=== PATIENT | male | born 1935 | race Caucasian/White ===

== ENCOUNTER → 2016-05-26 | Outpatient (CLI) | payer MEDICARE ==
[~2016-05-26] MED LIST: ADVIN25/60 INH; ALBU18002 INH; ALBU1AER9 INH; AMOX500C3 PO; ASPI-113 PO; CIPR0.3S OTR; LOSA100T65 PO; MULT-506 PO; OMEP40CA41 PO; PRVC/20 PO
[2016-05-26 12:46] LABS: ALT/SGPT 26 U/L (12-78); BLOOD UREA NITROGEN 12 mg/dl (7-18); BUN/CREATININE RATIO 13.8 (10-20); CARBON DIOXIDE 27 mmol/L (21-32); CHLORIDE 108 mmol/L (98-107); CHOLESTEROL 196 mg/dl (0-200); CREATININE 0.84 mg/dl (0.60-1.40); GLUCOSE 87 mg/dl (70-99); POTASSIUM 3.9 mmol/L (3.5-5.1); SODIUM 141 mmol/L (136-145); TRIGLYCERIDES 96 mg/dl (0-150); VERY LOW DENSITY LIPOPROT CALC 19 mg/dl
[2016-05-26 12:57] LABS: ALB/GLOB RATIO 1.2 (0.9-2); ALKALINE PHOSPHATASE 101 U/L (45-117); AST/SGOT 21 U/L (15-37); CHOLESTEROL/HDL RATIO 4.6; HDL CHOLESTEROL 43 mg/dl; LDL CHOLESTEROL CALCULATED 134 mg/dl
--- NOTE | 2016-06-02 11:55 | CODING QUERY MEDICAL NECESSITY ---
CQSUPPORTING DIAGNOSIS NEEDED A supporting diagnosis is required for the test/procedure performed on this patient in order for us to be reimbursed by the patient's insurance. Please provide a supporting diagnosis for the following test/procedure listed below next to the test name along with your signature. *If there is no additional diagnosis for this patient that would support the following test/procedure please document that below next to the test/procedure. Test(s)/Procedure(s) that require a supporting diagnosis: DOS 05/26/16 VITAMIN D TEST Provider Signature: Date: Thank you Nuvia Weiner [facility] Information Management Once completed, please kindly fax back to [phone] For questions please call [phone]
== END | disposition home or self-care (01) ==
LOC: C.LABPVFM 07:33
PROVIDERS: ATTEND Family Medicine
DX: Z13.21 Encounter for screening for nutritional disorder (principal); I25.10 Atherosclerotic heart disease of native coronary artery without angina pectoris; E78.5 Hyperlipidemia, unspecified; I10 Essential (primary) hypertension; I49.9 Cardiac arrhythmia, unspecified

== ENCOUNTER 2016-08-14 07:38 | Emergency (ER) | payer MEDICARE ==
[~2016-08-14] VITALS: Ht 170.2 cm; Wt 86.9 kg
[~2016-08-14 07:38] MED LIST changes: -ALBU18002 INH; -AMOX500C3 PO; -CIPR0.3S OTR; -MULT-506 PO
[2016-08-14 07:47] VITALS: PULSE 66; TEMP 36.6; O2SAT 97; Ht 170.2 cm; Wt 86.9 kg
[2016-08-14] MEDS ORDERED: MULT-506 PO (08:19)
[2016-08-14] MEDS ORDERED: ALBU18002 INH (08:20)
[2016-08-14] MEDS ORDERED: AMOXICILLIN 250 MG CAP PO STA (08:34)
[2016-08-14] MEDS ORDERED: CIPROFLOXACIN HCL 0.3% OP SOLN 2.5 ML BTL OT ONE (08:45)
[2016-08-14] MEDS ORDERED: CIPR0.3S OTR (08:57)
[2016-08-14] MEDS ORDERED: AMOX500C3 PO (08:57)
--- NOTE | 2016-08-14 08:57 | EMERGENCY ROOM VISIT NOTE ---
ED Visit Note First contact with patient: 07:58 CHIEF COMPLAINT: Right ear pain 1 week HISTORY OF PRESENT ILLNESS: Patient is a 80-year-old white male who presents emergency department for evaluation of right ear pain 1 week. He complains of both inner and outer ear pain. He states that it hurts worse with pressure. 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 He has not been ill recently with any cold or upper respiratory symptoms. No sore throat, rhinorrhea, and fever or chills. No drainage or discharge from the ear. He states that the pain in his ear radiates into his jaw. He tried putting peroxide in his ear last night. The pain was worse this morning. He has a sensation that he has "water in his ear." He denies any lightheadedness or dizziness. He is completely edentulous, and denies any dental or mouth pain. REVIEW OF SYSTEMS: Review of systems as per HPI. All other systems reviewed were negative. 10 systems reviewed. PMH: Electronic medical records are reviewed and summarized as above/below. See Problem List. SOCIAL HISTORY: Patient lives at home. Smoker. PHYSICAL EXAM: Vital Signs: Reviewed Nurse's notes. MENTAL STATUS: Alert and cooperative. Nontoxic appearing. HEAD: Atraumatic, without temporal or scalp tenderness. EYES: PERRL, EOMI, no discharge or injection. EARS: Left tympanic membrane intact, not inflamed, have normal contour. External is clear. 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 There is tragal and auricular motion tenderness on the right. The ear is not erythematous or swollen. The ear is no pain or swelling over the mastoid. NOSE: Nares patent, turbinates moist with clear rhinorrhea. MOUTH: Mucous membranes moist, no lesions, tongue and gums appear normal. THROAT: No pharyngeal injection, exudates, or tonsillar hypertrophy. Airway is patent. NECK: Supple, nontender, no lymphadenopathy. HEART: Regular rate and rhythm without murmurs, ectopy, gallops, or rubs. LUNGS: Clear to auscultation and breath sounds equal, no wheezes, rales, or rhonchi. SKIN: Normal. Large lipoma noted in the right occipital area. NEUROLOGICAL: Sensory and motor functions grossly intact. Normal gait. ED course: The patient was seen and assessed as above. His old records are reviewed. He does appear to have evidence for a otitis media, with a chronic perforation, likely causing an otitis externa as well. Ciloxan drops were instilled in the ear canal and he will be placed on amoxicillin. He was encouraged to have close follow-up with his PCP. He may need to be seen by ENT , however this does appear to be a chronic perforation. He does not have any evidence for post-pharyngitis, mastoiditis or a cellulitis. I do not suspect a malignant otitis externa. The patient declined narcotic analgesia. Blood pressure screening: Patient was found to have an elevated blood pressure and was referred to their primary doctor for recheck and further treatment. Medication reconciliation: I attest that I have personally reviewed the patient' s current medication list. 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 (2) COPD (chronic obstructive pulmonary disease) Status: Chronic (3) Epistaxis Status: Resolved (4) Esophageal obstruction due to food impaction Status: Resolved (5) Esophageal Stricture Status: Chronic (6) Hyperlipidemia, Unspecified Status: Chronic (7) Hypertension Nos Status: Chronic Surgical Problems: (1) Percutaneous Translum Coron Angioplasty Status Status: Resolved Current/Historical Medications Scheduled Amoxicillin (Amoxil), 500 MG PO TID Aspirin Enteric Coated (Ecotrin Or Generic), 325 MG PO BID Ciprofloxacin Hcl (Ophth) (Ciloxan Oph), 4 DROP OTR QID Losartan Potassium (Cozaar), 100 MG PO DAILY Multivitamin (Multivitamin), 1 TAB PO DAILY Pravastatin Sod (Pravastatin Sodium), 20 MG PO Q2D Scheduled PRN Albuterol Sulfate (Proair Respiclick), 2 PUFFS INH Q4 PRN for SOB/Wheezing Fluticasone Prop/Salmeterol (Advair Diskus 250/50 60 Dose), 1 PUFF INH Q12 PRN for SOB/Wheezing Allergies Coded Allergies: No Known Allergies (Verified , 08/14/16) Vital Signs Date Time Temp Pulse Resp B/P (MAP) Pulse Ox O2 Delivery O2 Flow Rate FiO2 08/14/16 09:24 178/92 08/14/16 07:47 36.6 66 18 186/90 97 Room Air Medications Administered Medications (Trade) Dose Ordered Sig/Fransisca Route Start Time Stop Time Status Last Admin Dose Admin Amoxicillin (Amoxil Cap) 500 mg NOW STAT PO 08/14/16 08:34 08/14/16 08:36 DC 08/14/16 09:03 500 MG Ciprofloxacin HCl (Ciprofloxacin 0.3% Op Soln) 4 drops Q4H ONCE OT 08/14/16 08:45 08/14/16 08:53 DC 08/14/16 09:03 4 DROPS Departure Information Impression Primary Impression: Right otitis externa Additional Impression: Right otitis media Prescriptions Ciprofloxacin Hcl (Ophth) (CILOXAN OPH) 0.3 % Luly 4 DROP OTR QID, #1 BTL Prov: Stephanie Rose PA 08/14/16 Amoxicillin (AMOXIL) 500 Mg Cap 500 MG PO TID, #30 CAP Prov: Stephanie Rose PA 08/14/16 Referrals Luna You M.D. (PCP) Patient Instructions My [facility] Additional Instructions Amoxicillin 500mg: Take one pill 3 times daily for 10 days for your skin infection. All antibiotics can cause diarrhea. If this occurs and you feel worse or it does not resolve in 1-2 days follow up with your doctor or return to the Emergency Department as this could be signs of serious underlying problems. Any medication can cause an allergic reaction, stop the pills immediately and return to the ER for rash, hives, breathing difficulties, or swelling. Cipro drops : 4 drops in the right ear 4 times daily for 7 days. Ibuprofen(Motrin, Advil) may be used for fever or pain. Use 600mg every six hours as needed. Take with food. Avoid using more than 2400mg in a 24 hour period. Do not use 2400mg per day for more than three consecutive days without physician direction. Prolonged inappropriate use can lead to stomach upset or ulcers. (AND/OR) Acetaminophen(Tylenol) may be used for fever or pain. Use 1000mg every six hours as needed. Avoid using more than 3000mg in a 24 hour period. Continue current medications. Follow-up with your primary care physician this week for recheck. Return to the emergency department for worsening ear pain, fevers, neck pain or stiffness, vomiting, severe headaches, worsening symptoms or as needed. Problem Qualifiers Primary Impression: Right otitis externa Otitis externa type: other infective Chronicity: acute Qualified Codes: H60.391 - Other infective otitis externa, right ear Additional Impression: Right otitis media Otitis media type: suppurative Chronicity: acute Recurrence: not specified as recurrent Spontaneous tympanic membrane rupture: without spontaneous rupture Qualified Codes: H66.001 - Acute suppurative otitis media without spontaneous rupture of ear drum, right ear
[2016-08-14 09:24] VITALS: BP 178/92
--- NOTE | 2016-08-14 15:21 | EMERGENCY ROOM VISIT NOTE ---
ED Visit Note First contact with patient: 07:58 I have personally evaluated this patient examined her and reviewed the pertinent labs and data. I have discussed the case with Bushra Rose, the physician assistant passenger locomotive engineer and agree with the plan. Please refer to the PA note. This patient comes in with left-sided ear pain. On exam his tympanic membranes has purulence behind her with some drainage in the canal as well. The pinna is not swollen but is mildly tender. He has no findings to suggest mastoiditis. He is nontoxic. There is nothing to suggest malignant otitis externa. We will give him oral antibiotics as well as eardrops as it does appear that he has otitis externa as well as media. He should follow-up with his regular doctor and return if symptoms get worse.
== END 2016-08-14 09:25 | disposition home or self-care (01) ==
LOC: C.EDB 07:40
DX: H60.391 Other infective otitis externa, right ear (principal); H66.001 Acute suppurative otitis media without spontaneous rupture of ear drum, right ear; I25.10 Atherosclerotic heart disease of native coronary artery without angina pectoris; J44.9 Chronic obstructive pulmonary disease, unspecified; E78.5 Hyperlipidemia, unspecified; I10 Essential (primary) hypertension; Z79.82 Long term (current) use of aspirin

== ENCOUNTER → 2016-12-04 | Outpatient (CLI) | payer MEDICARE ==
[~2016-12-04] MED LIST changes: +ALBU18002 INH; -ALBU1AER9 INH; +MULT-506 PO; -OMEP40CA41 PO
[2016-12-04 13:44] LABS: ALT/SGPT 19 U/L (12-78); AST/SGOT 11 U/L (15-37); BLOOD UREA NITROGEN 11 mg/dl (7-18); BUN/CREATININE RATIO 12.8 (10-20); CALCIUM 8.6 mg/dl (8.5-10.1); CARBON DIOXIDE 26 mmol/L (21-32); CHLORIDE 107 mmol/L (98-107); CREATININE 0.83 mg/dl (0.60-1.40); GLUCOSE 90 mg/dl (70-99); POTASSIUM 4.1 mmol/L (3.5-5.1); SODIUM 139 mmol/L (136-145)
[2016-12-04 13:47] LABS: ALB/GLOB RATIO 1.1 (0.9-2); ALKALINE PHOSPHATASE 97 U/L (45-117); CHOLESTEROL 171 mg/dl (0-200); CHOLESTEROL/HDL RATIO 4.3; HDL CHOLESTEROL 40 mg/dl; LDL CHOLESTEROL CALCULATED 101 mg/dl; TRIGLYCERIDES 149 mg/dl (0-150); VERY LOW DENSITY LIPOPROT CALC 30 mg/dl
== END | disposition home or self-care (01) ==
LOC: C.LABPVFM 07:33
PROVIDERS: ATTEND Family Medicine
DX: J44.9 Chronic obstructive pulmonary disease, unspecified (principal); I25.10 Atherosclerotic heart disease of native coronary artery without angina pectoris; E78.5 Hyperlipidemia, unspecified; I10 Essential (primary) hypertension

== ENCOUNTER → 2017-06-06 | Outpatient (CLI) | payer MEDICARE ==
[2017-06-06 14:10] LABS: ALBUMIN 3.5 gm/dl (3.4-5.0); ALKALINE PHOSPHATASE 99 U/L (45-117); AST/SGOT 12 U/L (15-37); BLOOD UREA NITROGEN 14 mg/dl (7-18); CALCIUM 8.8 mg/dl (8.5-10.1); CARBON DIOXIDE 27 mmol/L (21-32); CREATININE 0.88 mg/dl (0.60-1.40); GLUCOSE 87 mg/dl (70-99); POTASSIUM 3.8 mmol/L (3.5-5.1); SODIUM 141 mmol/L (136-145)
[2017-06-06 14:14] LABS: ALT/SGPT 21 U/L (12-78); CHOLESTEROL 141 mg/dl (0-200); LDL CHOLESTEROL CALCULATED 84 mg/dl; TOTAL PROTEIN 7.2 gm/dl (6.4-8.2)
== END | disposition home or self-care (01) ==
LOC: C.LABPVFM 07:27
PROVIDERS: ATTEND Family Medicine
DX: J44.9 Chronic obstructive pulmonary disease, unspecified (principal); I25.10 Atherosclerotic heart disease of native coronary artery without angina pectoris; Z95.5 Presence of coronary angioplasty implant and graft; I10 Essential (primary) hypertension; E78.5 Hyperlipidemia, unspecified

== ENCOUNTER 2018-06-21 09:46 | Inpatient (IN) ==
--- NOTE | 2018-06-05 09:37 | PAT Medication Instructions ---
Medication Instructions Date of Service June 05, 2018 Home Medications albuterol sulfate [ProAir HFA] 2 puff INHALATION Q4 PRN fluticasone propion-salmeterol 1 inh INHALATION Q12H PRN amlodipine 10 mg PO QAM aspirin 325 mg PO BID calcium carbonate [Calcium 600] 600 mg PO QAM multivitamin 1 tab PO QAM pravastatin [Pravachol] 20 mg PO QAM ASK your prescriber and surgeon aspirin 325 mg PO BID DO NOT take the morning of surgery calcium carbonate [Calcium 600] 600 mg PO QAM multivitamin 1 tab PO QAM Take morning of surgery With a small sip of water, OTHERWISE NOTHING TO EAT OR DRINK AFTER MIDNIGHT: albuterol sulfate [ProAir HFA] 2 puff INHALATION Q4 PRN (use if needed; please bring with you to hospital day of surgery if possible) fluticasone propion-salmeterol 1 inh INHALATION Q12H PRN (if needed) amlodipine 10 mg PO QAM pravastatin [Pravachol] 20 mg PO QAM Take evening before surgery albuterol sulfate [ProAir HFA] 2 puff INHALATION Q4 PRN (if needed) fluticasone propion-salmeterol 1 inh INHALATION Q12H PRN (if needed) Other Notes If you have any questions please call us at [phone] or [phone] or [phone] or [phone]
--- NOTE | 2018-06-06 09:04 | Anesthesiology Consultation ---
Date of Service June 06, 2018 Assessment & Plan (1) Encounter for pre-operative examination: - Cardio: 06/12/18: "Pending the results of the echo, patient is at an acceptable risk to proceed with surgery without any additional cardiovascular testing or intervention.. Recommend close monitoring and avoidance of hypotension, hypertension, tachycardia, hypoxia, and significant anemia throughout the perioperative period to reduce myocardial oxygen demand and meet myocardial oxyg en delivery." ECHO done 06/18/18; unremarkable findings (see testing section for details). - Per surgeon, okay to continue ASA perioperatively* Chart Review Chart Review: Acceptable Risk for Surgery and Patient seen in Pre Admission Testing Consults Requested none Teaching & Discussion Pre-Anesthesia Teaching/Discussion Notes: Instructed NPO after midnight before surgery,except medications with 15 cc of water. Medication instructions provided according to the PAT guidelines. History Surgery Operation Date: 06/21/18 11:10 Proposed Procedures p Right Robotic Video-Assisted Thoracoscopy with Right Upper Lobe Wedge Resection, Possible Right Lower Lobectomy, with Mediastinal Lymphadenectomy - Zac Chu MD, FACS Height/Weight Height: 5 ft 7 in Weight: 87.8 kg Allergies Allergy/AdvReac Type Severity Reaction Status Date / Time No Known Allergies Allergy Verified 06/21/18 10:09 Medications Home Medications Medication Instructions Recorded Confirmed Last Taken albuterol sulfate [ProAir HFA] 2 puff INHALATION Q4 PRN 12/13/17 06/21/18 Unknown fluticasone propion-salmeterol 1 inh INHALATION Q12H PRN 12/13/17 06/21/18 Unknown [Advair Diskus] amlodipine 10 mg PO QAM 06/03/18 06/21/18 06/20/18 08:00 aspirin 325 mg PO BID 06/03/18 06/21/18 06/20/18 20:00 calcium carbonate [Calcium 600] 600 mg PO QAM 06/03/18 06/21/18 06/20/18 08:00 multivitamin 1 tab PO QAM 06/03/18 06/21/18 06/20/18 08:00 pravastatin [Pravachol] 20 mg PO QAM 06/03/18 06/21/18 06/20/18 08:00 Active Medications Generic Name Dose Route Start Last Admin Trade Name Freq PRN Reason Stop Dose Admin Lactated Ringer's 1,000 mls @ 15 mls/hr 06/21/18 06:00 06/21/18 10:13 Lr IV 06/22/18 05:59 15 mls/hr .Q24H MARC Administration Past Medical History Medical History Cancer LUNG- NO CHEMO OR RADIATION Hx of myocardial infarction = STENT X 1 COPD (chronic obstructive pulmonary disease) STABLE Hyperlipidemia Hypertension Past Family History Family History Mother Family history of diabetes mellitus Other No significant family history Past Surgical History Surgical History History of cardiac cath History of tooth extraction Past Anesthesia History No Hx of Anesthesia Complications ((GA NAIVE)) and No Family Hx of Anesthesia Complications History of PONV No Motion Sickness Screening History of Motion Sickness: No Social History Smoking Status: Current every day smoker tobacco type: cigarettes Smoking cigarettes per day: 1/2 PPD X 50+ YEARS Do You Dip or Chew Tobacco: No Hx Alcohol Use: No Hx Substance Use: No Exercise / Class Metabolic Activity III < 4 Walking/Shop/Light housework Review of Systems Occasional heartburn. Patient denies chest pain, shortness of breath, cough, wheezing, palpitations. Physical Exam Vital Signs Last Vital Signs Temp 37 C 06/21/18 10:11 Pulse 62 06/21/18 10:11 Resp 20 06/21/18 10:11 BP 146/95 H 06/21/18 10:11 Pulse Ox 94 06/21/18 10:11 VITALS BP 139/75 P 56 TEMP 97.7 SP02 95%RA RESP 20 PHYSICAL Full neck and c-spine range of motion. Full TMJ range of motion. TMD 3.5 finger breaths Mallampati Score 3 Dentition: full dentures upper/lower; edentulous Lungs: clear throughout to auscultation Cardiac: regular rate and rhythm, no murmurs noted Spine: normal Carotid arteries: negative bruit Extremities: no edema Testing Electrocardiogram Date: 12/13/17 SB with first degree AVB at 57bpm. NS STA. Echocardiogram Date: 06/18/18 EF 60-65%. No RWMA. Mild cLVH. Mild TR. Grade I DD. Laboratory Results 06/06/18 09:26 06/06/18 09:26 Blood Type B Negative 06/06/18 09:26 Antibody Screen NEGATIVE 06/06/18 09:26
[2018-06-06 10:58] LABS: Basophils # (auto) 0.03 K/uL (0-0.2); Basophils % (auto) 0.3 %; Eosinophils # (auto) 0.16 K/uL (0-0.5); Eosinophils % (auto) 1.8 %; Hematocrit (blood only) 41.5 % (42-52); Hemoglobin 14.2 g/dL (14.0-18.0); Immature Granulocytes # (auto) 0.01 K/uL (0.00-0.02); Immature Granulocytes % (auto) 0.1 %; Lymphocytes # (auto) 2.78 K/uL (1.2-3.4); Lymphocytes % (auto) 31.9 %; Mean Corpuscular Hgb Conc 34.2 g/dL (32-36); Mean Corpuscular Volume 94.3 fL (80-100); Mean Platelet Volume 11.3 fL (7.4-10.4); Monocytes # (auto) 0.57 K/uL (0.11-0.59); Monocytes % (auto) 6.5 %; Neutrophils # (auto) 5.16 K/uL (1.4-6.5); Neutrophils % (auto) 59.4 %; Platelet Count 206 K/uL (130-400); RDW Coefficient of Variation 13.9 % (11.5-14.5); RDW Standard Deviation 48.2 fL (36.4-46.3); White Blood Count 8.71 K/uL (4.8-10.8)
[2018-06-06 11:08] LABS: BUN Creatinine Ratio 17.6 (10-20); Calcium 9.8 mg/dl (8.5-10.1); Creatinine Clr Calc Pharmacy 90.3 ml/min; Est GFR (African American) 103.9; Est GFR (Non-African American) 89.7; Potassium 3.8 mmol/L (3.5-5.1)
[~2018-06-21 09:46] MED LIST changes: -ADVIN25/60 INH; -ALBU18002 INH; -ASPI-113 PO; -LOSA100T65 PO; +LR 15ML/HR IV SCH; -MULT-506 PO; -PRVC/20 PO
[2018-06-21] MEDS ORDERED: ONDANSETRON INJ 2 MG/ML 2 ML VIAL IV PRN ×2 (11:09→16:11)
[2018-06-21] MEDS ORDERED: ePHEDrine sulfate 50 MG/ML AMP IV PRN (11:09)
[2018-06-21] MEDS ORDERED: fentaNYL citrate 100 MCG/2 ML VIAL IV PRN (11:09)
[2018-06-21] MEDS ORDERED: ATROPINE SULFATE 0.1 MG/ML 10ML SYR IV PRN (11:09)
[2018-06-21] MEDS ORDERED: HYDROmorphone INJ 1 MG/ML SYRINGE IV PRN (11:09)
--- NOTE | 2018-06-21 11:09 | History & Physical Bridge Note ---
Date of Service June 21, 2018 History & Physical Bridge Note I have examined the patient, reviewed the History & Physical and in the interval since the performance of the History & Physical I have noted the following changes of clinical significance: no changes noted. Due to unavailability of robot, we will proceed with a thoracoscopic right lower lobe wedge resection and probable lobectomy. Patient and family understand.
[2018-06-21] MEDS ORDERED: BUPIVACAINE LIPOSOME 1.3% 266 MG/20 ML VIAL ONE (11:26)
[2018-06-21] MEDS ORDERED: BUPIVACAINE 0.5 % 5 MG/1 ML MPF 30ML VIAL ONE (11:26)
[2018-06-21] MEDS ORDERED: SODIUM CHLORIDE 0.9% PF 50 ML VIAL ONE (11:26)
[2018-06-21] MEDS ORDERED: ONDANSETRON INJ 2 MG/ML 2 ML VIAL ONE (11:29)
[2018-06-21] MEDS ORDERED: fentaNYL citrate 100 MCG/2 ML VIAL ONE (11:29)
[2018-06-21] MEDS ORDERED: LIDOCAINE HCL 2% 2 ML VIAL/AMP(20MG/ML) INFIL ONE (11:29)
[2018-06-21] MEDS ORDERED: NEOSTIGMINE METHYLSULFATE 5 MG/5 ML SYR ONE (11:29)
[2018-06-21] MEDS ORDERED: DEXAMETHASONE SOD INJ 4 MG/ML VIAL ONE (11:29)
[2018-06-21] MEDS ORDERED: GLYCOPYRROLATE 0.2 MG/ML VIAL ONE ×2 (11:29→15:04)
[2018-06-21] MEDS ORDERED: PROPOFOL IV EMULSION 10 MG/ML 20 ML VIAL IV ONE (11:29)
[2018-06-21] MEDS ORDERED: CEFAZOLIN 250 MG/ML 1 GM VIAL ONE (12:33)
[2018-06-21] MEDS ORDERED: CEFAZOLIN 2000MG 2,000 MG/15 ML SYR IV ONE (12:39)
[2018-06-21] MEDS ORDERED: ROCURONIUM BROMIDE 10 MG/ML 5 ML VIAL ONE ×5 (13:02→13:19)
[2018-06-21] MEDS ORDERED: ePHEDrine sulfate 50 MG/ML SYR ONE (13:02)
[2018-06-21] MEDS ORDERED: METOCLOPRAMIDE HCL INJ 5 MG/ML 2 ML VIAL IV ONE (15:00)
--- NOTE | 2018-06-21 15:07 | XRay Report ---
XR chest 1V portable CLINICAL HISTORY: RLL postoperative COMPARISON STUDY: No previous studies for comparison. FINDINGS: Interval placement of right-sided chest tube. No significant postprocedural pneumothorax. M ild subcutaneous emphysema right hemithorax. Minimal atelectasis left base. IMPRESSION: No significant right hemithoracic postprocedural pneumothorax. Postoperative subcutaneou s emphysema. Minimal atelectasis left base. The above report was generated using voice recognition software. It may contain grammatical, syntax or spelling errors. Electronically signed by: Baldo Wagner M.D. 06/21/2018 3:06 PM
--- NOTE | 2018-06-21 16:01 | Anesthesiology Progress Note ---
Date of Service June 21, 2018 Anesthesia Post Procedure Vital Signs Vital Signs: Temp Pulse Resp BP Pulse Ox 06/21/18 15:55 36.4 C L 65 17 129/73 94 06/21/18 15:45 36.4 C L 63 22 122/67 94 06/21/18 15:35 36.4 C L 64 17 128/72 93 06/21/18 15:25 69 19 132/79 92 06/21/18 15:15 71 15 114/97 94 06/21/18 15:05 49 L 18 126/47 L 98 06/21/18 14:57 36.1 C L 52 L 18 127/60 98 06/21/18 10:11 37 C 62 20 146/95 H 94 Pain Intensity Right Lateral Neck: Pain Intensity: 5 Transfer of Care Handoff Completed per policy Notes Mental Status: alert / awake / arousable Patient Amnestic to Procedure: Yes Nausea / Vomiting: adequately controlled Pain: adequately controlled Airway Patency, RR, SpO2: stable & adequate BP & HR: stable & adequate Hydration State: stable & adequate Anesthetic Complications: no major complications apparent
[2018-06-21] MEDS ORDERED: FLUTICASONE/SALMETEROL 250/50 (ADVAIR) 14 PUFF/1 INHALER INH PRN (16:11)
[2018-06-21] MEDS ORDERED: MoRPHine SULFATE 2 MG/ML CARP IV PRN (16:11)
[2018-06-21] MEDS ORDERED: OXYCODONE HCL IR 5 MG TAB (IMMEDIATE RELEASE) PO PRN (16:11)
[2018-06-21] MEDS ORDERED: METOCLOPRAMIDE HCL INJ 5 MG/ML 2 ML VIAL IV SCH (16:30)
[2018-06-21] MEDS ORDERED: ALBUTEROL HFA 8 GM INHALER INH PRN (16:30)
[2018-06-21] MEDS: D5W AND 1/2NSS 1,000 ML IV SCH (16:34)
[2018-06-21] MEDS: ACETAMINOPHEN 1,000 MG/100 ML VIAL IV SCH (17:27)
[2018-06-21] MEDS: DOCUSATE SODIUM 100 MG CAP PO SCH ×2 (20:58→22:25)
[2018-06-21] MEDS: ASPIRIN 325 MG ECTAB PO SCH (20:58)
[2018-06-21] MEDS: METOCLOPRAMIDE HCL INJ 5 MG/ML 2 ML VIAL IV SCH (22:03)
--- NOTE | 2018-06-21 23:32 | Operative Report ---
DATE OF OPERATION: 06/21/2018 DATE OF PROCEDURE: 06/21/2018 PREOPERATIVE DIAGNOSIS: Hypermetabolic mass, right lower lobe. POSTOPERATIVE DIAGNOSIS: Adenocarcinoma, right lower lobe. PROCEDURE: 1. Right thoracoscopy with wedge resection. 2. Thoracoscopic right lower lobectomy. 3. Thoracoscopic mediastinal lymphadenectomy. SURGEON: Zac Chu MD PORTABLE ROUTER OPERATOR: ROBERT Hu (Mr. Pride was present for the entire case and closed the skin incisions at the conclusion). ANESTHESIA: General anesthesia, endotracheal intubation with a double lumen tube. INDICATION FOR PROCEDURE AND FINDINGS: Mr. Coleman is a very nice 82-year-old male who was found to have a hypermetabolic mass in his right lower lobe which is asymptomatic. He was worked up and the PET scan showed this hypermetabolic activity, but he did not have any evidence of metastatic disease. His lung function was well preserved. I had a long talk with the patient and the family and on 06/21/2018, I brought the patient to the operating room. There were issues with the robot availability, so we switched this to a thoracoscopic lobectomy on the day of the surgery. I explained this very carefully to the patient and his family and we discussed this in the office also. By 06/21/2018, the patient underwent an uncomplicated right thoracoscopy. We made 3 incisions. I was able to palpate this mass, although we could not see it and I wedged it out. Frozen section showed to be an adenocarcinoma. He had uncomplicated right lower lobectomy with mediastinal lymphadenectomy. He tolerated it well and was awakened in the operating room with negligible blood loss and no air leak. We did an Exparel block and he tolerated it quite well. PROCEDURE: The patient was brought to operating room and laid in supine position. General anesthesia induced. Endotracheal intubation was performed with a double lumen tube. This was positioned bronchoscopically. The patient was turned in the left lateral decubitus position. His right chest prepped and draped in usual sterile fashion. Approximately, at the fifth interspace anteriorly, I made an incision approximately 4 cm in length. I then made about a 12 mm incision mid axillary line, another 12 mm incision posterior axillary line, more superior. We had excellent visualization. With the use of the retractors, I was able to pull the upper lobe over and I was able to use a long grasper and could palpate the mass. I pulled this up and I fired an Endo-KATHI stapler under this and used an Endobag to remove it. This was sent for frozen section. While waiting for the frozen section, I took down the inferior pulmonary ligament and biopsied level 9 lymph node. I really did not see a level 8 even though we dissected out the pulmonary vein completely, both anteriorly and posteriorly. I continued up posteriorly and opened the pleura all the way up to the azygos vein. I then dissected out a level 7 lymph node which was actually about 3 separate lymph nodes and removed them. I also removed a level 11 lymph node from at the crotch of the takeoff of the upper lobe and the bronchus intermedius. I also dissected out level 10 node which was rather small and benign appearing. I then retracted the lung posteriorly and anteriorly. I dissected out the rest of the vein. I was easily able to get around the pulmonary vein and an Endo-KATHI stapler was fired across this without difficulty. This was then brought up and then we dissected out the bronchus from below and I then allowed the lung to go back to his regular position and then went into the fissure. We found the continuation of pulmonary artery and the fissure and I divided the superior segmental as well as the pulmonary artery, was divided just below the takeoff of the middle lobe artery. I did do this in 2 separate fires of the Endo-KATHI staplers, there were two branches and and divided early. This freed up things quite nicely and I completed the fissure anteriorly and posteriorly with an Endo-KATHI stapler. An Endo-KATHI stapler and fired across the bronchus just below the takeoff of the middle lobe. The lobe was then delivered off the field and sent for bronchial margin for frozen section which came back negative. Awaiting for this, we then took out the level 2 and level 4 lymph nodes on the right. These were not enlarged. We really had no air leak. We filled the chest with warm saline and inflated the lung. It should be noted that prior to the beginning the surgery, we mixed 266 mg of Exparel and 20 mL of solution with 30 mL of 0.5% bupivacaine and 250 mL of normal saline. This was injected into each of the 3 port sites and also used to perform an intercostal block from the 2nd-11th rib. We placed a chest tube through the inferior most port and directed towards the apex, sutured in place with heavy silk suture. On the other port, 0 Vicryl was used to close the muscle layers and 4-0 Monocryl in running subcuticular fashion to approximate the wound edges. He had really did not have an air leak and had negligible blood loss. This was an adenocarcinoma and the bronchial margins were free of cancer. He tolerated this quite well and was extubated in the room. I attest to the content of the Intraoperative Record and any orders documented therein. Any exceptions are noted below. MTDD
[2018-06-22] MEDS: ACETAMINOPHEN 1,000 MG/100 ML VIAL IV SCH ×4 (00:01→23:43)
[2018-06-22] MEDS: D5W AND 1/2NSS 1,000 ML IV SCH ×3 (02:31→23:41)
[2018-06-22] MEDS: METOCLOPRAMIDE HCL INJ 5 MG/ML 2 ML VIAL IV SCH ×4 (05:11→22:15)
[2018-06-22 06:13] LABS: Hematocrit (blood only) 38.2 % (42-52); Hemoglobin 13.4 g/dL (14.0-18.0); Immature Granulocytes # (auto) 0.05 K/uL (0.00-0.02); Immature Granulocytes % (auto) 0.3 %; Lymphocytes # (auto) 1.93 K/uL (1.2-3.4); Lymphocytes % (auto) 11.9 %; Mean Corpuscular Hgb Conc 35.1 g/dL (32-36); Mean Corpuscular Volume 92.9 fL (80-100); Mean Platelet Volume 10.1 fL (7.4-10.4); Monocytes # (auto) 1.15 K/uL (0.11-0.59); Monocytes % (auto) 7.1 %; Neutrophils # (auto) 13.06 K/uL (1.4-6.5); Neutrophils % (auto) 80.7 %; Platelet Count 194 K/uL (130-400); RDW Coefficient of Variation 13.8 % (11.5-14.5); RDW Standard Deviation 46.9 fL (36.4-46.3); Red Blood Count 4.11 M/uL (4.7-6.1); White Blood Count 16.19 K/uL (4.8-10.8)
[2018-06-22 06:27] LABS: Partial Thromboplastin Time 27.6 Seconds (21.0-31.0); Prothrombin Time 10.6 Seconds (9.0-12.0)
[2018-06-22 06:37] LABS: BUN Creatinine Ratio 13.7 (10-20); Calcium 8.5 mg/dl (8.5-10.1); Creatinine Clr Calc Pharmacy 65.7 ml/min; Est GFR (African American) 89.5; Est GFR (Non-African American) 77.3
--- NOTE | 2018-06-22 07:10 | XRay Report ---
XR chest 1V portable CLINICAL HISTORY: RLL postoperative evaluation COMPARISON STUDY: Lidocaine 2019 FINDINGS: Mild interval pullback of the patient's right chest tube. Lungs remain grossly clear. No evidence pneumothorax. Subcutaneous emphysematous change is perhaps sl ightly increased. IMPRESSION: 1. Slight increase in subcutaneous emphysema. 2. No evidence for pneumothorax. The above report was generated using voice recognition software. It may contain grammatical, syntax or spelling errors. Electronically signed by: Baldo Wagner M.D. 06/22/2018 7:09 AM
[2018-06-22] MEDS: AMLODIPINE BESYLATE 5 MG TAB PO SCH ×2 (08:45→11:11)
[2018-06-22] MEDS: ASPIRIN 325 MG ECTAB PO SCH ×2 (08:45→20:28)
[2018-06-22] MEDS: MULTIVITAMIN TAB PO SCH (08:47)
[2018-06-22] MEDS: CALCIUM 600MG + VIT D 400 IU TAB PO SCH (08:47)
[2018-06-22] MEDS: DOCUSATE SODIUM 100 MG CAP PO SCH ×2 (08:47→20:28)
[2018-06-22] MEDS: PRAVASTATIN SOD 20 MG TAB PO SCH (08:48)
--- NOTE | 2018-06-22 09:06 | Anesthesiology Progress Note ---
Date of Service June 22, 2018 Anesthesia Post Procedure Vital Signs Vital Signs: Temp Pulse Resp BP Pulse Ox Pulse Ox 06/22/18 08:10 36.7 C 63 18 119/64 94 06/22/18 05:50 63 18 94 06/22/18 04:05 36.6 C 66 18 134/66 91 06/22/18 02:05 36.7 C 68 16 113/65 91 06/22/18 00:05 36.7 C 71 16 128/72 90 06/21/18 22:15 36.7 C 72 16 115/64 90 06/21/18 20:40 93 06/21/18 20:18 36.7 C 78 17 123/71 92 06/21/18 19:10 36.4 C L 68 17 123/69 92 06/21/18 18:11 36.5 C 65 17 121/71 90 06/21/18 17:13 36.4 C L 72 17 128/64 90 06/21/18 16:39 35.5 C L 61 18 129/70 90 06/21/18 16:10 36.3 C L 75 16 131/70 93 93 06/21/18 15:55 36.4 C L 65 17 129/73 94 06/21/18 15:45 36.4 C L 63 22 122/67 94 06/21/18 15:35 36.4 C L 64 17 128/72 93 06/21/18 15:25 69 19 132/79 92 06/21/18 15:15 71 15 114/97 94 06/21/18 15:05 49 L 18 126/47 L 98 06/21/18 14:57 36.1 C L 52 L 18 127/60 98 06/21/18 10:11 37 C 62 20 146/95 H 94 Pain Intensity Right Lateral Neck: Pain Intensity: 5 Back: Pain Intensity: 7 Notes Mental Status: alert / awake / arousable and participated in evaluation Patient Amnestic to Procedure: Yes Nausea / Vomiting: adequately controlled Pain: adequately controlled Airway Patency, RR, SpO2: stable & adequate BP & HR: stable & adequate Hydration State: stable & adequate Anesthetic Complications: no major complications apparent and Pt Satisfied with anesthetic care
[2018-06-22] MEDS: ENOXAPARIN INJ 40 MG/0.4 ML SYR SQ SCH (11:31)
--- NOTE | 2018-06-22 14:38 | Progress Note ---
DATE: 06/22/2018 Mr. Coleman was seen today. From a thoracic surgical standpoint after his lobectomy, he looks good. His x-ray shows no pneumothorax or effusion. He does have some subcutaneous emphysema, but he has no air leak. He has drained very little fluid. His saturations are 95% on room air and he sounds good on exam. He has some minor pain, but quite frankly, I think he looks great. His white count this morning is 16,190 which is probably margination from his surgery. His hemoglobin looks fine. His blood sugars have been good. His BUN and creatinine are quite good. I thought his x-ray looked quite good. We have encountered a problem with Mr. Coleman. Mr. Coleman has a history of a food impaction with a Schatzki's ring. He never sought followup for this and actually had problems preoperatively which were essentially not disclosed. He cannot really swallow at all now. We are going to hold him n.p.o., continue IV fluids and have gastroenterology see him. He probably needs to be dilated. I will leave this up to the mail superintendent.
[2018-06-23] MEDS: METOCLOPRAMIDE HCL INJ 5 MG/ML 2 ML VIAL IV SCH ×4 (05:04→22:30)
[2018-06-23] MEDS: DOCUSATE SODIUM 100 MG CAP PO SCH ×2 (07:42→20:59)
[2018-06-23] MEDS: ENOXAPARIN INJ 40 MG/0.4 ML SYR SQ SCH (07:43)
[2018-06-23] MEDS: ACETAMINOPHEN 1,000 MG/100 ML VIAL IV SCH ×3 (07:43→23:38)
[2018-06-23] MEDS: PRAVASTATIN SOD 20 MG TAB PO SCH (07:44)
[2018-06-23] MEDS: AMLODIPINE BESYLATE 5 MG TAB PO SCH (07:44)
[2018-06-23] MEDS: ASPIRIN 325 MG ECTAB PO SCH ×2 (07:45→20:59)
[2018-06-23] MEDS: MULTIVITAMIN TAB PO SCH (07:47)
[2018-06-23] MEDS: CALCIUM 600MG + VIT D 400 IU TAB PO SCH (07:47)
--- NOTE | 2018-06-23 09:16 | Gastrointestinal Consultation ---
Date of Consultation June 23, 2018 Assessment & Plan (1) Dysphagia: 82 yo male with a long history of GERD and dysphagia who is s/p RLL lung resection/lobectomy for adenoCA. Tolerated well but now with complaints of dysphagia with solids. - EGD with dilation tomorrow. - Please make patient NPO after midnight. Present on Admission?: Yes History of Present Illness Reason for Consultation: long standing dysphagia and h/o schatzki ring as well as food impactions Attending Physician: Zac Chu MD, [facility] History of Present Illness Mr. Coleman is an 82 yo male with CAD, COPD, HTN, and a history of tobacco abuse who was found to have a hypermetabolic lung lesion on imaging and ultimately underwent a thoracoscopic RLL lung wedge resection and lobectomy on 06/21. The path is consistent with adenocarcinoma. He is recovering from the surgery but has noted that he has had problems for quite some time with dysphagia, especially with solids. He has had food get stuck at times. He was in the ER with a food bolus in August of 2015 and required an EGD for removal of the bolus. Noted to have esophagitis at that time. Allergies Allergy/AdvReac Type Severity Reaction Status Date / Time No Known Allergies Allergy Verified 06/21/18 10:09 Home Medications Home Medications Medication Instructions Recorded Confirmed Type albuterol sulfate [ProAir HFA] 2 puff INHALATION Q4 PRN 12/13/17 06/21/18 History fluticasone propion-salmeterol 1 inh INHALATION Q12H PRN 12/13/17 06/21/18 History [Advair Diskus] amlodipine 10 mg PO QAM 06/03/18 06/21/18 History aspirin 325 mg PO BID 06/03/18 06/21/18 History calcium carbonate [Calcium 600] 600 mg PO QAM 06/03/18 06/21/18 History multivitamin 1 tab PO QAM 06/03/18 06/21/18 History pravastatin [Pravachol] 20 mg PO QAM 06/03/18 06/21/18 History Patient History Medical History Cancer LUNG- NO CHEMO OR RADIATION Hx of myocardial infarction = STENT X 1 COPD (chronic obstructive pulmonary disease) STABLE Hyperlipidemia Hypertension Surgical History History of cardiac cath 1990'S History of tooth extraction Family History Mother Family history of diabetes mellitus Other No significant family history Social History Preferred Language: Vincentian Communication Ability: Effective Beliefs That Will Affect Care: None Current Living Situation: Spouse Other Information That Helps Us Care for You: No Feels Safe at Home: Yes Safety Concerns: Feels Safe At This Time Smoking Status: Current every day smoker Tobacco Type: cigarettes Cigarettes Per Day: 1/2 PPD X 50+ YEARS Do You Dip or Chew Tobacco: No Hx Alcohol Use: No Hx Substance Use: No Review of Systems Review of Systems: 12 systems reviewed and negative excpet as noted Physical Exam Constitutional: WD/WN, vitals as above Respiratory: normal respiratory effort, lungs clear to auscultation Cardiovascular: RRR, no murmur, no edema Gastrointestinal (Abdomen): normal bowel sounds, soft, nontender, no hepatosplenomegaly Results & Data Vital Signs (Past 12 Hours) Vital Signs Temp Pulse Resp BP Pulse Ox 06/23/18 07:00 36.6 C 75 18 166/83 H 92 06/23/18 05:12 71 92 06/22/18 22:52 36.7 C 71 18 161/78 H 91
--- NOTE | 2018-06-23 10:07 | Progress Note ---
DATE: 06/23/2018 Mr. Coleman is seen today. He looks very good. He has a tiny intermittent air leak. We are going to keep his chest tube in 1 more day. He has drained some serous fluid. His subcutaneous emphysema is decreased clinically. He states he feels much better, is now able to swallow. He has been tolerating clear liquids. I discussed this with Dr. Anderson from gastroenterology. I believe this patient has an esophageal stricture and needs a dilatation. From a thoracic surgery standpoint, I am pleased and we will get his chest tube out and from our standpoint, he could probably be discharged tomorrow. Dr. Anderson states they will proceed with an upper endoscopy in the morning.
[2018-06-23] MEDS: D5W AND 1/2NSS 1,000 ML IV SCH (23:09)
[2018-06-24] MEDS: METOCLOPRAMIDE HCL INJ 5 MG/ML 2 ML VIAL IV SCH ×2 (04:55→11:13)
--- NOTE | 2018-06-24 08:32 | XRay Report ---
XR chest 1V portable CLINICAL HISTORY: chest tube removal postoperative COMPARISON STUDY: 06/22/2017 FINDINGS: Persistent unchanging subcutaneous emphysema throughout the right and to lesser extent left hemithorax and lower cervical regions. Interval removal of the right basilar chest tube. No signific ant pneumothorax. IMPRESSION: 1. No significant pneumothorax post right chest tube removal. 2. Unchanging subcutaneous emphysema The above report was generated using voice recognition software. It may contain grammatical, syntax or spelling errors. Electronically signed by: Baldo Wagner M.D. 06/24/2018 8:30 AM
--- NOTE | 2018-06-24 08:50 | Progress Note ---
DATE: 06/24/2018 Mr. Coleman was seen today. He remains on room air. He is ambulating. A bit irritated being in the hospital and really would like to just go home. I removed his chest tube today. Pulse oximetry is 93% on room air. He has no air leak and drained very little fluid. A chest x-ray is pending after chest tube removal. I discussed this case with Dr. Olivia Anderson yesterday and we are going to proceed with an upper endoscopy with a probable dilatation today. I may discharge him this afternoon when he awakened from anesthesia.
[2018-06-24] MEDS ORDERED: LIDOCAINE HCL 2% 2 ML VIAL/AMP(20MG/ML) INFIL ONE (09:20)
[2018-06-24] MEDS ORDERED: PROPOFOL IV EMULSION 10 MG/ML 20 ML VIAL IV ONE (09:20)
--- NOTE | 2018-06-24 09:21 | Anesthesiology Consultation ---
Date of Service June 24, 2018 The patient had a R VATS on 06/21/18. Assessment & Plan (1) Encounter for pre-operative examination: Chart Review Chart Review: Acceptable Risk for Surgery and Patient NOT seen in Pre Admission Testing Consults Requested none History Surgery Operation Date: 06/21/18 11:10 Proposed Procedures p Right Video-Assisted Thoracoscopy with Right Upper Lobe Wedge Resection, Possible Right Lower Lobectomy, with Mediastinal Lymphadenectomy - Zac Chu MD, FACS Operation Date: 06/24/18 09:45 Proposed Procedures p Esophagogastroduodenoscopy Dr Griffin - Aldo Griffin Height/Weight Height: 5 ft 6 in Weight: 87.589 kg Allergies Allergy/AdvReac Type Severity Reaction Status Date / Time No Known Allergies Allergy Verified 06/21/18 10:09 Medications Home Medications Medication Instructions Recorded Confirmed Last Taken albuterol sulfate [ProAir HFA] 2 puff INHALATION Q4 PRN 12/13/17 06/21/18 Unknown fluticasone propion-salmeterol 1 inh INHALATION Q12H PRN 12/13/17 06/21/18 Unknown [Advair Diskus] amlodipine 10 mg PO QAM 06/03/18 06/21/18 06/20/18 08:00 aspirin 325 mg PO BID 06/03/18 06/21/18 06/20/18 20:00 calcium carbonate [Calcium 600] 600 mg PO QAM 06/03/18 06/21/18 06/20/18 08:00 multivitamin 1 tab PO QAM 06/03/18 06/21/18 06/20/18 08:00 pravastatin [Pravachol] 20 mg PO QAM 06/03/18 06/21/18 06/20/18 08:00 Active Medications Generic Name Dose Route Start Last Admin Trade Name Freq PRN Reason Stop Dose Admin Amlodipine Besylate 10 mg 06/22/18 09:00 06/23/18 07:44 Norvasc PO 07/22/18 08:59 10 mg QAM MARC Administration Aspirin 325 mg 06/21/18 21:00 06/23/18 20:59 Ecotrin PO 07/21/18 20:59 325 mg BID MARC Administration Docusate Sodium 100 mg 06/21/18 21:00 06/23/18 20:59 Colace PO 07/21/18 20:59 100 mg BID MARC Administration Enoxaparin Sodium 40 mg 06/22/18 09:00 06/23/18 07:43 Lovenox SQ 07/22/18 08:59 40 mg QAM MARC Administration Acetaminophen 1,000 mg in 100 mls @ 400 mls/hr 06/21/18 16:30 06/23/18 23:58 Ofirmev IV 07/21/18 16:29 Infused Q8H MARC Infusion Metoclopramide HCl 10 mg 06/21/18 23:00 06/24/18 04:55 Reglan IV 07/21/18 22:59 10 mg Q6H MARC Administration Multivitamins 1 tab 06/22/18 09:00 06/23/18 07:47 Multivitamin Tab PO 07/22/18 08:59 Not Given QAM MARC Multivitamins/Minerals 1 tab 06/22/18 09:00 06/23/18 07:47 Caltrate Plus PO 07/22/18 08:59 Not Given QAM MARC Ondansetron HCl 4 mg 06/21/18 16:11 06/21/18 18:07 Zofran IV 07/21/18 16:10 4 mg Q4H PRN Administration Nausea And Vomiting Pravastatin Sodium 20 mg 06/22/18 09:00 06/23/18 07:44 Pravachol PO 07/22/18 08:59 20 mg QAM MARC Administration NPO Date Last Intake of Fluids: 06/23/18 Time Last Intake of Fluids: 23:00 Date Last Intake of Solids: 06/23/18 Time Last Intake of Solids: 23:00 Past Medical History Medical History Cancer LUNG- NO CHEMO OR RADIATION Hx of myocardial infarction = STENT X 1 COPD (chronic obstructive pulmonary disease) STABLE Hyperlipidemia Hypertension Past Family History Family History Mother Family history of diabetes mellitus Other No significant family history Past Surgical History Surgical History History of cardiac cath History of tooth extraction Social History Smoking Status: Current every day smoker tobacco type: cigarettes Smoking cigarettes per day: 1/2 PPD X 50+ YEARS Do You Dip or Chew Tobacco: No Hx Alcohol Use: No Hx Substance Use: No Physical Exam Vital Signs Last Vital Signs Temp 36.6 C 06/24/18 09:15 Pulse 71 06/24/18 09:15 Resp 18 06/24/18 09:15 BP 159/86 H 06/24/18 09:15 Pulse Ox 92 06/24/18 09:15 Testing Electrocardiogram Date: 12/13/17 SB with first degree AVB at 57bpm. NS STA. Echocardiogram Date: 06/18/18 EF 60-65%. No RWMA. Mild cLVH. Mild TR. Grade I DD. Laboratory Results 06/22/18 06:03 06/22/18 06:03 Blood Type B Negative 06/21/18 10:33 Antibody Screen NEGATIVE 06/21/18 10:33 PT 10.6 Seconds (9.0-12.0) 06/22/18 06:03 INR 1.0 (0.9-1.1) 06/22/18 06:03 APTT 27.6 Seconds (21.0-31.0) 06/22/18 06:03
--- NOTE | 2018-06-24 09:33 | Gastroenterology Progress Note ---
Date of Service June 24, 2018 Assessment & Plan (1) Dysphagia: 82 yo male with a long history of GERD and dysphagia who is s/p RLL lung resection/lobectomy for adenoCA. Tolerated well but now with complaints of dysphagia with solids. - EGD today with further recommendations to follow. Subjective Patient feels well, without complaints, has chronic complaints of dysphagia only one swallows large substances of food. No new issues of dysphasia. Recovering well from his recent surgery on the . Physical Exam Physical Exam: Alert and oriented x3 Heart's regular Lungs clear Normal active soft nontender No edema Results & Data Vital Signs (Past 12 Hours) Vital Signs Temp Pulse Pulse Resp BP Pulse Ox 06/24/18 09:15 36.6 C 71 18 159/86 H 92 06/24/18 07:42 36.1 C L 69 17 122/58 L 91 06/23/18 22:16 36.7 C 68 16 152/79 H 91
[2018-06-24] MEDS ORDERED: PANTOprazole 40 MG TAB PO SCH (10:00)
--- NOTE | 2018-06-24 10:00 | GI REPORT ---
Patient Name: Manuel Coleman Procedure Date: 06/24/2018 9:43 AM Date of : 1935 Admit Type: Inpatient Age: 82 Gender: Male Attending MD: Aldo Griffin MD Procedure: Upper GI endoscopy Providers: Aldo Griffin MD Referring MD: Zac Chu Md Indications: Esophageal dysphagia Medicines: Monitored Anesthesia Care Complications: No immediate complications. Estimated blood loss: None. Estimated Blood Loss: Estimated blood loss: none. Procedure: Pre-Anesthesia Assessment: - Pre-Anesthesia Assessment: - Prior to the procedure, a History and Physical was performed, and patient medications, allergies and sensitivities were reviewed. The patient's tolerance of previous anesthesia was reviewed. Please see [facility] for complete details. - The risks and benefits of the procedure and the sedation options and risks were discussed with the patient. All questions were answered and informed consent was obtained. - Patient identification and proposed procedure were verified prior to the procedure by the physician and the nurse. The procedure was verified in the pre-procedure area in the procedure room. After obtaining informed consent, the endoscope was passed carefully and meticuously under direct vision and only advanced when the lumen was clearly identified, C02 insuflation was utilized throughout the entirity of the procedure. Throughout the procedure, the patient's blood pressure, pulse, and oxygen saturations were monitored continuously. After obtaining informed consent, the endoscope was passed under direct vision. Throughout the procedure, the patient's blood pressure, pulse, and oxygen saturations were monitored continuously. The scope was introduced through the mouth, and advanced to the second part of duodenum. The upper GI endoscopy was accomplished without difficulty. The patient tolerated the procedure well. Findings: A large hiatal hernia was present. LA Grade D (one or more mucosal breaks involving at least 75% of esophageal circumference) esophagitis with no bleeding was found. A moderate Schatzki ring was found at the gastroesophageal junction. Biopsies were taken with a cold forceps for histology, To fracture the ring given the degree of inflammation prohibiting safe dilation. Mild inflammation was found in the gastric antrum. The examined duodenum was normal other than duodenal diverticulum. Impression: - Large hiatal hernia. - LA Grade D reflux esophagitis. - Moderate Schatzki ring. Biopsied. - Gastritis. - Duodenal diverticulum. Recommendation: - Return patient to [facility] for ongoing care. - Use Prilosec (omeprazole) 40 mg PO BID for 2 months. - Repeat upper endoscopy in 4-6 wks for retreatment. - Soft diet indefinitely. Aldo Griffin MD 06/24/2018 10:00:13 AM This report has been signed electronically. Note Initiated On: 06/24/2018 9:43 AM Number of Addenda: 0 I attest to the content of the Intraoperative Record and orders documented therein, exceptions below {[id number]}
--- NOTE | 2018-06-24 10:00 | Anesthesiology Progress Note ---
Date of Service June 24, 2018 Anesthesia Post Procedure Vital Signs Vital Signs: Temp Pulse Pulse Pulse Resp BP BP 06/24/18 09:15 36.6 C 71 18 159/86 H 06/24/18 07:42 36.1 C L 69 17 122/58 L 06/23/18 22:16 36.7 C 68 16 152/79 H 06/23/18 20:05 36.8 C 80 16 153/87 H 06/23/18 15:11 36.6 C 82 18 162/84 H Pulse Ox 06/24/18 09:15 92 06/24/18 07:42 91 06/23/18 22:16 91 06/23/18 20:05 93 06/23/18 15:11 93 Pain Intensity Right Lateral Neck: Pain Intensity: 3 Back: Pain Intensity: 3 Transfer of Care Handoff Completed per policy Notes Mental Status: alert / awake / arousable Patient Amnestic to Procedure: Yes Nausea / Vomiting: adequately controlled Pain: adequately controlled Airway Patency, RR, SpO2: stable & adequate BP & HR: stable & adequate Hydration State: stable & adequate Anesthetic Complications: no major complications apparent and Pt Satisfied with anesthetic care
[2018-06-24] MEDS: ACETAMINOPHEN 1,000 MG/100 ML VIAL IV SCH (10:20)
[2018-06-24] MEDS: ENOXAPARIN INJ 40 MG/0.4 ML SYR SQ SCH (11:12)
[2018-06-24] MEDS: AMLODIPINE BESYLATE 5 MG TAB PO SCH (11:14)
[2018-06-24] MEDS: ASPIRIN 325 MG ECTAB PO SCH (11:14)
[2018-06-24] MEDS: PRAVASTATIN SOD 20 MG TAB PO SCH (11:15)
[2018-06-24] MEDS: MULTIVITAMIN TAB PO SCH (11:15)
[2018-06-24] MEDS: CALCIUM 600MG + VIT D 400 IU TAB PO SCH (11:17)
[2018-06-24] MEDS: DOCUSATE SODIUM 100 MG CAP PO SCH (11:17)
--- NOTE | 2018-06-24 15:36 | Discharge Summary ---
DISCHARGE DIAGNOSES: 1. Adenocarcinoma, right lower lobe. 2. Esophageal stricture. 3. Chronic obstructive pulmonary disease. 4. History of cigarette smoking. 5. Hypertension. 6. Hyperlipidemia. HOSPITAL COURSE: This is a very nice 82-year-old male who was found to have an asymptomatic mass in his right lower lobe. We worked him up and felt he would be a candidate for surgery, and on 06/21/2018, I took the patient to the operating room and did a right video-assisted thoracoscopy with a right lower lobe wedge resection, right lower lobectomy with mediastinal lymphadenectomy. Margins were negative. Frozen section showed this to be a probable adenocarcinoma. I was quite pleased with him. He did very well with this and we extubated him in the room. We really did not have much of an air leak. We lost very little blood. I was called on the night of surgery and stated the patient felt like "food had gotten stuck again" in his esophagus. For this reason, we held him n.p.o. until the following morning and put him back on clear liquids. The patient and his state that it has happened to him many times before. He has a history of an esophageal stricture distally from reflux. The Schatzki ring has been dilated in the past, although according to our records not for the last [address] Aldo Griffin to look at him and he brought him down to the endoscopy suite and did an upper endoscopy. He is noted to have some evidence of esophagitis and did have a stricture; however, it appeared to be fairly acutely inflamed. For this reason, he felt that a few week course of medical management and then rescoping with probable dilatation then would be appropriate. I pulled the patient's chest tube out on postop day #3. His incisions were clean. His chest x-ray looked good except he did have a bit of subcutaneous emphysema. He was on room air. He was ambulating in the hallway. He tolerated a soft diet quite nicely. He was discharged home on postop day #3. I will see him back in the office next week to go over his final path report. He has been instructed to call me should any problems arise. Wound care instructions were given and we did keep him on his Protonix.
--- NOTE | 2018-06-28 06:43 | Coding Query ---
CODING QUERY To promote full compliance with coding requirements relating to patient care, provider participation is requested in all cases of remote inpatient coder uncertainty. Please assist us with the question(s) below: Coding Question(s): 06/23/18 progress notes state "he has a tiny intermittent air leak. We are going to keep his chest tube in 1 more day." Please describe below the nature of this air leak. Thank you. Physician's Response(s): ( ) Spontaneous air leak ( x ) Postprocedural air leak ( ) Other, please specify ( ) Clinically insignificant diagnosis Thank you Merari Mojica Principal Diagnosis: "that condition established after study, to be chiefly responsible for occasioning the admission of the patient to the hospital for care." Co-Existing Principal Diagnosis: "when two or more diagnoses equally meet the criteria for principal diagnosis as determined by the circumstances of admission, diagnostic work up, and/or therapy provided, and the Alphabetic Index, Tabular List, or another coding guideline does not provide sequencing direction, any one of the diagnoses may be sequenced first." "When the physician has documented what appears to be a current diagnosis in the body of the record, but has not included the diagnosis in the final diagnostic statement, the physician should be asked whether the diagnosis should be added." ([facility] 2 QTR90. p3-4) TIGRE
== END 2018-06-24 14:11 | disposition home or self-care (01) | DRG 164 ==
LOC: ASU 09:46 → 3N 14:45

== ENCOUNTER 2018-06-25 05:13 | Inpatient (IN) ==
--- NOTE | 2018-06-25 06:26 | Emergency Department Note ---
Entered by Jose Luis Alvarado acting as a scribe for ED Provider Note Name: Manuel Coleman Age: 82 Arrives Via: Triage Informant: Self CC: Facial Swelling HPI: 82 y/o male arrives for evaluation of worsening facial swelling beginning 13.5 hours ago. The patient states he was discharged from the hospital yesterday and started Pantoprazole. He reports he had a partial lobectomy while in the hospital. The patient notes he is not short of breath, and he has not had trouble swallowing other than issues he was seen by GI yesterday for. Nothing makes swelling better nor worse. No rashes, itches, abdominal pain, nausea, vomiting, nor other symptoms. Of note he had sedation for EGD done yesterday morning. ROS: See above HPI for pertinent positives & negatives. A total of 10 systems reviewed and were otherwise negative. Past Medical History: Dysphagia, HTN, HLD, COPD, Cancer, RI Past Surgical History: Partial lobectomy Family History: DM Social History: Lives with significant other Home Medications: Allergies NKDA Physical: Vitals: BP 134/71, Pulse 79, Resp 20, Temp 98.2 F, O2 Sat 93 Exam: GENERAL: Patient is well appearing and in no acute distress. FACE: Edema bilaterally to the right face - worse to the right periorbital with no erythema. There is significant crepitus over both sides of the face. Crepitus extends from the face down the neck onto the bilateral arms, anterior chest, and posterior chest. EYES: No scleral icterus, unremarkable pupils. ENT: Mucous membranes moist, no nasal congestion. NECK: No masses appreciated, no meningismus, trachea is midline. RESPIRATORY: No dyspnea. Clear to auscultation and equal bilaterally. No wheeze, no rhonchi. CARDIOVASCULAR: Regular rate and rhythm. No murmurs, rubs, gallops appreciated. GASTROINTESTINAL: Abdomen soft, non-tender, no peritonitis. Bowel sounds positive. No masses appreciated. BACK: No midline tenderness, no CVA tenderness EXTREMITIES: Normal motion all extremities, no cyanosis, no edema. NEUROLOGIC: Alert and oriented, no acute motor or sensory deficits, no focal weakness, cranial nerves grossly intact. SKIN: No rash, no jaundice, no diaphoresis. ED Course: Prior Medical Record, Triage/Nursing Notes, Medications, Allergies reviewed by Me Vital Signs: reviewed and remarkable for Mild HTN Interventions: Oxy Face Mask Imaging: X ray results are stated below per my interpretation: Chest: 1 view: Diffuse severe subq and mediastinal emphysema without evidence pneumothorax Consults: Dr Chu will come evaluate the patient further. Reassessments/Times: 0522: The patient was evaluated in room A12B. A complete history and physical exam was performed. 0556: I discussed the patient's case with Dr. Chu, Thoracic Surgery. He recommends the patient be placed on oxygen and he will evaluate the patient later today. 0559: I updated the patient of my consult and of the treatment plan. The patient is stable. He was put on an oxygen mask and is agreeable to wait for Dr. Cleopatra cheung. Blood pressure: Normal. No Referral necessary Disposition: Signed out to Dr Puckett pending Thoracic Surg eval. Differentials: Emphysema, Allergic reaction, angioedema, infection amongst other pathologies. Medical Decision Makin yr old male recently with right lobectomy and then EGD yesterday arrives for facial swelling. On exam this is consistent with subq emphysema that is tracking around much of chest, upper arms and on to neck/face, thus causing the right periorbital swelling he and are concerned about. Not causing respiratory issues. He can not see out of left eye due to swelling. Reviewed with Dr Chu who will come evaluate further. Impression: Subcutaneous Emphysema Ananth Rodriguez MD The scribe's documentation has been prepared under my direction and personally reviewed by me in its entirety. I confirm that the note above accurately reflects all work, treatment, procedures, and medical decision making performed by me. Impression & Plan Emphysema (subcutaneous) resulting from a procedure, initial encounter Past Med/Surg History Medical History COPD (chronic obstructive pulmonary disease) STABLE Cancer LUNG- NO CHEMO OR RADIATION Hx of myocardial infarction = STENT X 1 Hyperlipidemia Hypertension Surgical History S/P partial lobectomy of lung History of cardiac cath History of tooth extraction Family History Mother Family history of diabetes mellitus Social History (Reviewed 06/25/18 @ 05:29 by Jose Luis Nunez Preferred Language: Azeri Communication Ability: Effective Restaurant Line Server Required: No Beliefs That Will Affect Care: None marital status: Current Living Situation: Spouse Other Information That Helps Us Care for You: No Feels Safe at Home: Yes Safety Concerns: Feels Safe At This Time Smoking Status: Current every day smoker Tobacco Type: cigarettes Cigarettes Per Day: 1/2 pack Do You Dip or Chew Tobacco: No Hx Alcohol Use: No Hx Substance Use: No Results & Data Vital Signs Vital Signs - 24 hr 06/25/18 06:34 06/25/18 07:43 Pulse Rate [Bilateral Apical] 68 73 Respiratory Rate 20 20 Respiratory Effort / Characteristics Non-Labored Respiratory Depth Normal Blood Pressure [Left Arm] 149/85 H 129/66 Blood Pressure Mean [Left Arm] 106 87 Pulse Oximetry 97 92 Oxygen Delivery Method Oxymask Oxymask Oxygen Flow Rate 8 8 Administered Medications Acetaminophen (Tylenol) 650 mg PO Q6H [facility] Stop: 07/25/18 10:01 Last Admin: 06/26/18 05:02 Dose: 650 mg Documented by: [id number] Admin: 06/25/18 20:35 Dose: 650 mg Documented by: [id number] Admin: 06/25/18 17:20 Dose: Not Given Documented by: [id number] Admin: 06/25/18 11:03 Dose: 650 mg Documented by: [id number] Amlodipine Besylate (Norvasc) 10 mg PO QAM [facility] Stop: 07/25/18 10:01 Last Admin: 06/25/18 11:03 Dose: 10 mg Documented by: [id number] Dextrose/Sodium Chloride (D5w And 1/2nss) 1,000 mls @ 75 mls/hr IV .[id number] [facility] Stop: 07/25/18 15:14 Last Infusion: 06/26/18 05:22 Dose: 75 mls/hr Documented by: [id number] Admin: 06/26/18 05:00 Dose: 75 mls/hr Documented by: [id number] Infusion: 06/26/18 05:00 Dose: 75 mls/hr Documented by: [id number] Admin: 06/25/18 15:44 Dose: 75 mls/hr Documented by: [id number] Ketorolac Tromethamine (Toradol) 15 mg IV Q8H [facility] Stop: 06/27/18 08:01 Last Admin: 06/26/18 00:16 Dose: 15 mg Documented by: [id number] Admin: 06/25/18 15:46 Dose: 15 mg Documented by: [id number] Lidocaine (Lidoderm 5%) 1 patch TD DAILY@0900 [facility] Stop: 07/25/18 15:59 Last Admin: 06/25/18 16:54 Dose: 1 patch Documented by: [id number] Miscellaneous (Remove Lidoderm Patch) 1 ea N/A DAILY@2100 [facility] Stop: 07/25/18 20:59 Last Admin: 06/25/18 21:24 Dose: 1 ea Documented by: [id number] Pantoprazole Sodium (Protonix) 40 mg PO BID [facility] Stop: 07/25/18 08:59 Last Admin: 06/25/18 20:35 Dose: 40 mg Documented by: [id number] Admin: 06/25/18 12:11 Dose: 40 mg Documented by: [id number] Pravastatin Sodium (Pravachol) 20 mg PO QAM [facility] Stop: 07/25/18 10:01 Last Admin: 06/25/18 11:03 Dose: 20 mg Documented by: [id number] Ranitidine HCl (Zantac) 150 mg PO BID [facility] Stop: 07/25/18 20:59 Last Admin: 06/25/18 21:24 Dose: 150 mg Documented by: [id number] Discontinued Medications Fentanyl Citrate (Fentanyl Citrate) Confirm Administered Dose 100 mcg .ROUTE .STK-MED ONE Stop: 06/25/18 08:08 Last Increment: 06/25/18 08:33 Dose: 37.5 mcg Documented by: [id number] Lidocaine HCl (Buffered Lidocaine 1%) Confirm Administered Dose 20 ml .ROUTE .STK-MED ONE Stop: 06/25/18 08:02 Last Admin: 06/25/18 08:33 Dose: 20 ml Documented by: [id number] Lidocaine HCl (Xylocaine 1% (Local)) Confirm Administered Dose 20 ml .ROUTE .STK-MED ONE Stop: 06/25/18 14:42 Last Admin: 06/25/18 16:06 Dose: Not Given Documented by: [id number] Lidocaine HCl (Xylocaine 1% (Local)) 20 ml INJ NOW ONE Stop: 06/25/18 14:43 Last Admin: 06/25/18 16:06 Dose: Not Given Documented by: [id number] Midazolam HCl (Versed) Confirm Administered Dose 2 mg .ROUTE .STK-MED ONE Stop: 06/25/18 08:09 Last Increment: 06/25/18 08:34 Dose: 1 mg Documented by: [id number] Ranitidine HCl (Zantac) 150 mg PO BID [facility] Stop: 07/25/18 08:59 Last Admin: 06/25/18 12:11 Dose: 150 mg Documented by: [id number] Discharge Plan Visit Data *Final* Discharge Date/Time: 06/25/18 09:18 Chief Complaint: Facial Injury/Pain Stated Complaint: FACE SWOLLEN ED Provider: Ananth Rodriguez Discharge Problem: Emphysema (subcutaneous) resulting from a procedure, initial encounter Patient Disposition: Admitted As Inpatient Discharge Instructions Interventions: ED Discharge Assessment Last Done: 06/25/18 09:18 The scribe's documentation has been prepared under my direction and personally reviewed by me in its entirety. I confirm that the note above accurately ref lects all work, treatment, procedures, and medical decision making performed by me.
--- NOTE | 2018-06-25 07:08 | XRay Report ---
XR chest 1V portable HISTORY: Post right lobectomy COMPARISON: Chest 06/24/2018. FINDINGS: Extensive subcutaneous emphysema is again noted. The heart remains mildly enlarged. Suspect a small amount of pneumomediastinum, unchanged. No definite pneumothorax. No pleural effusions. Biba silar linear densities favor subsegmental atelectasis. IMPRESSION: No significant change in the subcutaneous emphysema and a small amount of pneumomediastinum. Electronically signed by: Tristin Dietrich M.D. 06/25/2018 7:06 AM
[2018-06-25] MEDS ORDERED: XYLOCAINE 1%/SOD BICARB 20 ML VIAL ONE (08:01)
[2018-06-25] MEDS ORDERED: fentaNYL citrate 100 MCG/2 ML VIAL ONE (08:07)
[2018-06-25] MEDS ORDERED: MIDAZOLAM HCL 1 MG/ML 2ML VIAL ONE (08:08)
--- NOTE | 2018-06-25 08:40 | XRay Report ---
XR chest 1V portable HISTORY: chest tube insertion COMPARISON: Chest 06/25/2018. FINDINGS: Interval placement of a right basilar pleural catheter. This terminates in the right medial lung base. A moderate right pneumothorax is again noted. This demonstrate a maximal pleural gap of 4 cm. This remains unchanged. Focal right basilar density is new from the prior study. Extensive subcu taneous emphysema and a small amount of pneumomediastinum persists. IMPRESSION: 1. No change in the moderate right pneumothorax. A right-sided chest tube has been placed in the inte rval. 2. Right basilar airspace opacities have progressed. 3. Subcutaneous emphysema and a small amount of pneumomediastinum remain unchanged. Electronically signed by: Tristin Dietrich M.D. 06/25/2018 8:38 AM
[2018-06-25] MEDS ORDERED: FLUTICASONE/SALMETEROL 250/50 (ADVAIR) 14 PUFF/1 INHALER INH PRN (10:02)
[2018-06-25] MEDS ORDERED: ONDANSETRON INJ 2 MG/ML 2 ML VIAL IV PRN (10:02)
[2018-06-25] MEDS ORDERED: ALBUTEROL HFA 8 GM INHALER INH PRN (10:02)
--- NOTE | 2018-06-25 10:03 | History and Physical Report ---
DATE OF ADMISSION: 06/25/2018 REASON FOR ADMISSION: Increasing subcutaneous emphysema, status post thoracoscopic lobectomy. HISTORY OF PRESENT ILLNESS: Mr. Coleman is an 82-year-old male who was found to have hypermetabolic mass in his right lower lobe, on 06/21/2018, I performed a thoracoscopic right lower lobectomy with mediastinal lymphadenectomy. The patient did well with this and with negligible blood loss. He did not really have much of an air leak, although he had this on the 1st postop day. On the second postop day, he had a small one and I kept him in the hospital mostly because he had an esophageal stricture and a difficulty swallowing. This had happened to him before he has had a Schatzki's ring. We kept him in the hospital, removed his chest tube yesterday, he underwent an upper endoscopy and showed he did indeed have a Schatzki's ring; however, was inflamed and we elected to proceed with medical management for the next few weeks and then rescoped him. Dr. Aldo Griffin's help was greatly appreciated in this case. The patient had some mild subcutaneous emphysema and I thought clinically it had improved yesterday. He was discharged home only to come back this morning to the Emergency Room with marked increasing subcutaneous emphysema, even though we did not see much of an air leak. For this reason, I admitted him as it was increasing and especially his facial swelling. He really was not hypoxic. I put a 28-Romanian chest tube in the ER and then admitted him to the hospital. He had a ojeda of air, but really not much of an air leak now. We will see how he looks over the next few days.
--- NOTE | 2018-06-25 10:54 | Operative Report ---
DATE OF OPERATION: 06/25/2018 PROCEDURE: Insertion of a 28-Lao right thoracostomy tube. SURGEON: Zac Chu MD ANESTHESIA: Local. SPECIFICS OF PROCEDURE: The patient in a reclining position at about 30 degrees. His right chest was evaluated. Just below his thoracoscopic incision, I palpated rib and selected. This is the place to go for his chest tube. He was prepped and draped in usual sterile fashion. 1% Xylocaine without epinephrine was used to excise skin and subcutaneous tissues. Approximately 1.5 cm incision was made. Deeper tissues were anesthetized with a long needle. I then used a Yolie to gently create an insertion site and then put my finger in, I can feel we were in the pleural space and there was some air which was expelled. A 28-Lao chest tube was then directed in gently. It was sutured in place with heavy silk suture. We put antimicrobial dressings around. He had a small air leak initially but stopped fairly quickly. It was attached to suction. Chest x-ray showed this chest tube is going down across the top of the diaphragm. He tolerated it well. We did also sedate him with some Versed and gave him some fentanyl for pain. I attest to the content of the Intraoperative Record and any orders documented therein. Any exception s are noted below.
[2018-06-25] MEDS: AMLODIPINE BESYLATE 5 MG TAB PO SCH (11:03)
[2018-06-25] MEDS: PRAVASTATIN SOD 20 MG TAB PO SCH (11:03)
[2018-06-25] MEDS: ACETAMINOPHEN 325 MG TAB PO SCH ×3 (11:03→20:35)
--- NOTE | 2018-06-25 12:06 | Emergency Department Note ---
ED Visit Note The patient was seen in the ED and admitted by the Thoracic service. .
[2018-06-25] MEDS: RANITIDINE HCL SYRUP 150 MG/10 ML UDC PO SCH ×2 (12:11→20:35)
[2018-06-25] MEDS: PANTOprazole 40 MG TAB PO SCH ×2 (12:11→20:35)
[2018-06-25] MEDS ORDERED: LIDOCAINE HCL 1% 20 ML VIAL ONE (14:41)
[2018-06-25] MEDS ORDERED: LIDOCAINE HCL 1% 20 ML VIAL INJ ONE (14:42)
[2018-06-25] MEDS: D5W AND 1/2NSS 1,000 ML IV SCH (15:44)
[2018-06-25] MEDS: KETOROLAC TROMETHAMINE 15 MG/ML VIAL IV SCH (15:46)
--- NOTE | 2018-06-25 15:58 | XRay Report ---
XR chest 1V portable CLINICAL HISTORY: PNEUMOTHORAX CHEST TUBE PLACEMENT tube position Findings: Right-sided chest tube has been repositioned. No significant postprocedural pneumothorax. S ubcutaneous emphysema persists. . IMPRESSION: No significant pneumothorax. Unchanging subcutaneous emphysema. The above report was generated using voice recognition software. It may contain grammatical, syntax or spelling errors. Electronically signed by: Baldo Wagner M.D. 06/25/2018 3:57 PM
[2018-06-25] MEDS: LIDOCAINE 5% 1 PATCH TD SCH (16:54)
[2018-06-25] MEDS ORDERED: Nursing to Pharmacy Communication ONE (20:44)
--- NOTE | 2018-06-25 21:55 | Operative Report ---
DATE OF OPERATION: 06/25/2018 PREOPERATIVE DIAGNOSIS: Right pneumothorax. POSTOPERATIVE DIAGNOSIS: Right pneumothorax. PROCEDURE: Insertion of a right anterior 24-Faroese chest tube. SURGEON: Zac Chu MD CUSTOMER SUPPORT ADVISOR: ROBERT Hu ANESTHESIA: Local. SPECIFICS OF PROCEDURE: Mr. Coleman is an 82-year-old male who underwent a thoracoscopic right lower lobectomy for what turned out to be a stage I nonsmall cell lung carcinoma on 06/21/2018. He was discharged on 06/24/2018 and I was quite pleased with him. He came back in with increasing subcutaneous emphysema and a right pneumothorax. I placed a basilar chest tube. However, this drained very little in the way of air after he had initial ojeda of air and his subcutaneous emphysema worsen. For this reason, after reviewing the x-ray, I decided to insert a right anterior chest tube. The patient at bedside after appropriate timeout had been called and consent obtained, prepped and draped in usual sterile fashion. Approximately at the fourth interspace anteriorly, I anesthetized the skin and subcutaneous tissues with 23 gauge needle and then made a better 1.5 cm incision. I then took this incision down to the chest wall and anesthetized and using a large needle, I went above the rib and got air back. I then inserted a guidewire and removed the needle. A dilator was slid over this and removed and the chest tube with an obturator was slid out the guidewire and removed the inner cannula guidewire and there was an initial air leak. I sutured this in with heavy silk suture and placed antimicrobial dressings around it. I then removed the basilar chest tubes. It was not draining and is causing some discomfort. An antimicrobial was placed over this. He did have a small air leak and a chest x-ray showed resolution of the pneumothorax. I attest to the content of the Intraoperative Record and any orders documented therein. Any exception s are noted below.
[2018-06-26] MEDS: KETOROLAC TROMETHAMINE 15 MG/ML VIAL IV SCH ×4 (00:16→23:57)
[2018-06-26] MEDS: D5W AND 1/2NSS 1,000 ML IV SCH (05:00)
[2018-06-26] MEDS: ACETAMINOPHEN 325 MG TAB PO SCH ×4 (05:02→21:26)
--- NOTE | 2018-06-26 07:38 | XRay Report ---
XR chest 1V portable HISTORY: Follow-up pneumothorax COMPARISON: Chest 06/25/2018. FINDINGS: Subcutaneous emphysema and a small amount of pneumomediastinum persist. Right chest tube is unchanged in position. The left lung remains clear. Suggestion of a small right apical pneumothorax. This demonstrates a maximum pleural gap of 1.5 cm. Right basilar densities persist. IMPRESSION: Right-sided chest tube is unchanged in position. Suggestion of a small right pneumothorax. Electronically signed by: Tristin Dietrich M.D. 06/26/2018 7:37 AM
[2018-06-26] MEDS: LIDOCAINE 5% 1 PATCH TD SCH (07:49)
[2018-06-26] MEDS: AMLODIPINE BESYLATE 5 MG TAB PO SCH (07:52)
[2018-06-26] MEDS: PANTOprazole 40 MG TAB PO SCH ×2 (07:52→20:31)
[2018-06-26] MEDS: PRAVASTATIN SOD 20 MG TAB PO SCH (07:52)
--- NOTE | 2018-06-26 10:48 | Progress Note ---
DATE: 06/26/2018 SUBJECTIVE: The patient was seen today. I am quite pleased with him. His subcutaneous emphysema is noticeably less. His x-ray looks good. He has drained very little from his chest tube fluid-coreas. He is able to swallow liquids but has some difficulty as would be expected from his esophageal stenosis. On 3 liters, his oxygen saturation is 96%. I really do not see an air leak on his chest tube; however, I am concerned as he really did not have an air leak when we pulled it out before. I think we should keep this in another 24-48 hours before removing it. ASSESSMENT AND PLAN: 1. Delayed pneumothorax following chest tube removal after thoracoscopic right lower lobectomy. 2. Adenocarcinoma, right lower lobe (stage I). The patient is improving. I think we should give him another 24-48 hours before removing this chest tube and then we will remove it and allow him to be discharged. I would like to get him up walking. I would like to get him off the oxygen before we discharge him.
[2018-06-26] MEDS: HEPARIN SOD 5,000 UNIT/0.5 ML VIAL SQ SCH ×2 (12:14→23:57)
[2018-06-27] MEDS: ACETAMINOPHEN 325 MG TAB PO SCH ×4 (03:37→21:37)
--- NOTE | 2018-06-27 07:15 | XRay Report ---
XR chest 1V portable CLINICAL HISTORY: pneumothorax COMPARISON STUDY: Chest radiograph June 26, 2018. FINDINGS: Extensive subcutaneous emphysema is again noted. Pneumomediastinum is also noted. A right c hest tube is in place. A small right apical pneumothorax has slightly decreased in size since exam of June 26, 2018. There is mild right basilar opacity. Postoperative findings within the right noted. Ca rdiomediastinal silhouette is stable. There is no evidence for pulmonary edema. IMPRESSION: Right chest tube in place. Slight decrease in a small right apical pneumothorax. Electronically signed by: Rizwan Vaughan M.D. 06/27/2018 7:13 AM
[2018-06-27] MEDS: AMLODIPINE BESYLATE 5 MG TAB PO SCH (07:46)
[2018-06-27] MEDS: PRAVASTATIN SOD 20 MG TAB PO SCH (07:46)
[2018-06-27] MEDS: PANTOprazole 40 MG TAB PO SCH ×2 (07:46→20:24)
[2018-06-27] MEDS: KETOROLAC TROMETHAMINE 15 MG/ML VIAL IV SCH (07:46)
[2018-06-27] MEDS: LIDOCAINE 5% 1 PATCH TD SCH (07:46)
--- NOTE | 2018-06-27 10:43 | Surgery Progress Note ---
Date of Service June 27, 2018 Assessment & Plan (1) Emphysema (subcutaneous) resulting from a procedure, initial encounter: -pt. required chest tube reinsertion -clinical improvement has been noted -small pneumothorax with subcutaneous emphysema noted on CXR today -chest tube has no air leak -will keep chest tube in place and reassess tomorrow Subjective Pt. denies SOB. No CP. He is ambulating in hallway. He is tolerating diet and voiding with out difficulty. Physical Exam Physical Exam: Crepitus noted is soft tissue of neck/back/chest wall. Swelling of eye lids that was noted before chest tube placement has markedly decreased. Respiratory: + labored breathing; no respiratory distress BS are decreased at bases Results & Data Vital Signs (Past 12 Hours) Vital Signs Temp Pulse Resp BP Pulse Ox 06/27/18 07:40 37.0 C 61 18 160/74 H 92 06/26/18 23:06 36.6 C 74 18 142/81 H 92
[2018-06-27] MEDS: HEPARIN SOD 5,000 UNIT/0.5 ML VIAL SQ SCH ×2 (12:55→23:39)
--- NOTE | 2018-06-27 22:17 | XRay Report ---
XR chest 1V portable HISTORY: chest tube check COMPARISON: Chest 06/27/2018 FINDINGS: Right chest tube remains unchanged in position. Small right apical pneumothorax is unchange d in size with a maximal pleural gap of 11 mm. Pneumomediastinum and subcutaneous emphysema persists. The heart remains mildly enlarged. Right basilar densities are nonspecific and may represent atelect asis or pneumonia. This has slightly improved. IMPRESSION: 1. No change in the right-sided chest tube and small right pneumothorax. 2. Slight improved aeration within the right lung base. Electronically signed by: Tristin Dietrich M.D. 06/27/2018 10:16 PM
[2018-06-27] MEDS: OXYCODONE HCL IR 5 MG TAB (IMMEDIATE RELEASE) PO PRN (22:39)
[2018-06-28] MEDS: ACETAMINOPHEN 325 MG TAB PO SCH ×4 (04:47→21:31)
--- NOTE | 2018-06-28 07:17 | XRay Report ---
XR chest 1V portable CLINICAL HISTORY: pneumothorax COMPARISON STUDY: 06/27/2018 FINDINGS: The cardiac and mediastinal contours remain stable. There is no change the position of the right-sided chest tube. There is a trace residual right apical pneumothorax. There is extensive bilat eral subcutaneous emphysema. There are persistent right basilar airspace opacities likely atelectatic . IMPRESSION: 1. Trace residual right apical pneumothorax 2. Extensive subcutaneous emphysema 3. No change the position right-sided chest tube 4. Persistent right basilar airspace opacities, likely atelectatic Electronically signed by: Paul So M.D. 06/28/2018 7:16 AM
[2018-06-28] MEDS: LIDOCAINE 5% 1 PATCH TD SCH (08:42)
[2018-06-28] MEDS: AMLODIPINE BESYLATE 5 MG TAB PO SCH (08:43)
[2018-06-28] MEDS: PRAVASTATIN SOD 20 MG TAB PO SCH (08:44)
[2018-06-28] MEDS: PANTOprazole 40 MG TAB PO SCH ×2 (08:44→20:38)
[2018-06-28] MEDS: OXYCODONE HCL IR 5 MG TAB (IMMEDIATE RELEASE) PO PRN (10:10)
--- NOTE | 2018-06-28 11:02 | XRay Report ---
XR chest 1V portable CLINICAL HISTORY: pneumothorax pneumothorax COMPARISON STUDY: 06/28/2018. FINDINGS: interval development of a right apical pneumothorax with a maximum pleural separation of 2. 5 cm. Lateral extension as well as extension to the right base is present. Right-sided chest tube is noted. Subcutaneous emphysematous change is stable. IMPRESSION:: 1. Interval development of a 25% right-sided pneumothorax with a maximum pleural separation of 2.5 cm . 2. Unchanging subcutaneous emphysema. The above report was generated using voice recognition software. It may contain grammatical, syntax or spelling errors. Electronically signed by: Baldo Wagner M.D. 06/28/2018 11:00 AM
[2018-06-28] MEDS: HEPARIN SOD 5,000 UNIT/0.5 ML VIAL SQ SCH ×2 (12:36→23:35)
--- NOTE | 2018-06-28 18:10 | Surgery Progress Note ---
Date of Service June 28, 2018 Assessment & Plan (1) Emphysema (subcutaneous) resulting from a procedure, initial encounter: -pt. required chest tube reinsertion -clinical improvement has been noted -minimal pneumothorax on CXR this am -chest tube has no air leak -chest tube clamped this am about 8:00 -repeat CXR approx 3 hours later showed worsening pneumothorax -due to repeat CXR findings, CT unclamped and placed back to suction (air leak initially noted which resolved about 5-10 seconds after suction applied) -will continue CT to suction today -may consider trial of water seal tomorrow +/- consideration of Heimlih valve Subjective Pt. denies SOB. No CP. He Continues to ambulate in hallway. He is tolerating diet and voiding with out difficulty. He does nte some minor discomfort from chest tube. Physical Exam Physical Exam: creipitus noted in soft tissue of anterior chest wall/neck/back Respiratory: no respiratory distress, no labored breathing and does not use accessory muscles Results & Data Vital Signs (Past 12 Hours) Vital Signs Temp Pulse Pulse Resp BP Pulse Ox 06/28/18 15:53 37.3 C 63 17 140/68 94 06/28/18 07:39 36.7 C 60 18 122/60 93
[2018-06-29] MEDS: OXYCODONE HCL IR 5 MG TAB (IMMEDIATE RELEASE) PO PRN ×2 (02:29→20:53)
[2018-06-29] MEDS: ACETAMINOPHEN 325 MG TAB PO SCH ×4 (05:31→22:27)
[2018-06-29 05:48] LABS: Hematocrit (blood only) 37.2 % (42-52); Hemoglobin 12.6 g/dL (14.0-18.0); Mean Corpuscular Hgb Conc 33.9 g/dL (32-36); Mean Corpuscular Volume 94.9 fL (80-100); Platelet Count 226 K/uL (130-400); RDW Coefficient of Variation 13.9 % (11.5-14.5); Red Blood Count 3.92 M/uL (4.7-6.1); White Blood Count 12.11 K/uL (4.8-10.8)
--- NOTE | 2018-06-29 07:31 | XRay Report ---
XR chest 1V portable HISTORY: pneumothorax COMPARISON: Chest 06/28/2018. FINDINGS: The right-sided chest tube remains unchanged in position. Interval decrease in size in the small right pneumothorax which now demonstrates a pleural gap of 7 mm. Subcutaneous emphysema is pneu momediastinum is again noted. The heart remains mildly enlarged. Right basilar densities persist. IMPRESSION: Decrease in size in the small right apical pneumothorax. Electronically signed by: Tristin Dietrich M.D. 06/29/2018 7:30 AM
[2018-06-29] MEDS: PANTOprazole 40 MG TAB PO SCH ×2 (08:00→20:54)
[2018-06-29] MEDS: LIDOCAINE 5% 1 PATCH TD SCH ×2 (08:00→08:03)
[2018-06-29] MEDS: AMLODIPINE BESYLATE 5 MG TAB PO SCH (08:00)
[2018-06-29] MEDS: PRAVASTATIN SOD 20 MG TAB PO SCH (08:00)
[2018-06-29] MEDS ORDERED: POLYETHYLENE (MIRALAX) 17 GM PACK PO PRN (08:13)
[2018-06-29] MEDS ORDERED: SOD PHOSPHATE/SOD BIPHOSPHATE ENEMA 132 ML BTL PR PRN (08:13)
[2018-06-29] MEDS ORDERED: BISACODYL 10 MG SUPP PR PRN (08:13)
[2018-06-29] MEDS: DOCUSATE SODIUM 100 MG CAP PO SCH ×2 (09:38→20:56)
[2018-06-29] MEDS: HEPARIN SOD 5,000 UNIT/0.5 ML VIAL SQ SCH (12:51)
--- NOTE | 2018-06-29 14:04 | Surgery Progress Note ---
Date of Service June 29, 2018 Assessment & Plan (1) Emphysema (subcutaneous) resulting from a procedure, initial encounter: -pt. required chest tube reinsertion -clinical improvement has been noted with chest tube to suction -minimal pneumothorax again noted on CXR this am -chest tube has no air leak -yesterday chest tube clamped for approximately 3 ours and repeat CXR showed worsening pneumothorax -due to repeat CXR findings, CT unclamped and placed back to suction -after discussion with attending, will alternate suction with water seal every 4 hours -may consider trial of water seal tomorrow +/- consideration of Heimlich valve Subjective Pt. denies SOB or CP. He has been ambulating in hallway. He is tolerating diet and voiding with out difficulty. He does note some minor discomfort from chest tube. He is passing flatus but no BM since admission. No N/V or abdominal pain noted. Physical Exam Respiratory: no respiratory distress, no labored breathing and does not use accessory muscles Results & Data Vital Signs (Past 12 Hours) Vital Signs Temp Pulse Resp BP Pulse Ox 06/29/18 11:50 37.0 C 76 17 150/72 H 93 06/29/18 07:30 37.5 C 74 20 146/78 H 91
[2018-06-30] MEDS: HEPARIN SOD 5,000 UNIT/0.5 ML VIAL SQ SCH ×3 (00:05→23:24)
[2018-06-30] MEDS: ACETAMINOPHEN 325 MG TAB PO SCH ×4 (04:21→21:11)
--- NOTE | 2018-06-30 06:52 | XRay Report ---
XR chest 1V portable CLINICAL HISTORY: pneumothorax COMPARISON STUDY: Chest radiograph June 29, 2018. FINDINGS: Right chest tube remains in place. Extensive subcutaneous emphysema within the neck and [place] st wall is again noted. Pneumomediastinum is again noted. Postoperative findings within the right cameron g are noted with volume loss. There is a small right pleural effusion. No right pneumothorax is ident ified. There is no left pneumothorax. IMPRESSION: 1. Right chest tube in place. No pneumothorax identified. 2. Persistent extensive subcutaneous emphysema. Persistent pneumomediastinum. 2. Small right pleural effusion. Electronically signed by: Rizwan Vaughan M.D. 06/30/2018 6:51 AM
[2018-06-30] MEDS: LIDOCAINE 5% 1 PATCH TD SCH (08:22)
[2018-06-30] MEDS: AMLODIPINE BESYLATE 5 MG TAB PO SCH (08:22)
[2018-06-30] MEDS: PRAVASTATIN SOD 20 MG TAB PO SCH (08:22)
[2018-06-30] MEDS: PANTOprazole 40 MG TAB PO SCH ×2 (08:22→21:11)
[2018-06-30] MEDS: DOCUSATE SODIUM 100 MG CAP PO SCH ×2 (08:24→21:11)
--- NOTE | 2018-06-30 10:17 | Surgery Progress Note ---
Date of Service June 30, 2018 Assessment & Plan (1) Emphysema (subcutaneous) resulting from a procedure, initial encounter: -pt. required chest tube reinsertion at time of admission -clinical improvement of subcutaneous emphysema noted with chest tube to suction -CXR this am does not show pneumothorax -chest tube has no air leak -CXR showed worsening pneumothorax with chest tube clamped on 06/28/18 -will continue alternating suction with water seal every 4 hours -discussed with attending: -chest tube to remain in place today Subjective No SOB or CP reported. He continues to ambulate in hallway. He is tolerating diet and voiding with out difficulty. He is passing flatus but no BM since admission. No N/V or abdominal pain noted. No voiding difficulties. Physical Exam 2 Respiratory: BS with slight decrease at bases; subcutaneous emphysema noted at time of admission has improved. Results & Data Vital Signs (Past 12 Hours) Vital Signs Temp Pulse Pulse Resp BP Pulse Ox 06/30/18 07:34 37.1 C 65 16 122/75 91 06/30/18 03:47 37.2 C 64 17 143/74 H 90 06/29/18 23:21 37.3 C 64 17 124/65 90
[2018-07-01] MEDS: ACETAMINOPHEN 325 MG TAB PO SCH ×3 (03:52→17:05)
--- NOTE | 2018-07-01 07:18 | XRay Report ---
XR chest 1V portable CLINICAL HISTORY: 82 years-old Male presenting with pneumothorax. TECHNIQUE: Portable upright AP view of the chest was obtained. COMPARISON: 06/30/2018. FINDINGS: Extensive soft tissue emphysema throughout the chest wall and neck as on prior exam. Right large bore pleural drain remains positioned at the right upper lung. Atherosclerosis of the aortic arch. Cardia c silhouette normal in size. Elevation of the right hemidiaphragm with small right pleural effusion. A small right apical pneumothorax it is evident though subcutaneous emphysema affords poor delineatio n. Degenerative changes of the thoracic spine. Upper abdomen normal. IMPRESSION: 1. Right pneumothorax suspected though there is poor visualization due to the extensive subcutaneous emphysema. 2. Right pleural drain remains in place. 3. Persistent right pleural effusion. Electronically signed by: Collin Byrnes M.D. 07/01/2018 7:16 AM
[2018-07-01] MEDS: PRAVASTATIN SOD 20 MG TAB PO SCH (08:23)
[2018-07-01] MEDS: PANTOprazole 40 MG TAB PO SCH (08:23)
[2018-07-01] MEDS: AMLODIPINE BESYLATE 5 MG TAB PO SCH (08:23)
[2018-07-01] MEDS: LIDOCAINE 5% 1 PATCH TD SCH (08:24)
[2018-07-01] MEDS: DOCUSATE SODIUM 100 MG CAP PO SCH (08:25)
[2018-07-01] MEDS: HEPARIN SOD 5,000 UNIT/0.5 ML VIAL SQ SCH (11:45)
[2018-07-01] MEDS: OXYCODONE HCL IR 5 MG TAB (IMMEDIATE RELEASE) PO PRN (13:14)
--- NOTE | 2018-07-01 14:15 | XRay Report ---
XR chest 2V routine CLINICAL HISTORY: pneumothorax pneumothorax COMPARISON STUDY: 07/01/2018 7:09 AM FINDINGS: Right apical pneumothorax now contains a small amount of fluid. It has a maximum pleural se paration of 3.5 cm and is considered consistent with a hydropneumothorax. Right-sided drain is unchanged in position. Subcutaneous emphysematous change is stable. IMPRESSION: 1. Unchanged right apical pneumothorax now demonstrating a small amount of fluid consistent with hydr opneumothorax. 2. Study is otherwise unchanged. The above report was generated using voice recognition software. It may contain grammatical, syntax or spelling errors. Electronically signed by: Baldo Wagner M.D. 07/01/2018 2:14 PM
[2018-07-01 16:20] VITALS: PULSE 61; TEMP 99.1; O2SAT 94
[2018-07-01 19:08] VITALS: BP 169/72
--- NOTE | 2018-07-06 00:18 | Discharge Summary ---
DISCHARGE DIAGNOSES: Pneumothorax with subcutaneous emphysema, status post a thoracoscopic right lower lobectomy for lung cancer. HOSPITAL COURSE: This is an 82-year-old male who underwent thoracoscopic right lower lobectomy for [id number] lung carcinoma on 06/21/2018 and was discharged on postoperative day #3. He came back 1 day later with increasing subcutaneous emphysema and seen to have a right pneumothorax, which was treated and addressed with a chest tube. His subcutaneous emphysema got better. He really did not have much of an air leak, but as he improved, we kept him in the hospital for about 6 days and sent him home with a Heimlich valve. He was much improved at the conclusion of his hospital stay. He is ambulating in the hallway. He is tolerating a diet. We hooked him up to a Heimlich valve and even though he really did not have much of an air leak, I was hesitant to send him home by just pulling his chest tube which is what we did the first admission. At any rate, he did well, was discharged home. I will see him back in the office in a week with a chest x-ray. It should be noted this patient had a stage I adenocarcinoma of the lung and will require no further chemotherapy or radiation.
== END 2018-07-01 19:40 | disposition home or self-care (01) | DRG 920 ==
LOC: ED 05:13 → 3N 08:37

== ENCOUNTER 2021-11-01 09:58 | Inpatient (IN) ==
[2021-11-01] MEDS: SODIUM CHLORIDE 0.9% 1000ML 1,000 ML IV SCH ×2 (12:14→19:05)
[2021-11-01 12:24] LABS: Hematocrit (blood only) 32.9 % (40.1-51.0); Hemoglobin 11.2 g/dl (14.0-18.0); Mean Corpuscular Hemoglobin 31.4 pg (25.0-34.0); Mean Corpuscular Volume 92.2 fL (80.0-100.0); Platelet Count 267 K/uL (130-400); RDW Coefficient of Variation 14.1 % (11.5-14.5); RDW Standard Deviation 47.1 fL (36.4-46.3); Red Blood Count 3.57 M/uL (4.63-6.08); White Blood Count 18.96 K/ul (4.8-10.8)
[2021-11-01 12:37] LABS: Prothrombin Time 11.1 Seconds (9.0-12.0)
[2021-11-01 12:38] LABS: Appearance Urine Turbid (Clear); Bacteria Urine Automated 1+ (Negative); Bilirubin Urine Negative (Negative); Blood Urine 2+ (Negative); Color Urine Dark Yellow; Glucose Urine UA Negative (Negative); Ketones Urine Negative (Negative); Leukocyte Esterase Urine 3+ (Negative); Nitrite Urine Positive (Negative); Specific Gravity Urine 1.019 (1.000-1.030); Urobilinogen Urine Negative (Negative); WBC Urine Automated >30 /hpf (0-5); pH Urine >= 9.0 (4.5-7.5)
--- NOTE | 2021-11-01 12:38 | XRay Report ---
XR chest 1V portable HISTORY: 86 years-old Male Sepis acute sepsis COMPARISON: Chest radiograph 6 09/16/2021 TECHNIQUE: Portable AP view of the chest FINDINGS: Cardiac silhouette is enlarged. Volume loss of the right lung redemonstrated in this patient with his tory of prior right lower lobectomy. There is no pneumothorax, pleural effusion, airspace consolidati on or overt pulmonary edema. Degenerative changes of the shoulders and spine. IMPRESSION: Cardiomegaly without acute process. ACT 112: Negative or not required by law. The above report was generated using voice recognition software. It may contain grammatical, syntax o r spelling errors. Electronically signed by: Lino Servin M.D. 11/01/2021 12:36 PM
[2021-11-01 12:41] LABS: Protein Urine 2+ (Negative)
[2021-11-01] MEDS ORDERED: MoRPHine SULFATE 2 MG/ML CARP IV STA (12:41)
[2021-11-01] MEDS ORDERED: ACETAMINOPHEN 1,000 MG/100 ML VIAL IV STA (12:41)
[2021-11-01 12:42] LABS: Troponin I High Sensitivity 14.6 pg/ml (0-20)
[2021-11-01] MEDS ORDERED: CEFEPIME 2,000 MG/20 ML VIAL IV STA (12:51)
[2021-11-01 13:09] LABS: Alanine Aminotransferase 10 U/L (7-52); Albumin Level 3.7 gm/dl (3.4-5.0); Alkaline Phosphatase 98 U/L (34-104); Anion Gap 9 (3-11); Aspartate Aminotransferase 12 U/L (13-39); BUN Creatinine Ratio 21.2 (10-20); Bilirubin Direct 0.2 mg/dl (0-0.2); Bilirubin,Total 0.7 mg/dl (0.2-1.0); Blood Urea Nitrogen 21 mg/dl (6-23); Calcium 9.3 mg/dl (8.5-10.1); Carbon Dioxide 22 mmol/L (21-32); Chloride 106 mmol/L (98-107); Est GFR (African American) 80.7 ml/min; Est GFR (Non-African American) 69.6 ml/min; Glucose 93 mg/dl (70-99(Fasting)); Magnesium 1.8 mg/dl (1.7-2.4); Potassium 3.8 mmol/L (3.5-5.1); Sodium 137 mmol/L (136-145); Total Protein 6.5 gm/dl (6.0-8.3)
[2021-11-01 13:25] LABS: Basophils # (auto) 0.05 K/uL (0-0.2); Basophils % (auto) 0.3 %; Eosinophils # (auto) 0.01 K/uL (0-0.50); Eosinophils % (auto) 0.1 %; Immature Granulocytes # (auto) 0.09 K/uL (0.00-0.02); Immature Granulocytes % (auto) 0.5 %; Lymphocytes # (auto) 0.52 K/uL (1.2-3.4); Lymphocytes % (auto) 2.7 %; Monocytes # (auto) 0.52 K/uL (0.24-0.82); Monocytes % (auto) 2.7 %; Neutrophils # (auto) 17.77 K/uL (1.4-6.5); Neutrophils % (auto) 93.7 %
--- NOTE | 2021-11-01 13:27 | Emergency Department Note ---
History of Present Illness General Chief complaint: Fever Stated complaint: FEVER Time Seen by Provider: 11/01/21 11:32 Source: patient and family Mode of arrival: ambulatory Limitations: no limitations History of Present Illness Provider complaint: Fever, chills, dysuria, recent knee surgery Onset (ago): day(s) 1 Maximum Pain Intensity: 4 This is an 86-year-old male presents emergency department with at bedside due to concern for fevers and chills this morning. Patient states he began feeling a little more fatigued yesterday, however was still eating and drinking. His activity has been limited as he had a knee replacement 3 [address] [place] [place] [facility] He states he did notice some difficulty urinating but states that is an ongoing problem in him and he has previously seen urology. He states this morning he felt hot and then began to have chills so bad that he felt like he was shaking uncontrollably. He states he has still been taking his normal medications. He states his urine did look dark and had a stronger odor today. No change in stools. He states he feels the pain and swelling at the left knee surgical site has continued to slowly improve. He has not noticed any drainage or bleeding from the incision. He was scheduled to have follow-up in the office this week. He denies cough, URI symptoms, chest pain, abdominal pain, nausea or vomiting. He states he was COVID-negative prior to surgery 3 weeks ago. states he complained of burning with urination 4 days ago. Home Medications Medication Instructions Recorded Confirmed Type aspirin 325 mg tablet 325 mg PO BID 06/03/18 11/01/21 History calcium carbonate 600 mg-vitamin 1 cap PO QAM 11/25/18 11/01/21 History D3 5 mcg (200 unit) capsule (Calcium 600 + D(3)) amlodipine 5 mg tablet 5 mg PO QAM #90 tabs 10/05/21 11/01/21 Rx celecoxib 200 mg capsule 200 mg PO BID 11/01/21 11/01/21 History tramadol 50 mg tablet 50 mg PO UD PRN Pain 11/01/21 11/01/21 History Allergies Allergy/AdvReac Type Severity Reaction Status Date / Time No Known Allergies Allergy Verified 09/30/21 11:43 Past Med/Surg History Medical History Emphysema (subcutaneous) resulting from a procedure, initial encounter GERD (gastroesophageal reflux disease) occasional H/O acute myocardial infarction (1997) H/O cardiac arrest (1997) History of dysphagia June 2018 Osteoarthritis bilateral knees Positive colorectal cancer screening using Cologuard test Pulmonary nodule Surgical History History of cardiac cath 1993 History of esophageal dilatation June 2018 History of heart artery stent 1993 x1 stent at [facility] History of tooth extraction 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) with 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 Family History Mother Family history of diabetes mellitus Sister Breast cancer Ovarian cancer Brother Cancer colon,prostate,brain Sister Lung cancer Other Myocardial infarction Denies family history of Prostate cancer Colorectal cancer Social History Smoking Status: Current every day smoker Tobacco Type: Cigarettes Age Started Using Tobacco: 18; packs per day: 0.5; Cigarettes Per Day: 1/2 pack per day; Second Hand Exposure: Yes (as a child also); Do You Dip or Chew Tobacco: No; Tobacco Cessation Education Requested by Patient: No Hx Alcohol Use: No Hx Substance Use: No Preferred Language: Singaporean Communication Ability: Effective Visual Impairment: No Limitations Hearing Ability: Hard of Hearing Pulmonary Nurse Practitioner Required: No Beliefs That Will Affect Care: None marital status: Current Living Situation: Spouse current occupational status: retired How many Children do You have: 7 Other Information That Helps Us Care for You: No Feels Safe at Home: Yes Safety Concerns: Feels Safe At This Time Childhood Exposure to Second-Hand Smoke: Yes caffeine: Yes Dental Care, Regularly: No Physical Activity Frequency: Daily Seatbelt Use: sometimes Sunscreen Use: No Assistive Devices: Walker Assistive Devices Comment: one assist with a walker, pt just had right knee operated on oct 18 Review of Systems A total of 10 systems reviewed and were otherwise negative All systems reviewed & are unremarkable except as noted in HPI & below Physical Exam Vital Signs Vital Signs - 24 hr 11/01/21 10:09 11/01/21 12:18 11/01/21 12:18 Temperature 37.1 C Temperature Source Temporal Artery Scan Pulse Rate 106 H 78 Pulse Rate [Radial] 75 Pulse Rhythm Regular Pulse Rhythm [Radial] Regular Pulse Strength [Radial] Normal Respiratory Rate 20 18 Respiratory Effort / Characteristics Non-Labored Spontaneous Non-Labored Spontaneous Respiratory Depth Normal Normal Respiratory Pattern Regular Blood Pressure 102/63 Blood Pressure [Right Arm] 135/91 Blood Pressure Mean 76 Blood Pressure Mean [Right Arm] 105 Blood Pressure Position Sitting Blood Pressure Position [Right Arm] Lying Pulse Oximetry 95 98 98 Oxygen Delivery Method Room Air Room Air Room Air Sepsis Recent Fever Within 48 Hours Yes Sepsis New/Unexplained Change in Mental Status No Sepsis Action Taken by Nursing No Action Required GENERAL: alert, well appearing, well nourished, no distress, non-toxic EYE EXAM: normal conjunctiva, PERRL and EOM's grossly intact OROPHARYNX: no exudate, no erythema, lips, buccal mucosa, and tongue normal and mucous membranes are dry NECK: supple, no nuchal rigidity, no adenopathy, non-tender LUNGS: Clear to auscultation. Normal chest wall mechanics, no w/r/r HEART: no murmurs, S1 normal and S2 normal ABDOMEN: abdomen soft, non-tender, normo-active bowel sounds, no masses, no rebound or guarding. BACK: Back is symmetrical on inspection and there is no deformity, no midline tenderness, no CVA tenderness. SKIN: no rashes and no bruising UPPER EXTREMITIES: upper extremities are grossly normal. FROM, nml pulses b/l. LOWER EXTREMITIES: No pitting edema. FROM RLE, nml pulses b/l. Left knee with dressing, this was removed and did reveal an intact vertical midline incision with sutures and overlying Steri-Strips. No significant effusion, no surrounding erythema, no drainage or discharge from the incision NEURO EXAM: Normal sensorium, cranial nerves II-XII grossly intact, normal speech, no gross weakness of arms, no gross weakness of legs. Gross sensation intact. Course Administered Medications Acetaminophen (Acetaminophen 325 Mg Tab) 650 mg PO Q4H PRN PRN Reason: pain/fever Stop: 12/01/21 17:06 Last Admin: 11/02/21 15:56 Dose: 650 mg Documented By: MILDRED Amlodipine Besylate (Amlodipine Besylate 5 Mg Tab) 5 mg PO QAM [facility] Stop: 12/02/21 08:59 Last Admin: 11/02/21 09:44 Dose: Not Given Documented By: MILDRED Aspirin (Aspirin 81 Mg Ectab) 81 mg PO BID MARC Stop: 12/01/21 20:59 Last Admin: 11/02/21 08:21 Dose: 81 mg Documented By: Admin: 11/01/21 21:00 Dose: 81 mg Documented By: AM Sodium Chloride (Nss 1000ml) 1,000 mls @ 125 mls/hr IV .Q8H MARC Stop: 12/01/21 11:44 Last Admin: 11/02/21 11:20 Dose: 125 mls/hr Documented By: Infusion: 11/02/21 10:59 Dose: 125 mls/hr Documented By: Admin: 11/02/21 02:59 Dose: 125 mls/hr Documented By: Infusion: 11/02/21 02:59 Dose: 0 mls/hr Documented By: Admin: 11/01/21 19:05 Dose: 125 mls/hr Documented By: Infusion: 11/01/21 19:05 Dose: 125 mls/hr Documented By: Admin: 11/01/21 12:14 Dose: 125 mls/hr Documented By: BREANNE Cefepime HCl 2,000 mg/ Syringe 20 mls @ 5 mls/min IV Q12H MARC; Protocol Stop: 11/12/21 00:00 Last Admin: 11/02/21 14:40 Dose: 5 mls/min Documented By: Admin: 11/01/21 23:58 Dose: 5 mls/min Documented By: BRYANT Daptomycin 400 mg/ Syringe 8 mls @ 4 mls/min IV Q24H MARC; Protocol Stop: 11/11/21 17:59 Last Admin: 11/02/21 17:41 Dose: 4 mls/min Documented By: Admin: 11/01/21 18:30 Dose: 4 mls/min Documented By: AM Pantoprazole Sodium (Pantoprazole 40 Mg Tab) 40 mg PO BID MARC Stop: 12/01/21 20:59 Last Admin: 11/02/21 08:57 Dose: 40 mg Documented By: Admin: 11/01/21 21:00 Dose: 40 mg Documented By: AM Pravastatin Sodium (Pravastatin Sod 20 Mg Tab) 20 mg PO Q2D@0900 MARC Stop: 12/01/21 17:59 Last Admin: 11/01/21 19:05 Dose: 20 mg Documented By: YE Discontinued Medications Acetaminophen (Ofirmev) 1,000 mg in 100 mls @ 400 mls/hr IV NOW STA Stop: 11/01/21 12:55 Last Infusion: 11/01/21 13:27 Dose: 0 mls/hr Documented By: Admin: 11/01/21 13:10 Dose: 400 mls/hr Documented By: BREANNE Cefepime HCl (Maxipime) 2,000 mg in 20 mls @ 5 mls/min IV NOW STA; Protocol Stop: 11/01/21 12:54 Last Admin: 11/01/21 13:04 Dose: 5 mls/min Documented By: BREANNE Ioversol (Optiray 300 100ml) 94 ml IV ONCE ONE Stop: 11/01/21 13:57 Last Admin: 11/01/21 13:56 Dose: 94 ml Documented By: DAVIDA Morphine Sulfate (Morphine Sulfate 2 Mg/Ml Carp) 2 mg IV NOW STA Stop: 11/01/21 12:42 Last Admin: 11/01/21 13:04 Dose: 2 mg Documented By: BREANNE Medical Decision Making Differential Diagnosis Differential diagnosis: Etiologies such as viral syndrome, otitis, pharyngitis, pneumonia, influenza, meningitis, urinary tract infection, sepsis, bacteremia, as well as others were entertained. Medical Records Attestation: I reviewed the patient's medical records. Home Medications Current Medication List: was personally reviewed by me Laboratory Data Attestation: I reviewed the patient's lab results. Result diagrams: 11/02/21 06:59 11/02/21 06:59 Lab Results 11/01/21 11/01/21 11/01/21 Range/Units 11:55 12:02 12:02 WBC 18.96 H (4.8-10.8) K/ul RBC 3.57 L (4.63-6.08) M/uL Hgb 11.2 L (14.0-18.0) g/dl Hct 32.9 L (40.1-51.0) % MCV 92.2 (80.0-100.0) fL MCH 31.4 (25.0-34.0) pg MCHC 34.0 (32.0-36.0) g/dL RDW Std Deviation 47.1 H (36.4-46.3) fL RDW Coeff of Marisel 14.1 (11.5-14.5) % Plt Count 267 (130-400) K/uL MPV 10.0 (9.4-12.4) fL Immature Gran % (Auto) 0.5 % Neut % (Auto) 93.7 % Lymph % (Auto) 2.7 % [place] % (Auto) 2.7 % Eos % (Auto) 0.1 % Baso % (Auto) 0.3 % Neut # (Auto) 17.77 H (1.4-6.5) K/uL Lymph # (Auto) 0.52 L (1.2-3.4) K/uL [place] # (Auto) 0.52 (0.24-0.82) K/uL Eos # (Auto) 0.01 (0-0.50) K/uL Baso # (Auto) 0.05 (0-0.2) K/uL Immature Gran # (Auto) 0.09 H (0.00-0.02) K/uL PT 11.1 (9.0-12.0) Seconds INR 1.0 (0.9-1.1) Sodium (136-145) mmol/L Potassium (3.5-5.1) mmol/L Chloride (98-107) mmol/L Carbon Dioxide (21-32) mmol/L Anion Gap (3-11) BUN (6-23) mg/dl Creatinine (0.6-1.4) mg/dl Est Cr Clr Drug Dosing Est GFR ( Amer) ml/min Est GFR (Non-Af Amer) ml/min BUN/Creatinine Ratio (10-20) Glucose (70-99(Fasting)) mg/dl Lactate (0.4-2.0) mmol/L Calcium (8.5-10.1) mg/dl Magnesium (1.7-2.4) mg/dl Total Bilirubin (0.2-1.0) mg/dl Direct Bilirubin (0-0.2) mg/dl AST (13-39) U/L ALT (7-52) U/L Alkaline Phosphatase (34-104) U/L Troponin I High Sens (0-20) pg/ml Total Protein (6.0-8.3) gm/dl Albumin (3.4-5.0) gm/dl Procalcitonin (0-0.5) ng/ml Urine Color Urine Appearance (Clear) Urine pH (4.5-7.5) Ur Specific [place] (1.000-1.030) Urine Protein (Negative) Urine Glucose (UA) (Negative) Urine Ketones (Negative) Urine Blood (Negative) Urine Nitrite (Negative) Urine Bilirubin (Negative) Urine Urobilinogen (Negative) Ur Leukocyte Esterase (Negative) Urine WBC (Auto) (0-5) /hpf Urine RBC (Auto) (0-4) /hpf U Hyaline Cast (Auto) (0-5) /lpf U Epithel Cells (Auto) (0-5) /lpf Urine Bacteria (Auto) (Negative) Adenovirus (PCR) Not Detected (NotDetected) B. pertussis DNA (PCR) Not Detected (NotDetected) B.parapertussis DNA PCR Not Detected (NotDetected) C. pneumoniae DNA (PCR) Not Detected (NotDetected) Coronavirus OC43 (PCR) Not Detected (NotDetected) Coronavirus HKU1 (PCR) Not Detected (NotDetected) Coronavirus 229E (PCR) Not Detected (NotDetected) SARS-CoV-2 (PCR) Not Detected (NotDetected) Coronavirus NL63 (PCR) Not Detected (NotDetected) Human Metapneumovir PCR Not Detected (NotDetected) Influenza Type A (PCR) Not Detected (NotDetected) Influenza Type B (PCR) Not Detected (NotDetected) M. pneumoniae (PCR) Not Detected (NotDetected) Parainfluenza 1 (PCR) Not Detected (NotDetected) Parainfluenza 2 (PCR) Not Detected (NotDetected) Parainfluenza 3 (PCR) Not Detected (NotDetected) Parainfluenza 4 (PCR) Not Detected (NotDetected) RSV (PCR) Not Detected (NotDetected) Entero/Rhino (PCR) Not Detected (NotDetected) 11/01/21 11/01/21 11/01/21 Range/Units 12:02 12:02 12:02 WBC (4.8-10.8) K/ul RBC (4.63-6.08) M/uL Hgb (14.0-18.0) g/dl Hct (40.1-51.0) % MCV (80.0-100.0) fL MCH (25.0-34.0) pg MCHC (32.0-36.0) g/dL RDW Std Deviation (36.4-46.3) fL RDW Coeff of Marisel (11.5-14.5) % Plt Count (130-400) K/uL MPV (9.4-12.4) fL Immature Gran % (Auto) % Neut % (Auto) % Lymph % (Auto) % [place] % (Auto) % Eos % (Auto) % Baso % (Auto) % Neut # (Auto) (1.4-6.5) K/uL Lymph # (Auto) (1.2-3.4) K/uL [place] # (Auto) (0.24-0.82) K/uL Eos # (Auto) (0-0.50) K/uL Baso # (Auto) (0-0.2) K/uL Immature Gran # (Auto) (0.00-0.02) K/uL PT (9.0-12.0) Seconds INR (0.9-1.1) Sodium 137 (136-145) mmol/L Potassium 3.8 (3.5-5.1) mmol/L Chloride 106 (98-107) mmol/L Carbon Dioxide 22 (21-32) mmol/L Anion Gap 9 (3-11) BUN 21 (6-23) mg/dl Creatinine 0.99 (0.6-1.4) mg/dl Est Cr Clr Drug Dosing Not Reportable Est GFR ( Amer) 80.7 ml/min Est GFR (Non-Af Amer) 69.6 ml/min BUN/Creatinine Ratio 21.2 H (10-20) Glucose 93 (70-99(Fasting)) mg/dl Lactate 1.2 (0.4-2.0) mmol/L Calcium 9.3 (8.5-10.1) mg/dl Magnesium 1.8 (1.7-2.4) mg/dl Total Bilirubin 0.7 (0.2-1.0) mg/dl Direct Bilirubin 0.2 (0-0.2) mg/dl AST 12 L (13-39) U/L ALT 10 (7-52) U/L Alkaline Phosphatase 98 (34-104) U/L Troponin I High Sens 14.6 (0-20) pg/ml Total Protein 6.5 (6.0-8.3) gm/dl Albumin 3.7 (3.4-5.0) gm/dl Procalcitonin 7.80 H (0-0.5) ng/ml Urine Color Urine Appearance (Clear) Urine pH (4.5-7.5) Ur Specific [place] (1.000-1.030) Urine Protein (Negative) Urine Glucose (UA) (Negative) Urine Ketones (Negative) Urine Blood (Negative) Urine Nitrite (Negative) Urine Bilirubin (Negative) Urine Urobilinogen (Negative) Ur Leukocyte Esterase (Negative) Urine WBC (Auto) (0-5) /hpf Urine RBC (Auto) (0-4) /hpf U Hyaline Cast (Auto) (0-5) /lpf U Epithel Cells (Auto) (0-5) /lpf Urine Bacteria (Auto) (Negative) Adenovirus (PCR) (NotDetected) B. pertussis DNA (PCR) (NotDetected) B.parapertussis DNA PCR (NotDetected) C. pneumoniae DNA (PCR) (NotDetected) Coronavirus OC43 (PCR) (NotDetected) Coronavirus HKU1 (PCR) (NotDetected) Coronavirus 229E (PCR) (NotDetected) SARS-CoV-2 (PCR) (NotDetected) Coronavirus NL63 (PCR) (NotDetected) Human Metapneumovir PCR (NotDetected) Influenza Type A (PCR) (NotDetected) Influenza Type B (PCR) (NotDetected) M. pneumoniae (PCR) (NotDetected) Parainfluenza 1 (PCR) (NotDetected) Parainfluenza 2 (PCR) (NotDetected) Parainfluenza 3 (PCR) (NotDetected) Parainfluenza 4 (PCR) (NotDetected) RSV (PCR) (NotDetected) Entero/Rhino (PCR) (NotDetected) 09/20/22 Range/Units 12:02 WBC (4.8-10.8) K/ul RBC (4.63-6.08) M/uL Hgb (14.0-18.0) g/dl Hct (40.1-51.0) % MCV (80.0-100.0) fL MCH (25.0-34.0) pg MCHC (32.0-36.0) g/dL RDW Std Deviation (36.4-46.3) fL RDW Coeff of Marisel (11.5-14.5) % Plt Count (130-400) K/uL MPV (9.4-12.4) fL Immature Gran % (Auto) % Neut % (Auto) % Lymph % (Auto) % [place] % (Auto) % Eos % (Auto) % Baso % (Auto) % Neut # (Auto) (1.4-6.5) K/uL Lymph # (Auto) (1.2-3.4) K/uL [place] # (Auto) (0.24-0.82) K/uL Eos # (Auto) (0-0.50) K/uL Baso # (Auto) (0-0.2) K/uL Immature Gran # (Auto) (0.00-0.02) K/uL PT (9.0-12.0) Seconds INR (0.9-1.1) Sodium (136-145) mmol/L Potassium (3.5-5.1) mmol/L Chloride (98-107) mmol/L Carbon Dioxide (21-32) mmol/L Anion Gap (3-11) BUN (6-23) mg/dl Creatinine (0.6-1.4) mg/dl Est Cr Clr Drug Dosing Est GFR ( Amer) ml/min Est GFR (Non-Af Amer) ml/min BUN/Creatinine Ratio (10-20) Glucose (70-99(Fasting)) mg/dl Lactate (0.4-2.0) mmol/L Calcium (8.5-10.1) mg/dl Magnesium (1.7-2.4) mg/dl Total Bilirubin (0.2-1.0) mg/dl Direct Bilirubin (0-0.2) mg/dl AST (13-39) U/L ALT (7-52) U/L Alkaline Phosphatase (34-104) U/L Troponin I High Sens (0-20) pg/ml Total Protein (6.0-8.3) gm/dl Albumin (3.4-5.0) gm/dl Procalcitonin (0-0.5) ng/ml Urine Color Dark Yellow Urine Appearance Turbid A (Clear) Urine pH >= 9.0 H (4.5-7.5) Ur Specific [place] 1.019 (1.000-1.030) Urine Protein 2+ H (Negative) Urine Glucose (UA) Negative (Negative) Urine Ketones Negative (Negative) Urine Blood 2+ H (Negative) Urine Nitrite Positive A (Negative) Urine Bilirubin Negative (Negative) Urine Urobilinogen Negative (Negative) Ur Leukocyte Esterase 3+ H (Negative) Urine WBC (Auto) >30 H (0-5) /hpf Urine RBC (Auto) 10-30 H (0-4) /hpf U Hyaline Cast (Auto) 10-30 H (0-5) /lpf U Epithel Cells (Auto) 10-20 H (0-5) /lpf Urine Bacteria (Auto) 1+ H (Negative) Adenovirus (PCR) (NotDetected) B. pertussis DNA (PCR) (NotDetected) B.parapertussis DNA PCR (NotDetected) C. pneumoniae DNA (PCR) (NotDetected) Coronavirus OC43 (PCR) (NotDetected) Coronavirus HKU1 (PCR) (NotDetected) Coronavirus 229E (PCR) (NotDetected) SARS-CoV-2 (PCR) (NotDetected) Coronavirus NL63 (PCR) (NotDetected) Human Metapneumovir PCR (NotDetected) Influenza Type A (PCR) (NotDetected) Influenza Type B (PCR) (NotDetected) M. pneumoniae (PCR) (NotDetected) Parainfluenza 1 (PCR) (NotDetected) Parainfluenza 2 (PCR) (NotDetected) Parainfluenza 3 (PCR) (NotDetected) Parainfluenza 4 (PCR) (NotDetected) RSV (PCR) (NotDetected) Entero/Rhino (PCR) (NotDetected) Imaging Data Radiologist's Impression: Chest X-Ray 11/01/21 11:45 XR chest 1V portable HISTORY: 86 years-old Male Sep[place] acute sepsis COMPARISON: Chest radiograph 6 09/16/2021 TECHNIQUE: Portable AP view of the chest FINDINGS: Cardiac silhouette is enlarged. Volume loss of the right lung redemonstrated in this patient with history of prior right lower lobectomy. There is no pneumothorax, pleural effusion, airspace consolidation or overt pulmonary edema. Degenerative changes of the shoulders and spine. IMPRESSION: Cardiomegaly without acute process. ACT 112: Negative or not required by law. The above report was generated using voice recognition software. It may contain grammatical, syntax or spelling errors. Electronically signed by: Lino Servin M.D. 11/01/2021 12:36 PM ABDOMEN AND PELVIS CT WITH IV CONTRAST CT DOSE: 721.39 mGycm HISTORY: , With a urinary tract infection. Nausea. Chills. TECHNIQUE: Multiaxial CT images of the abdomen and pelvis were performed following the use of intravenous contrast. A dose lowering technique was utilized adhering to the principles of ALARA. COMPARISON STUDY: Abdomen and pelvis CT 12/13/2017. FINDINGS: Mild dependent changes are noted within the lung bases. No pneumoperitoneum. No pneumatosis. Patchy area of sclerosis within the left iliac bone on image 347 remains stable. Therefore, this is likely benign. There is a small to moderate hiatus hernia. There is a 3 cm diverticulum at the second portion of the duodenum. There is a small gallstone present. No gallbladder wall thickening. The liver, pancreas, spleen, and adrenal glands are unremarkable. Mild bilateral cortical renal scarring. There are few subcentimeter hypodense lesions within the left kidney which are totally too small to characterize but favor cysts. The main portal vein is patent. Normal caliber abdominal aorta. No retroperitoneal lymphadenopathy. Calcified plaque identified within the aorta and iliac arteries. No pelvic lymphadenopathy. There is moderate bladder wall thickening with adjacent fat stranding. This is consistent with a cystitis. Colonic diverticulosis. No evidence for acute diverticulitis. No bowel wall thickening or obstruction. Normal appendix. IMPRESSION: 1. Moderate bladder wall thickening consistent with a cystitis. Recommend correlation with urinalysis. 2. No hydronephrosis. 3. Cholelithiasis. 4. No bowel wall thickening or obstruction. 5. Normal appendix. 6. Colonic diverticulosis. No evidence for acute diverticulitis. ACT 112: Negative or not required by law. Electronically signed by: Tristin Dietrich M.D. 11/01/2021 2:09 PM ECG Data Attestation: I personally reviewed and interpreted this ECG as follows: Indication: + other Rate (beats per minute): 75 Rhythm: + normal sinus ECG Intervals/blocks: + Normal QRS and + Normal QT ECG [place]: + Normal ECG ST segments: + Normal ST segments MDM Narrative An order was placed for continuous cardiac monitoring. The monitor shows a rate of _70_ with _normal sinus__ rhythm. This is an 86-year-old male who presents emergency department due to concern for fevers and chills. concerned for possible complication of his recent knee replacement 3 weeks ago versus evolving urinary tract infection as he has had those previously. Patient did admit to dysuria upon further questioning. Patient did appear clinically dehydrated. Patient's evaluation done here did reveal urinary tract infection. I did review prior cultures prior to ordering antibiotics. Patient's left knee is well-appearing and he reports has been improving in terms of pain and swelling. I do not suspect occult septic arthritis or hardware infection in light of recent surgery. Given infection, leukocytosis, elevated procalcitonin, I did discuss with him additional evaluation and treatment, he verbalized understanding was in agreement with the plan. CT of the abdomen pelvis was added and was reassuring also. No evidence of pyelonephritis or ureterolithiasis. Case discussed with hospitalist. Impression & Plan Fever and chills, Acute UTI (urinary tract infection), S/P knee replacement Discharge Plan Visit Data Chief Complaint: Fever Stated Complaint: FEVER ED Provider: Brittany Rodriguez Discharge Problem: Fever and chills, Acute UTI (urinary tract infection), S/P knee replacement Patient Disposition: Admitted As Inpatient Discharge Instructions Interventions: ED Discharge Assessment Last Done: 11/01/21 16:35
--- NOTE | 2021-11-01 13:36 | History & Physical Report ---
Date of Service November 01, 2021 Assessment & Plan (1) Complicated UTI (urinary tract infection): Plan: Rigors 2/2 complicated UTI Leukocytosis to 18.96 Hemoglobin 11.2 from baseline of around 14, normocytic Elevated and LR Sodium normal, potassium normal Creatinine normal at baseline, admitting creatinine 0.99 with BUN/creatinine ratio 21.2 No transaminitis High-sensitivity troponin 14.6 Procalcitonin 7.8 on admission UA infected appearing, UC pending [facility] respiratory panel: Negative CXR: Cardiomegaly without acute findings, right lung volume loss consistent with lobectomy Blood culture pending Urine culture: Past UC positive for coag negative staph, corynebacterium, Enterobacter with resistance to ceftriaxone/sensitive to cefepime, alpha strep. 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 Hernandes Well healing postsurgical incision, good range of motion. No signs of overt infection Patient was scheduled for follow-up on with Dr. Hernandes Continue aspirin 81 mg twice daily DVT PPx DVT prophylaxis: On aspirin 81 mg twice daily, SCDs CODE STATUS: Full code Disposition: Medical/surgical Diet: Heart healthy (2) CAD S/P percutaneous coronary angioplasty: (3) Benign hypertension: (4) COPD (chronic obstructive pulmonary disease): (5) H/O acute myocardial infarction: (6) Hyperlipidemia: (7) Tobacco abuse: (8) Vitamin D deficiency: History of Present Illness Primary Care Provider: Morales Concepcion DO Manuel Coleman is an 86-year-old male with a past medical history of VT/cardiac arrest 1997, CAD s/p PCI, COPD, hyperlipidemia who presents with rigors and with a overtly infected UA and was had 3 to 4 days of dysuria and urinary frequency with right flank pain Knee replacement w Dr. Hernandes in [place] on Oct. improving, doing well, no pain. Hx of recurrent UTIs Hx of urethral strictures Does no tfollow with uro as an outpatient dysuria 4 days ago Today developed fevers with rigors 'shaking like a leaf and teeth chattering' Patient reports that for the last several days he has had increasing burning and urinary frequency has right back pain of about the same time. Decreased appetite, has been drinking liquids. Denies abdominal pain. Denies leg swelling. Has felt feverish, and has had shaking chills starting today. Endorses night sweats. Denies chest pain, chest pressure, shortness of breath, difficulty breathing, lightheadedness, dizziness. Denies hematuria, bloody bowel movements, black bowel movements. Left knee is healing well following kne e replacement with Dr. Hernandes. Reports no pain in the knee and has good range of motion. Denies leg swelling, is taking a baby aspirin twice daily for DVT prophylaxis. Medical History: Reviewed Medications: Reviewed Surgical History: Reviewed Allergies: Reviewed Social History: Regular tobacco use, no recreational drug use Code Status: Full code, discussed with patient Allergies Allergy/AdvReac Type Severity Reaction Status Date / Time No Known Allergies Allergy Verified 09/30/21 11:43 Home Medications Medication Instructions Recorded Confirmed Type aspirin 325 mg tablet 325 mg PO BID 06/03/18 09/30/21 History calcium carbonate 200 mg calcium 200 mg PO BID PRN Heartburn 11/25/18 09/30/21 History (500 mg) chewable tablet (Tums) calcium carbonate 600 mg-vitamin 1 cap PO QAM 11/25/18 09/30/21 History D3 5 mcg (200 unit) capsule (Calcium 600 + D(3)) pravastatin 20 mg tablet 20 mg PO Q OTHER DAY #45 tabs 04/30/20 09/30/21 Rx esomeprazole magnesium 40 mg 40 mg PO BID #60 caps 04/04/21 09/30/21 Rx capsule,delayed release amlodipine 5 mg tablet 5 mg PO QAM #90 tabs 10/05/21 Rx Past Med/Surg History Medical History Emphysema (subcutaneous) resulting from a procedure, initial encounter GERD (gastroesophageal reflux disease) occasional H/O acute myocardial infarction (1997) H/O cardiac arrest (1997) History of dysphagia June 2018 Osteoarthritis bilateral knees Positive colorectal cancer screening using Cologuard test Pulmonary nodule Surgical History History of cardiac cath 1993 History of esophageal dilatation June 2018 History of heart artery stent 1993 x1 stent at [facility] History of tooth extraction 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) with Dr Chu Family History Mother Family history of diabetes mellitus Sister Breast cancer Ovarian cancer Brother Cancer colon,prostate,brain Sister Lung cancer Other Myocardial infarction Denies family history of Prostate cancer Colorectal cancer Social History Smoking Status: Current every day smoker Tobacco Type: Cigarettes Age Started Using Tobacco: 18; packs per day: 0.5; Cigarettes Per Day: 10; Second Hand Exposure: Yes (as a child also); Hx Alcohol Use: No Hx Substance Use: No Preferred Language: Kiswahili Communication Ability: Effective Visual Impairment: No Limitations Hearing Ability: Hard of Hearing Asset Manager Required: No Beliefs That Will Affect Care: None marital status: Current Living Situation: Spouse current occupational status: retired How many Children do You have: 7 Feels Safe at Home: Yes Childhood Exposure to Second-Hand Smoke: Yes caffeine: Yes Dental Care, Regularly: No Physical Activity Frequency: Daily Seatbelt Use: sometimes Sunscreen Use: No Assistive Devices: Cane, Denture - Upper and Denture - Lower Review of Systems Review of Systems: All systems reviewed & are unremarkable except as noted in Subjective Physical Exam Physical Exam: General: A&Ox3. NAD. Cooperative. Skin is warm and dry. HEENT: Atraumatic, normocephalic. Vision/hearing grossly intact Pulm: CTAB A&P. -wheezes, -rales, -rhonchi. Symmetrical chest rise. No increase in work of breathing. No respiratory distress. Cardiac: RRR, -mrg. Radial pulses intact and symmetrical. Abdominal: Nontender, nondistended, soft. BS present. Mild right CVA tenderness present on percussion. Extremities: Left knee with anterior postoperative incision, well-healing without dehiscence/erythema/discharge/tenderness. Knee range of motion intact without pain, ankle dorsiflexion/plantarflexion 5/5 bilaterally, PT pulse intact and symmetrical bilaterally. Furnace Unloader strength, elbow flexion 5/5 bilaterally. Sensation of soft touch intact in hands and feet bilaterally without asymmetry. Results & Data Results & Data ([facility]) Vital Signs (Past 12 Hours) Vital Signs Temp Pulse Pulse Resp BP BP Pulse Ox 11/01/21 12:18 78 98 11/01/21 12:18 75 18 135/91 98 11/01/21 10:09 37.1 C 106 H 20 102/63 95 O2 Del Method 11/01/21 12:18 Room Air 11/01/21 12:18 Room Air 11/01/21 10:09 Room Air PG Care Time/CCT Total # of Minutes Spent Total Time Spent with Patient: Total time spent is greater than 50% in coordination of care (as documented) at patient's floor/unit and/or counseling patient: Coding Level of Care Code 32674 Initial Inpt Care Lvl 2 Diagnoses Complicated UTI (urinary tract infection) N39.0 CAD S/P percutaneous coronary angioplasty I25.10; Z98.61 Benign hypertension I10 COPD (chronic obstructive pulmonary disease) J44.9 H/O acute myocardial infarction I25.2 Hyperlipidemia E78.5 Tobacco abuse Z72.0 Vitamin D deficiency E55.9
[2021-11-01 13:37] LABS: Adenovirus PCR Not Detected (NotDetected); Bordetella parapertussis PCR Not Detected (NotDetected); Bordetella pertussis PCR Not Detected (NotDetected); Chlamydia pneumoniae PCR Not Detected (NotDetected); Coronavirus 229E PCR Not Detected (NotDetected); Coronavirus CoV-2 (COVID19)PCR Not Detected (NotDetected); Coronavirus HKU1 PCR Not Detected (NotDetected); Coronavirus NL63 PCR Not Detected (NotDetected); Coronavirus OC43PCR Not Detected (NotDetected); Human Metapneumovirus PCR Not Detected (NotDetected); Influenza A PCR Not Detected (NotDetected); Influenza B PCR Not Detected (NotDetected); Mycoplasma pneumoniae PCR Not Detected (NotDetected); Parainfluenza Virus 1 PCR Not Detected (NotDetected); Parainfluenza Virus 2 PCR Not Detected (NotDetected); Parainfluenza Virus 3 PCR Not Detected (NotDetected); Parainfluenza Virus 4 PCR Not Detected (NotDetected); Respiratory Syncytial VirusPCR Not Detected (NotDetected); Rhinovirus/Enterovirus PCR Not Detected (NotDetected)
[2021-11-01] MEDS ORDERED: OPTIRAY 300 100mL IV ONE (13:56)
--- NOTE | 2021-11-01 14:11 | CT Scan Report ---
ABDOMEN AND PELVIS CT WITH IV CONTRAST CT DOSE: 721.39 mGycm HISTORY: , With a urinary tract infection. Nausea. Chills. TECHNIQUE: Multiaxial CT images of the abdomen and pelvis were performed following the use of intrave nous contrast. A dose lowering technique was utilized adhering to the principles of ALARA. COMPARISON STUDY: Abdomen and pelvis CT 12/13/2017. FINDINGS: Mild dependent changes are noted within the lung bases. No pneumoperitoneum. No pneumatosis . Patchy area of sclerosis within the left iliac bone on image 347 remains stable. Therefore, this is likely benign. There is a small to moderate hiatus hernia. There is a 3 cm diverticulum at the secon d portion of the duodenum. There is a small gallstone present. No gallbladder wall thickening. The li rainer, pancreas, spleen, and adrenal glands are unremarkable. Mild bilateral cortical renal scarring. T here are few subcentimeter hypodense lesions within the left kidney which are totally too small to ch aracterize but favor cysts. The main portal vein is patent. Normal caliber abdominal aorta. No retrop eritoneal lymphadenopathy. Calcified plaque identified within the aorta and iliac arteries. No pelvic lymphadenopathy. There is moderate bladder wall thickening with adjacent fat stranding. This is cons istent with a cystitis. Colonic diverticulosis. No evidence for acute diverticulitis. No bowel wall t hickening or obstruction. Normal appendix. IMPRESSION: 1. Moderate bladder wall thickening consistent with a cystitis. Recommend correlation with urinalysis . 2. No hydronephrosis. 3. Cholelithiasis. 4. No bowel wall thickening or obstruction. 5. Normal appendix. 6. Colonic diverticulosis. No evidence for acute diverticulitis. ACT 112: Negative or not required by law. Electronically signed by: Tristin Dietrich M.D. 11/01/2021 2:09 PM
--- NOTE | 2021-11-01 16:42 | Electrocardiogram Report ---
Test Reason : Blood Pressure : / mmHG Vent. Rate : 075 BPM Atrial Rate : 075 BPM P-R Int : 190 ms QRS Dur : 096 ms QT Int : 370 ms P-R-T Axes : 046 017 076 degrees QTc Int : 413 ms Poor data quality, interpretation may be adversely affected Sinus rhythm with Premature atrial complexes Nonspecific T wave abnormality Abnormal ECG When compared with ECG of 16-SEP-2021 09:07, Premature ventricular complexes are no longer Present Premature atrial complexes are now Present CO interval has decreased T wave inversion now evident in Lateral leads Confirmed by Milton Cheng ([id number]) on 11/01/2021 4:42:09 PM Referred By: REFERRED SELF Confirmed By:Milton Cheng
[2021-11-01] MEDS ORDERED: POLYETHYLENE (MIRALAX) 17 GM PACK PO PRN (17:07)
[2021-11-01] MEDS ORDERED: ONDANSETRON INJ 2 MG/ML 2 ML VIAL IV PRN (17:07)
[2021-11-01] MEDS: DAPTOmycin 400 MG in SYRINGE 0 ML IV SCH (18:30)
[2021-11-01] MEDS: PRAVASTATIN SOD 20 MG TAB PO SCH (19:05)
[2021-11-01] MEDS: ASPIRIN 81 MG ECTAB PO SCH (21:00)
[2021-11-01] MEDS: PANTOprazole 40 MG TAB PO SCH (21:00)
[2021-11-01] MEDS: CEFEPIME 2,000 MG in SYRINGE 0 ML IV SCH (23:58)
[2021-11-02] MEDS: SODIUM CHLORIDE 0.9% 1000ML 1,000 ML IV SCH ×2 (02:59→11:20)
[2021-11-02 07:27] LABS: Hematocrit (blood only) 28.4 % (40.1-51.0); Hemoglobin 9.7 g/dl (14.0-18.0); Mean Corpuscular Hemoglobin 31.3 pg (25.0-34.0); Mean Corpuscular Hgb Conc 34.2 g/dL (32.0-36.0); Mean Corpuscular Volume 91.6 fL (80.0-100.0); Mean Platelet Volume 10.3 fL (9.4-12.4); Platelet Count 209 K/uL (130-400); RDW Coefficient of Variation 14.6 % (11.5-14.5); RDW Standard Deviation 48.8 fL (36.4-46.3)
[2021-11-02 07:47] LABS: Calcium 8.6 mg/dl (8.5-10.1); Creatinine Clr Calc Pharmacy 55.9 ml/min; Est GFR (African American) 79.7 ml/min; Est GFR (Non-African American) 68.8 ml/min; Potassium 3.7 mmol/L (3.5-5.1)
[2021-11-02 07:58] LABS: Basophils # (auto) 0.05 K/uL (0-0.2); Basophils % (auto) 0.3 %; Eosinophils # (auto) 0.01 K/uL (0-0.50); Eosinophils % (auto) 0.1 %; Immature Granulocytes # (auto) 0.09 K/uL (0.00-0.02); Immature Granulocytes % (auto) 0.5 %; Lymphocytes # (auto) 1.54 K/uL (1.2-3.4); Lymphocytes % (auto) 8.1 %; Monocytes # (auto) 0.82 K/uL (0.24-0.82); Monocytes % (auto) 4.3 %; Neutrophils # (auto) 16.49 K/uL (1.4-6.5); Neutrophils % (auto) 86.7 %
[2021-11-02] MEDS: ASPIRIN 81 MG ECTAB PO SCH ×2 (08:21→21:00)
[2021-11-02] MEDS: PANTOprazole 40 MG TAB PO SCH ×2 (08:57→21:00)
[2021-11-02] MEDS: amLODIPine BESYLATE 5 MG TAB PO SCH (09:44)
--- NOTE | 2021-11-02 14:27 | Orthopedic Consultation ---
Date of Consultation November 02, 2021 Assessment & Plan (1) Status post total left knee replacement: Patient is approximately 2 weeks out from left total knee arthroplasty by Dr. Roberto Hernandes. Mild erythema of the proximal portion of the incision however the knee does not appear infected at this time. Continue PT/OT protocols. Weightbearing as tolerated. TKA protocols. Currently on daptomycin and cefepime. Is my assumption the patient would likely be going home on antibiotics. Can discuss with hospitalist service. Patient has a follow-up appointment on Sunday of this week at 9:20 AM. If patient is not discharged in time, he can follow-up in 4 weeks for his 6-week appointment. I have discussed this with his . History of Present Illness Reason for Consultation: This post left total knee arthroplasty approximately 2 weeks ago Attending Physician: Sandra Rowley MD History of Present Illness Patient is an 86-year-old male who was admitted for complicated UTI yesterday. Patient discussed with the admitting physician that he had had recent left total knee arthroplasty done by Dr. Roberto Hernandes just shy of 2 weeks ago. We have been consulted to see the patient for his left knee. He is due for a recent follow- up appointment with Dr. Hernandes. Currently the patient is lying in bed awake and alert. He has no overt complaints other than having leg cramps off and on in the left lower extremity. States that the knee feels well and he has been ambulating on the left lower extremity without difficulty. No new complaints at this time. Allergies Allergy/AdvReac Type Severity Reaction Status Date / Time No Known Allergies Allergy Verified 09/30/21 11:43 Home Medications Medication Instructions Recorded Confirmed Type aspirin 325 mg tablet 325 mg PO BID 06/03/18 11/01/21 History calcium carbonate 600 mg-vitamin 1 cap PO QAM 11/25/18 11/01/21 History D3 5 mcg (200 unit) capsule (Calcium 600 + D(3)) amlodipine 5 mg tablet 5 mg PO QAM #90 tabs 10/05/21 11/01/21 Rx celecoxib 200 mg capsule 200 mg PO BID 11/01/21 11/01/21 History tramadol 50 mg tablet 50 mg PO UD PRN Pain 11/01/21 11/01/21 History Patient History Medical History Emphysema (subcutaneous) resulting from a procedure, initial encounter GERD (gastroesophageal reflux disease) occasional H/O acute myocardial infarction (1997) H/O cardiac arrest (1997) History of dysphagia June 2018 Osteoarthritis bilateral knees Positive colorectal cancer screening using Cologuard test Pulmonary nodule Surgical History History of cardiac cath 1993 History of esophageal dilatation June 2018 History of heart artery stent 1993 x1 stent at [facility] History of tooth extraction 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) with Dr Chu Family History Mother Family history of diabetes mellitus Sister Breast cancer Ovarian cancer Brother Cancer colon,prostate,brain Sister Lung cancer Other Myocardial infarction Denies family history of Prostate cancer Colorectal cancer Social History Smoking Status: Current every day smoker Tobacco Type: Cigarettes Age Started Using Tobacco: 18; packs per day: 0.5; Cigarettes Per Day: 1/2 pack per day; Second Hand Exposure: Yes (as a child also); Do You Dip or Chew Tobacco: No; Tobacco Cessation Education Requested by Patient: No Hx Alcohol Use: No Hx Substance Use: No Preferred Language: Kinyarwanda Communication Ability: Effective Visual Impairment: No Limitations Hearing Ability: Hard of Hearing Saturator Required: No Beliefs That Will Affect Care: None marital status: Current Living Situation: Spouse current occupational status: retired How many Children do You have: 7 Other Information That Helps Us Care for You: No Feels Safe at Home: Yes Safety Concerns: Feels Safe At This Time Childhood Exposure to Second-Hand Smoke: Yes caffeine: Yes Dental Care, Regularly: No Physical Activity Frequency: Daily Seatbelt Use: sometimes Sunscreen Use: No Assistive Devices: Walker Assistive Devices Comment: one assist with a walker, pt just had right knee operated on oct 18 Physical Exam Physical Exam: Patient is an 86-year-old white male who is alert and oriented x3. No acute distress. Pleasant and cooperative. Examination of his left lower extremity, he has a healing incision over the left knee. He continues to have Steri-Strips over a good portion of the incision itself. He has no open wounds at this time there is no drainage. He has some mild darkened erythema at the proximal portion of his incision. Swelling of the left knee compared to the right which appears normal for recent surgery. Calves are soft nontender. Negative Homans exam. Neurovascular is intact. He has good dorsiflexion and plantarflexion of his left foot. Results & Data ([facility]) Vital Signs (Past 12 Hours) Vital Signs Temp Pulse Resp BP Pulse Ox O2 Del Method 11/02/21 07:28 36.6 C 66 16 104/60 94 Room Air
[2021-11-02] MEDS: CEFEPIME 2,000 MG in SYRINGE 0 ML IV SCH (14:40)
[2021-11-02] MEDS: ACETAMINOPHEN 325 MG TAB PO PRN (15:56)
[2021-11-02] MEDS: DAPTOmycin 400 MG in SYRINGE 0 ML IV SCH (17:41)
--- NOTE | 2021-11-02 19:02 | Hospitalist Progress Note ---
Date of Service November 02, 2021 Assessment & Plan (1) Complicated UTI (urinary tract infection): Plan: Sepsis, POA, with complicated UTI Leukocytosis to 18.96, with tachycardia, tachypnea, chills at home but no fevers documented here. With right flank pain , abnormal UA Ur cx with GNR, BCs-NGTD Procalcitonin 7.8 on admission [facility] respiratory panel: Negative CXR: Cardiomegaly without acute findings, right lung volume loss consistent with lobectomy Past UrCx positive for coag negative staph, corynebacterium, Enterobacter with resistance to ceftriaxone/sensitive to cefepime, alpha strep. -WBC count still high but tachycardia improved, BPs improved, no further fevers -continue cefepime/Dapto for complicated UTI and narrow based on culture -dc IVFs -follow CBC, CMP, Procal in AM Hypertension On amlodipine nightly, continue to hold for hypotension Hyperlipidemia Continue pravastatin CAD w/ hx angioplasty History of [place] greater than 20 years ago, stable since EKG: No territorial ST segment changes, sinus, SD 190, QTc 413 Troponin normal, high-sensitivity No cardiac symptoms on admission, no arrhythmia appreciated -continue ASA 81 mg bid (also for TKA), statin GERD Continue PPI twice daily History of lung cancer s/p right lower lobectomy 09/2021: No acute findings No metastatic disease following resection COPD Asymptomatic at baseline Not on inhalers at 06/2021 Precontemplative regarding tobacco cessation Following yearly for CT scans No wheezing on admission, follow clinically Tobacco abuse Cessation counseling provided S/p left knee replacement with Dr. Hernandes Well healing postsurgical incision, good range of motion. No signs of overt infection Patient was scheduled for follow-up on with Dr. Hernandes-seen by Ortho today who said can keep Sunday appt with Dr. Hernandes if discharged but otherwise can f/u for a 6 week f/u appt Continue aspirin 81 mg twice daily DVT PPx DVT prophylaxis: On aspirin 81 mg twice daily, SCDs CODE STATUS: Full code Disposition: Medical/surgical, continued stay (2) Sepsis: (3) CAD S/P percutaneous coronary angioplasty: (4) Benign hypertension: (5) COPD (chronic obstructive pulmonary disease): (6) H/O acute myocardial infarction: (7) Hyperlipidemia: (8) Tobacco abuse: (9) Vitamin D deficiency: Admission and Anticipated Discharge Date Admission Date: November 01, 2021 Subjective Pt feeling better. No further shaking chills, no further right flank pain. Not having issues getting his urine out and PVR bladder scan in the 120mL range. No abd pain, no nausea, no CP or OSB. Is having some cramps in his left calf since his left knee TKA but is improving with an ice pack. Is anxious for discharge. Review of Systems Review of Systems: All systems reviewed & are unremarkable except as noted in HPI & below Physical Exam Constitutional: WD/WN, vitals as above Eyes: + anicteric sclerae Neck: trachea midline, no thyromegaly Respiratory: normal respiratory effort, lungs clear to auscultation Cardiovascular: RRR, no murmur, no edema Extremities: no calf tenderness and no edema Chest (Breasts): Chest: normal inspection of chest Gastrointestinal (Abdomen): normal bowel sounds, soft, nontender, no hepatosplenomegaly Musculoskeletal: Extremities: + extremities abnormal to inspection (left knee incision intact,mild erythema proximally,no drainge,mild edema), no cyanosis and no clubbing Skin: no rashes, warm and dry Neurologic: moves all extremities and awake; no focal motor deficits Psychiatric: A+Ox3, euthymic affect Lymphatic: no lymphedema Results & Data Results & Data ([facility]) Vital Signs (Past 12 Hours) Vital Signs Temp Pulse Resp BP Pulse Ox O2 Del Method 11/02/21 14:49 37.0 C 67 16 100/59 L 95 Room Air 11/02/21 07:28 36.6 C 66 16 104/60 94 Room Air Laboratory Results 11/02/21 11/02/21 Range/Units 06:59 06:59 WBC 19.00 H (4.8-10.8) K/ul RBC 3.10 L (4.63-6.08) M/uL Hgb 9.7 L (14.0-18.0) g/dl Hct 28.4 L (40.1-51.0) % MCV 91.6 (80.0-100.0) fL MCH 31.3 (25.0-34.0) pg MCHC 34.2 (32.0-36.0) g/dL RDW Std Deviation 48.8 H (36.4-46.3) fL RDW Coeff of Marisel 14.6 H (11.5-14.5) % Plt Count 209 (130-400) K/uL MPV 10.3 (9.4-12.4) fL Immature Gran % (Auto) 0.5 % Neut % (Auto) 86.7 % Lymph % (Auto) 8.1 % [place] % (Auto) 4.3 % Eos % (Auto) 0.1 % Baso % (Auto) 0.3 % Neut # (Auto) 16.49 H (1.4-6.5) K/uL Lymph # (Auto) 1.54 (1.2-3.4) K/uL [place] # (Auto) 0.82 (0.24-0.82) K/uL Eos # (Auto) 0.01 (0-0.50) K/uL Baso # (Auto) 0.05 (0-0.2) K/uL Immature Gran # (Auto) 0.09 H (0.00-0.02) K/uL Sodium 136 (136-145) mmol/L Potassium 3.7 (3.5-5.1) mmol/L Chloride 109 H (98-107) mmol/L Carbon Dioxide 19 L (21-32) mmol/L Anion Gap 8 (3-11) BUN 25 H (6-23) mg/dl Creatinine 1.00 (0.6-1.4) mg/dl Est Cr Clr Drug Dosing 55.9 ml/min Est GFR ( Amer) 79.7 ml/min Est GFR (Non-Af Amer) 68.8 ml/min BUN/Creatinine Ratio 25.0 H (10-20) Glucose 86 (70-99(Fasting)) mg/dl Calcium 8.6 (8.5-10.1) mg/dl PG Care Time/CCT Total # of Minutes Spent Total Time Spent with Patient: Total time spent is greater than 50% in coordination of care (as documented) at patient's floor/unit and/or counseling patient: Coding Level of Care Code 36960 Subseq Hosp Care Lvl 2 Diagnoses Complicated UTI (urinary tract infection) N39.0 Sepsis A41.9 CAD S/P percutaneous coronary angioplasty I25.10; Z98.61 Benign hypertension I10 COPD (chronic obstructive pulmonary disease) J44.9 H/O acute myocardial infarction I25.2 Hyperlipidemia E78.5 Tobacco abuse Z72.0 Vitamin D deficiency E55.9
[2021-11-03] MEDS: ACETAMINOPHEN 325 MG TAB PO PRN ×2 (01:03→19:35)
[2021-11-03] MEDS: CEFEPIME 2,000 MG in SYRINGE 0 ML IV SCH ×2 (01:21→13:35)
[2021-11-03 06:41] LABS: Basophils # (auto) 0.04 K/uL (0-0.2); Basophils % (auto) 0.3 %; Eosinophils # (auto) 0.18 K/uL (0-0.50); Eosinophils % (auto) 1.6 %; Hematocrit (blood only) 30.1 % (40.1-51.0); Immature Granulocytes # (auto) 0.04 K/uL (0.00-0.02); Immature Granulocytes % (auto) 0.3 %; Lymphocytes # (auto) 1.46 K/uL (1.2-3.4); Lymphocytes % (auto) 12.6 %; Mean Corpuscular Hemoglobin 30.9 pg (25.0-34.0); Mean Corpuscular Hgb Conc 33.2 g/dL (32.0-36.0); Mean Corpuscular Volume 92.9 fL (80.0-100.0); Mean Platelet Volume 10.6 fL (9.4-12.4); Monocytes # (auto) 0.68 K/uL (0.24-0.82); Monocytes % (auto) 5.9 %; Neutrophils # (auto) 9.21 K/uL (1.4-6.5); Neutrophils % (auto) 79.3 %; Platelet Count 191 K/uL (130-400); RDW Coefficient of Variation 14.4 % (11.5-14.5); RDW Standard Deviation 49.1 fL (36.4-46.3); Red Blood Count 3.24 M/uL (4.63-6.08); White Blood Count 11.61 K/ul (4.8-10.8)
[2021-11-03 07:11] LABS: Albumin Globulin Ratio 1.2 (0.9-2); Albumin Level 3.4 gm/dl (3.4-5.0); BUN Creatinine Ratio 29.3 (10-20); Bilirubin,Total 0.5 mg/dl (0.2-1.0); Calcium 9.1 mg/dl (8.5-10.1); Creatinine Clr Calc Pharmacy 60.8 ml/min; Est GFR (African American) 88.2 ml/min; Est GFR (Non-African American) 76.1 ml/min; Globulin 2.8 gm/dl (2.5-4.0); Potassium 3.6 mmol/L (3.5-5.1); Total Protein 6.2 gm/dl (6.0-8.3)
[2021-11-03] MEDS: ASPIRIN 81 MG ECTAB PO SCH ×2 (08:33→20:39)
[2021-11-03] MEDS: amLODIPine BESYLATE 5 MG TAB PO SCH (08:34)
[2021-11-03] MEDS: PRAVASTATIN SOD 20 MG TAB PO SCH (08:34)
[2021-11-03] MEDS: PANTOprazole 40 MG TAB PO SCH ×2 (08:34→20:39)
--- NOTE | 2021-11-03 16:45 | Hospitalist Progress Note ---
Date of Service November 03, 2021 Assessment & Plan (1) Complicated UTI (urinary tract infection): Plan: Sepsis, POA, with complicated UTI Has a history of urethral stricture he reports with multiple revisions of circumcision. He does not follow routinely with urology anymore Leukocytosis to 18.96, with tachycardia, tachypnea, chills at home but no fevers documented here. With right flank pain , abnormal UA Bio fire respiratory panel: Negative CXR: Cardiomegaly without acute findings, right lung volume loss consistent with lobectomy -Ur cx with GNR, BCs-remain NGTD Procalcitonin 7.8 on admission and somehow increased significantly to 81 this morning despite clinically improving WBC count now down to 11 Remains afebrile No further flank pain Past UrCx positive for coag negative staph, corynebacterium, Enterobacter with resistance to ceftriaxone/sensitive to cefepime, alpha strep. -continue cefepime/Dapto for complicated UTI and narrow based on culture -Have since discontinued IV fluids -follow CBC, CMP, Procal again in the AM -Consider follow-up with urology as an outpatient (2) Sepsis: Plan: As above (3) CAD S/P percutaneous coronary angioplasty: Plan: CAD w/ hx angioplasty History of [place] greater than 20 years ago, stable since EKG: No territorial ST segment changes, sinus, [place] 190, QTc 413 Troponin normal, high-sensitivity No cardiac symptoms on admission, no arrhythmia appreciated -continue ASA 81 mg bid (also for TKA), statin (4) Benign hypertension: Plan: Continue amlodipine Blood pressures are stable (5) COPD (chronic obstructive pulmonary disease): Plan: COPD Asymptomatic at baseline Not on inhalers at 06/2021 Precontemplative regarding tobacco cessation Following yearly for CT scans No wheezing on admission, follow clinically (6) Hyperlipidemia: Plan: Continue pravastatin (7) Tobacco abuse: Plan: Cessation counseling provided (8) Vitamin D deficiency: Plan: Holding home calcium and vitamin D (9) GERD (gastroesophageal reflux disease): Plan: Continue PPI twice daily-he takes Nexium at home but it is not on his home med rec care (10) Lung cancer: Plan: History of lung cancer s/p right lower lobectomy 09/2021: No acute findings No metastatic disease following resection (11) History of total knee arthroplasty: Plan: S/p left knee replacement with Dr. Hernandes Well healing postsurgical incision, good range of motion. No signs of overt infection Patient was scheduled for follow-up later this week with Dr. Hernandes-seen by Ortho here who said patient doing well and can keep his f/u for a 6 week f/u appt Continue aspirin 81 mg twice daily DVT PPx x4 weeks postoperatively Plan DVT prophylaxis: On aspirin 81 mg twice daily, SCDs CODE STATUS: Full code Disposition: Medical/surgical, continued stay, awaiting final results of culture data to tailor antibiotic therapy for discharge Admission and Anticipated Discharge Date Admission Date: November 01, 2021 Anticipated date of discharge: 11/04/21 Subjective Patient has no complaints. He is eating and drinking, did not move his bowels today but had loose stool yesterday. Denies abdominal pains. No fevers or chills, no flank pain or back pain. No chest pains or shortness of breath. He is very anxious to get home. Has a little bit of stiffness in the left leg but otherwise feels fine. Review of Systems Review of Systems: All systems reviewed & are unremarkable except as noted in HPI & below Physical Exam Constitutional: WD/WN, vitals as above Eyes: + anicteric sclerae Neck: trachea midline, no thyromegaly Respiratory: normal respiratory effort, lungs clear to auscultation Cardiovascular: RRR, no murmur, no edema Extremities: no calf tenderness and no edema Chest (Breasts): Chest: normal inspection of chest Gastrointestinal (Abdomen): normal bowel sounds, soft, nontender, no hepatosplenomegaly Musculoskeletal: Extremities: + extremities abnormal to inspection (left knee incision intact,mild erythema proximally,no drainge,mild edema), no cyanosis and no clubbing Skin: no rashes, warm and dry Neurologic: moves all extremities and awake; no focal motor deficits Psychiatric: A+Ox3, euthymic affect Lymphatic: no lymphedema Results & Data Results & Data ([facility]) Vital Signs (Past 12 Hours) Vital Signs Temp Pulse Resp BP Pulse Ox O2 Del Method 11/03/21 15:44 36.9 C 67 16 151/78 H 96 Room Air 11/03/21 08:16 36.6 C 62 16 146/73 H 96 Room Air Laboratory Results 09/22/22 09/22/22 09/22/22 Range/Units 06:12 06:12 06:12 WBC 11.61 H (4.8-10.8) K/ul RBC 3.24 L (4.63-6.08) M/uL Hgb 10.0 L (14.0-18.0) g/dl Hct 30.1 L (40.1-51.0) % MCV 92.9 (80.0-100.0) fL MCH 30.9 (25.0-34.0) pg MCHC 33.2 (32.0-36.0) g/dL RDW Std Deviation 49.1 H (36.4-46.3) fL RDW Coeff of Marisel 14.4 (11.5-14.5) % Plt Count 191 (130-400) K/uL MPV 10.6 (9.4-12.4) fL Immature Gran % (Auto) 0.3 % Neut % (Auto) 79.3 % Lymph % (Auto) 12.6 % [place] % (Auto) 5.9 % Eos % (Auto) 1.6 % Baso % (Auto) 0.3 % Neut # (Auto) 9.21 H (1.4-6.5) K/uL Lymph # (Auto) 1.46 (1.2-3.4) K/uL [place] # (Auto) 0.68 (0.24-0.82) K/uL Eos # (Auto) 0.18 (0-0.50) K/uL Baso # (Auto) 0.04 (0-0.2) K/uL Immature Gran # (Auto) 0.04 H (0.00-0.02) K/uL Sodium 137 (136-145) mmol/L Potassium 3.6 (3.5-5.1) mmol/L Chloride 110 H (98-107) mmol/L Carbon Dioxide 21 (21-32) mmol/L Anion Gap 6 (3-11) BUN 27 H (6-23) mg/dl Creatinine 0.92 (0.6-1.4) mg/dl Est Cr Clr Drug Dosing 60.8 ml/min Est GFR ( Amer) 88.2 ml/min Est GFR (Non-Af Amer) 76.1 ml/min BUN/Creatinine Ratio 29.3 H (10-20) Glucose 93 (70-99(Fasting)) mg/dl Calcium 9.1 (8.5-10.1) mg/dl Total Bilirubin 0.5 (0.2-1.0) mg/dl AST 48 H (13-39) U/L ALT 20 (7-52) U/L Alkaline Phosphatase 87 (34-104) U/L Total Protein 6.2 (6.0-8.3) gm/dl Albumin 3.4 (3.4-5.0) gm/dl Globulin 2.8 (2.5-4.0) gm/dl Albumin/Globulin Ratio 1.2 (0.9-2) Procalcitonin 81.62 H (0-0.5) ng/ml PG Care Time/CCT Total # of Minutes Spent Total Time Spent with Patient: Total time spent is greater than 50% in coordination of care (as documented) at patient's floor/unit and/or counseling patient: Coding Level of Care Code 28428 Subseq Hosp Care Lvl 2 Diagnoses Complicated UTI (urinary tract infection) N39.0 Sepsis A41.9 CAD S/P percutaneous coronary angioplasty I25.10; Z98.61 Benign hypertension I10 COPD (chronic obstructive pulmonary disease) J44.9 Hyperlipidemia E78.5 Tobacco abuse Z72.0 Vitamin D deficiency E55.9 GERD (gastroesophageal reflux disease) K21.9 Lung cancer C34.90 History of total knee arthroplasty Z96.659
[2021-11-03] MEDS: DAPTOmycin 400 MG in SYRINGE 0 ML IV SCH (19:26)
[2021-11-04] MEDS: CEFEPIME 2,000 MG in SYRINGE 0 ML IV SCH (01:42)
[2021-11-04 07:08] LABS: Basophils # (auto) 0.04 K/uL (0-0.2); Basophils % (auto) 0.5 %; Eosinophils # (auto) 0.12 K/uL (0-0.50); Eosinophils % (auto) 1.5 %; Hematocrit (blood only) 31.2 % (40.1-51.0); Hemoglobin 10.4 g/dl (14.0-18.0); Immature Granulocytes # (auto) 0.03 K/uL (0.00-0.02); Immature Granulocytes % (auto) 0.4 %; Lymphocytes # (auto) 1.87 K/uL (1.2-3.4); Lymphocytes % (auto) 23.2 %; Mean Corpuscular Hgb Conc 33.3 g/dL (32.0-36.0); Mean Corpuscular Volume 93.1 fL (80.0-100.0); Mean Platelet Volume 10.5 fL (9.4-12.4); Monocytes # (auto) 0.55 K/uL (0.24-0.82); Monocytes % (auto) 6.8 %; Neutrophils # (auto) 5.46 K/uL (1.4-6.5); Neutrophils % (auto) 67.6 %; Platelet Count 212 K/uL (130-400); RDW Coefficient of Variation 14.3 % (11.5-14.5); RDW Standard Deviation 48.7 fL (36.4-46.3); Red Blood Count 3.35 M/uL (4.63-6.08); White Blood Count 8.07 K/ul (4.8-10.8)
[2021-11-04 07:35] LABS: Albumin Globulin Ratio 1.2 (0.9-2); Albumin Level 3.7 gm/dl (3.4-5.0); Bilirubin,Total 0.5 mg/dl (0.2-1.0); Calcium 9.4 mg/dl (8.5-10.1); Creatinine Clr Calc Pharmacy 66.5 ml/min; Est GFR (African American) 93.2 ml/min; Est GFR (Non-African American) 80.4 ml/min; Globulin 3.1 gm/dl (2.5-4.0); Potassium 3.7 mmol/L (3.5-5.1); Total Protein 6.8 gm/dl (6.0-8.3)
[2021-11-04] MEDS: ACETAMINOPHEN 325 MG TAB PO PRN (08:36)
[2021-11-04] MEDS: PANTOprazole 40 MG TAB PO SCH (08:37)
[2021-11-04] MEDS: amLODIPine BESYLATE 5 MG TAB PO SCH (08:38)
[2021-11-04] MEDS: ASPIRIN 81 MG ECTAB PO SCH (08:38)
[2021-11-04] MEDS ORDERED: CEFDINIR 300 MG CAP PO SCH (10:30)
--- NOTE | 2021-11-04 12:44 | Discharge Summary ---
Date of Service November 04, 2021 Admission HPI Per Admitting Provider Manuel Coleman is an 86-year-old male with a past medical history of HI/cardiac arrest 1997, CAD s/p PCI, COPD, hyperlipidemia who presents with rigors and with a overtly infected UA and was had 3 to 4 days of dysuria and urinary frequency with right flank pain Knee replacement w Dr. Hernandes in [place] on Oct. improving, doing well, no pain. Hx of recurrent UTIs Hx of urethral strictures Does no tfollow with uro as an outpatient dysuria 4 days ago Today developed fevers with rigors 'shaking like a leaf and teeth chattering' Patient reports that for the last several days he has had increasing burning and urinary frequency has right back pain of about the same time. Decreased appetite, has been drinking liquids. Denies abdominal pain. Denies leg swelling. Has felt feverish, and has had shaking chills starting today. Endorses night sweats. Denies chest pain, chest pressure, shortness of breath, difficulty breathing, lightheadedness, dizziness. Denies hematuria, bloody bowel movements, black bowel movements. Left knee is healing well following knee replacement with Dr. Hernandes. Reports no pain in the knee and has good range of motion. Denies leg swelling, is taking a baby aspirin twice daily for DVT prophylaxis. Medical History: Reviewed Medications: Reviewed Surgical History: Reviewed Allergies: Reviewed Social History: Regular tobacco use, no recreational drug use Code Status: Full code, discussed with patient Principal Diagnosis Sepsis, POA, complicated UTI Discharge Exam Constitutional WD/WN, vitals as above Eyes + anicteric sclerae Neck trachea midline, no thyromegaly Respiratory normal respiratory effort, lungs clear to auscultation Cardiovascular RRR, no murmur, no edema Extremities: no calf tenderness and no edema Chest (Breasts) Chest: normal inspection of chest Gastrointestinal (Abdomen) normal bowel sounds, soft, nontender, no hepatosplenomegaly Musculoskeletal Extremities: + extremities abnormal to inspection (left knee incision intact,mild erythema proximally,no drainge,mild edema), no cyanosis and no clubbing Skin no rashes, warm and dry Neurologic moves all extremities and awake; no focal motor deficits Psychiatric A+Ox3, euthymic affect Lymphatic no lymphedema Discharge Data Allergies Allergy/AdvReac Type Severity Reaction Status Date / Time No Known Allergies Allergy Verified 09/30/21 11:43 Consultations 11/01/21 13:34 ED Decision to Admit Stat 11/02/21 13:19 Consult Orthopedic Surgery Routine Ordered Studies 11/01/21 13:34 CT abd pelvis IV con only Stat Hospital Course (1) Complicated UTI (urinary tract infection): Sepsis, POA, with complicated UTI Has a history of urethral stricture he reports with multiple revisions of circumcision. He does not follow routinely with urology anymore Leukocytosis to 18.96, with tachycardia, tachypnea, chills at home but no fevers documented here. With right flank pain , abnormal UA Bio fire respiratory panel: Negative CXR: Cardiomegaly without acute findings, right lung volume loss consistent with lobectomy -Ur cx with Providencia rettgeri pansensitive except intermediate resistance to Unasyn -BCxs-remain NGTD at the time of discharge Procalcitonin 7.8 on admission and then increased significantly to 81 despite clinically improving-fortunately, procalcitonin decreased appropriately by 50% to 43 on the day of discharge He is doing very well, has no symptoms, no fevers, leukocytosis now completely resolved. No further flank pain. No urinary symptoms and is emptying his bladder completely. -Initially received broad-spectrum antibiotics with cefepime/Dapto for complicated UTI-we will narrow down to cefdinir 300 Mg p.o. twice daily x7 more days on discharge for total of 10 days -Consider follow-up with urology as an outpatient Stable for discharge (2) Sepsis: As above (3) CAD S/P percutaneous coronary angioplasty: CAD w/ hx angioplasty History of HI greater than 20 years ago, stable since EKG: No territorial ST segment changes, sinus, [place] 190, QTc 413 Troponin normal, high-sensitivity No cardiac symptoms on admission, no arrhythmia appreciated -continue ASA 81 mg bid (also for TKA), statin (4) Benign hypertension: Continue amlodipine Blood pressures are stable (5) COPD (chronic obstructive pulmonary disease): COPD Asymptomatic at baseline Not on inhalers at 06/2021 Precontemplative regarding tobacco cessation Following yearly for CT scans No wheezing on admission, follow clinically (6) Hyperlipidemia: Continue pravastatin (7) Tobacco abuse: Cessation counseling provided (8) Vitamin D deficiency: Holding home calcium and vitamin D (9) GERD (gastroesophageal reflux disease): Continue PPI twice daily-he takes Nexium at home but it is not on his home med rec care (10) Lung cancer: History of lung cancer s/p right lower lobectomy 09/2021: No acute findings No metastatic disease following resection (11) History of total knee arthroplasty: S/p left knee replacement with Dr. Hernandes Well healing postsurgical incision, good range of motion. No signs of overt infection Patient was scheduled for follow-up later this week with Dr. Hernandes-seen by Ortho here who said patient doing well and can keep his f/u for a 6 week f/u ap pt Continue aspirin 81 mg twice daily DVT PPx x4 weeks postoperatively Plan DVT prophylaxis: On aspirin 81 mg twice daily, SCDs CODE STATUS: Full code Disposition: Stable for discharge home Total Time Total Time Spent Total Time Spent (In Minutes): 35 minutes Discharge Plan Discharge Items Patient Disposition: Home - Self-Care Reason For Visit: COMPLICATED UTI, R FLANK PAIN Discharge Diagnosis: Complicated UTI, Sepsis Condition on Discharge: Good Activity: Resume your previous activity Non-emergency contact: Primary Care Provider Call non-emergency contact if: you have any medication questions, your symptoms worsen, you have a fever, your temperature is above 101, your wound has increased redness, your wound has increased drainage and your wound pain has increased Follow-up/Referrals: Morales Concepcion, [Primary Care Provider] - (Follow-up within 1 to 2 weeks.) Diet: Heart Healthy Addtl Attending Provider Instructions: Please finish out the course of antibiotics with cefdinir 300 Mg by mouth twice a day for 6 and half more days for your urine infection. It is recommended that you follow-up with a urologist as an outpatient. Please keep your 6-week postoperative follow-up appointment with Dr. Hernandes as scheduled. Pending Studies at Discharge: Yes Studies:: Final blood culture results-no growth to date Stand-Alone Forms: [employer], Smoking Cessation Medications and DC Order Prescriptions: New pravastatin 20 mg Tablet 20 mg PO Q2D@0900 Qty: 15 0RF cefdinir 300 mg Capsule 300 mg PO BID Qty: 13 0RF Continued amlodipine 5 mg tablet 5 mg PO QAM Qty: 90 3RF aspirin 325 mg Tablet 325 mg PO BID Calcium 600 + D(3) 600 mg calcium- 200 unit Capsule 1 cap PO QAM celecoxib 200 mg capsule 200 mg PO BID tramadol 50 mg tablet 50 mg PO UD PRN (Reason: Pain) Discharge Orders: Discharge Order (Routine); Ordered 11/04/21 Ordered By: Sandra Rowley Admission Data Admit Date/Time: 11/01/21 13:58 Attending Provider: Sandra Rowley Admit Provider: Collin Ward Primary Care Provider: Morales Concepcion Other Providers: Collin Ward ; Aldo Thomas Coding Level of Care Code D/C DAY MANAGEMENT >30 MINS Diagnoses Complicated UTI (urinary tract infection) N39.0 Sepsis A41.9 CAD S/P percutaneous coronary angioplasty I25.10; Z98.61 Benign hypertension I10 COPD (chronic obstructive pulmonary disease) J44.9 Hyperlipidemia E78.5 Tobacco abuse Z72.0 Vitamin D deficiency E55.9 GERD (gastroesophageal reflux disease) K21.9 Lung cancer C34.90 History of total knee arthroplasty Z96.659
== END 2021-11-04 14:31 | disposition home or self-care (01) | DRG 872 ==
LOC: ED 09:58 → SUATTDRO 13:58 → EDINP 13:58 → 3E 16:35

== ENCOUNTER 2022-05-17 11:59 | Inpatient (IN) ==
[2022-05-17] MEDS ORDERED: ONDANSETRON INJ 2 MG/ML 2 ML VIAL IV STA (12:23)
[2022-05-17] MEDS ORDERED: ACETAMINOPHEN 1,000 MG/100 ML VIAL IV STA (12:23)
--- NOTE | 2022-05-17 12:27 | Emergency Department Note ---
Impression & Plan Diarrhea, Weakness, Diverticulitis, Pneumonia, Tobacco abuse ED Provider Note ED Provider Note NAME: MAGNOLIA WILSON AGE:86 SEX: Male : 1935 ARRIVES VIA: Private vehicle INFORMANT: Patient ED PROVIDER(s): Brittany Rodriguez DO CHIEF COMPLAINT: Diarrhea, weakness HPI: This is an 86-year-old male presents emergency department due to abrupt onset of diarrhea followed by weakness, nausea, and chills this morning. He states symptoms began at 7 AM. He states he had several episodes and felt slightly improved so we did try to go to work. He states while at work he began having recurrent symptoms and had to leave and come home. He states he did not notice any blood in the diarrhea. He states he had some mild intermittent sharp abdominal pains, denies bloating or distention. Patient states he did have some nausea and dry heaving, no overt vomiting. He states he did develop fevers and then shaking chills followed by generalized weakness. No recent change in diet. at bedside states they ate the same thing last night and she has not been ill. He denies any other known sick contacts at work. He denies any prior abdominal surgeries. He denies any history of IBS or IBD. PAST MEDICAL HISTORY:See Below PAST SURGICAL HISTORY:See Below FAMILY HISTORY:See Below SOCIAL HISTORY:See Below HOME MEDICATIONS:See Below ALLERGIES:See Below VITALS:See Below PHYSICAL EXAMINATION: GENERAL: alert, well appearing, well nourished, no distress, non-toxic EYE EXAM: normal conjunctiva, PERRL and EOM's grossly intact OROPHARYNX: no exudate, no erythema, lips, buccal mucosa, and tongue normal and mucous membranes are moist NECK: supple, no nuchal rigidity, no adenopathy, non-tender LUNGS: Clear to auscultation. Normal chest wall mechanics, no w/r/r HEART: no murmurs, S1 normal and S2 normal ABDOMEN: abdomen soft, non-tender, normo-active bowel sounds, no masses, no rebound or guarding. BACK: Back is symmetrical on inspection and there is no deformity, no midline tenderness, no CVA tenderness. SKIN: no rashes, petechiae, orbruising UPPER EXTREMITIES: upper extremities are grossly normal. FROM, nml pulses b/l. LOWER EXTREMITIES: No pitting edema. FROM, nml pulses b/l. NEURO EXAM: Normal sensorium, cranial nerves II-XII grossly intact, normal speech, no facial droop,nogross weakness of arms, no gross weakness of legs. Gross sensation intact. No ataxia. Vital Signs: reviewed and remarkable Differential Diagnosis: Differential: Viral, Bacterial, Parasitic, Iatrogenic, C-Diff, Malabsorbtion, Ischemic Bowel, AAA, diverticulitis amongst other pathologies entertained. MEDICAL DECISION MAKING: This is an 86-year-old male presents emerged from due to concern for abdominal pain, diarrhea, and weakness. Labs drawn and sent, IV established, EKG and chest x-ray performed and interpreted by me at bedside and patient placed on telemetry. Patient started on IV fluids and given medication for pain and nausea, he was then sent for CT imaging. Patient noted to have pneumonia on chest x-ray however also noted to have diverticulitis on CT imaging. Patient was noted to be hypoxic to 89% while awake on room air and was placed on oxygen via nasal cannula. I suspect given 50 years of tobacco abuse this may not be uncommon for the patient. Patient started on IV antibiotics additionally. Patient noted to have elevated procalcitonin despite no significant leukocytosis. He was given gentle IV fluid rehydration due to significant cardiac history. He did not receive 30 mL/KG for this reason. I do not suspect overt sepsis at this time. I discussed all results with patient at bedside and the need for additional inpatient evaluation and treatment given multiple infections across several organ systems, he verbalized understanding and was in agreement with the plan. Patient remained hemodynamically stable while in the emergency room. Consultation(s): 1530: [facility] Treatment Provided: See below Diagnostics Interpreted By Me: -ECG: Normal sinus at 77, first-degree AV block, normal axis, normal QRS and QTc, T wave inverted in V3 through V6, flattened inferiorly and laterally -Cardiac Monitoring: An order was placed for continuous cardiac monitoring. The monitor shows a rate of 88 with normal sinus rhythm. -Laboratory studies: As stated above and show below. -Imaging studies: X-ray Chest: A single view study of the chest was reviewed and was negative for effusion, pulmonary edema, or wide mediastinum. Mild cardiomegaly and left lower lobe infiltrate noted. Triage Nursing Note Reviewed Prior/Outside Records Reviewed -prior discharge summary reviewed Procedures: [] Critical Care: [] Past Med/Surg History Medical History Emphysema (subcutaneous) resulting from a procedure, initial encounter GERD (gastroesophageal reflux disease) occasional H/O acute myocardial infarction (1997) H/O cardiac arrest (1997) History of dysphagia June 2018 Hypokalemia Osteoarthritis bilateral knees Positive colorectal cancer screening using Cologuard test Pulmonary nodule Surgical History History of cardiac cath 1993 History of esophageal dilatation June 2018 History of heart artery stent 1993 x[facility] stent [facility] History of tooth extraction History of total knee arthroplasty Oct 2021: S/P left knee replacement with Dr. 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) with Dr Chu Family History Mother Family history of diabetes mellitus Sister Breast cancer Ovarian cancer Brother Cancer colon,prostate,brain Sister Lung cancer Other Myocardial infarction Denies family history of Prostate cancer Colorectal cancer Social History Smoking Status: Current every day smoker Tobacco Type: Cigarettes Age Started Using Tobacco: 18; packs per day: 0.5; Cigarettes Per Day: 1/2 pack per day; Second Hand Exposure: Yes (as a child also); Hx Alcohol Use: No Hx Substance Use: No Preferred Language: Arabic Communication Ability: Effective Visual Impairment: No Limitations Hearing Ability: Hard of Hearing Primary Operator Required: No Beliefs That Will Affect Care: None marital status: Current Living Situation: Spouse current occupational status: retired How many Children do You have: 7 Feels Safe at Home: Yes Childhood Exposure to Second-Hand Smoke: Yes caffeine: Yes Dental Care, Regularly: No Physical Activity Frequency: Daily Seatbelt Use: sometimes Sunscreen Use: No Assistive Devices: Walker Allergies Allergies Allergy/AdvReac Type Severity Reaction Status Date / Time No Known Allergies Allergy Verified 05/17/22 15:12 Home Meds Home Medications Medication Instructions Recorded Confirmed aspirin 325 mg tablet 325 mg PO BID 06/03/18 05/17/22 calcium carbonate 600 mg-vitamin 1 cap PO QAM 11/25/18 05/17/22 D3 5 mcg (200 unit) capsule (Calcium 600 + D(3)) bismuth subsalicylate 262 mg/15 mL 524 mg PO DIRECTED PRN Gi Upset 05/17/22 05/17/22 oral suspension (Pepto-Bismol) Previous Rx's Medication Instructions Recorded amlodipine 5 mg tablet 5 mg PO QAM #90 tabs 10/05/21 pravastatin 20 mg tablet 20 mg PO Q2D@0900 #15 tabs 11/04/21 Results & Data (ED) Vital Signs Vital Signs - 24 hr 05/17/22 12:03 05/17/22 12:22 05/17/22 12:22 Temperature 37.2 C Temperature Source Temporal Artery Scan Pulse Rate 90 79 Pulse Rate [Apical] 77 Pulse Rate from SpO2 Sensor Respiratory Rate 18 18 18 Respiratory Effort / Characteristics Non-Labored Spontaneous Non-Labored Spontaneous Respiratory Depth Normal Normal Respiratory Pattern Regular Blood Pressure 111/73 Blood Pressure [Right Arm] 117/61 Blood Pressure Mean 85 Blood Pressure Mean [Right Arm] 79 Blood Pressure Position Sitting Blood Pressure Position [Right Arm] Sitting Pulse Oximetry 94 90 90 Oxygen Delivery Method Room Air Room Air Room Air Oxygen Flow Rate Sepsis Recent Fever Within 48 Hours No Sepsis New/Unexplained Change in Mental Status N/A Sepsis Action Taken by Nursing No Action Required Oxygen Flow Rate - Titration Pulse Oximetry Post Tiitration 05/17/22 12:58 05/17/22 13:19 05/17/22 12:53 Temperature Temperature Source Pulse Rate 81 Pulse Rate [Apical] Pulse Rate from SpO2 Sensor Respiratory Rate Respiratory Effort / Characteristics Respiratory Depth Respiratory Pattern Blood Pressure 117/61 Blood Pressure [Right Arm] Blood Pressure Mean 79 Blood Pressure Mean [Right Arm] Blood Pressure Position Blood Pressure Position [Right Arm] Pulse Oximetry 89 L Oxygen Delivery Method Room Air Oxygen Flow Rate Sepsis Recent Fever Within 48 Hours Sepsis New/Unexplained Change in Mental Status Sepsis Action Taken by Nursing Oxygen Flow Rate - Titration 2 Pulse Oximetry Post Tiitration 94 05/17/22 12:54 05/17/22 13:00 05/17/22 13:00 Temperature Temperature Source Pulse Rate 78 80 Pulse Rate [Apical] Pulse Rate from SpO2 Sensor 77 76 Respiratory Rate 23 22 Respiratory Effort / Characteristics Respiratory Depth Respiratory Pattern Blood Pressure 117/61 Blood Pressure [Right Arm] Blood Pressure Mean 79 Blood Pressure Mean [Right Arm] Blood Pressure Position Blood Pressure Position [Right Arm] Pulse Oximetry 90 89 L Oxygen Delivery Method Room Air Room Air Oxygen Flow Rate Sepsis Recent Fever Within 48 Hours Sepsis New/Unexplained Change in Mental Status Sepsis Action Taken by Nursing Oxygen Flow Rate - Titration Pulse Oximetry Post Tiitration 05/17/22 13:30 05/17/22 13:30 05/17/22 14:09 Temperature Temperature Source Pulse Rate 78 75 Pulse Rate [Apical] Pulse Rate from SpO2 Sensor 78 Respiratory Rate 25 H 20 Respiratory Effort / Characteristics Respiratory Depth Respiratory Pattern Blood Pressure 115/56 L 126/65 Blood Pressure [Right Arm] Blood Pressure Mean 75 85 Blood Pressure Mean [Right Arm] Blood Pressure Position Blood Pressure Position [Right Arm] Pulse Oximetry 97 96 Oxygen Delivery Method Nasal Cannula Nasal Cannula Oxygen Flow Rate 2 2 Sepsis Recent Fever Within 48 Hours Sepsis New/Unexplained Change in Mental Status Sepsis Action Taken by Nursing Oxygen Flow Rate - Titration Pulse Oximetry Post Tiitration 05/17/22 14:30 05/17/22 14:30 05/17/22 15:00 Temperature Temperature Source Pulse Rate 73 Pulse Rate [Apical] Pulse Rate from SpO2 Sensor 65 Respiratory Rate 20 Respiratory Effort / Characteristics Respiratory Depth Respiratory Pattern Blood Pressure 115/59 L 115/57 L Blood Pressure [Right Arm] Blood Pressure Mean 77 76 Blood Pressure Mean [Right Arm] Blood Pressure Position Blood Pressure Position [Right Arm] Pulse Oximetry 98 Oxygen Delivery Method Nasal Cannula Oxygen Flow Rate 2 Sepsis Recent Fever Within 48 Hours Sepsis New/Unexplained Change in Mental Status Sepsis Action Taken by Nursing Oxygen Flow Rate - Titration Pulse Oximetry Post Tiitration 05/17/22 15:00 05/17/22 15:30 05/17/22 15:30 Temperature Temperature Source Pulse Rate 77 73 Pulse Rate [Apical] Pulse Rate from SpO2 Sensor Respiratory Rate 24 16 Respiratory Effort / Characteristics Respiratory Depth Respiratory Pattern Blood Pressure 113/47 L Blood Pressure [Right Arm] Blood Pressure Mean 69 Blood Pressure Mean [Right Arm] Blood Pressure Position Blood Pressure Position [Right Arm] Pulse Oximetry Oxygen Delivery Method Oxygen Flow Rate Sepsis Recent Fever Within 48 Hours Sepsis New/Unexplained Change in Mental Status Sepsis Action Taken by Nursing Oxygen Flow Rate - Titration Pulse Oximetry Post Tiitration 05/17/22 16:28 05/17/22 16:00 05/17/22 16:30 Temperature Temperature Source Pulse Rate 77 77 Pulse Rate [Apical] Pulse Rate from SpO2 Sensor 71 Respiratory Rate 21 23 Respiratory Effort / Characteristics Respiratory Depth Respiratory Pattern Blood Pressure Blood Pressure [Right Arm] Blood Pressure Mean Blood Pressure Mean [Right Arm] Blood Pressure Position Blood Pressure Position [Right Arm] Pulse Oximetry Oxygen Delivery Method Nasal Cannula Oxygen Flow Rate 2 Sepsis Recent Fever Within 48 Hours Sepsis New/Unexplained Change in Mental Status Sepsis Action Taken by Nursing Oxygen Flow Rate - Titration Pulse Oximetry Post Tiitration 05/17/22 16:31 05/17/22 16:31 05/17/22 17:11 Temperature Temperature Source Pulse Rate 74 68 Pulse Rate [Apical] Pulse Rate from SpO2 Sensor 72 Respiratory Rate 25 H Respiratory Effort / Characteristics Respiratory Depth Respiratory Pattern Blood Pressure 115/58 L Blood Pressure [Right Arm] Blood Pressure Mean 77 Blood Pressure Mean [Right Arm] Blood Pressure Position Blood Pressure Position [Right Arm] Pulse Oximetry 98 Oxygen Delivery Method Nasal Cannula Oxygen Flow Rate 2 Sepsis Recent Fever Within 48 Hours Sepsis New/Unexplained Change in Mental Status Sepsis Action Taken by Nursing Oxygen Flow Rate - Titration Pulse Oximetry Post Tiitration Laboratory Data 05/17/22 12:46 05/17/22 12:46 Lab Results 05/17/22 05/17/22 05/17/22 Range/Units 12:46 12:46 12:46 WBC 12.47 H (4.8-10.8) K/ul RBC 4.52 L (4.70-6.10) M/uL Hgb 14.0 (14.0-18.0) g/dl Hct 40.7 L (42.0-52.0) % MCV 90.0 (80.0-100.0) fL MCH 31.0 (25.0-34.0) pg MCHC 34.4 (32.0-36.0) g/dL RDW Std Deviation 48.6 H (36.4-46.3) fL RDW Coeff of Marisel 14.6 H (11.5-14.5) % Plt Count 167 (130-400) K/uL MPV 11.0 (9.4-12.4) fL Immature Gran % (Auto) 0.2 % Neut % (Auto) 91.5 % Lymph % (Auto) 4.1 % Edgar % (Auto) 3.8 % Eos % (Auto) 0.1 % Baso % (Auto) 0.3 % Neut # (Auto) 11.41 H (1.40-6.50) K/uL Lymph # (Auto) 0.51 L (1.2-3.4) K/uL Edgar # (Auto) 0.47 (0.11-0.59) K/uL Eos # (Auto) 0.01 (0-0.50) K/uL Baso # (Auto) 0.04 (0-0.2) K/uL Immature Gran # (Auto) 0.03 (0.01-0.20) K/uL Sodium 139 (136-145) mmol/L Potassium 3.4 L (3.5-5.1) mmol/L Chloride 109 H (98-107) mmol/L Carbon Dioxide 23 (21-32) mmol/L Anion Gap 7 (3-11) BUN 21 (6-23) mg/dl Creatinine 0.97 (0.6-1.4) mg/dl Est Cr Clr Drug Dosing 53.0 ml/min Est GFR ( Amer) 82.7 ml/min Est GFR (Non-Af Amer) 71.4 ml/min BUN/Creatinine Ratio 21.6 H (10-20) Glucose 104 H (70-99(Fasting)) mg/dl Lactate 1.8 (0.4-2.0) mmol/L Calcium 9.6 (8.6-10.3) mg/dl Magnesium 1.7 (1.7-2.4) mg/dl Total Bilirubin 0.8 (0.2-1.0) mg/dl Direct Bilirubin 0.2 (0-0.2) mg/dl AST 17 (13-39) U/L ALT 12 (7-52) U/L Alkaline Phosphatase 85 (34-104) U/L Troponin I High Sens 17.7 (0-20) pg/ml Total Protein 6.8 (6.0-8.3) gm/dl Albumin 4.0 (3.4-5.0) gm/dl Procalcitonin (0-0.5) ng/ml Urine Color Urine Appearance (Clear) Urine pH (4.5-7.5) Ur Specific Quinton (1.000-1.030) Urine Protein (Negative) Urine Glucose (UA) (Negative) Urine Ketones (Negative) Urine Blood (Negative) Urine Nitrite (Negative) Urine Bilirubin (Negative) Urine Urobilinogen (Negative) Ur Leukocyte Esterase (Negative) SARS-CoV-2 (PCR) (Negative) Influenza Type A (PCR) (Neg) Influenza Type B (PCR) (Neg) RSV (RT-PCR) (Neg) 05/17/22 05/17/22 05/17/22 Range/Units 12:46 15:21 16:14 WBC (4.8-10.8) K/ul RBC (4.70-6.10) M/uL Hgb (14.0-18.0) g/dl Hct (42.0-52.0) % MCV (80.0-100.0) fL MCH (25.0-34.0) pg MCHC (32.0-36.0) g/dL RDW Std Deviation (36.4-46.3) fL RDW Coeff of Marisel (11.5-14.5) % Plt Count (130-400) K/uL MPV (9.4-12.4) fL Immature Gran % (Auto) % Neut % (Auto) % Lymph % (Auto) % Edgar % (Auto) % Eos % (Auto) % Baso % (Auto) % Neut # (Auto) (1.40-6.50) K/uL Lymph # (Auto) (1.2-3.4) K/uL Edgar # (Auto) (0.11-0.59) K/uL Eos # (Auto) (0-0.50) K/uL Baso # (Auto) (0-0.2) K/uL Immature Gran # (Auto) (0.01-0.20) K/uL Sodium (136-145) mmol/L Potassium (3.5-5.1) mmol/L Chloride (98-107) mmol/L Carbon Dioxide (21-32) mmol/L Anion Gap (3-11) BUN (6-23) mg/dl Creatinine (0.6-1.4) mg/dl Est Cr Clr Drug Dosing ml/min Est GFR ( Amer) ml/min Est GFR (Non-Af Amer) ml/min BUN/Creatinine Ratio (10-20) Glucose (70-99(Fasting)) mg/dl Lactate (0.4-2.0) mmol/L Calcium (8.6-10.3) mg/dl Magnesium (1.7-2.4) mg/dl Total Bilirubin (0.2-1.0) mg/dl Direct Bilirubin (0-0.2) mg/dl AST (13-39) U/L ALT (7-52) U/L Alkaline Phosphatase (34-104) U/L Troponin I High Sens (0-20) pg/ml Total Protein (6.0-8.3) gm/dl Albumin (3.4-5.0) gm/dl Procalcitonin 7.07 H (0-0.5) ng/ml Urine Color Yellow Urine Appearance Clear (Clear) Urine pH 5.0 (4.5-7.5) Ur Specific Quinton > 1.045 H (1.000-1.030) Urine Protein Negative (Negative) Urine Glucose (UA) Negative (Negative) Urine Ketones Negative (Negative) Urine Blood Negative (Negative) Urine Nitrite Negative (Negative) Urine Bilirubin Negative (Negative) Urine Urobilinogen Negative (Negative) Ur Leukocyte Esterase Negative (Negative) SARS-CoV-2 (PCR) NEGATIVE (Negative) Influenza Type A (PCR) Negative (Neg) Influenza Type B (PCR) Negative (Neg) RSV (RT-PCR) Negative (Neg) Administered Medications Magnesium Sulfate/Dextrose (Magnesium Sulfate / D5w) 1 gm in 100 mls @ 50 mls/hr IV Q2H MARC Stop: 05/17/22 19:29 Last Admin: 05/17/22 16:25 Dose: 50 mls/hr Documented By: VIVEK Lactated Ringer's (Lr) 1,000 mls @ 80 mls/hr IV .[id number] MARC Stop: 05/18/22 16:59 Last Admin: 05/17/22 16:43 Dose: 80 mls/hr Documented By: VIVEK Nicotine (Nicotine 14 Mg/24 Hr Patch) 14 mg TD QAM MARC Stop: 06/16/22 15:59 Last Admin: 05/17/22 16:22 Dose: 14 mg Documented By: VIVEK Discontinued Medications Albuterol (Albut/Ipratrop 3mg/0.5mg Neb 3 Ml Vial) 3 ml NEB NOW STA; Protocol Stop: 05/17/22 15:09 Last Admin: 05/17/22 15:19 Dose: 3 ml Documented By: VIVEK Famotidine (Famotidine 20mg/5ml Iv Push) 20 mg IV NOW STA Stop: 05/17/22 15:50 Last Admin: 05/17/22 16:19 Dose: 20 mg Documented By: VIVEK Sodium Chloride (Nss 1000ml) 1,000 mls @ 250 mls/hr IV .Q4H MARC Stop: 06/16/22 12:29 Last Infusion: 05/17/22 15:06 Dose: 0 mls/hr Documented By: Admin: 05/17/22 12:45 Dose: 250 mls/hr Documented By: GABO Acetaminophen (Ofirmev) 1,000 mg in 100 mls @ 400 mls/hr IV NOW STA Stop: 05/17/22 12:37 Last Infusion: 05/17/22 13:00 Dose: 0 mls/hr Documented By: Admin: 05/17/22 12:45 Dose: 400 mls/hr Documented By: GABO Cefepime HCl (Maxipime) 2,000 mg in 20 mls @ 5 mls/min IV NOW STA; Protocol Stop: 05/17/22 13:53 Last Admin: 05/17/22 14:09 Dose: 5 mls/min Documented By: VIVEK Piperacillin Sod/Tazobactam Sod (Zosyn) 4.5 gm in 120 mls @ 240 mls/hr IV NOW ONE Stop: 05/17/22 14:54 Last Infusion: 05/17/22 15:36 Dose: 0 mls/hr Documented By: Admin: 05/17/22 15:06 Dose: 240 mls/hr Documented By: VIVEK Ioversol (Optiray 350 100ml) 87 ml IV ONCE ONE Stop: 05/17/22 13:44 Last Admin: 05/17/22 13:44 Dose: 87 ml Documented By: GARY Ondansetron HCl (Ondansetron Inj 2 Mg/Ml 2 Ml Vial) 4 mg IV NOW STA Stop: 05/17/22 12:24 Last Admin: 05/17/22 12:46 Dose: 4 mg Documented By: GABO Potassium Chloride (Potassium Chloride Crtab 20 Meq Tabcr) 40 meq PO NOW STA Stop: 05/17/22 15:32 Last Admin: 05/17/22 16:18 Dose: 40 meq Documented By: VIVEK Imaging Data Radiologist's Impression: Chest X-Ray 05/17/22 12:22 XR chest 1V portable CLINICAL HISTORY: Sepsis. COMPARISON STUDY: Chest CT June 30, 2021. Chest radiograph 11/01/2021. FINDINGS: There are stable postoperative findings within the right hemithorax. No pneumothorax or pleural effusion is present. Cardiomegaly is unchanged. There is no evidence for pulmonary edema. Interval development of opacity along the left heart border is noted. IMPRESSION: 1. Interval development of left mid and lower lung airspace opacity which favors pneumonia. Posttreatment radiographs to ensure resolution are recommended. 2. Stable cardiomegaly. No evidence for pulmonary edema. ACT 112: Negative or not required by law. Electronically signed by: Rizwan Vaughan M.D. 05/17/2022 12:53 PM Abdomen/Pelvis CT 05/17/22 13:13 CT OF THE ABDOMEN AND PELVIS WITH CONTRAST CLINICAL HISTORY: Lower abdominal pain. Diarrhea. COMPARISON STUDY: CT of the abdomen and pelvis November 01, 2021. TECHNIQUE: Following IV administration of 87 mL of Optiray, axial images of the abdomen and pelvis were obtained from the lung bases to the proximal femurs. Images were reviewed in the axial, sagittal, and coronal planes. IV contrast was administered without complication. Automated exposure control was utilized for the study. A dose lowering technique was utilized adhering to the principles of ALARA. CT DOSE: 493.29 mGy.cm FINDINGS: A small hiatal hernia is present. No pneumatosis, free air or portal venous gas is present. Liver, spleen, adrenal glands, kidneys and pancreas are unremarkable. There is no biliary or pancreatic ductal dilatation. A diverticulum of the second portion of the duodenum is present. Gallstone within the gallbladder is present. There is no evidence for acute cholecystitis. There is no evidence for a bowel obstruction. The appendix is normal. Colonic diverticulosis is present. There is no evidence for colonic diverticulitis. There is an inflamed diverticulum of the terminal ileum with mild adjacent stranding. No free air is present. There is no abscess. Bladder wall thickening is unchanged. Prominent bilateral external iliac chain lymph nodes remain unchanged from earlier exam. No acute fractures are present. There are no suspicious osseous lesions. IMPRESSION: 1. Acute diverticulitis of the terminal ileum. Mild inflammation. No free air. No abscess. 2. Colonic diverticulosis. No evidence for colonic diverticulitis. 3. No bowel obstruction. Normal appendix. 4. Cholelithiasis. No evidence for acute cholecystitis. 5. Small hiatal hernia. ACT 112: Negative or not required by law. Electronically signed by: Rizwan Vaughan M.D. 05/17/2022 2:15 PM Discharge Plan Visit Data Chief Complaint: Fever Stated Complaint: FEVER, DIZZY ED Provider: Brittany Rodriguez Discharge Problem: Diarrhea, Weakness, Diverticulitis, Pneumonia, Tobacco abuse Forms Stand Alone Forms: [facility] [place] Prescriptions Prescriptions: No Action amlodipine 5 mg tablet 5 mg PO QAM Qty: 90 3RF aspirin 325 mg Tablet 325 mg PO BID Calcium 600 + D(3) 600 mg calcium- 200 unit Capsule 1 cap PO QAM bismuth subsalicylate [Pepto-Bismol] 262 mg/15 mL Suspension 524 mg PO DIRECTED PRN (Reason: Gi Upset) pravastatin 20 mg Tablet 20 mg PO Q2D@0900 Qty: 15 0RF Rx Instructions: PER EXT MED HX--NO RECORD OF THIS MEDICATION, UNABLE TO VERIFY. Referrals Referrals: Morales Concepcion DO [Primary Care Provider] -
[2022-05-17] MEDS ORDERED: SODIUM CHLORIDE 0.9% 1000ML 1,000 ML IV SCH (12:30)
--- NOTE | 2022-05-17 12:54 | XRay Report ---
XR chest 1V portable CLINICAL HISTORY: Sepsis. COMPARISON STUDY: Chest CT June 30, 2021. Chest radiograph 11/01/2021. FINDINGS: There are stable postoperative findings within the right hemithorax. No pneumothorax or ple ural effusion is present. Cardiomegaly is unchanged. There is no evidence for pulmonary edema. Interv al development of opacity along the left heart border is noted. IMPRESSION: 1. Interval development of left mid and lower lung airspace opacity which favors pneumonia. Posttreat ment radiographs to ensure resolution are recommended. 2. Stable cardiomegaly. No evidence for pulmonary edema. ACT 112: Negative or not required by law. Electronically signed by: Rizwan Vaughan M.D. 05/17/2022 12:53 PM
[2022-05-17 13:03] LABS: Hematocrit (blood only) 40.7 % (42.0-52.0); Mean Corpuscular Hgb Conc 34.4 g/dL (32.0-36.0); Platelet Count 167 K/uL (130-400); RDW Coefficient of Variation 14.6 % (11.5-14.5); RDW Standard Deviation 48.6 fL (36.4-46.3); Red Blood Count 4.52 M/uL (4.70-6.10); White Blood Count 12.47 K/ul (4.8-10.8)
[2022-05-17 13:21] LABS: BUN Creatinine Ratio 21.6 (10-20); Bilirubin Direct 0.2 mg/dl (0-0.2); Bilirubin,Total 0.8 mg/dl (0.2-1.0); Calcium 9.6 mg/dl (8.6-10.3); Est GFR (African American) 82.7 ml/min; Est GFR (Non-African American) 71.4 ml/min; Magnesium 1.7 mg/dl (1.7-2.4); Potassium 3.4 mmol/L (3.5-5.1); Total Protein 6.8 gm/dl (6.0-8.3)
[2022-05-17 13:26] LABS: Troponin I High Sensitivity 17.7 pg/ml (0-20)
[2022-05-17 13:28] LABS: Basophils # (auto) 0.04 K/uL (0-0.2); Basophils % (auto) 0.3 %; Eosinophils # (auto) 0.01 K/uL (0-0.50); Eosinophils % (auto) 0.1 %; Immature Granulocytes # (auto) 0.03 K/uL (0.01-0.20); Immature Granulocytes % (auto) 0.2 %; Lymphocytes # (auto) 0.51 K/uL (1.2-3.4); Lymphocytes % (auto) 4.1 %; Monocytes # (auto) 0.47 K/uL (0.11-0.59); Monocytes % (auto) 3.8 %; Neutrophils # (auto) 11.41 K/uL (1.40-6.50); Neutrophils % (auto) 91.5 %
[2022-05-17] MEDS ORDERED: OPTIRAY 350 100ml IV ONE (13:43)
[2022-05-17] MEDS ORDERED: CEFEPIME 2,000 MG/20 ML VIAL IV STA (13:50)
--- NOTE | 2022-05-17 14:17 | CT Scan Report ---
CT OF THE ABDOMEN AND PELVIS WITH CONTRAST CLINICAL HISTORY: Lower abdominal pain. Diarrhea. COMPARISON STUDY: CT of the abdomen and pelvis November 01, 2021. TECHNIQUE: Following IV administration of 87 mL of Optiray, axial images of the abdomen and pelvis we re obtained from the lung bases to the proximal femurs. Images were reviewed in the axial, sagittal, and coronal planes. IV contrast was administered without complication. Automated exposure control wa s utilized for the study. A dose lowering technique was utilized adhering to the principles of ALARA . CT DOSE: 493.29 mGy.cm FINDINGS: A small hiatal hernia is present. No pneumatosis, free air or portal venous gas is present. Liver, spleen, adrenal glands, kidneys and pancreas are unremarkable. There is no biliary or pancrea tic ductal dilatation. A diverticulum of the second portion of the duodenum is present. Gallstone wit hin the gallbladder is present. There is no evidence for acute cholecystitis. There is no evidence fo r a bowel obstruction. The appendix is normal. Colonic diverticulosis is present. There is no evidenc e for colonic diverticulitis. There is an inflamed diverticulum of the terminal ileum with mild adjac ent stranding. No free air is present. There is no abscess. Bladder wall thickening is unchanged. Pro minent bilateral external iliac chain lymph nodes remain unchanged from earlier exam. No acute fractu res are present. There are no suspicious osseous lesions. IMPRESSION: 1. Acute diverticulitis of the terminal ileum. Mild inflammation. No free air. No abscess. 2. Colonic diverticulosis. No evidence for colonic diverticulitis. 3. No bowel obstruction. Normal appendix. 4. Cholelithiasis. No evidence for acute cholecystitis. 5. Small hiatal hernia. ACT 112: Negative or not required by law. Electronically signed by: Rizwan Vaughan M.D. 05/17/2022 2:15 PM
[2022-05-17] MEDS ORDERED: PIPERACILLIN/TAZOBACTAM 4.5 GM/120 ML BAG IV ONE (14:25)
[2022-05-17] MEDS ORDERED: ALBUT/IPRATROP 3MG/0.5MG NEB 3 ML VIAL NEB STA (15:08)
--- NOTE | 2022-05-17 15:15 | Electrocardiogram Report ---
Test Reason : Blood Pressure : / mmHG Vent. Rate : 077 BPM Atrial Rate : 077 BPM P-R Int : 212 ms QRS Dur : 094 ms QT Int : 414 ms P-R-T Axes : 019 010 141 degrees QTc Int : 468 ms Poor data quality, interpretation may be adversely affected Sinus rhythm with 1st degree A-V block Old Septal infarct T wave abnormality, consider anterolateral ischemia Abnormal ECG When compared with ECG of 01-NOV-2021 11:56, Premature atrial complexes are no longer Present Inverted T waves have replaced nonspecific T wave abnormality in Anterior leads Confirmed by David Gentile ([id number]) on 05/17/2022 3:14:45 PM Referred By: Confirmed By:David Gentile
[2022-05-17] MEDS ORDERED: POTASSIUM CHLORIDE CRTAB 20 MEQ TABCR PO STA (15:31)
[2022-05-17] MEDS ORDERED: FAMOTIDINE 20 MG in SYRINGE 3 ML IV STA (15:47)
[2022-05-17] MEDS ORDERED: FAMOTIDINE 20MG/5ML IV PUSH IV STA (15:49)
--- NOTE | 2022-05-17 16:07 | History & Physical Report ---
Date of Service May 17, 2022 Assessment & Plan (1) Diverticulitis: Plan: -Admit to med/tele -The patient is currently afebrile, hemodynamically stable, and stable on RA -Started developing low abd pain and multiple episodes of non-bloody diarrhea this am -CT of the abd/pelvis W/IV Con shows acute, uncomplicated diverticulitis -Lactate WNL, procal noted to be 7 -S/P one dose of cefepime and Zosyn in the ED, will continue with Zosyn for now -Follow stool studies and blood cultures -NPO except meds for now -LR at 80 mL/hr x 2 bags while NPO as he appears dehydrated on exam -BL SCD's and Sub-Q lovenox for DVT PPX -AM CBC, CMP, Mag (2) Pneumonia: Plan: -Noted to have opacities in left mid and lower lung pacheco -Currently stable on RA -Will continue Zosyn to cover pneumonia and diverticulitis -Incentive spirometry, flutter therapy, scheduled DuoNebs, prn robitussin -Continue pulse oximetry -Prn O2 to keep SpO2 between 88-92% -Follow sputum culture and gram stain (3) Hypokalemia: Plan: -Noted to be 3.4 today, mag at 1.7 -Likely due to his diarrhea -Will give 40 meq PO KCL now and 2 bags of 1gm Mag/Sulfate -Monitor on tele and follow am CMP and mag (4) GERD (gastroesophageal reflux disease): Plan: -Will started 20 mg IV famotidine BID as he is currently experiencing refulx (5) COPD (chronic obstructive pulmonary disease): Plan: -See penumonia (6) Benign hypertension: Plan: -Stable -Continue amlodipine (7) Hyperlipidemia: Plan: -Continue statin (8) CAD S/P percutaneous coronary angioplasty: Plan: -Continue aspirin and statin Plan The patient was discussed with Dr. Lombardi at the time of the admission History of Present Illness Chief Complaint: Diarrhea, fevers, SOB Primary Care Provider: Morales Concepcion DO Manuel is an 86-year-old male with a past medical history of ID/cardiac arrest 1997, CAD s/p PCI, tobacco abuse, COPD, hyperlipidemia, GERD, and HTN who presented to the [facility] ED on 05/17/22 with complaints of abd pain, diarrhea, and fever. In the ED the patient was found to be afebrile, hemodynamically stable, and saturating ay 89% on RA. Labs were significant for a leukocytosis of 12.47 with left shift of 11, stable renal function, potassium of 3.4, mag of 1.7, lactate of 1.8, procal of 7, Chest xray was read as 1. Interval development of left mid and lower lung airspace opacity which favors pneumonia. Post-treatment radiographs to ensure resolution are recommended. 2. Stable cardiomegaly. No evidence for pulmonary edema.. CT of the abd/pelvis with IV con was read as 1. Acute div erticulitis of the terminal ileum. Mild inflammation. No free air. No abscess. 2. Colonic diverticulosis. No evidence for colonic diverticulitis. 3. No bowel obstruction. Normal appendix. 4. Cholelithiasis. No evidence for acute cholecystitis. 5. Small hiatal hernia.. Prior to admission the patient was given a dose of Cefepime, zosyn, Zofran, a DuoNeb Tx, and 1gm IV Tylenol. At the time of the exam the patient was resting in bed in no acute distress, currently saturating at 97% after completing a DuoNeb treatment. He states that he started to develop lower abd pain and non-bloody diarrhea this am around 0700. Since then he has had approximately 6 episodes of diarrhea. The abd pain does not radiate anywhere else and he denies nausea and vomiting. He denies recent antibiotic use as well. 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 He states that he felt a little more SOB earlier but this has resolved after a DuoNeb treatment. He does not use oxygen at home and denies a previous hx of AZALIA. He denies a increase in his chronic cough and denies increased sputum production or color changes. He is still smoking approximately 1/2 PPD and is not currently interested in quitting. He denies recent chest pain, dysuria, hematuria, melena, LE swelling and recent trauma. I had a long discussion regarding code status with he and his . He elected to be a DNR/DNI after our discussion and his was in agreement. Please refer to Dr. Lombardi's attestation for any changes to the treatment plan Allergies Allergy/AdvReac Type Severity Reaction Status Date / Time No Known Allergies Allergy Verified 05/17/22 15:12 Home Medications Medication Instructions Recorded Confirmed Type aspirin 325 mg tablet 325 mg PO BID 06/03/18 05/17/22 History calcium carbonate 600 mg-vitamin 1 cap PO QAM 11/25/18 05/17/22 History D3 5 mcg (200 unit) capsule (Calcium 600 + D(3)) amlodipine 5 mg tablet 5 mg PO QAM #90 tabs 10/05/21 05/17/22 Rx pravastatin 20 mg tablet 20 mg PO Q2D@0900 #15 tabs 11/04/21 05/17/22 Rx bismuth subsalicylate 262 mg/15 mL 524 mg PO DIRECTED PRN Gi Upset 05/17/22 05/17/22 History oral suspension (Pepto-Bismol) Past Med/Surg History Medical History Emphysema (subcutaneous) resulting from a procedure, initial encounter GERD (gastroesophageal reflux disease) occasional H/O acute myocardial infarction (1997) H/O cardiac arrest (1997) History of dysphagia June 2018 Hypokalemia Osteoarthritis bilateral knees Positive colorectal cancer screening using Cologuard test Pulmonary nodule Surgical History History of cardiac cath 1993 History of esophageal dilatation June 2018 History of heart artery stent 1994 x1 stent at [facility] History of tooth extraction History of total knee arthroplasty Oct 2021: S/P left knee replacement with Dr. 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) with Dr Chu Family History Mother Family history of diabetes mellitus Sister Breast cancer Ovarian cancer Brother Cancer colon,prostate,brain Sister Lung cancer Other Myocardial infarction Denies family history of Prostate cancer Colorectal cancer Social History Smoking Status: Current every day smoker Tobacco Type: Cigarettes Age Started Using Tobacco: 18; packs per day: 0.5; Cigarettes Per Day: 15; Second Hand Exposure: No; Do You Dip or Chew Tobacco: No; Tobacco Cessation Education Requested by Patient: Yes Hx Alcohol Use: No Hx Substance Use: No Preferred Language: Kosovan Communication Ability: Effective Visual Impairment: No Limitations Hearing Ability: Hard of Hearing Operations Intern Required: No Beliefs That Will Affect Care: None marital status: Current Living Situation: Spouse current occupational status: retired How many Children do You have: 7 Other Information That Helps Us Care for You: Yes Feels Safe at Home: Yes Safety Concerns: Feels Safe At This Time Childhood Exposure to Second-Hand Smoke: Yes caffeine: Yes Dental Care, Regularly: No Physical Activity Frequency: Daily Seatbelt Use: sometimes Sunscreen Use: No Assistive Devices: Cane Assistive Devices Comment: denyures with Pt Physical Exam Physical Exam: Physical Exam: General: In no acute distress, stated age, chronically ill-appearing but non- toxic appearing HEENT: Normocephalic, atraumatic, no scleral icterus, pupils around round, symmetrical, and reactive to light, moist mucus membranes, trachea midline, no thyromegaly Chest/Pulm: No respiratory distress, symmetrical chest expansion, scattered rhonchi and wheezing throughout Cardiac: RRR, no murmurs noted Abdomen: Negative for ascites and bruising, normoactive bowel sounds, soft, mildly tender in the lower abdominal pacheco, no rebound tenderness Musculoskeletal: Symmetrical and without signs of acute trauma, upper and lower extremities with full ROM, no atrophy, spasticity, or flaccidity Extremities: Radial, dorsalis pedis, and posterior tibial pulses are intact and symmetrical, no edema noted in the BL LE's Skin: Warm, dry, no rashes , lesions, or scars noted Neuro: Alert and oriented to person, place, month, year, and president, no focal defects, no tremors noted Psych: No acute distress, calm and cooperative during the exam Results & Data Results & Data Vital Signs (Past 12 Hours) Vital Signs Temp Pulse Pulse Resp BP BP Pulse Ox 05/17/22 15:30 73 16 05/17/22 15:30 113/47 L 05/17/22 15:00 77 24 05/17/22 15:00 115/57 L 05/17/22 14:30 73 20 98 05/17/22 14:30 115/59 L 05/17/22 14:09 75 20 126/65 96 05/17/22 13:30 78 25 H 97 05/17/22 13:30 115/56 L 05/17/22 13:00 80 22 89 L 05/17/22 13:00 117/61 05/17/22 12:54 78 23 90 05/17/22 12:53 117/61 05/17/22 13:19 89 L 05/17/22 12:58 81 05/17/22 12:22 79 18 90 05/17/22 12:22 77 18 117/61 90 05/17/22 12:03 37.2 C 90 18 111/73 94 O2 Del Method O2 Flow Rate 05/17/22 15:30 05/17/22 15:30 05/17/22 15:00 05/17/22 15:00 05/17/22 14:30 Nasal Cannula 2 05/17/22 14:30 05/17/22 14:09 Nasal Cannula 2 05/17/22 13:30 Nasal Cannula 2 05/17/22 13:30 05/17/22 13:00 Room Air 05/17/22 13:00 05/17/22 12:54 Room Air 05/17/22 12:53 05/17/22 13:19 Room Air 05/17/22 12:58 05/17/22 12:22 Room Air 05/17/22 12:22 Room Air 05/17/22 12:03 Room Air Laboratory Results Abnormal lab results 05/17/22 05/17/22 05/17/22 Range/Units 12:46 12:46 12:46 WBC 12.47 H (4.8-10.8) K/ul RBC 4.52 L (4.70-6.10) M/uL Hct 40.7 L (42.0-52.0) % RDW Std Deviation 48.6 H (36.4-46.3) fL RDW Coeff of Marisel 14.6 H (11.5-14.5) % Neut # (Auto) 11.41 H (1.40-6.50) K/uL Lymph # (Auto) 0.51 L (1.2-3.4) K/uL Potassium 3.4 L (3.5-5.1) mmol/L Chloride 109 H (98-107) mmol/L BUN/Creatinine Ratio 21.6 H (10-20) Glucose 104 H (70-99(Fasting)) mg/dl Procalcitonin 7.07 H (0-0.5) ng/ml Diagnostic Findings Chest X-Ray 05/17/22 12:22 XR chest 1V portable CLINICAL HISTORY: Sepsis. COMPARISON STUDY: Chest CT June 30, 2021. Chest radiograph 11/01/2021. FINDINGS: There are stable postoperative findings within the right hemithorax. No pneumothorax or pleural effusion is present. Cardiomegaly is unchanged. There is no evidence for pulmonary edema. Interval development of opacity along the left heart border is noted. IMPRESSION: 1. Interval development of left mid and lower lung airspace opacity which favors pneumonia. Posttreatment radiographs to ensure resolution are recommended. 2. Stable cardiomegaly. No evidence for pulmonary edema. ACT 112: Negative or not required by law. Electronically signed by: Rizwan Vaughan M.D. 05/17/2022 12:53 PM Abdomen/Pelvis CT 05/17/22 13:13 CT OF THE ABDOMEN AND PELVIS WITH CONTRAST CLINICAL HISTORY: Lower abdominal pain. Diarrhea. COMPARISON STUDY: CT of the abdomen and pelvis November 01, 2021. TECHNIQUE: Following IV administration of 87 mL of Optiray, axial images of the abdomen and pelvis were obtained from the lung bases to the proximal femurs. Images were reviewed in the axial, sagittal, and coronal planes. IV contrast was administered without complication. Automated exposure control was utilized for the study. A dose lowering technique was utilized adhering to the principles of ALARA. CT DOSE: 493.29 mGy.cm FINDINGS: A small hiatal hernia is present. No pneumatosis, free air or portal venous gas is present. Liver, spleen, adrenal glands, kidneys and pancreas are unremarkable. There is no biliary or pancreatic ductal dilatation. A diverticulum of the second portion of the duodenum is present. Gallstone within the gallbladder is present. There is no evidence for acute cholecystitis. There is no evidence for a bowel obstruction. The appendix is normal. Colonic diverticulosis is present. There is no evidence for colonic diverticulitis. There is an inflamed diverticulum of the terminal ileum with mild adjacent stranding. No free air is present. There is no abscess. Bladder wall thickening is unchanged. Prominent bilateral external iliac chain lymph nodes remain unchanged from earlier exam. No acute fractures are present. There are no barrios spicious osseous lesions. IMPRESSION: 1. Acute diverticulitis of the terminal ileum. Mild inflammation. No free air. No abscess. 2. Colonic diverticulosis. No evidence for colonic diverticulitis. 3. No bowel obstruction. Normal appendix. 4. Cholelithiasis. No evidence for acute cholecystitis. 5. Small hiatal hernia. ACT 112: Negative or not required by law. Electronically signed by: Rizwan Vaughan M.D. 05/17/2022 2:15 PM ECG Additional Comments: Poor data quality, interpretation may be adversely affected Sinus rhythm with 1st degree A-V block Old Septal infarct T wave abnormality, consider anterolateral ischemia Abnormal ECG When compared with ECG of 01-NOV-2021 11:56, Premature atrial complexes are no longer Present Inverted T waves have replaced nonspecific T wave abnormality in Anterior leads Confirmed by David Gentile ([id number]) on 05/17/2022 3:14:45 PM Code Status & VTE Plan Code Status DNR/DNI VTE Prophylaxis Plan VTE Prophylaxis will be ordered: Yes Supervising Physician Co-Signing Physician Notes I personally saw and examined the patient. I verified all marshall points and agree with Lj Wills PA-C with the following exceptions and/or additions: 86 year old male presents to the ER with abdominal pain, nausea, weakness and chills starting this morning. O/E HS RRR, no murmurs, Chest CTAB, Abdo RLQ tenderness without guarding or rebound tenderness A/P Acute diverticulitis - suspect this is the main cause of his symptoms. NPO (reinforced this as despite being told not to eat a burger in the ER by the PA he still has coca-cola around his bedside). IV fluids. IV Zosyn. Follow up blood cultures. Stool PCR and c. diff testing. Pneumonia - CXR changes consistent with this but less likely driving his illness given symptoms consistent with above. PG Care Time/CCT Total # of Minutes Spent Total Time Spent with Patient: Total time spent is greater than 50% in coordination of care (as documented) at patient's floor/unit and/or counseling patient: C[place] [address] INT INP/OBS CARE 3/75MIN Patient Type Established Medical Decision Making High Complexity Diagnoses Diverticulitis K57.92 Pneumonia J18.9 Hypokalemia E87.6 GERD (gastroesophageal reflux disease) K21.9 COPD (chronic obstructive pulmonary disease) J44.9 Benign hypertension I10 Hyperlipidemia E78.5 CAD S/P percutaneous coronary angioplasty I25.10; Z98.61
[2022-05-17 16:22] LABS: Influenza A virus by PCR Negative (Neg); Influenza B virus by PCR Negative (Neg); RSV by PCR Negative (Neg); SARS CoV2 RNA(COVID-19) Ceph NEGATIVE (Negative)
[2022-05-17] MEDS: NICOTINE 14 MG/24 HR PATCH TD SCH (16:22)
[2022-05-17] MEDS: MAGNESIUM SULFATE / D5W 1 GM/100 ML BAG IV SCH ×2 (16:25→18:25)
[2022-05-17 16:28] LABS: Appearance Urine Clear (Clear); Bilirubin Urine Negative (Negative); Blood Urine Negative (Negative); Color Urine Yellow; Glucose Urine UA Negative (Negative); Ketones Urine Negative (Negative); Leukocyte Esterase Urine Negative (Negative); Nitrite Urine Negative (Negative); Protein Urine Negative (Negative); Specific Gravity Urine > 1.045 (1.000-1.030); Urobilinogen Urine Negative (Negative)
[2022-05-17] MEDS: LACTATED RINGER'S 1,000 ML IV SCH (16:43)
[2022-05-17] MEDS: ENOXAPARIN INJ 40 MG/0.4 ML SYR SQ SCH (21:00)
[2022-05-17] MEDS: ASPIRIN 325 MG ECTAB PO SCH (22:21)
[2022-05-17] MEDS: FAMOTIDINE 20 MG in SYRINGE 3 ML IV SCH (22:22)
[2022-05-17] MEDS: PIPERACILLIN/TAZOBACTAM 3.375 GM in DEXTROSE 5% 100 ML IV SCH (22:24)
[2022-05-18 05:28] LABS: A calco-baum cmplx NotReported Not Detected (NotDetected); Bact fragilis Not Reported Not Detected (NotDetected); C auris Not Reported Not Detected (NotDetected); CTX-M Resistant Gene Not Detected (NotDetected); Calbicans Not Reported Not Detected (NotDetected); Candida glabrata Not Reported Not Detected (NotDetected); Candida krusei Not Reported Not Detected (NotDetected); Cneoformans/gatti Not Reported Not Detected (NotDetected); Cparapsilosis Not Reported Not Detected (NotDetected); Ctropicalis Not Reported Not Detected (NotDetected); E cloacae compx Not Reported Not Detected (NotDetected); Efaecalis Not Reported Not Detected (NotDetected); Efaecium Not Reported Not Detected (NotDetected); Enterobacterales Not Reported DETECTED (NotDetected); Escherichia coli Not Reported Not Detected (NotDetected); H influenzae Not Reported Not Detected (NotDetected); IMP Resistant Gene Not Detected (NotDetected); K aerogenes Not Reported Not Detected (NotDetected); KPC Resistant Gene Not Detected (NotDetected); Koxytoca Not Reported Not Detected (NotDetected); Kpneumoniae grp Not Reported Not Detected (NotDetected); Lmonocyt Not Reported Not Detected (NotDetected); N meningitidis Not Reported Not Detected (NotDetected); NDM Resistant Gene Not Detected (NotDetected); OXA 48 Like Resistant Gene Not Detected (NotDetected); P aeruginosa Not Reported Not Detected (NotDetected); Proteus spp Not Reported Not Detected (NotDetected); Salmonella spp Not Reported Not Detected (NotDetected); Smarcescens Not Reported Not Detected (NotDetected); Staph lugdunensis Not Reported Not Detected (NotDetected); Staph spp. Not Reported Not Detected (NotDetected); Staphaureus Not Reported Not Detected (NotDetected); Staphepi Not Reported Not Detected (NotDetected); Stenmaltophilia Not Reported Not Detected (NotDetected); Strep agal(GrpB) Not Reported Not Detected (NotDetected); Strep pneum Not Reported Not Detected (NotDetected); Strep pyog (GrpA) Not Reported Not Detected (NotDetected); Strep spp Not Reported Not Detected (NotDetected); VIM Resistant Gene Not Detected (NotDetected)
[2022-05-18 05:44] LABS: Enterobacterales DETECTED (NotDetected)
[2022-05-18] MEDS: LACTATED RINGER'S 1,000 ML IV SCH (06:04)
[2022-05-18] MEDS: PIPERACILLIN/TAZOBACTAM 3.375 GM in DEXTROSE 5% 100 ML IV SCH ×3 (06:10→20:55)
[2022-05-18 07:45] LABS: Adenovirus F 40/41 PCR Not Detected (NotDetected); Astrovirus PCR Not Detected (NotDetected); Campylobacter PCR Not Detected (NotDetected); Cryptosporidium PCR Not Detected (NotDetected); Cyclospora cayetanensis PCR Not Detected (NotDetected); Entamoeba histolytica PCR Not Detected (NotDetected); Enteroaggregative E.coli(EAEC) Not Detected (NotDetected); Enteropathogenic E.coli (EPEC) Not Detected (NotDetected); Enterotoxigenic E.coli (ETEC) Not Detected (NotDetected); Giardia lamblia PCR Not Detected (NotDetected); Norovirus GI/GII PCR Not Detected (NotDetected); Plesiomonas shigelloides PCR Not Detected (NotDetected); Rotavirus A PCR Not Detected (NotDetected); Salmonella PCR Not Detected (NotDetected); Sapovirus PCR Not Detected (NotDetected); Shiga-like Toxin E.coli (STEC) Not Detected (NotDetected); Shigella/Enteroinvasive E.coli Not Detected (NotDetected); Vibrio cholerae PCR Not Detected (NotDetected); Vibrio species PCR Not Detected (NotDetected); Yersinia enterocolitica PCR Not Detected (NotDetected)
[2022-05-18 08:53] LABS: Albumin Globulin Ratio 1.4 (0.9-2); Albumin Level 3.5 gm/dl (3.4-5.0); BUN Creatinine Ratio 18.8 (10-20); Bilirubin,Total 0.7 mg/dl (0.2-1.0); Calcium 8.6 mg/dl (8.6-10.3); Creatinine Clr Calc Pharmacy 62.9 ml/min; Est GFR (African American) 83.8 ml/min; Est GFR (Non-African American) 72.3 ml/min; Globulin 2.5 gm/dl (2.5-4.0); Magnesium 2.2 mg/dl (1.7-2.4); Potassium 4.2 mmol/L (3.5-5.1)
[2022-05-18 08:55] LABS: Basophils # (auto) 0.03 K/uL (0-0.2); Basophils % (auto) 0.3 %; Eosinophils # (auto) 0.06 K/uL (0-0.50); Eosinophils % (auto) 0.7 %; Hematocrit (blood only) 37.5 % (42.0-52.0); Hemoglobin 12.3 g/dl (14.0-18.0); Immature Granulocytes # (auto) 0.04 K/uL (0.01-0.20); Immature Granulocytes % (auto) 0.4 %; Lymphocytes % (auto) 10.8 %; Mean Corpuscular Hemoglobin 31.2 pg (25.0-34.0); Mean Corpuscular Hgb Conc 32.8 g/dL (32.0-36.0); Mean Corpuscular Volume 95.2 fL (80.0-100.0); Mean Platelet Volume 11.2 fL (9.4-12.4); Monocytes # (auto) 0.52 K/uL (0.11-0.59); Monocytes % (auto) 5.6 %; Neutrophils # (auto) 7.57 K/uL (1.40-6.50); Neutrophils % (auto) 82.2 %; Platelet Count 136 K/uL (130-400); RDW Standard Deviation 52.9 fL (36.4-46.3); Red Blood Count 3.94 M/uL (4.70-6.10); White Blood Count 9.22 K/ul (4.8-10.8)
[2022-05-18] MEDS ORDERED: PNEUMOCOCCAL Polysaccharide Vaccine 25mcg/0.5mL vial/Syr IM ONE (09:00)
[2022-05-18] MEDS: ACETAMINOPHEN 325 MG TAB PO PRN ×2 (09:41→18:23)
[2022-05-18] MEDS: amLODIPine BESYLATE 5 MG TAB PO SCH (09:42)
[2022-05-18] MEDS: ASPIRIN 325 MG ECTAB PO SCH ×2 (09:44→20:58)
[2022-05-18] MEDS: FAMOTIDINE 20 MG in SYRINGE 3 ML IV SCH (09:48)
[2022-05-18] MEDS: NICOTINE 14 MG/24 HR PATCH TD SCH (10:13)
--- NOTE | 2022-05-18 14:24 | Hospitalist Progress Note ---
Date of Service May 18, 2022 Assessment & Plan (1) Diverticulitis: Plan: Feeling better with intravenous Zosyn, day 2. Diet advanced to full liquids. He understands he needs to stay for IV antibiotic therapy because he has a positive blood culture. No perforation on CT scan. (2) Pneumonia: Plan: Lung sounds are chronically abnormal due to heroic smoking history. No doubt he has an element of COPD and chronic bronchitis. No overt pneumonia seen on chest x-ray. (3) Hypokalemia: Plan: Continue supplementation. Serial labs (4) GERD (gastroesophageal reflux disease): Plan: Continue Pepcid therapy (5) COPD (chronic obstructive pulmonary disease): Plan: Stable. We will treat with nebulizers if necessary. I suspect he has an element of chronic bronchitis due to heroic smoking history (6) Benign hypertension: Plan: -Controlled with amlodipine (7) Hyperlipidemia: Plan: Stable. Continue statin (8) CAD S/P percutaneous coronary angioplasty: Plan: Stable. Continue aspirin and statin (9) Gram-negative bacteremia: Plan: Final identification and sensitivities pending. Continue intravenous Zosyn for now. Home on oral antibiotic to complete 14-day course. Plan Eventual discharge to home on oral antibiotic. Hopefully this weekend. Admission and Anticipated Discharge Date Admission Date: May 17, 2022 Subjective Alert and oriented. is at the bedside. He states he is feeling better. Blood culture however is growing gram-negative bacillus. He remains on intravenous Zosyn. He agrees to stay until at least Sunday. We will repeat blood cultures again tomorrow, May 19. Diet advanced to full liquids. Review of Systems Review of Systems: Constitutional-no fever or chills ENT-no blurred vision, no double vision, no epistaxis, no sore throat Respiratory-no cough, no wheezing, no shortness of breath Cardiac-no palpitations, no chest pain, no syncope GI-no nausea, vomiting, diarrhea, melena, hematochezia -no urinary retention, no urinary incontinence, no dysuria, no hematuria Musculoskeletal-no joint pain, no muscle tenderness Skin-no bruising, no rashes, no pruritus Neuro-no isolated weakness, no paresthesia, no weakness Psych-no depression, no anxiety Physical Exam Physical Exam: General-alert and oriented x3, no fevers, no chills HEENT-head atraumatic and normocephalic, pupils equal and reactive to light, ex traocular muscles intact Neck-no lymphadenopathy or thyromegaly, trachea midline Chest-clear to auscultation percussion. No rales wheezing or rhonchi Cardiac-regular rate and rhythm, normal S1 and S2 Abdomen-normal bowel sounds, nontender, no hepatosplenomegaly Extremities-no cyanosis, clubbing, or edema Neuro-cranial nerves II through XII intact, motor and sensory function within normal limits, strength symmetrical , no focal deficits Psych-normal affect, normal mood Results & Data Results & Data Vital Signs (Past 12 Hours) Vital Signs Temp Pulse Pulse Resp BP Pulse Ox O2 Del Method 05/18/22 12:24 36.6 C 55 L 18 131/72 95 Room Air 05/18/22 08:05 37.1 C 57 L 18 135/66 93 Room Air 05/18/22 07:50 Room Air 05/18/22 06:00 63 05/18/22 03:04 37.3 C 60 18 126/68 94 Room Air PG Care Time/CCT Total # of Minutes Spent Total Time Spent with Patient: Total time spent is greater than 50% in coordination of care (as documented) at patient's floor/unit and/or counseling patient: Coding Level of Care Code 59945 SUB INP/OBS CARE 3/50MIN Diagnoses Diverticulitis K57.92 Pneumonia J18.9 Hypokalemia E87.6 GERD (gastroesophageal reflux disease) K21.9 COPD (chronic obstructive pulmonary disease) J44.9 Benign hypertension I10 Hyperlipidemia E78.5 CAD S/P percutaneous coronary angioplasty I25.10; Z98.61 Gram-negative bacteremia R78.81
[2022-05-18] MEDS: ENOXAPARIN INJ 40 MG/0.4 ML SYR SQ SCH (20:57)
[2022-05-19] MEDS ORDERED: LOPERAMIDE HCL 2 MG CAP PO STA ×2 (02:19→13:22)
[2022-05-19] MEDS ORDERED: LOPERAMIDE HCL 2 MG CAP PO ONE (02:33)
[2022-05-19] MEDS: PIPERACILLIN/TAZOBACTAM 3.375 GM in DEXTROSE 5% 100 ML IV SCH ×3 (05:01→20:28)
[2022-05-19 06:03] LABS: Basophils # (auto) 0.02 K/uL (0-0.2); Basophils % (auto) 0.3 %; Eosinophils # (auto) 0.08 K/uL (0-0.50); Eosinophils % (auto) 1.1 %; Hematocrit (blood only) 38.2 % (42.0-52.0); Hemoglobin 12.7 g/dl (14.0-18.0); Immature Granulocytes # (auto) 0.02 K/uL (0.01-0.20); Immature Granulocytes % (auto) 0.3 %; Lymphocytes # (auto) 1.16 K/uL (1.2-3.4); Lymphocytes % (auto) 16.6 %; Mean Corpuscular Hemoglobin 30.8 pg (25.0-34.0); Mean Corpuscular Hgb Conc 33.2 g/dL (32.0-36.0); Mean Corpuscular Volume 92.7 fL (80.0-100.0); Mean Platelet Volume 11.3 fL (9.4-12.4); Monocytes # (auto) 0.57 K/uL (0.11-0.59); Monocytes % (auto) 8.2 %; Neutrophils # (auto) 5.14 K/uL (1.40-6.50); Neutrophils % (auto) 73.5 %; Platelet Count 142 K/uL (130-400); RDW Coefficient of Variation 14.5 % (11.5-14.5); RDW Standard Deviation 49.5 fL (36.4-46.3); Red Blood Count 4.12 M/uL (4.70-6.10); White Blood Count 6.99 K/ul (4.8-10.8)
[2022-05-19 06:19] LABS: BUN Creatinine Ratio 14.6 (10-20); Calcium 8.9 mg/dl (8.6-10.3); Creatinine Clr Calc Pharmacy 73.6 ml/min; Est GFR (African American) 94.1 ml/min; Est GFR (Non-African American) 81.2 ml/min; Potassium 3.6 mmol/L (3.5-5.1)
[2022-05-19] MEDS: NICOTINE 14 MG/24 HR PATCH TD SCH (07:59)
[2022-05-19] MEDS: PANTOprazole 40 MG TAB PO SCH (08:01)
[2022-05-19] MEDS: ASPIRIN 325 MG ECTAB PO SCH ×2 (08:01→20:24)
[2022-05-19] MEDS: amLODIPine BESYLATE 5 MG TAB PO SCH (08:01)
[2022-05-19] MEDS ORDERED: PRAVASTATIN SOD 20 MG TAB PO SCH (09:00)
[2022-05-19] MEDS ORDERED: LOPERAMIDE HCL 2 MG CAP PO PRN (13:22)
--- NOTE | 2022-05-19 13:56 | Hospitalist Progress Note ---
Date of Service May 19, 2022 Assessment & Plan (1) Diverticulitis: Plan: Feeling better with intravenous Zosyn, day 3. Diet advanced to regular. He understands he needs to stay for IV antibiotic therapy because he has a positive blood culture. No perforation on CT scan. (2) Pneumonia: Plan: Lung sounds are chronically abnormal due to heroic smoking history. No doubt he has an element of COPD and chronic bronchitis. No overt pneumonia seen on chest x-ray. (3) Hypokalemia: Plan: Corrected. Serial labs (4) GERD (gastroesophageal reflux disease): Plan: Continue Pepcid therapy (5) COPD (chronic obstructive pulmonary disease): Plan: Stable. We will treat with nebulizers if necessary. I suspect he has an element of chronic bronchitis due to heroic smoking history (6) Benign hypertension: Plan: Stable. Controlled with amlodipine (7) Hyperlipidemia: Plan: Stable. Continue statin (8) CAD S/P percutaneous coronary angioplasty: Plan: Stable. Continue aspirin and statin (9) Gram-negative bacteremia: Plan: Final identification and sensitivities pending. Continue intravenous Zosyn for now. Home on oral antibiotic to complete 14-day course. Plan Eventual discharge to home on oral antibiotic. Hopefully tomorrow, May 20 Admission and Anticipated Discharge Date Admission Date: May 17, 2022 Subjective Alert and oriented. He is anxious to go home. He agrees to stay until tomorrow. Diet advanced again to regular. Continue Zosyn, day 3. He is having loose stools and Imodium has been ordered. There is no underlying obstruction. Repeat blood cultures ordered again today, May 20. Review of Systems Review of Systems: Constitutional-no fever or chills ENT-no blurred vision, no double vision, no epistaxis, no sore throat Respiratory-no cough, no wheezing, no shortness of breath Cardiac-no palpitations, no chest pain, no syncope GI-no nausea, vomiting, diarrhea, melena, hematochezia -no urinary retention, no urinary incontinence, no dysuria, no hematuria Musculoskeletal-no joint pain, no muscle tenderness Skin-no bruising, no rashes, no pruritus Neuro-no isolated weakness, no paresthesia, no weakness Psych-no depression, no anxiety Physical Exam Physical Exam: General-alert and oriented x3, no fevers, no chills HEENT-head atraumatic and normocephalic, pupils equal and reactive to light, extraocular muscles intact Neck-no lymphadenopathy or thyromegaly, trachea midline Chest-clear to auscultation percussion. No rales wheezing or rhonchi Cardiac-regular rate and rhythm, normal S1 and S2 Abdomen-normal bowel sounds, nontender, no hepatosplenomegaly Extremities-no cyanosis, clubbing, or edema Neuro-cranial nerves II through XII intact, motor and sensory function within normal limits, strength symmetrical , no focal deficits Psych-normal affect, normal mood Results & Data Results & Data Vital Signs (Past 12 Hours) Vital Signs Temp Pulse Pulse Resp BP Pulse Ox O2 Del Method 05/19/22 12:20 37.2 C 61 18 154/78 H 94 Room Air 05/19/22 08:15 36.7 C 64 18 173/76 H 94 Room Air 05/19/22 07:16 78 05/19/22 03:00 36.9 C 59 L 18 158/83 H 93 Room Air Laboratory Results 05/19/22 05:38 05/19/22 05:38 PG Care Time/CCT Total # of Minutes Spent Total Time Spent with Patient: Total time spent is greater than 50% in coordination of care (as documented) at patient's floor/unit and/or counseling patient: Coding Level of Care Code 23800 SUB INP/OBS CARE 235MIN Diagnoses Diverticulitis K57.92 Pneumonia J18.9 Hypokalemia E87.6 GERD (gastroesophageal reflux disease) K21.9 COPD (chronic obstructive pulmonary disease) J44.9 Benign hypertension I10 Hyperlipidemia E78.5 CAD S/P percutaneous coronary angioplasty I25.10; Z98.61 Gram-negative bacteremia R78.81
[2022-05-19] MEDS: ENOXAPARIN INJ 40 MG/0.4 ML SYR SQ SCH (20:24)
[2022-05-20] MEDS: PIPERACILLIN/TAZOBACTAM 3.375 GM in DEXTROSE 5% 100 ML IV SCH (05:03)
[2022-05-20 06:06] LABS: Basophils # (auto) 0.03 K/uL (0-0.2); Basophils % (auto) 0.5 %; Eosinophils # (auto) 0.12 K/uL (0-0.50); Hematocrit (blood only) 37.6 % (42.0-52.0); Hemoglobin 12.8 g/dl (14.0-18.0); Immature Granulocytes # (auto) 0.01 K/uL (0.01-0.20); Immature Granulocytes % (auto) 0.2 %; Lymphocytes # (auto) 1.69 K/uL (1.2-3.4); Lymphocytes % (auto) 28.8 %; Mean Corpuscular Hemoglobin 31.3 pg (25.0-34.0); Mean Corpuscular Volume 91.9 fL (80.0-100.0); Mean Platelet Volume 11.4 fL (9.4-12.4); Monocytes # (auto) 0.57 K/uL (0.11-0.59); Monocytes % (auto) 9.7 %; Neutrophils # (auto) 3.45 K/uL (1.40-6.50); Neutrophils % (auto) 58.8 %; Platelet Count 133 K/uL (130-400); RDW Coefficient of Variation 14.4 % (11.5-14.5); RDW Standard Deviation 48.8 fL (36.4-46.3); Red Blood Count 4.09 M/uL (4.70-6.10); White Blood Count 5.87 K/ul (4.8-10.8)
[2022-05-20 06:20] LABS: BUN Creatinine Ratio 12.9 (10-20); Calcium 8.7 mg/dl (8.6-10.3); Creatinine Clr Calc Pharmacy 64.9 ml/min; Est GFR (African American) 87.1 ml/min; Est GFR (Non-African American) 75.1 ml/min; Potassium 3.6 mmol/L (3.5-5.1)
[2022-05-20] MEDS: NICOTINE 14 MG/24 HR PATCH TD SCH (07:56)
[2022-05-20] MEDS: ASPIRIN 325 MG ECTAB PO SCH (07:57)
[2022-05-20] MEDS: PANTOprazole 40 MG TAB PO SCH (07:57)
[2022-05-20] MEDS: amLODIPine BESYLATE 5 MG TAB PO SCH (07:57)
--- NOTE | 2022-05-20 10:17 | Discharge Summary ---
Date of Service May 20, 2022 Admission HPI Per Admitting Provider Manuel is an 86-year-old male with a past medical history of NC/cardiac arrest 1997, CAD s/p PCI, tobacco abuse, COPD, hyperlipidemia, GERD, and HTN who presented to the [facility] ED on 05/17/22 with complaints of abd pain, diarrhea, and fever. In the ED the patient was found to be afebrile, hemodynamically stable, and saturating ay 89% on RA. Labs were significant for a leukocytosis of 12.47 with left shift of 11, stable renal function, potassium of 3.4, mag of 1.7, lactate of 1.8, procal of 7, Chest xray was read as 1. Interval development of left mid and lower lung airspace opacity which favors pneumonia. Post-treatment radiographs to ensure resolution are recommended. 2. Stable cardiomegaly. No evidence for pulmonary edema.. CT of the abd/pelvis with IV con was read as 1. Acute diverticulitis of the terminal ileum. Mild inflammation. No free air. No abscess. 2. Colonic diverticulosis. No evidence for colonic diverticulitis. 3. No bowel obstruction. Normal appendix. 4. Cholelithiasis. No evidence for acute cholecystitis. 5. Small hiatal hernia.. Prior to admission the patient was given a dose of Cefepime, zosyn, Zofran, a DuoNeb Tx, and 1gm IV Tylenol. At the time of the exam the patient was resting in bed in no acute distress, currently saturating at 97% after completing a DuoNeb treatment. He states that he started to develop lower abd pain and non-bloody diarrhea this am around 0700. Since then he has had approximately 6 episodes of diarrhea. The abd pain does not radiate anywhere else and he denies nausea and vomiting. He denies recent antibiotic use as well. 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 He states that he felt a little more SOB earlier but this has resolved after a DuoNeb treatment. He does not use oxygen at home and denies a previous hx of AZALIA. He denies a increase in his chronic cough and denies increased sputum production or color changes. He is still smoking approximately 1/2 PPD and is not currently interested in quitting. He denies recent chest pain, dysuria, hematuria, melena, LE swelling and recent trauma. I had a long discussion regarding code status with he and his . He elected to be a DNR/DNI after our discussion and his was in agreement. Please refer to Dr. Lombardi's attestation for any changes to the treatment plan Principal Diagnosis Klebsiella bacteremia, sepsis, sigmoid diverticulitis Discharge Exam General-alert and oriented x3, no fevers, no chills HEENT-head atraumatic and normocephalic, pupils equal and reactive to light, extraocular muscles intact Neck-no lymphadenopathy or thyromegaly, trachea midline Chest-clear to auscultation percussion. No rales wheezing or rhonchi Cardiac-regular rate and rhythm, normal S1 and S2 Abdomen-normal bowel sounds, nontender, no hepatosplenomegaly Extremities-no cyanosis, clubbing, or edema Neuro-cranial nerves II through XII intact, motor and sensory function within normal limits, strength symmetrical , no focal deficits Psych-normal affect, normal mood Discharge Data Allergies Allergy/AdvReac Type Severity Reaction Status Date / Time No Known Allergies Allergy Verified 05/17/22 15:12 Consultations 05/17/22 15:30 ED Decision to Admit Stat Ordered Studies 05/17/22 13:13 CT abd pelvis IV con only Stat Hospital Course (1) Diverticulitis: Feeling better with intravenous Zosyn, day 4. Diet advanced to regular. IV antibiotic will be switched to oral Keflex for 10 more days at discharge. Klebsiella isolated in the blood. No perforation on CT scan. (2) Pneumonia: Lung sounds are chronically abnormal due to heroic smoking history. No doubt he has an element of COPD and chronic bronchitis. No overt pneumonia seen on chest x-ray. (3) Hypokalemia: Corrected. Serial labs (4) GERD (gastroesophageal reflux disease): Continue Pepcid therapy (5) COPD (chronic obstructive pulmonary disease): Stable. We will treat with nebulizers if necessary. I suspect he has an element of chronic bronchitis due to heroic smoking history (6) Benign hypertension: Stable. Controlled with amlodipine (7) Hyperlipidemia: Stable. Continue statin (8) CAD S/P percutaneous coronary angioplasty: Stable. Continue aspirin and statin (9) Gram-negative bacteremia: Klebsiella isolated. Pansensitive. We will continue oral antibiotics at discharge. Treated with intravenous Zosyn while hospitalized Plan Discharge to home today, May 20. Continue Keflex for 10 more days Total Time Total Time Spent Total Time Spent (In Minutes): 35 minutes Discharge Plan Discharge Items Patient Disposition: Home - Self-Care Reason For Visit: DIARRHEA, FEVERS, SOB Discharge Diagnosis: Sigmoid diverticulitis, sepsis, Klebsiella bacteremia Activity: Resume your previous activity Non-emergency contact: Primary Care Provider Call non-emergency contact if: you have any medication questions and your symptoms worsen Follow-up/Referrals: Morales Concepcion, [Primary Care Provider] - Diet: Regular and Heart Healthy Addtl Attending Provider Instructions: Take Keflex antibiotic (cephalexin) for 10 more days Pending Studies at Discharge: No Stand-Alone Forms: My [employer], Smoking Cessation Medications and DC Order Prescriptions: New cephalexin 500 mg capsule 500 mg PO QID Qty: 40 0RF Continued amlodipine 5 mg tablet 5 mg PO QAM Qty: 90 3RF aspirin 325 mg Tablet 325 mg PO BID Calcium 600 + D(3) 600 mg calcium- 200 unit Capsule 1 cap PO QAM bismuth subsalicylate [Pepto-Bismol] 262 mg/15 mL Suspension 524 mg PO DIRECTED PRN (Reason: Gi Upset) pravastatin 20 mg Tablet 20 mg PO Q2D@0900 Qty: 15 0RF Rx Instructions: PER EXT MED HX--NO RECORD OF THIS MEDICATION, UNABLE TO VERIFY. Discharge Orders: Discharge Order (Routine); Ordered 05/20/22 Ordered By: Jeevan Gaffney Admission Data Admit Date/Time: 05/17/22 15:30 Attending Provider: Jeevan Gaffney Admit Provider: Javier Lombardi Primary Care Provider: Morales Concepcion Other Providers: Javier Lombardi Coding Level of Care Code 81668 INP/OBS DISCH >30 MIN Diagnoses Diverticulitis K57.92 Pneumonia J18.9 Hypokalemia E87.6 GERD (gastroesophageal reflux disease) K21.9 COPD (chronic obstructive pulmonary disease) J44.9 Benign hypertension I10 Hyperlipidemia E78.5 CAD S/P percutaneous coronary angioplasty I25.10; Z98.61 Gram-negative bacteremia R78.81
--- NOTE | 2022-05-30 09:23 | Coding Query ---
PRESENT ON ADMISSION QUERY To promote full compliance with coding requirements relating to pateint care, physician participation is requested in all cases of poultry farm supervisor uncertainty. Please assist us with the question(s) below: Please place an X within the parenthesis (x). The following diagnosis listed in this patient's medical record require physician assistance to determine if they were present on admission (POA) or not. Please advise for each diagnosis whether it was present on admission, not present on admission, or if it was clinically undetermined. 1. SEPSIS - documented on the Discharge Summary. ( x ) Present On Admission. Please specify further, in your clinical opinion, the most likely cause of the Sepsis: ( ) Most likely from Diverticulitis ( ) Most likely from Pneumonia ( x) Most likely from Other: Please Specify__klebsiella bacteremia ( ) Unknown source ( ) Not Present On Admission. Please specify further, in your clinical opinion, the most likely cause of the Sepsis: ( ) Most likely from Diverticulitis ( ) Most likely from Pneumonia ( ) Most likely from Other: Please Specify ( ) Unknown source ( ) Clinically Undetermined. Please specify further, in your clinical opinion, the most likely cause of the Sepsis: ( ) Most likely from Diverticulitis ( ) Most likely from Pneumonia ( ) Most likely from Other: Please Specify ( ) Unknown source Thank you Michelle Ellis *Definition of the present on admission (POA)-Present on admission is defined as present at the time the order for inpatient admission occurs. Conditions that develop during an outpatient encounter prior to a written order for inpatient admission (including emergency department, observation, or outpatient surgery) are considered present on admission. MTDD
--- NOTE | 2022-05-30 09:27 | Coding Query ---
CODING QUERY To promote full compliance with coding requirements relating to patient care, provider participation is requested in all cases of apron worker uncertainty. Please assist us with the question(s) below: Coding Question(s): Pneumonia is documented in the record and as of the Discharge Summary, there is documentation of, "Pneumonia: Lung sounds are chronically abnormal due to heroic smoking history. No doubt he has an element of COPD and chronic bronchitis. No overt pneumonia seen on chest x-ray". It is not clear if Pneumonia was possible and treated or if it was Ruled-Out. Please specify below, in your clinical opinion: ( ) Pneumonia was treated during this admission ( x ) Pneumonia was Ruled-Out ( ) Other: Please Specify Physician's Response(s): Thank you Michelle Ellis Principal Diagnosis: "that condition established after study, to be chiefly responsible for occasioning the admission of the patient to the hospital for care." Co-Existing Principal Diagnosis: "when two or more diagnoses equally meet the criteria for principal diagnosis as determined by the circumstances of admission, diagnostic work up, and/or therapy provided, and the Alphabetic Index, Tabular List, or another coding guideline does not provide sequencing direction, any one of the diagnoses may be sequenced first." "When the physician has documented what appears to be a current diagnosis in the body of the record, but has not included the diagnosis in the final diagnostic statement, the physician should be asked whether the diagnosis should be added." (Source Coding Clinic 2 QTR90. p3-4) TIGRE
== END 2022-05-20 12:00 | disposition home or self-care (01) | DRG 391 ==
LOC: ED 11:59 → SUATTDRO 15:30 → EDINP 15:30 → 2W 20:25

== ENCOUNTER 2022-05-25 09:57 | Observation (INO) ==
[2022-05-25] MEDS ORDERED: SODIUM CHLORIDE 0.9% 1000ML 500 ML IV SCH (11:00)
--- NOTE | 2022-05-25 11:21 | XRay Report ---
SINGLE VIEW CHEST CLINICAL HISTORY: Sepsis. FINDINGS: An AP, portable, upright chest radiograph is compared to study dated 05/17/2022 and correlate d with chest CT dated 06/30/2021. The heart is enlarged noting atherosclerotic calcification of the th oracic aorta. The pulmonary vasculature is noncongested. Emphysema and chronic interstitial thickenin g is similar to previous. Scarring/atelectasis is noted at the lung bases. No airspace consolidation or large pleural effusion is identified. No pneumothorax is seen. The skeletal structures are osteope sam. The bony thorax is grossly intact. IMPRESSION: Cardiomegaly and emphysema with no acute cardiopulmonary abnormality identified. ACT 112: Negative or not required by law. Electronically signed by: Ramiro Matta M.D. 05/25/2022 11:18 AM
[2022-05-25 11:53] LABS: Basophils # (auto) 0.05 K/uL (0-0.2); Basophils % (auto) 0.3 %; Eosinophils # (auto) 0.03 K/uL (0-0.50); Eosinophils % (auto) 0.2 %; Hematocrit (blood only) 40.9 % (42.0-52.0); Hemoglobin 13.9 g/dl (14.0-18.0); Immature Granulocytes # (auto) 0.08 K/uL (0.01-0.20); Immature Granulocytes % (auto) 0.5 %; Lymphocytes # (auto) 1.36 K/uL (1.2-3.4); Lymphocytes % (auto) 8.2 %; Mean Corpuscular Hemoglobin 31.4 pg (25.0-34.0); Mean Corpuscular Volume 92.5 fL (80.0-100.0); Monocytes # (auto) 1.42 K/uL (0.11-0.59); Monocytes % (auto) 8.6 %; Neutrophils # (auto) 13.61 K/uL (1.40-6.50); Neutrophils % (auto) 82.2 %; Platelet Count 199 K/uL (130-400); RDW Coefficient of Variation 14.7 % (11.5-14.5); RDW Standard Deviation 50.1 fL (36.4-46.3); Red Blood Count 4.42 M/uL (4.70-6.10); White Blood Count 16.55 K/ul (4.8-10.8)
[2022-05-25 12:10] LABS: Bilirubin Direct 0.2 mg/dl (0-0.2); Bilirubin,Total 0.7 mg/dl (0.2-1.0); Calcium 9.4 mg/dl (8.6-10.3); Creatinine Clr Calc Pharmacy 55.3 ml/min; Est GFR (African American) 87.1 ml/min; Est GFR (Non-African American) 75.1 ml/min; Potassium 3.7 mmol/L (3.5-5.1); Total Protein 7.1 gm/dl (6.0-8.3)
[2022-05-25 12:15] LABS: Troponin I High Sensitivity 11.7 pg/ml (0-20)
--- NOTE | 2022-05-25 13:09 | Emergency Department Note ---
Impression & Plan Diarrhea, Fever, Proctocolitis ED Provider Note INFORMANT: Patient ED PROVIDER(S): Lj Puckett DO CHIEF COMPLAINT: Diarrhea PLAN: Disposition: Admission Outpatient prescription management: [none] Discussion with: I spoke with the hospitalist, who will see the patient for admission/observation and further evaluation and consultation. MEDICAL DECISION MAKING: This is a 86-year-old male who presents to the ED with a chief complaint of diarrhea. The patient was recently placed on antibiotics for diverticulitis. The patient had a blood culture showing Klebsiella oxytoca. He was initially treated with Zosyn IV and then switched to Keflex for 10 additional days after discharge. He was also found to have pneumonia. The patient has had 5 days of antibiotics since discharge. The patient reports some abdominal cramps in addition to the diarrhea. No other specific complaints. Exam reveals no focal abdominal tenderness. The white blood cell count is elevated 16.5. Chemistry panel showed no electrolyte abnormality. Procalcitonin is negative. Troponin was negative for myocardial infarction. Lactic acid is negative. Chest x-ray did not show pneumonia. COVID test was negative. CT scan of the abdomen pelvis shows interval development of a rectosigmoid wall thickening with moderate associated inflammatory process compared to May 17. Favors nonspecific proctocolitis likely infectious. Patient was given IV Zosyn here. He was also treated with IV fluids. 500 cc normal saline bolus was administered. The patient's blood pressure was normal and he is not tachycardic. Stool studies are pending. The patient will be seen by the hospitalist for further evaluation and care. Triage Nursing notes reviewed. Vital Signs: reviewed Prior /Outside records reviewed: Transitional care visit from 05/22/2022, 2 days ago shows recent admission for sigmoid diverticulitis, sepsis and Klebsiella bacteremia Differential diagnosis: C. difficile colitis, viral illness, dehydration, electrolyte abnormality, generalized weakness Diagnostics, as interpreted by me: 12 lead ECG: Sinus rhythm at a rate of 70. No ST elevation. No PVCs. Normal QTc. Cardiac Monitoring ordered: Sinus rhythm 70s. Medical decision rules: [none] Imaging studies: Chest x-ray: No acute disease. No pneumonia or pneumothorax. CT scan of the abdomen and pelvis shows proctocolitis Procedures: none. Critical care: none. HPI: See MDM above. PAST MEDICAL HISTORY: See Below PAST SURGICAL HISTORY: See Below SOCIAL HISTORY: See Below HOME MEDICATIONS: See Below ALLERGIES: See Below VITALS: See Below PHYSICAL EXAMINATION: See MDM for positive findings otherwise unremarkable. CONSTITUTIONAL/VITAL SIGNS: Reviewed GENERAL:done as appropriate INTEGUMENTARY: done as appropriate HEAD: done as appropriate EYES: done as appropriate RESPIRATORY: done as appropriate CARDIOVASCULAR:done as appropriate GI/ABDOMEN:done as appropriate EXTREMITIES: done as appropriate NEUROLOGICAL: done as appropriate PSYCHIATRIC:done as appropriate MUSCULOSKELETAL:done as appropriate TRIAGE NURSING DOCUMENTATION REVIEWED. Past Med/Surg History Medical History Emphysema (subcutaneous) resulting from a procedure, initial encounter GERD (gastroesophageal reflux disease) occasional H/O acute myocardial infarction (1997) H/O cardiac arrest (1997) History of dysphagia June 2018 Hypokalemia Osteoarthritis bilateral knees Positive colorectal cancer screening using Cologuard test Pulmonary nodule Surgical History History of cardiac cath 1993 History of esophageal dilatation June 2018 History of heart artery stent 1993 x1 stent at [facility] History of tooth extraction History of total knee arthroplasty Oct 2021: S/P left knee replacement with Dr. 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) with Dr Chu Family History Mother Family history of diabetes mellitus Sister Breast cancer Ovarian cancer Brother Cancer colon,prostate,brain Sister Lung cancer Other Myocardial infarction Denies family history of Prostate cancer Colorectal cancer Social History Smoking Status: Current every day smoker Tobacco Type: Cigarettes Age Started Using Tobacco: 18; packs per day: 0.5; Cigarettes Per Day: 15; Second Hand Exposure: No; Hx Alcohol Use: No Hx Substance Use: No Preferred Language: Swedish Communication Ability: Effective Visual Impairment: No Limitations Hearing Ability: Hard of Hearing Crew Chief Required: No Beliefs That Will Affect Care: None marital status: Current Living Situation: Spouse current occupational status: retired How many Children do You have: 7 Feels Safe at Home: Yes Childhood Exposure to Second-Hand Smoke: Yes caffeine: Yes Dental Care, Regularly: No Physical Activity Frequency: Daily Seatbelt Use: sometimes Sunscreen Use: No Assistive Devices: Walker Allergies Allergies Allergy/AdvReac Type Severity Reaction Status Date / Time No Known Allergies Allergy Verified 05/22/22 10:26 Home Meds Home Medications Medication Instructions Recorded Confirmed aspirin 325 mg tablet 325 mg PO BID 06/03/18 05/22/22 calcium carbonate 600 mg-vitamin 1 cap PO QAM 11/25/18 05/22/22 D3 5 mcg (200 unit) capsule (Calcium 600 + D(3)) bismuth subsalicylate 262 mg/15 mL 524 mg PO DIRECTED PRN Gi Upset 05/17/22 05/22/22 oral suspension (Pepto-Bismol) Previous Rx's Medication Instructions Recorded amlodipine 5 mg tablet 5 mg PO QAM #90 tabs 10/05/21 pravastatin 20 mg tablet 20 mg PO Q2D@0900 #15 tabs 11/04/21 cephalexin 500 mg capsule 500 mg PO QID #40 caps 05/20/22 Results & Data (ED) Vital Signs Vital Signs - 24 hr 05/25/22 10:10 05/25/22 11:27 05/25/22 11:27 Temperature 38.0 C H Temperature Source Oral Pulse Rate 78 Pulse Rate [Apical] 87 Pulse Rhythm [Apical] Pulse Strength [Apical] Respiratory Rate 20 18 Respiratory Effort / Characteristics Non-Labored Non-Labored Respiratory Depth Normal Normal Respiratory Pattern Regular Blood Pressure 130/75 Blood Pressure [Left Arm] 155/74 H Blood Pressure Mean 93 Blood Pressure Mean [Left Arm] 101 Pulse Oximetry 94 94 94 Oxygen Delivery Method Room Air Room Air Room Air Sepsis Recent Fever Within 48 Hours No Sepsis New/Unexplained Change in Mental Status N/A Sepsis Action Taken by Nursing No Action Required 05/25/22 11:30 05/25/22 12:52 05/25/22 14:09 Temperature Temperature Source Pulse Rate 71 Pulse Rate [Apical] 74 72 Pulse Rhythm [Apical] Regular Pulse Strength [Apical] Normal Respiratory Rate 18 18 Respiratory Effort / Characteristics Non-Labored Spontaneous Non-Labored Respiratory Depth Normal Normal Respiratory Pattern Regular Blood Pressure Blood Pressure [Left Arm] 147/76 H 132/68 Blood Pressure Mean Blood Pressure Mean [Left Arm] 99 89 Pulse Oximetry 94 92 Oxygen Delivery Method Room Air Room Air Sepsis Recent Fever Within 48 Hours Sepsis New/Unexplained Change in Mental Status Sepsis Action Taken by Nursing Laboratory Data 05/25/22 10:53 05/25/22 10:53 Lab Results 05/25/22 05/25/22 05/25/22 Range/Units 10:53 10:53 10:53 WBC 16.55 H (4.8-10.8) K/ul RBC 4.42 L (4.70-6.10) M/uL Hgb 13.9 L (14.0-18.0) g/dl Hct 40.9 L (42.0-52.0) % MCV 92.5 (80.0-100.0) fL MCH 31.4 (25.0-34.0) pg MCHC 34.0 (32.0-36.0) g/dL RDW Std Deviation 50.1 H (36.4-46.3) fL RDW Coeff of Marisel 14.7 H (11.5-14.5) % Plt Count 199 (130-400) K/uL MPV 11.0 (9.4-12.4) fL Immature Gran % (Auto) 0.5 % Neut % (Auto) 82.2 % Lymph % (Auto) 8.2 % [place] % (Auto) 8.6 % Eos % (Auto) 0.2 % Baso % (Auto) 0.3 % Neut # (Auto) 13.61 H (1.40-6.50) K/uL Lymph # (Auto) 1.36 (1.2-3.4) K/uL [place] # (Auto) 1.42 H (0.11-0.59) K/uL Eos # (Auto) 0.03 (0-0.50) K/uL Baso # (Auto) 0.05 (0-0.2) K/uL Immature Gran # (Auto) 0.08 (0.01-0.20) K/uL Sodium 139 (136-145) mmol/L Potassium 3.7 (3.5-5.1) mmol/L Chloride 106 (98-107) mmol/L Carbon Dioxide 26 (21-32) mmol/L Anion Gap 7 (3-11) BUN 13 (6-23) mg/dl Creatinine 0.93 (0.6-1.4) mg/dl Est Cr Clr Drug Dosing 55.3 ml/min Est GFR ( Amer) 87.1 ml/min Est GFR (Non-Af Amer) 75.1 ml/min BUN/Creatinine Ratio 14.0 (10-20) Glucose 102 H (70-99(Fasting)) mg/dl Lactate 0.8 (0.4-2.0) mmol/L Calcium 9.4 (8.6-10.3) mg/dl Magnesium 2.0 (1.7-2.4) mg/dl Total Bilirubin 0.7 (0.2-1.0) mg/dl Direct Bilirubin 0.2 (0-0.2) mg/dl AST 12 L (13-39) U/L ALT 14 (7-52) U/L Alkaline Phosphatase 86 (34-104) U/L Troponin I High Sens 11.7 (0-20) pg/ml Total Protein 7.1 (6.0-8.3) gm/dl Albumin 4.0 (3.4-5.0) gm/dl Procalcitonin (0-0.5) ng/ml SARS-CoV-2, RNA, NAAT (NEGATIVE) 05/25/22 05/25/22 Range/Units 10:53 11:38 WBC (4.8-10.8) K/ul RBC (4.70-6.10) M/uL Hgb (14.0-18.0) g/dl Hct (42.0-52.0) % MCV (80.0-100.0) fL MCH (25.0-34.0) pg MCHC (32.0-36.0) g/dL RDW Std Deviation (36.4-46.3) fL RDW Coeff of Marisel (11.5-14.5) % Plt Count (130-400) K/uL MPV (9.4-12.4) fL Immature Gran % (Auto) % Neut % (Auto) % Lymph % (Auto) % [place] % (Auto) % Eos % (Auto) % Baso % (Auto) % Neut # (Auto) (1.40-6.50) K/uL Lymph # (Auto) (1.2-3.4) K/uL [place] # (Auto) (0.11-0.59) K/uL Eos # (Auto) (0-0.50) K/uL Baso # (Auto) (0-0.2) K/uL Immature Gran # (Auto) (0.01-0.20) K/uL Sodium (136-145) mmol/L Potassium (3.5-5.1) mmol/L Chloride (98-107) mmol/L Carbon Dioxide (21-32) mmol/L Anion Gap (3-11) BUN (6-23) mg/dl Creatinine (0.6-1.4) mg/dl Est Cr Clr Drug Dosing ml/min Est GFR ( Amer) ml/min Est GFR (Non-Af Amer) ml/min BUN/Creatinine Ratio (10-20) Glucose (70-99(Fasting)) mg/dl Lactate (0.4-2.0) mmol/L Calcium (8.6-10.3) mg/dl Magnesium (1.7-2.4) mg/dl Total Bilirubin (0.2-1.0) mg/dl Direct Bilirubin (0-0.2) mg/dl AST (13-39) U/L ALT (7-52) U/L Alkaline Phosphatase (34-104) U/L Troponin I High Sens (0-20) pg/ml Total Protein (6.0-8.3) gm/dl Albumin (3.4-5.0) gm/dl Procalcitonin 0.45 (0-0.5) ng/ml SARS-CoV-2, RNA, NAAT NEGATIVE (NEGATIVE) Administered Medications Discontinued Medications Sodium Chloride (Nss 1000ml) 500 mls @ 999 mls/hr IV .Q31M MARC Stop: 05/25/22 11:30 Last Infusion: 05/25/22 13:03 Dose: 0 mls/hr Documented By: Admin: 05/25/22 11:36 Dose: 999 mls/hr Documented By: FLORIAN Piperacillin Sod/Tazobactam Sod (Zosyn) 4.5 gm in 120 mls @ 240 mls/hr IV NOW ONE Stop: 05/25/22 14:01 Last Admin: 05/25/22 14:19 Dose: 240 mls/hr Documented By: FLORIAN Imaging Data Radiologist's Impression: Chest X-Ray 05/25/22 10:53 SINGLE VIEW CHEST CLINICAL HISTORY: Sepsis. FINDINGS: An AP, portable, upright chest radiograph is compared to study dated 05/17/2022 and correlated with chest CT dated 06/30/2021. The heart is enlarged noting atherosclerotic calcification of the thoracic aorta. The pulmonary vasculature is noncongested. Emphysema and chronic interstitial thickening is similar to previous. Scarring/atelectasis is noted at the lung bases. No airspace consolidation or large pleural effusion is identified. No pneumothorax is seen. The skeletal structures are osteopenic. The bony thorax is grossly intact. IMPRESSION: Cardiomegaly and emphysema with no acute cardiopulmonary abnormality identified. ACT 112: Negative or not required by law. Electronically signed by: Ramiro Matta M.D. 05/25/2022 11:18 AM Abdomen/Pelvis CT 05/25/22 11:04 CT OF THE ABDOMEN AND PELVIS WITHOUT CONTRAST CLINICAL HISTORY: fever, diarrhea, recent abx for diverticulitis COMPARISON STUDY: CT of the abdomen and pelvis May 17, 2022. TECHNIQUE: Axial images of the abdomen and pelvis were obtained without IV contrast. Images were reviewed in the axial, sagittal, and coronal planes. Automated exposure control was utilized for the study. A dose lowering technique was utilized adhering to the principles of ALARA. FINDINGS: Lung bases are unremarkable. No pneumatosis, free air or portal venous gas is present. Evaluation of the abdomen and pelvis is suboptimal on this unenhanced exam. There is a hiatal hernia. Gallstones within the gallbladder are present. There is no evidence for acute cholecystitis. Spleen, adrenal glands, kidneys and pancreas are normal. There is no evidence for a bowel obstruction. Diverticulitis of the terminal ileum shown on CT of May 17, 2022 has resolved. Sigmoid diverticulosis is noted. Sigmoid colon wall thickening with moderate inflammation has developed since prior exam. Rectal wall thickening has also developed since that examination. There is no fluid collection. There is no free air. Moderate aortoiliac atherosclerotic plaque is present. IMPRESSION: 1. Extensive sigmoid diverticulosis. Interval development of rectosigmoid wall thickening with moderate associated inflammation since CT of May 17, 2022. This favors a nonspecific proctocolitis, likely infectious. Diverticulitis could appear similar but is considered less likely. 2. Resolution of diverticulitis of the terminal ileum. 3. No free air. No abscess. 4. Cholelithiasis. ACT 112: Negative or not required by law. Electronically signed by: Rizwan Vaughan M.D. 05/25/2022 2:07 PM Discharge Plan Visit Data Chief Complaint: Diarrhea Stated Complaint: DIARRHEA AND FEVER ED Provider: Lj Puckett Discharge Problem: Diarrhea, Fever, Proctocolitis Patient Disposition: Being Evaluated by Hospitalist Forms Stand Alone Forms: My [facility] Prescriptions Prescriptions: No Action amlodipine 5 mg tablet 5 mg PO QAM Qty: 90 3RF aspirin 325 mg Tablet 325 mg PO BID Calcium 600 + D(3) 600 mg calcium- 200 unit Capsule 1 cap PO QAM bismuth subsalicylate [Pepto-Bismol] 262 mg/15 mL Suspension 524 mg PO DIRECTED PRN (Reason: Gi Upset) cephalexin 500 mg capsule 500 mg PO QID Qty: 40 0RF pravastatin 20 mg Tablet 20 mg PO Q2D@0900 Qty: 15 0RF Rx Instructions: PER EXT MED HX--NO RECORD OF THIS MEDICATION, UNABLE TO VERIFY. Referrals Referrals: Morales Concepcion DO [Primary Care Provider] -
[2022-05-25] MEDS ORDERED: PIPERACILLIN/TAZOBACTAM 4.5 GM/120 ML BAG IV ONE (13:32)
--- NOTE | 2022-05-25 14:08 | CT Scan Report ---
CT OF THE ABDOMEN AND PELVIS WITHOUT CONTRAST CLINICAL HISTORY: fever, diarrhea, recent abx for diverticulitis COMPARISON STUDY: CT of the abdomen and pelvis May 17, 2022. TECHNIQUE: Axial images of the abdomen and pelvis were obtained without IV contrast. Images were revi ewed in the axial, sagittal, and coronal planes. Automated exposure control was utilized for the nacho dy. A dose lowering technique was utilized adhering to the principles of ALARA. FINDINGS: Lung bases are unremarkable. No pneumatosis, free air or portal venous gas is present. Eval uation of the abdomen and pelvis is suboptimal on this unenhanced exam. There is a hiatal hernia. Gal lstones within the gallbladder are present. There is no evidence for acute cholecystitis. Spleen, adr enal glands, kidneys and pancreas are normal. There is no evidence for a bowel obstruction. Diverticu litis of the terminal ileum shown on CT of May 17, 2022 has resolved. Sigmoid diverticulosis is note d. Sigmoid colon wall thickening with moderate inflammation has developed since prior exam. Rectal wa ll thickening has also developed since that examination. There is no fluid collection. There is no fr ee air. Moderate aortoiliac atherosclerotic plaque is present. IMPRESSION: 1. Extensive sigmoid diverticulosis. Interval development of rectosigmoid wall thickening with modera te associated inflammation since CT of May 17, 2022. This favors a nonspecific proctocolitis, likely infectious. Diverticulitis could appear similar but is considered less likely. 2. Resolution of diverticulitis of the terminal ileum. 3. No free air. No abscess. 4. Cholelithiasis. ACT 112: Negative or not required by law. Electronically signed by: Rizwan Vaughan M.D. 05/25/2022 2:07 PM
[2022-05-25 14:58] LABS: Adenovirus F 40/41 PCR Not Detected (NotDetected); Astrovirus PCR Not Detected (NotDetected); Campylobacter PCR Not Detected (NotDetected); Cryptosporidium PCR Not Detected (NotDetected); Cyclospora cayetanensis PCR Not Detected (NotDetected); Entamoeba histolytica PCR Not Detected (NotDetected); Enteroaggregative E.coli(EAEC) Not Detected (NotDetected); Enteropathogenic E.coli (EPEC) Not Detected (NotDetected); Enterotoxigenic E.coli (ETEC) Not Detected (NotDetected); Giardia lamblia PCR Not Detected (NotDetected); Norovirus GI/GII PCR Not Detected (NotDetected); Plesiomonas shigelloides PCR Not Detected (NotDetected); Rotavirus A PCR Not Detected (NotDetected); Salmonella PCR Not Detected (NotDetected); Sapovirus PCR Not Detected (NotDetected); Shiga-like Toxin E.coli (STEC) Not Detected (NotDetected); Shigella/Enteroinvasive E.coli Not Detected (NotDetected); Vibrio cholerae PCR Not Detected (NotDetected); Vibrio species PCR Not Detected (NotDetected); Yersinia enterocolitica PCR Not Detected (NotDetected)
--- NOTE | 2022-05-25 15:01 | History & Physical Report ---
Date of Service May 25, 2022 Assessment & Plan (1) Proctocolitis: Plan: Acute/unstable - Admit to med/surg unit - Clear liquid diet for now, advance to low fiber diet as tolerated - IVF with NSS @ 80 ml/hr x 1 L - Reviewed CBC, leukocytosis noted, will trend in AM - Empiric antibiotics, change to Cipro 400mg IV q12 and Flagyl 500mg IV q8 - This will provide appropriate coverage for klebsiella bacteremia + proctocolitis and make for an easier transition to ORAL - Stool BioFire obtained/pending - Antiemetics ordered (2) Gram-negative bacteremia: Plan: Acute/unstable - Patient with pansensitive klebsiella bacteremia from last admission, reviewed prior admit notes/micro - Treat with Cipro as above, recommend 7-10 day course - Repeat blood cultures ordered 05/25/pending (3) COPD (chronic obstructive pulmonary disease): Plan: Chronic/stable - Continues to endorse tobacco use, 1/2 ppd - Smoking cessation provided, encouraged cessation - Will provide nicotine patch to patient per his request - Currently with a pulse ox of 91% on room air, does not wear home O2 - Does not appear to be on any inhalers per med list (4) Benign hypertension: Plan: H/o HTN, HLD, and CAD with h/o IN and stenting Chronic/stable - Continue ASA (reduced to 325mg daily but could be reduced actually down to 81mg daily) - Continue Amlodipine and Pravastatin Plan Lovenox will be utilized for DVT ppx. Repeat labs ordered for tomorrow morning. Above plan of care has been d/w Dr. Ward. Further orders will be implemented as warranted. History of Present Illness Chief Complaint: diarrhea Primary Care Provider: Morales Concepcion DO Manuel Coleman is an 86 yo M with a pmhx of CAD, IN, GERD, HTN, and COPD who was just discharged from [facility] on 05/20 after being hospitalized for acute diverticulitis and klebsiella bacteremia. Patient reports that he was discharged home on a course of Keflex. Patient has been taking his medication as directed and was feeling fairly well since discharge. Was able to work on Sunday, Sunday, and Sunday but late yesterday evening had rather sudden onset of abdominal cramping and diarrhea. Denies fever, chills. Work up in the ER today reveals a wbc count of 16.55 with left shift and CT evidence of rectosigmoid wall thickening with moderate associated inflammation favoring nonspecific but likely infectious proctocolitis. Currently he is comfortable, no complaints. Denies n/v. Tolerating oral intake. No BRBPR or melena. He was hydrated with IVF and given a dose of IV Zosyn and has been referred to the hospitalists for admission for further treatment. Allergies Allergy/AdvReac Type Severity Reaction Status Date / Time No Known Allergies Allergy Verified 05/22/22 10:26 Home Medications Medication Instructions Recorded Confirmed Type aspirin 325 mg tablet 325 mg PO BID 06/03/18 05/25/22 History calcium carbonate 600 mg-vitamin 1 cap PO QAM 11/25/18 05/25/22 History D3 5 mcg (200 unit) capsule (Calcium 600 + D(3)) amlodipine 5 mg tablet 5 mg PO QAM #90 tabs 10/05/21 05/25/22 Rx bismuth subsalicylate 262 mg/15 mL 524 mg PO DIRECTED PRN Gi Upset 05/17/22 05/25/22 History oral suspension (Pepto-Bismol) cephalexin 500 mg capsule 500 mg PO QID #40 caps 05/20/22 05/25/22 Rx pravastatin 20 mg tablet 20 mg PO DAILY 05/25/22 05/25/22 History Past Med/Surg History Medical History Emphysema (subcutaneous) resulting from a procedure, initial encounter GERD (gastroesophageal reflux disease) occasional H/O acute myocardial infarction (1997) H/O cardiac arrest (1997) History of dysphagia June 2018 Hypokalemia Osteoarthritis bilateral knees Positive colorectal cancer screening using Cologuard test Pulmonary nodule Surgical History History of cardiac cath 1993 History of esophageal dilatation June 2018 History of heart artery stent 1993 x1 stent at [facility] History of tooth extraction History of total knee arthroplasty Oct 2021: S/P left knee replacement with Dr. 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) with Dr Chu Family History Mother Family history of diabetes mellitus Sister Breast cancer Ovarian cancer Brother Cancer colon,prostate,brain Sister Lung cancer Other Myocardial infarction Denies family history of Prostate cancer Colorectal cancer Social History Smoking Status: Current every day smoker Tobacco Type: Cigarettes Age Started Using Tobacco: 18; packs per day: 0.5; Cigarettes Per Day: 15; Second Hand Exposure: No; Hx Alcohol Use: No Hx Substance Use: No Preferred Language: Kittitian Communication Ability: Effective Visual Impairment: No Limitations Hearing Ability: Hard of Hearing 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 NAD. LUNGS: Clear to auscultation bilaterally. No W/R/R. CARDIOVASCULAR: Regular rate and rhythm. ABDOMEN: Soft, non-distended, tender to palpation in LLQ. No palpable masses. BS normoactive x 4 quad. Results & Data Results & Data Vital Signs (Past 12 Hours) Vital Signs Temp Pulse Pulse Resp BP BP Pulse Ox 05/25/22 14:09 72 18 132/68 92 05/25/22 12:52 74 18 147/76 H 94 05/25/22 11:30 71 05/25/22 11:27 94 05/25/22 11:27 87 18 155/74 H 94 05/25/22 10:10 38.0 C H 78 20 130/75 94 O2 Del Method 05/25/22 14:09 Room Air 05/25/22 12:52 Room Air 05/25/22 11:30 05/25/22 11:27 Room Air 05/25/22 11:27 Room Air 05/25/22 10:10 Room Air Laboratory Results 05/25/22 10:53 05/25/22 10:53 Diagnostic Findings Chest X-Ray 05/25/22 10:53 SINGLE VIEW CHEST CLINICAL HISTORY: Sepsis. FINDINGS: An AP, portable, upright chest radiograph is compared to study dated 05/17/2022 and correlated with chest CT dated 06/30/2021. The heart is enlarged noting atherosclerotic calcification of the thoracic aorta. The pulmonary vasculature is noncongested. Emphysema and chronic interstitial thickening is similar to previous. Scarring/atelectasis is noted at the lung bases. No airspace consolidation or large pleural effusion is identified. No pneumothorax is seen. The skeletal structures are osteopenic. The bony thorax is grossly intact. IMPRESSION: Cardiomegaly and emphysema with no acute cardiopulmonary abnormality identified. ACT 112: Negative or not required by law. Electronically signed by: Ramiro Matta M.D. 05/25/2022 11:18 AM Abdomen/Pelvis CT 05/25/22 11:04 CT OF THE ABDOMEN AND PELVIS WITHOUT CONTRAST CLINICAL HISTORY: fever, diarrhea, recent abx for diverticulitis COMPARISON STUDY: CT of the abdomen and pelvis May 17, 2022. TECHNIQUE: Axial images of the abdomen and pelvis were obtained without IV contrast. Images were reviewed in the axial, sagittal, and coronal planes. Automated exposure control was utilized for the study. A dose lowering technique was utilized adhering to the principles of ALARA. FINDINGS: Lung bases are unremarkable. No pneumatosis, free air or portal venous gas is present. Evaluation of the abdomen and pelvis is suboptimal on this unenhanced exam. There is a hiatal hernia. Gallstones within the gallbladder are present. There is no evidence for acute cholecystitis. Spleen, adrenal glands, kidneys and pancreas are normal. There is no evidence for a bowel obstruction. Diverticulitis of the terminal ileum shown on CT of May 17, 2022 has resolved. Sigmoid diverticulosis is noted. Sigmoid colon wall thickening with moderate inflammation has developed since prior exam. Rectal wall thickening has also developed since that examination. There is no fluid collection. There is no free air. Moderate aortoiliac atherosclerotic plaque is present. IMPRESSION: 1. Extensive sigmoid diverticulosis. Interval development of rectosigmoid wall thickening with moderate associated inflammation since CT of May 17, 2022. This favors a nonspecific proctocolitis, likely infectious. Diverticulitis could appear similar but is considered less likely. 2. Resolution of diverticulitis of the terminal ileum. 3. No free air. No abscess. 4. Cholelithiasis. ACT 112: Negative or not required by law. Electronically signed by: Rizwan Vaughan M.D. 05/25/2022 2:07 PM Supervising Physician Co-Signing Physician Notes Patient seen and examined, chart reviewed, case discussed with Lauryn Amos PA-C and I agree with the assessment and plan as above except as otherwise noted Labs and images reviewed Manuel is seen at the bedside. Reports he feels a little better, has not had any further diarrhea since arrival to the floor. Does continue to have some abdominal pain. Tender to abdominal palpation, lungs are grossly clear and is not wheezing at time of bedside assessment. Agree with Cipro/Flagyl. Agree with management above PG Care Time/CCT Total # of Minutes Spent Total Time Spent with Patient: Total time spent is greater than 50% in coordination of care (as documented) at patient's floor/unit and/or counseling patient: Coding Level of Care Code 47698 INT INP/OBS CARE 3/75MIN Diagnoses Proctocolitis K52.9 Gram-negative bacteremia R78.81 COPD (chronic obstructive pulmonary disease) J44.9 Benign hypertension I10
[2022-05-25 15:28] LABS: Cdiff Antigen Positive; Cdiff Toxin B Gene (2yr or >) Positive Cdiff Gene (Neg)
[2022-05-25 15:38] LABS: Cdiff Toxin A+B Positive Cdiff Toxin (Negative)
[2022-05-25 16:57] LABS: Appearance Urine Clear (Clear); Bilirubin Urine Negative (Negative); Blood Urine Negative (Negative); Color Urine Yellow; Glucose Urine UA Negative (Negative); Ketones Urine Negative (Negative); Leukocyte Esterase Urine Negative (Negative); Nitrite Urine Negative (Negative); Protein Urine Negative (Negative); Specific Gravity Urine 1.021 (1.000-1.030); Urobilinogen Urine Negative (Negative)
[2022-05-25] MEDS ORDERED: ALUMINUM/MAGNESIUM SUSP 30 ML UDC PO PRN (18:38)
[2022-05-25] MEDS ORDERED: NICOTINE 14 MG/24 HR PATCH TD SCH (18:38)
[2022-05-25] MEDS ORDERED: MAGNESIUM HYDROXIDE SUSP 30 ML UDC PO PRN (18:38)
[2022-05-25] MEDS ORDERED: SODIUM CHLORIDE 0.9% 1000ML 1,000 ML IV SCH (18:38)
[2022-05-25] MEDS ORDERED: ONDANSETRON INJ 2 MG/ML 2 ML VIAL IV PRN (18:38)
[2022-05-25] MEDS: ACETAMINOPHEN 325 MG TAB PO PRN (18:52)
[2022-05-25] MEDS: metroNIDAZOLE 500 MG/100 ML BAG IV SCH (19:59)
[2022-05-25] MEDS: CIPROFLOXACIN / D5W 400 MG/200 ML BAG IV SCH (22:10)
[2022-05-26] MEDS: metroNIDAZOLE 500 MG/100 ML BAG IV SCH (04:38)
[2022-05-26] MEDS ORDERED: LOPERAMIDE HCL 2 MG CAP PO STA (05:11)
[2022-05-26 06:39] LABS: Basophils # (auto) 0.04 K/uL (0-0.2); Basophils % (auto) 0.3 %; Hematocrit (blood only) 39.8 % (42.0-52.0); Hemoglobin 13.4 g/dl (14.0-18.0); Immature Granulocytes # (auto) 0.07 K/uL (0.01-0.20); Immature Granulocytes % (auto) 0.5 %; Lymphocytes # (auto) 0.85 K/uL (1.2-3.4); Lymphocytes % (auto) 5.7 %; Mean Corpuscular Hemoglobin 30.9 pg (25.0-34.0); Mean Corpuscular Hgb Conc 33.7 g/dL (32.0-36.0); Mean Corpuscular Volume 91.7 fL (80.0-100.0); Mean Platelet Volume 11.5 fL (9.4-12.4); Monocytes % (auto) 5.4 %; Neutrophils # (auto) 13.06 K/uL (1.40-6.50); Neutrophils % (auto) 88.1 %; Platelet Count 174 K/uL (130-400); RDW Coefficient of Variation 14.8 % (11.5-14.5); RDW Standard Deviation 49.7 fL (36.4-46.3); Red Blood Count 4.34 M/uL (4.70-6.10); White Blood Count 14.82 K/ul (4.8-10.8)
[2022-05-26 07:10] LABS: BUN Creatinine Ratio 14.6 (10-20); Calcium 8.6 mg/dl (8.6-10.3); Creatinine Clr Calc Pharmacy 69.1 ml/min; Est GFR (African American) 94.1 ml/min; Est GFR (Non-African American) 81.2 ml/min; Magnesium 1.9 mg/dl (1.7-2.4); Potassium 3.1 mmol/L (3.5-5.1)
[2022-05-26] MEDS ORDERED: Nursing to Pharmacy Communication SCH (07:30)
[2022-05-26] MEDS: amLODIPine BESYLATE 5 MG TAB PO SCH (08:24)
[2022-05-26] MEDS: ASPIRIN 325 MG ECTAB PO SCH (08:24)
[2022-05-26] MEDS: PRAVASTATIN SOD 20 MG TAB PO SCH (08:24)
[2022-05-26] MEDS: CIPROFLOXACIN / D5W 400 MG/200 ML BAG IV SCH ×2 (09:12→20:56)
[2022-05-26] MEDS: ENOXAPARIN INJ 40 MG/0.4 ML SYR SQ SCH (09:12)
--- NOTE | 2022-05-26 09:30 | Hospitalist Progress Note ---
Date of Service May 26, 2022 Assessment & Plan (1) C. difficile colitis: Plan: day #2 vanco QID plan 10 days add colestipol 1gm daily clear liquids cont IV fluids add lactinex contact precautions (2) Gram-negative bacteremia: Plan: pansensitive klebsiella bacteremia from last admission 05/25/22 blood cx's remain negative cont IV cipro will need to calculate how many more days he needs source of previous bacteremia ? diverticulitis ?? (3) COPD (chronic obstructive pulmonary disease): Plan: Chronic/stable Not on inhalers at baseline?? (4) Benign hypertension: Plan: cont Amlodipine labile - may need adjustment while here (5) Dehydration: Plan: cont IV fluids increase rate to 100cc/hr (6) Hypokalemia: Plan: add KCL to fluids and give KCL 20meq TID (7) GERD (gastroesophageal reflux disease): Plan: add IV pepcid 20mg BID (8) CAD S/P percutaneous coronary angioplasty: Plan: noted cont asa cont statin (9) H/O acute myocardial infarction: Plan: noted (10) H/O cardiac arrest: Plan: noted (11) Candidiasis of mouth and esophagus: Plan: start nystatin chris 5cc qid Plan Lovenox - DVT proph will need PT/OT Admission and Anticipated Discharge Date Admission Date: May 25, 2022 Subjective patient still with diarrhea nearly every hour on the hour he is fatigued has little to no appetite only drinking sips of coke some abd cramps but no pain no vomiting denies dyspnea mouth is sore a bit having a lot of burps & GERD symptoms Review of Systems Review of Systems: gen - fever last pm; no chills cv - no orthopnea, no chest pain pulm - no dyspnea at rest GI - no vomiting Physical Exam Physical Exam: gen - frail, weak appearing, looks dehydrated - but no distress mouth - MM dry; thrush plaques on tongue/buccal mucosa neck - no JVD heart - irregular (extra beats); RRR, s1 s2 lungs - CTA b/l; no rales abd - soft NT ND BS+ ext - no edema, feet are cool psych - a/o x 3 skin - turgor is poor Results & Data Results & Data Vital Signs (Past 12 Hours) Vital Signs Temp Pulse Pulse Resp BP Pulse Ox O2 Del Method 05/26/22 07:49 37.6 C H 73 14 149/72 H 93 Room Air 05/25/22 22:24 37.1 C 73 18 124/70 93 Room Air Laboratory Results Laboratory Results - last 24 hr 05/25/22 05/25/22 05/25/22 10:53 10:53 10:53 WBC 16.55 H RBC 4.42 L Hgb 13.9 L Hct 40.9 L MCV 92.5 MCH 31.4 MCHC 34.0 RDW Std Deviation 50.1 H RDW Coeff of Marisel 14.7 H Plt Count 199 MPV 11.0 Immature Gran % (Auto) 0.5 Neut % (Auto) 82.2 Lymph % (Auto) 8.2 [place] % (Auto) 8.6 Eos % (Auto) 0.2 Baso % (Auto) 0.3 Neut # (Auto) 13.61 H Lymph # (Auto) 1.36 [place] # (Auto) 1.42 H Eos # (Auto) 0.03 Baso # (Auto) 0.05 Immature Gran # (Auto) 0.08 Sodium 139 Potassium 3.7 Chloride 106 Carbon Dioxide 26 Anion Gap 7 BUN 13 Creatinine 0.93 Est Cr Clr Drug Dosing 55.3 Est GFR ( Amer) 87.1 Est GFR (Non-Af Amer) 75.1 BUN/Creatinine Ratio 14.0 Glucose 102 H Lactate 0.8 Calcium 9.4 Magnesium 2.0 Total Bilirubin 0.7 Direct Bilirubin 0.2 AST 12 L ALT 14 Alkaline Phosphatase 86 Troponin I High Sens 11.7 Total Protein 7.1 Albumin 4.0 Procalcitonin Urine Color Urine Appearance Urine pH Ur Specific Lyons Urine Protein Urine Glucose (UA) Urine Ketones Urine Blood Urine Nitrite Urine Bilirubin Urine Urobilinogen Ur Leukocyte Esterase Stl C. cayetanensis PCR Stool Rotavirus A PCR Stl Adenov F 40/41 PCR Stool Astrovirus (PCR) Stool Campylobacter PCR Stl C. diff Tox B Gene Stl C.difficile Tox A&B Stool Cryptosporidium PCR Stl E.coli Shiga Tox PCR Stl Enterotoxigenic E PCR Stool EPEC (PCR) Stool EAEC (PCR) Stl E. histolytica PCR Stool Giardia Lamblia PCR Stool Salmonella PCR Stool Sapovirus (PCR) Stl P. shigelloides PCR Stl Shigella/EIEC PCR St Y.enterocolitica PCR Stool Vibrio (PCR) Stl Vibrio cholerae PCR Stl Norovirus GI/GII PCR SARS-CoV-2, RNA, NAAT 05/25/22 05/25/22 05/25/22 10:53 11:38 13:06 WBC RBC Hgb Hct MCV MCH MCHC RDW Std Deviation RDW Coeff of Marisel Plt Count MPV Immature Gran % (Auto) Neut % (Auto) Lymph % (Auto) [place] % (Auto) Eos % (Auto) Baso % (Auto) Neut # (Auto) Lymph # (Auto) [place] # (Auto) Eos # (Auto) Baso # (Auto) Immature Gran # (Auto) Sodium Potassium Chloride Carbon Dioxide Anion Gap BUN Creatinine Est Cr Clr Drug Dosing Est GFR ( Amer) Est GFR (Non-Af Amer) BUN/Creatinine Ratio Glucose Lactate Calcium Magnesium Total Bilirubin Direct Bilirubin AST ALT Alkaline Phosphatase Troponin I High Sens Total Protein Albumin Procalcitonin 0.45 Urine Color Urine Appearance Urine pH Ur Specific Lyons Urine Protein Urine Glucose (UA) Urine Ketones Urine Blood Urine Nitrite Urine Bilirubin Urine Urobilinogen Ur Leukocyte Esterase Stl C. cayetanensis PCR Stool Rotavirus A PCR Stl Adenov F 40/41 PCR Stool Astrovirus (PCR) Stool Campylobacter PCR Stl C. diff Tox B Gene Positive Cdiff Gene H Stl C.difficile Tox A&B Positive Cdiff Toxin A* Stool Cryptosporidium PCR Stl E.coli Shiga Tox PCR Stl Enterotoxigenic E PCR Stool EPEC (PCR) Stool EAEC (PCR) Stl E. histolytica PCR Stool Giardia Lamblia PCR Stool Salmonella PCR Stool Sapovirus (PCR) Stl P. shigelloides PCR Stl Shigella/EIEC PCR St Y.enterocolitica PCR Stool Vibrio (PCR) Stl Vibrio cholerae PCR Stl Norovirus GI/GII PCR SARS-CoV-2, RNA, NAAT NEGATIVE 05/25/22 05/25/22 05/26/22 13:06 16:23 05:37 WBC 14.82 H RBC 4.34 L Hgb 13.4 L Hct 39.8 L MCV 91.7 MCH 30.9 MCHC 33.7 RDW Std Deviation 49.7 H RDW Coeff of Marisel 14.8 H Plt Count 174 MPV 11.5 Immature Gran % (Auto) 0.5 Neut % (Auto) 88.1 Lymph % (Auto) 5.7 [place] % (Auto) 5.4 Eos % (Auto) 0.0 Baso % (Auto) 0.3 Neut # (Auto) 13.06 H Lymph # (Auto) 0.85 L [place] # (Auto) 0.80 H Eos # (Auto) 0.00 Baso # (Auto) 0.04 Immature Gran # (Auto) 0.07 Sodium Potassium Chloride Carbon Dioxide Anion Gap BUN Creatinine Est Cr Clr Drug Dosing Est GFR ( Amer) Est GFR (Non-Af Amer) BUN/Creatinine Ratio Glucose Lactate Calcium Magnesium Total Bilirubin Direct Bilirubin AST ALT Alkaline Phosphatase Troponin I High Sens Total Protein Albumin Procalcitonin Urine Color Yellow Urine Appearance Clear Urine pH 5.0 Ur Specific Lyons 1.021 Urine Protein Negative Urine Glucose (UA) Negative Urine Ketones Negative Urine Blood Negative Urine Nitrite Negative Urine Bilirubin Negative Urine Urobilinogen Negative Ur Leukocyte Esterase Negative Stl C. cayetanensis PCR Not Detected Stool Rotavirus A PCR Not Detected Stl Adenov F 40/41 PCR Not Detected Stool Astrovirus (PCR) Not Detected Stool Campylobacter PCR Not Detected Stl C. diff Tox B Gene Stl C.difficile Tox A&B Stool Cryptosporidium PCR Not Detected Stl E.coli Shiga Tox PCR Not Detected Stl Enterotoxigenic E PCR Not Detected Stool EPEC (PCR) Not Detected Stool EAEC (PCR) Not Detected Stl E. histolytica PCR Not Detected Stool Giardia Lamblia PCR Not Detected Stool Salmonella PCR Not Detected Stool Sapovirus (PCR) Not Detected Stl P. shigelloides PCR Not Detected Stl Shigella/EIEC PCR Not Detected St Y.enterocolitica PCR Not Detected Stool Vibrio (PCR) Not Detected Stl Vibrio cholerae PCR Not Detected Stl Norovirus GI/GII PCR Not Detected SARS-CoV-2, RNA, NAAT 05/26/22 05:37 WBC RBC Hgb Hct MCV MCH MCHC RDW Std Deviation RDW Coeff of Marisel Plt Count MPV Immature Gran % (Auto) Neut % (Auto) Lymph % (Auto) [place] % (Auto) Eos % (Auto) Baso % (Auto) Neut # (Auto) Lymph # (Auto) [place] # (Auto) Eos # (Auto) Baso # (Auto) Immature Gran # (Auto) Sodium 138 Potassium 3.1 L Chloride 107 Carbon Dioxide 21 Anion Gap 10 BUN 12 Creatinine 0.82 Est Cr Clr Drug Dosing 69.1 Est GFR ( Amer) 94.1 Est GFR (Non-Af Amer) 81.2 BUN/Creatinine Ratio 14.6 Glucose 126 H Lactate Calcium 8.6 Magnesium 1.9 Total Bilirubin Direct Bilirubin AST ALT Alkaline Phosphatase Troponin I High Sens Total Protein Albumin Procalcitonin Urine Color Urine Appearance Urine pH Ur Specific [place] Urine Protein Urine Glucose (UA) Urine Ketones Urine Blood Urine Nitrite Urine Bilirubin Urine Urobilinogen Ur Leukocyte Esterase Stl C. cayetanensis PCR Stool Rotavirus A PCR Stl Adenov F 40/41 PCR Stool Astrovirus (PCR) Stool Campylobacter PCR Stl C. diff Tox B Gene Stl C.difficile Tox A&B Stool Cryptosporidium PCR Stl E.coli Shiga Tox PCR Stl Enterotoxigenic E PCR Stool EPEC (PCR) Stool EAEC (PCR) Stl E. histolytica PCR Stool Giardia Lamblia PCR Stool Salmonella PCR Stool Sapovirus (PCR) Stl P. shigelloides PCR Stl Shigella/EIEC PCR St Y.enterocolitica PCR Stool Vibrio (PCR) Stl Vibrio cholerae PCR Stl Norovirus GI/GII PCR SARS-CoV-2, RNA, NAAT PG Care Time/CCT Total # of Minutes Spent Total Time Spent with Patient: Total time spent is greater than 50% in coordination of care (as documented) at patient's floor/unit and/or counseling patient: Coding Level of Care Code 88553 SUB INP/OBS CARE 3/50MIN Diagnoses C. difficile colitis A04.72 Gram-negative bacteremia R78.81 COPD (chronic obstructive pulmonary disease) J44.9 Benign hypertension I10 Dehydration E86.0 Hypokalemia E87.6 GERD (gastroesophageal reflux disease) K21.9 CAD S/P percutaneous coronary angioplasty I25.10; Z98.61 H/O acute myocardial infarction I25.2 H/O cardiac arrest Z86.74 Candidiasis of mouth and esophagus B37.81; B37.0
[2022-05-26] MEDS: RASPBERRY SYRUP 5 ML UDP PO SCH ×4 (10:36→23:08)
[2022-05-26] MEDS: NSS + 20MEQ KCL 20 MEQ/1,000 ML BAG IV SCH ×2 (10:36→23:08)
[2022-05-26] MEDS: POTASSIUM CHLORIDE CRTAB 20 MEQ TABCR PO SCH ×3 (10:37→20:57)
[2022-05-26] MEDS: VANCOMYCIN HCL 125 MG/2.5ML SOLN PO SCH ×4 (10:37→23:08)
[2022-05-26] MEDS: ADVANCED PROBIOTIC 1250 MG CAPSULE PO SCH (10:37)
[2022-05-26] MEDS ORDERED: SODIUM CHLORIDE 0.9% 250 ML IV ONE (18:03)
[2022-05-26] MEDS: FAMOTIDINE 20 MG in SYRINGE 3 ML IV SCH (19:07)
[2022-05-26] MEDS: COLESTIPOL HCL 1 GM TAB PO SCH (19:07)
[2022-05-26] MEDS: NYSTATIN SUSP 500,000 U/5 ML UDC PO SCH (20:56)
[2022-05-26] MEDS: NICOTINE 14 MG/24 HR PATCH TD SCH (20:57)
--- NOTE | 2022-05-26 21:53 | Electrocardiogram Report ---
Test Reason : Blood Pressure : / mmHG Vent. Rate : 071 BPM Atrial Rate : 071 BPM P-R Int : 212 ms QRS Dur : 082 ms QT Int : 378 ms P-R-T Axes : 036 033 053 degrees QTc Int : 410 ms Sinus rhythm with 1st degree A-V block with Premature atrial complexes Possible Septal infarct (cited on or before 17-MAY-2022) Nonspecific T wave abnormality Abnormal ECG When compared with ECG of 17-MAY-2022 12:52, Premature atrial complexes are now Present Confirmed by Clement To ([id number]) on 05/26/2022 9:53:10 PM Referred By: Confirmed By:Clement To
[2022-05-27] MEDS: RASPBERRY SYRUP 5 ML UDP PO SCH ×4 (05:19→23:04)
[2022-05-27] MEDS: VANCOMYCIN HCL 125 MG/2.5ML SOLN PO SCH ×4 (05:19→23:04)
[2022-05-27] MEDS: FAMOTIDINE 20 MG in SYRINGE 3 ML IV SCH ×2 (05:19→17:46)
[2022-05-27 07:01] LABS: Hematocrit (blood only) 35.9 % (42.0-52.0); Mean Corpuscular Hemoglobin 31.3 pg (25.0-34.0); Mean Corpuscular Hgb Conc 33.4 g/dL (32.0-36.0); Mean Corpuscular Volume 93.7 fL (80.0-100.0); Mean Platelet Volume 11.1 fL (9.4-12.4); Platelet Count 158 K/uL (130-400); RDW Coefficient of Variation 15.1 % (11.5-14.5); RDW Standard Deviation 52.1 fL (36.4-46.3); Red Blood Count 3.83 M/uL (4.70-6.10); White Blood Count 9.55 K/ul (4.8-10.8)
[2022-05-27 07:25] LABS: Calcium 8.6 mg/dl (8.6-10.3); Creatinine Clr Calc Pharmacy 65.9 ml/min; Est GFR (African American) 92.3 ml/min; Est GFR (Non-African American) 79.6 ml/min; Potassium 3.5 mmol/L (3.5-5.1)
[2022-05-27] MEDS: ADVANCED PROBIOTIC 1250 MG CAPSULE PO SCH (07:57)
[2022-05-27] MEDS: PRAVASTATIN SOD 20 MG TAB PO SCH (07:57)
[2022-05-27] MEDS: amLODIPine BESYLATE 5 MG TAB PO SCH (07:57)
[2022-05-27] MEDS: ASPIRIN 325 MG ECTAB PO SCH (07:58)
[2022-05-27] MEDS: ENOXAPARIN INJ 40 MG/0.4 ML SYR SQ SCH (07:58)
[2022-05-27] MEDS: NYSTATIN SUSP 500,000 U/5 ML UDC PO SCH ×4 (07:58→20:08)
[2022-05-27] MEDS: CIPROFLOXACIN / D5W 400 MG/200 ML BAG IV SCH ×2 (08:09→20:08)
[2022-05-27] MEDS: COLESTIPOL HCL 1 GM TAB PO SCH (12:32)
[2022-05-27] MEDS: D5NSS + 20MEQ KCL 20 MEQ/1,000 ML BAG IV SCH (12:33)
[2022-05-27] MEDS: ACETAMINOPHEN 325 MG TAB PO PRN (16:04)
[2022-05-27] MEDS: NICOTINE 14 MG/24 HR PATCH TD SCH (20:08)
--- NOTE | 2022-05-27 20:29 | Hospitalist Progress Note ---
Date of Service May 27, 2022 Assessment & Plan (1) C. difficile colitis: Plan: slowly improving day #3 vanco QID plan 10 days cont colestipol 1gm daily try advancing diet to full liquids cont IV fluids but lower rate to 50cc/hr cont lactinex cont contact precautions (2) Gram-negative bacteremia: Plan: pansensitive klebsiella bacteremia from last admission received appropriate IV abx from 05/17 to 05/20 was sent home on keflex but this would not have covered his bacteremia readmitted 05/25/22 - has been on cipro IV since then blood cx's from 05/25/22 remain negative thus, this is day # 7 of effective abx therapy for the klebsiella bacteremia plan 14 days in total of abx for such cont IV cipro -->can ultimately change this to PO cipro source of previous bacteremia --- ileal diverticulitis as seen on 05/17/22 CT a/p?? u/a was normal thus urinary tract was not the source. repeat CT a/p on 05/25/22 showed the ileal diverticulitis was resolved. (3) COPD (chronic obstructive pulmonary disease): Plan: Chronic/stable Not on inhalers at baseline?? (4) Benign hypertension: Plan: cont Amlodipine labile - may need adjustment while here defer for now (5) Dehydration: Plan: cont IV fluids repeat BMP am (6) Hypokalemia: Plan: improved s/p addition of KCL to fluids and PO KCL 20meq TID (7) GERD (gastroesophageal reflux disease): Plan: added IV pepcid 20mg BID improved (8) CAD S/P percutaneous coronary angioplasty: Plan: noted cont asa cont statin could his transient dyspnea episode had been anginal equivalent? watch for recurrent episodes of dyspnea (9) H/O acute myocardial infarction: Plan: noted (10) H/O cardiac arrest: Plan: noted (11) Candidiasis of mouth and esophagus: Plan: cont nystatin chris 5cc qid Plan Lovenox - DVT proph PT/OT consults ordered left message for pt's on their home voicemail evening of 05/27/22 Admission and Anticipated Discharge Date Admission Date: May 25, 2022 Subjective diarrhea improving - still present, but not as frequent today (yesterday was every hour on the hour, today it is at least 1/2 of that) appetite still quite poor, but wants to try advancing no abd pain no vomiting able to get OOB to bathroom - steady on feet per staff Review of Systems Review of Systems: gen - no fevers or chills cv - no cp, no orthopnea pulm - pt states he had an episode of dyspnea last pm; he was very vague about the episode - could not give much detail; he was laying in bed when it happened, and it self-resolved; he did not have chest pain GI - no nausea ; heartburn symptoms a little better today with IV pepcid Physical Exam Physical Exam: gen - frail, but looks better than yesterday; awake/alert mouth - MM still dry but more moist than yesterday; thrush plaques on tongue/buccal mucosa improved neck - no JVD heart - irregular (extra beats); RRR, s1 s2 lungs - CTA b/l; no rales abd - soft NT ND BS+ ext - no edema, pulses 1-2+ b/l psych - a/o x 3 skin - turgor improved Results & Data Results & Data Vital Signs (Past 12 Hours) Vital Signs Temp Pulse Resp BP Pulse Ox Pulse Ox O2 Del Method 05/27/22 15:52 36.7 C 58 L 18 147/72 H 96 Room Air 05/27/22 11:00 95 O2 Del Method 05/27/22 15:52 05/27/22 11:00 Room Air Laboratory Results Laboratory Results - last 24 hr 05/27/22 05/27/22 06:27 06:27 WBC 9.55 RBC 3.83 L Hgb 12.0 L Hct 35.9 L MCV 93.7 MCH 31.3 MCHC 33.4 RDW Std Deviation 52.1 H RDW Coeff of Marisel 15.1 H Plt Count 158 MPV 11.1 Sodium 141 Potassium 3.5 Chloride 112 H Carbon Dioxide 24 Anion Gap 5 BUN 12 Creatinine 0.86 Est Cr Clr Drug Dosing 65.9 Est GFR ( Amer) 92.3 Est GFR (Non-Af Amer) 79.6 BUN/Creatinine Ratio 14.0 Glucose 101 H Calcium 8.6 PG Care Time/CCT Total # of Minutes Spent Total Time Spent with Patient: Total time spent is greater than 50% in coordination of care (as documented) at patient's floor/unit and/or counseling patient: Coding Level of Care Code 60302 SUB INP/OBS CARE MIN Diagnoses C. difficile colitis A04.72 Gram-negative bacteremia R78.81 COPD (chronic obstructive pulmonary disease) J44.9 Benign hypertension I10 Dehydration E86.0 Hypokalemia E87.6 GERD (gastroesophageal reflux disease) K21.9 CAD S/P percutaneous coronary angioplasty I25.10; Z98.61 H/O acute myocardial infarction I25.2 H/O cardiac arrest Z86.74 Candidiasis of mouth and esophagus B37.81; B37.0
[2022-05-28] MEDS: D5NSS + 20MEQ KCL 20 MEQ/1,000 ML BAG IV SCH (04:07)
[2022-05-28] MEDS: VANCOMYCIN HCL 125 MG/2.5ML SOLN PO SCH ×2 (05:27→12:57)
[2022-05-28] MEDS: RASPBERRY SYRUP 5 ML UDP PO SCH ×2 (05:27→12:57)
[2022-05-28] MEDS: FAMOTIDINE 20 MG in SYRINGE 3 ML IV SCH (05:29)
[2022-05-28 07:16] LABS: Creatinine Clr Calc Pharmacy 84.6 ml/min; Est GFR (African American) 102.3 ml/min; Est GFR (Non-African American) 88.2 ml/min
[2022-05-28 07:36] LABS: Calcium 8.7 mg/dl (8.6-10.3); Magnesium 1.9 mg/dl (1.7-2.4); Potassium 3.5 mmol/L (3.5-5.1)
[2022-05-28 07:41] LABS: BUN Creatinine Ratio 13.4 (10-20); Creatinine Clr Calc Pharmacy 84.6 ml/min; Est GFR (African American) 102.3 ml/min; Est GFR (Non-African American) 88.2 ml/min
[2022-05-28] MEDS: ASPIRIN 325 MG ECTAB PO SCH (07:53)
[2022-05-28] MEDS: NYSTATIN SUSP 500,000 U/5 ML UDC PO SCH ×2 (07:53→12:57)
[2022-05-28] MEDS: PRAVASTATIN SOD 20 MG TAB PO SCH (07:54)
[2022-05-28] MEDS: amLODIPine BESYLATE 5 MG TAB PO SCH (07:54)
[2022-05-28] MEDS: ENOXAPARIN INJ 40 MG/0.4 ML SYR SQ SCH (07:54)
[2022-05-28] MEDS: ADVANCED PROBIOTIC 1250 MG CAPSULE PO SCH (07:55)
[2022-05-28] MEDS: CIPROFLOXACIN / D5W 400 MG/200 ML BAG IV SCH (09:08)
[2022-05-28] MEDS: COLESTIPOL HCL 1 GM TAB PO SCH (10:55)
--- NOTE | 2022-05-28 13:58 | Discharge Summary ---
Date of Service May 28, 2022 Admission HPI Per Admitting Provider Manuel Coleman is an 86 yo M with a pmhx of CAD, OR, GERD, HTN, and COPD who was just discharged from [facility] on 05/20 after being hospitalized for acute diverticulitis and klebsiella bacteremia. Patient reports that he was discharged home on a course of Keflex. Patient has been taking his medication as directed and was feeling fairly well since discharge. Was able to work on Sunday, Sunday, and Sunday but late yesterday evening had rather sudden onset of abdominal cramping and diarrhea. Denies fever, chills. Work up in the ER today reveals a wbc count of 16.55 with left shift and CT evidence of rectosigmoid wall thickening with moderate associated inflammation favoring nonspecific but likely infectious proctocolitis. Currently he is comfortable, no complaints. Denies n/v. Tolerating oral intake. No BRBPR or melena. He was hydrated with IVF and given a dose of IV Zosyn and has been referred to the hospitalists for admission for further treatment. Principal Diagnosis C. diff colitis Discharge Exam GENERAL: 86 yo well-developed, well-nourished M. NAD. LUNGS: Clear to auscultation bilaterally. No W/R/R. CARDIOVASCULAR: Regular rate and rhythm. ABDOMEN: Soft, non-distended, tender to palpation in LLQ. No palpable masses. BS normoactive x 4 quad. Discharge Data Allergies Allergy/AdvReac Type Severity Reaction Status Date / Time No Known Allergies Allergy Verified 05/22/22 10:26 Consultations 05/25/22 14:11 ED Decision to Admit Stat Ordered Studies Chest X-Ray 05/25/22 10:53 SINGLE VIEW CHEST CLINICAL HISTORY: Sepsis. FINDINGS: An AP, portable, upright chest radiograph is compared to study dated 05/17/2022 and correlated with chest CT dated 06/30/2021. The heart is enlarged noting atherosclerotic calcification of the thoracic aorta. The pulmonary vasculature is noncongested. Emphysema and chronic interstitial thickening is similar to previous. Scarring/atelectasis is noted at the lung bases. No airspace consolidation or large pleural effusion is identified. No pneumothorax is seen. The skeletal structures are osteopenic. The bony thorax is grossly intact. IMPRESSION: Cardiomegaly and emphysema with no acute cardiopulmonary abnormality identified. ACT 112: Negative or not required by law. Electronically signed by: Ramiro Matta M.D. 05/25/2022 11:18 AM Abdomen/Pelvis CT 05/25/22 11:04 CT OF THE ABDOMEN AND PELVIS WITHOUT CONTRAST CLINICAL HISTORY: fever, diarrhea, recent abx for diverticulitis COMPARISON STUDY: CT of the abdomen and pelvis May 17, 2022. TECHNIQUE: Axial images of the abdomen and pelvis were obtained without IV contrast. Images were reviewed in the axial, sagittal, and coronal planes. Automated exposure control was utilized for the study. A dose lowering technique was utilized adhering to the principles of ALARA. FINDINGS: Lung bases are unremarkable. No pneumatosis, free air or portal venous gas is present. Evaluation of the abdomen and pelvis is suboptimal on this unenhanced exam. There is a hiatal hernia. Gallstones within the gallbladder are present. There is no evidence for acute cholecystitis. Spleen, adrenal glands, kidneys and pancreas are normal. There is no evidence for a bowel obstruction. Diverticulitis of the terminal ileum shown on CT of May 17, 2022 has resolved. Sigmoid diverticulosis is noted. Sigmoid colon wall thickening with moderate inflammation has developed since prior exam. Rectal wall thickening has also developed since that examination. There is no fluid collection. There is no free air. Moderate aortoiliac atherosclerotic plaque is present. IMPRESSION: 1. Extensive sigmoid diverticulosis. Interval development of rectosigmoid wall thickening with moderate associated inflammation since CT of May 17, 2022. This favors a nonspecific proctocolitis, likely infectious. Diverticulitis could appear similar but is considered less likely. 2. Resolution of diverticulitis of the terminal ileum. 3. No free air. No abscess. 4. Cholelithiasis. ACT 112: Negative or not required by law. Electronically signed by: Rizwan Vaughan M.D. 05/25/2022 2:07 PM Hospital Course (1) C. difficile colitis: Initially admitted with proctocolitis with pending stool biofire/c diff - Empirically started on Cipro/Flagyl - Stool biofire was positive for C. diff gene + toxin - Flagyl stopped and he was started on vancomycin 125mg po q6 - Started on clear liquids, advanced to fulls which he is tolerating and requesting food - Started also on colestipol 1g daily - Provided IVF hydration - Contact precautions initiated - Started on probiotics (2) Gram-negative bacteremia: - pansensitive klebsiella bacteremia from last admission - received appropriate IV abx from 05/17 to 05/20 - was sent home on keflex but this would not have covered his bacteremia - readmitted 05/25/22 - has been on cipro IV since then - blood cx's from 05/19/22 showed no growth and repeat on 05/25 NGTD - 05/27 was day #7 of effective abx therapy and literature supports only utilizing 7 days of targeted antibiotic therapy for gram negative bacteremia - Cipro will be discontinued (3) COPD (chronic obstructive pulmonary disease): Chronic/stable - Not on inhalers at baseline - Does not require home O2 (4) Benign hypertension: H/o HTN, CAD/OR/Cardiac arrest - cont Amlodipine, statin, ASA - labile - may need adjustment but pt is not exactly compliant with use and smokes - Would defer to pcp for any adjustments (5) Hypokalemia: - Treated with addition of KCL to fluids and PO KCL 20meq TID - K+ normalized today on chemistry panel at 3.5 (6) GERD (gastroesophageal reflux disease): - Added Pepcid 20mg IV BID, can convert to oral upon dc (7) Candidiasis of mouth and esophagus: - Treated with nystatin soln while here - Will transition to fluconazole 100mg daily x 10 days to complete at home Plan Diet advanced to low residue. Pt is wishing to be discharged today. He notes that his pharmacy is closed, will plan to provide him with 2 more doses of the oral vanco liquid to take tonight with the raspberry syrup. He will need to follow up with his pcp within 1 week of discharge. Clean all surfaces of bathrooms that are used by patient (especially after defecation) with bleach products. Would encourage OTC probiotics or incorporating yogurt with live cultures into his daily routine to support healthy gut microbiota. He is medically and hemodynamically stable for discharge home. updated at bedside. Plan d/w Dr. Carlin who is in agreement. Total Time Total Time Spent Total Time Spent (In Minutes): >30 minutes Discharge Plan Discharge Items Patient Disposition: Home - Self-Care Reason For Visit: DIVERTICULITIS/PROCTOCOLITIS Discharge Diagnosis: c. diff colitis Activity: Resume your previous activity Non-emergency contact: Primary Care Provider Call non-emergency contact if: you have any medication questions and your symptoms worsen Follow-up/Referrals: Morales Concepcion, [Primary Care Provider] - Diet: Low Fiber Addtl Attending Provider Instructions: You were hospitalized due to pain in your abdomen which was found to be due to inflammation in your colon which was due to a bacteria called clostridium difficile (c. diff). This bacteria lives in our colon but is balanced out from overgrowth due to the good bacteria that lives in our intestines. Unfortunately, due to you requiring antibiotics from your recent diverticulitis infection, the clostridium difficile caused infection due to lack of good bacteria in your gut. You are now being treated with a different antibiotic called Vancomycin, of which you need to take a total of 10 days. So far, you have received a total of 3 days (after today) of this medication. A prescription has been sent to your pharmacy on file ([facility]) for the remainder of your course. Please pick this up early tomorrow morning and take as directed (four times each day until gone). For now, you will be given 2 more liquid doses that you will need to mix with raspberry syrup. The first dose is due at 5pm and the second dose is due at 9pm today (05/28/22). Your blood cultures are negative and therefore you do not need to continue taking any other antibiotics to treat the infection that was in your bloodstream. Please contact your family doctor to schedule a follow up appointment in the office. Please thoroughly clean all bathroom surfaces with bleach products after use (especially after defecation) to prevent the spread of c. diff to others in the home. If you have any questions or concerns after you leave the hospital, please call the nonemergency number listed on your discharge paperwork. In the event of a medical emergency, call 911. Pending Studies at Discharge: No Stand-Alone Forms: My [employer], Smoking Cessation Medications and DC Order Prescriptions: New vancomycin [Vancocin] 125 mg capsule 125 mg PO Q6H 7 Days Qty: 28 0RF famotidine [Pepcid] 20 mg tablet 20 mg PO DAILY Qty: 30 0RF fluconazole 100 mg tablet 100 mg PO DAILY 10 Days Qty: 10 0RF Continued amlodipine 5 mg tablet 5 mg PO QAM Qty: 90 3RF Calcium 600 + D(3) 600 mg calcium- 200 unit Capsule 1 cap PO QAM bismuth subsalicylate [Pepto-Bismol] 262 mg/15 mL Suspension 524 mg PO DIRECTED PRN (Reason: Gi Upset) pravastatin 20 mg tablet 20 mg PO DAILY Changed aspirin 325 mg Tablet 325 mg PO DAILY Qty: 30 0RF Discontinued cephalexin 500 mg capsule 500 mg PO QID Qty: 40 0RF Discharge Orders: Discharge Order (Routine); Ordered 05/28/22 Ordered By: Lauryn Amos Admission Data Admit Date/Time: 05/25/22 14:57 Attending Provider: Wily Carlin Admit Provider: Collin Ward Primary Care Provider: Morales Concepcion Other Providers: Collin Ward Coding Level of Care Code 12382 INP/OBS DISCH >30 MIN Diagnoses C. difficile colitis A04.72 Gram-negative bacteremia R78.81 COPD (chronic obstructive pulmonary disease) J44.9 Benign hypertension I10 Hypokalemia E87.6 GERD (gastroesophageal reflux disease) K21.9 Candidiasis of mouth and esophagus B37.81; B37.0
== END 2022-05-28 15:59 | disposition home or self-care (01) ==
LOC: ED 09:57 → INTOOBSV 14:57 → 3W 14:57 → SUATTDRO 14:57 → 3W 18:19

== ENCOUNTER 2022-09-14 00:39 | Inpatient (IN) ==
[2022-09-14] MEDS ORDERED: ONDANSETRON INJ 2 MG/ML 2 ML VIAL IV STA (00:55)
[2022-09-14] MEDS ORDERED: fentaNYL citrate PF 100 MCG/2 ML VIAL IV STA (00:55)
[2022-09-14] MEDS ORDERED: ACETAMINOPHEN 1,000 MG/100 ML VIAL IV STA (00:57)
[2022-09-14] MEDS ORDERED: SODIUM CHLORIDE 0.9% 1000ML 1,000 ML IV SCH (01:00)
[2022-09-14] MEDS ORDERED: cefTRIAXone SODIUM 2,000 MG/70 ML BAG IV STA (01:04)
--- NOTE | 2022-09-14 01:21 | Emergency Department Note ---
Impression & Plan Fever, Acute UTI ED Provider Note CHIEF COMPLAINT: Fever, bilateral flank pain HISTORY OF PRESENT ILLNESS: This 86-year-old male patient past medical history of lung CA status post right lobectomy, GERD, recurrent and complicated UTI, cardiac arrest, CAD status post stents, COPD, tobacco use, presents to the emergency department with complaints of not feeling well since yesterday. The patient states he spiked a fever tonight and has worsening bilateral flank pain. He states he does usually have some chronic flank discomfort. He denies any difficulty urinating, denies hematuria but states it does burn. He did vomit in triage, but not before that. He has been having normal BMs. REVIEW OF SYSTEMS: A review of systems was performed with positives and pertinent negatives listed in the history of present illness. 10 systems were reviewed and are otherwise negative. ALLERGIES: see below MEDICATIONS: see below PMH: see below SOCIAL HISTORY: see below DDx: Viral illness, UTI, pyelonephritis, prostatitis, malignancy, ureteral obstruction, pneumonia among others PHYSICAL EXAM: Vital signs reviewed. General: Elderly, somewhat ill-appearing 86-year-old male, in no significant distress HEENT: No scleral icterus, PERRLA, neck supple. Atraumatic. Cardiovascular: Regular rate and rhythm, no extra sounds. Pulmonary: Clear to auscultation bilaterally, normal work of breathing. Abdomen: Soft, nontender, nondistended, positive bowel sounds. Musculoskeletal: Atraumatic, no peripheral edema. Mild left CVA tenderness Neurologic: Patient awake alert and oriented x 3, speech is clear Skin: Warm, dry, no rash EMERGENCY DEPARTMENT COURSE/MDM: This patient was evaluated and appeared to be in no significant distress. IV access was obtained and laboratory work was dra spivey. The patient is noted to be febrile. Blood cultures and lactic acid were ordered in addition to procalcitonin. UA was obtained and is positive for infection, this will be sent for culture. The patient was hydrated with normal saline solution, a total of 1200mL/6 hrs thereafter. Initial lactate is 2.6. Patient was given 2 g of IV ceftriaxone for likely UTI. CT imaging of the abdomen pelvis was performed and reveals no evidence of urinary obstruction. Given his fever of 38.6, the patient was given 1 g of IV acetaminophen. Patient's temperature did improve, repeat lactate is normal. Patient's case was discussed with the hospitalist service for admission and further management. MONITORING: An order for cardiac monitoring was placed and the patient is noted to be in a sinus rhythm at 79 beats per minute. RADIOLOGY: CT imaging of the abdomen and pelvis to my interpretation reveals no evidence of acute urinary obstruction. EKG: Sinus rhythm with a first-degree AV block, PVC at 68 bpm. Likely previous septal infarct with T wave inversions laterally. QTc is 461. Normal ST s egments. When compared to previous dated September 14, 2022 PVC are new DISPOSITION: Admission Past Med/Surg History Medical History (Updated 09/14/22 @ 07:24 by Hoda Rodas MD) Emphysema (subcutaneous) resulting from a procedure, initial encounter H/O acute myocardial infarction (1997) H/O cardiac arrest (1997) History of dysphagia June 2018 Osteoarthritis bilateral knees Positive colorectal cancer screening using Cologuard test Pulmonary nodule Surgical History History of cardiac cath 1993 History of esophageal dilatation June 2018 History of heart artery stent 1993 x1 stent at [facility] History of tooth extraction History of total knee arthroplasty Oct 2021: S/P left knee replacement with Dr. Hernandes, [facility] [place] 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) with Dr Chu Family History Mother Family history of diabetes mellitus Sister Breast cancer Ovarian cancer Brother Cancer Sister Lung cancer Other Myocardial infarction Denies family history of Prostate cancer Colorectal cancer Social History Smoking Status: Current some day smoker Tobacco Type: Cigarettes Age Started Using Tobacco: 18; packs per day: 0.5; Cigarettes Per Day: 15; Second Hand Exposure: No; Do You Dip or Chew Tobacco: No; Hx Alcohol Use: No Hx Substance Use: No Preferred Language: Fijian Communication Ability: Effective Visual Impairment: No Limitations Hearing Ability: Hard of Hearing Turf Farmer Required: No Beliefs That Will Affect Care: None marital status: Current Living Situation: Spouse current occupational status: retired How many Children do You have: 7 Feels Safe at Home: Yes Childhood Exposure to Second-Hand Smoke: Yes Diet: regular caffeine: Yes Dental Care, Regularly: No Physical Activity Frequency: Daily Seatbelt Use: sometimes Sunscreen Use: No Assistive Devices: Cane Allergies Allergies Allergy/AdvReac Type Severity Reaction Status Date / Time No Known Allergies Allergy Verified 09/14/22 01:17 Home Meds Home Medications Medication Instructions Recorded Confirmed calcium carbonate 600 mg-vitamin 1 cap PO QAM 11/25/18 09/14/22 D3 5 mcg (200 unit) capsule (Calcium 600 + D(3)) bismuth subsalicylate 262 mg/15 mL 524 mg PO DIRECTED PRN Gi Upset 05/17/22 09/14/22 oral suspension (Pepto-Bismol) pravastatin 20 mg tablet 20 mg PO DAILY 05/25/22 09/14/22 Previous Rx's Medication Instructions Recorded amlodipine 5 mg tablet 5 mg PO QAM #90 tabs 10/05/21 aspirin 325 mg tablet 325 mg PO DAILY #30 tabs 05/28/22 famotidine 20 mg tablet (Pepcid) 20 mg PO DAILY #30 tabs 05/28/22 losartan 25 mg tablet 25 mg PO DAILY #90 tabs 09/04/22 Results & Data (ED) Vital Signs Vital Signs - 24 hr 09/14/22 00:44 09/14/22 01:08 09/14/22 01:08 Temperature 38.6 C H Temperature Source Oral Pulse Rate 94 H 86 Pulse Rate [Apical] 86 Pulse Rhythm [Apical] Pulse Strength [Apical] Respiratory Rate 20 20 20 Respiratory Effort / Characteristics Non-Labored Non-Labored Spontaneous Respiratory Depth Normal Normal Blood Pressure 160/80 H Blood Pressure [Left Arm] 130/65 Blood Pressure Mean 106 Blood Pressure Mean [Left Arm] 86 Blood Pressure Position [Left Arm] Sitting Pulse Oximetry 95 92 92 Oxygen Delivery Method Room Air Room Air Room Air Sepsis Recent Fever Within 48 Hours No Sepsis New/Unexplained Change in Mental Status No Sepsis Action Taken by Nursing No Action Required 09/14/22 01:13 09/14/22 02:26 09/14/22 03:13 Temperature 37.3 C Temperature Source Oral Pulse Rate 79 Pulse Rate [Apical] 71 Pulse Rhythm [Apical] Pulse Strength [Apical] Respiratory Rate 18 Respiratory Effort / Characteristics Non-Labored Spontaneous Respiratory Depth Normal Blood Pressure Blood Pressure [Left Arm] 110/53 L Blood Pressure Mean Blood Pressure Mean [Left Arm] 72 Blood Pressure Position [Left Arm] Lying Pulse Oximetry 91 Oxygen Delivery Method Room Air Sepsis Recent Fever Within 48 Hours Sepsis New/Unexplained Change in Mental Status Sepsis Action Taken by Nursing 09/14/22 05:12 09/14/22 05:20 09/14/22 06:54 Temperature Temperature Source Pulse Rate 67 Pulse Rate [Apical] 67 59 L Pulse Rhythm [Apical] Pulse Strength [Apical] Respiratory Rate 18 18 Respiratory Effort / Characteristics Non-Labored Spontaneous Spontaneous Respiratory Depth Normal Blood Pressure Blood Pressure [Left Arm] 109/63 Blood Pressure Mean Blood Pressure Mean [Left Arm] 78 Blood Pressure Position [Left Arm] Lying Pulse Oximetry 92 92 Oxygen Delivery Method Room Air Room Air Sepsis Recent Fever Within 48 Hours Sepsis New/Unexplained Change in Mental Status Sepsis Action Taken by Nursing 09/14/22 07:11 Temperature Temperature Source Pulse Rate Pulse Rate [Apical] 63 Pulse Rhythm [Apical] Regular Pulse Strength [Apical] Normal Respiratory Rate 20 Respiratory Effort / Characteristics Respiratory Depth Normal Blood Pressure Blood Pressure [Left Arm] 107/66 Blood Pressure Mean Blood Pressure Mean [Left Arm] 79 Blood Pressure Position [Left Arm] Lying Pulse Oximetry 91 Oxygen Delivery Method Room Air Sepsis Recent Fever Within 48 Hours Sepsis New/Unexplained Change in Mental Status Sepsis Action Taken by Group Home Medications Current Medication List: was personally reviewed by me Laboratory Data Attestation: I reviewed the patient's lab results. 09/14/22 01:01 09/14/22 01:01 Lab Results 09/14/22 09/14/22 09/14/22 Range/Units 01:01 01:01 01:01 WBC 10.99 H (4.8-10.8) K/ul RBC 4.70 (4.70-6.10) M/uL Hgb 14.9 (14.0-18.0) g/dl Hct 43.0 (42.0-52.0) % MCV 91.5 (80.0-100.0) fL MCH 31.7 (25.0-34.0) pg MCHC 34.7 (32.0-36.0) g/dL RDW Std Deviation 46.9 H (36.4-46.3) fL RDW Coeff of Marisel 13.9 (11.5-14.5) % Plt Count 132 (130-400) K/uL MPV 11.3 (9.4-12.4) fL Immature Gran % (Auto) 0.5 % Neut % (Auto) 91.8 % Lymph % (Auto) 4.9 % [place] % (Auto) 2.3 % Eos % (Auto) 0.2 % Baso % (Auto) 0.3 % Neut # (Auto) 10.10 H (1.40-6.50) K/uL Lymph # (Auto) 0.54 L (1.2-3.4) K/uL [place] # (Auto) 0.25 (0.11-0.59) K/uL Eos # (Auto) 0.02 (0-0.50) K/uL Baso # (Auto) 0.03 (0-0.2) K/uL Immature Gran # (Auto) 0.05 (0.01-0.20) K/uL Toxic Vacuolation 1+ Echinocytes 1+ Sodium 138 (136-145) mmol/L Potassium 3.4 L (3.5-5.1) mmol/L Chloride 106 (98-107) mmol/L Carbon Dioxide 22 (21-32) mmol/L Anion Gap 10 (3-11) BUN 20 (6-23) mg/dl Creatinine 1.05 (0.6-1.4) mg/dl Est Cr Clr Drug Dosing 54.0 ml/min Est GFR ( Amer) 75.2 ml/min Est GFR (Non-Af Amer) 64.9 ml/min BUN/Creatinine Ratio 19.0 (10-20) Glucose 140 H (70-99(Fasting)) mg/dl Lactate 2.3 H* (0.4-2.0) mmol/L Calcium 9.7 (8.6-10.3) mg/dl Total Bilirubin 0.4 (0.2-1.0) mg/dl AST 20 (13-39) U/L ALT 15 (7-52) U/L Alkaline Phosphatase 98 (34-104) U/L Troponin I High Sens 12.7 (0-20) pg/ml Total Protein 7.4 (6.0-8.3) gm/dl Albumin 4.2 (3.4-5.0) gm/dl Globulin 3.2 (2.5-4.0) gm/dl Albumin/Globulin Ratio 1.3 (0.9-2) Urine Color Urine Appearance (Clear) Urine pH (4.5-7.5) Ur Specific [place] (1.000-1.030) Urine Protein (Negative) Urine Glucose (UA) (Negative) Urine Ketones (Negative) Urine Blood (Negative) Urine Nitrite (Negative) Urine Bilirubin (Negative) Urine Urobilinogen (Negative) Ur Leukocyte Esterase (Negative) Urine WBC (Auto) (0-5) /hpf Urine RBC (Auto) (0-4) /hpf U Hyaline Cast (Auto) (0-5) /lpf U Epithel Cells (Auto) (0-5) /lpf Urine Bacteria (Auto) (Negative) Adenovirus (PCR) (NotDetected) B. pertussis DNA (PCR) (NotDetected) B.parapertussis DNA PCR (NotDetected) C. pneumoniae DNA (PCR) (NotDetected) Coronavirus OC43 (PCR) (NotDetected) Coronavirus HKU1 (PCR) (NotDetected) Coronavirus 229E (PCR) (NotDetected) SARS-CoV-2 (PCR) (NotDetected) Coronavirus NL63 (PCR) (NotDetected) Human Metapneumovir PCR (NotDetected) Influenza Type A (PCR) (NotDetected) Influenza Type B (PCR) (NotDetected) M. pneumoniae (PCR) (NotDetected) Parainfluenza 1 (PCR) (NotDetected) Parainfluenza 2 (PCR) (NotDetected) Parainfluenza 3 (PCR) (NotDetected) Parainfluenza 4 (PCR) (NotDetected) RSV (PCR) (NotDetected) Entero/Rhino (PCR) (NotDetected) 09/14/22 09/14/22 09/14/22 Range/Units 01:41 02:23 04:05 WBC (4.8-10.8) K/ul RBC (4.70-6.10) M/uL Hgb (14.0-18.0) g/dl Hct (42.0-52.0) % MCV (80.0-100.0) fL MCH (25.0-34.0) pg MCHC (32.0-36.0) g/dL RDW Std Deviation (36.4-46.3) fL RDW Coeff of Marisel (11.5-14.5) % Plt Count (130-400) K/uL MPV (9.4-12.4) fL Immature Gran % (Auto) % Neut % (Auto) % Lymph % (Auto) % [place] % (Auto) % Eos % (Auto) % Baso % (Auto) % Neut # (Auto) (1.40-6.50) K/uL Lymph # (Auto) (1.2-3.4) K/uL [place] # (Auto) (0.11-0.59) K/uL Eos # (Auto) (0-0.50) K/uL Baso # (Auto) (0-0.2) K/uL Immature Gran # (Auto) (0.01-0.20) K/uL Toxic Vacuolation Echinocytes Sodium (136-145) mmol/L Potassium (3.5-5.1) mmol/L Chloride (98-107) mmol/L Carbon Dioxide (21-32) mmol/L Anion Gap (3-11) BUN (6-23) mg/dl Creatinine (0.6-1.4) mg/dl Est Cr Clr Drug Dosing ml/min Est GFR ( Amer) ml/min Est GFR (Non-Af Amer) ml/min BUN/Creatinine Ratio (10-20) Glucose (70-99(Fasting)) mg/dl Lactate 0.9 (0.4-2.0) mmol/L Calcium (8.6-10.3) mg/dl Total Bilirubin (0.2-1.0) mg/dl AST (13-39) U/L ALT (7-52) U/L Alkaline Phosphatase (34-104) U/L Troponin I High Sens (0-20) pg/ml Total Protein (6.0-8.3) gm/dl Albumin (3.4-5.0) gm/dl Globulin (2.5-4.0) gm/dl Albumin/Globulin Ratio (0.9-2) Urine Color Yellow Urine Appearance Cloudy A (Clear) Urine pH 5.5 (4.5-7.5) Ur Specific [place] 1.019 (1.000-1.030) Urine Protein Negative (Negative) Urine Glucose (UA) Negative (Negative) Urine Ketones Negative (Negative) Urine Blood Negative (Negative) Urine Nitrite Positive A (Negative) Urine Bilirubin Negative (Negative) Urine Urobilinogen Negative (Negative) Ur Leukocyte Esterase 1+ H (Negative) Urine WBC (Auto) 10-30 H (0-5) /hpf Urine RBC (Auto) 0-4 (0-4) /hpf U Hyaline Cast (Auto) 1-5 (0-5) /lpf U Epithel Cells (Auto) 10-20 H (0-5) /lpf Urine Bacteria (Auto) 2+ H (Negative) Adenovirus (PCR) Not Detected (NotDetected) B. pertussis DNA (PCR) Not Detected (NotDetected) B.parapertussis DNA PCR Not Detected (NotDetected) C. pneumoniae DNA (PCR) Not Detected (NotDetected) Coronavirus OC43 (PCR) Not Detected (NotDetected) Coronavirus HKU1 (PCR) Not Detected (NotDetected) Coronavirus 229E (PCR) Not Detected (NotDetected) SARS-CoV-2 (PCR) Not Detected (NotDetected) Coronavirus NL63 (PCR) Not Detected (NotDetected) Human Metapneumovir PCR Not Detected (NotDetected) Influenza Type A (PCR) Not Detected (NotDetected) Influenza Type B (PCR) Not Detected (NotDetected) M. pneumoniae (PCR) Not Detected (NotDetected) Parainfluenza 1 (PCR) Not Detected (NotDetected) Parainfluenza 2 (PCR) Not Detected (NotDetected) Parainfluenza 3 (PCR) Not Detected (NotDetected) Parainfluenza 4 (PCR) Not Detected (NotDetected) RSV (PCR) Not Detected (NotDetected) Entero/Rhino (PCR) Not Detected (NotDetected) Administered Medications Sodium Chloride (Nss 1000ml) 1,000 mls @ 200 mls/hr IV .Q5H MARC Stop: 10/14/22 01:59 Last Admin: 09/14/22 03:10 Dose: 200 mls/hr Documented By: CC Discontinued Medications Fentanyl Citrate (Fentanyl Citrate Pf 100 Mcg/2 Ml Vial) 50 mcg IV NOW STA Stop: 09/14/22 00:56 Last Admin: 09/14/22 01:33 Dose: Not Given Documented By: CC Sodium Chloride (Nss 1000ml) 1,000 mls @ 999 mls/hr IV .Q1H1M MARC Stop: 09/14/22 02:00 Last Infusion: 09/14/22 02:58 Dose: 0 mls/hr Documented By: Admin: 09/14/22 01:30 Dose: 999 mls/hr Documented By: CC Acetaminophen (Ofirmev) 1,000 mg in 100 mls @ 400 mls/hr IV NOW STA Stop: 09/14/22 01:11 Last Infusion: 09/14/22 02:26 Dose: 0 mls/hr Documented By: Admin: 09/14/22 01:32 Dose: 400 mls/hr Documented By: CC Ceftriaxone Sodium (Rocephin) 2,000 mg in 70 mls @ 140 mls/hr IV NOW STA Stop: 09/14/22 01:33 Last Infusion: 09/14/22 02:58 Dose: 0 mls/hr Documented By: Admin: 09/14/22 02:11 Dose: 140 mls/hr Documented By: CC Ioversol (Optiray 320 100ml) 93 ml IV ONCE ONE Stop: 09/14/22 02:36 Last Admin: 09/14/22 02:35 Dose: 93 ml Documented By: SAMARIA Ondansetron HCl (Ondansetron Inj 2 Mg/Ml 2 Ml Vial) 4 mg IV NOW STA Stop: 09/14/22 00:56 Last Admin: 09/14/22 01:33 Dose: 4 mg Documented By: CC Imaging Data Radiologist's Impression: Abdomen/Pelvis CT 09/14/22 00:55 Exam(s): CT ABDOMEN + PELVIS With Contrast IV Amt: 93ML OPTIRAY 320 EXAM: CT Abdomen and Pelvis With Intravenous Contrast CLINICAL HISTORY: Femur and bilateral flank pain. TECHNIQUE: Axial computed tomography images of the abdomen and pelvis with intravenous contrast. CTDI is 24.26 mGy and DLP is 1304.76 mGy-cm. Automated exposure control was utilized for the study. A dose lowering technique was utilized adhering to the principles of ALARA. CONTRAST: Patient received 93ML OPTIRAY 320 of IV contrast COMPARISON: CT abdomen and pelvis 05/25/2022 FINDINGS: Lung bases: Unremarkable. No mass. No consolidation. Mediastinum: Small hiatal hernia. ABDOMEN: Liver: Unremarkable. No mass. Gallbladder and bile ducts: Cholelithiasis. No ductal dilation. Pancreas: Unremarkable. No mass. No ductal dilation. Spleen: Unremarkable. No splenomegaly. Adrenals: Unremarkable. No mass. Kidneys and ureters: There are simple appearing left renal cysts, no follow-up is needed. The kidneys are otherwise unremarkable. No hydronephrosis or visualized nephrolithiasis. Stomach and bowel: Diverticulosis. No obstruction. No mucosal thickening. PELVIS: Appendix: Normal appendix. Bladder: Unremarkable. No mass. Reproductive: Unremarkable as visualized. ABDOMEN and PELVIS: Intraperitoneal space: Unremarkable. No free air. No significant fluid collection. Bones/joints: There are degenerative changes of the spine. No acute fracture. No dislocation. Soft tissues: Small bilateral fat-containing hernias. Vasculature: Mild atherosclerosis. No abdominal aortic aneurysm. Lymph nodes: Unremarkable. No enlarged lymph nodes. IMPRESSION: 1. No hydronephrosis or visualized nephrolithiasis. 2. Small hiatal hernia. 3. Cholelithiasis. 4. Diverticulosis. Electronically signed by: Iwona Kaur MD 09/14/22 05:18 AM Discharge Plan Visit Data Chief Complaint: Flank Pain Stated Complaint: DIZZY, KIDNEY PAIN ED Provider: Hoda Rodas Discharge Problem: Fever, Acute UTI Forms Stand Alone Forms: My [facility] Visible Measures Prescriptions Prescriptions: No Action amlodipine 5 mg tablet 5 mg PO QAM Qty: 90 3RF losartan 25 mg tablet 25 mg PO DAILY Qty: 90 3RF Calcium 600 + D(3) 600 mg calcium- 200 unit Capsule 1 cap PO QAM bismuth subsalicylate [Pepto-Bismol] 262 mg/15 mL Suspension 524 mg PO DIRECTED PRN (Reason: Gi Upset) pravastatin 20 mg tablet 20 mg PO DAILY aspirin 325 mg Tablet 325 mg PO DAILY Qty: 30 0RF famotidine [Pepcid] 20 mg tablet 20 mg PO DAILY Qty: 30 0RF Referrals Referrals: Morales Concepcion DO [Primary Care Provider] -
[2022-09-14 01:35] LABS: Albumin Globulin Ratio 1.3 (0.9-2); Albumin Level 4.2 gm/dl (3.4-5.0); Bilirubin,Total 0.4 mg/dl (0.2-1.0); Calcium 9.7 mg/dl (8.6-10.3); Est GFR (African American) 75.2 ml/min; Est GFR (Non-African American) 64.9 ml/min; Globulin 3.2 gm/dl (2.5-4.0); Potassium 3.4 mmol/L (3.5-5.1); Total Protein 7.4 gm/dl (6.0-8.3)
[2022-09-14 01:38] LABS: Basophils # (auto) 0.03 K/uL (0-0.2); Basophils % (auto) 0.3 %; Echinocytes 1+; Eosinophils # (auto) 0.02 K/uL (0-0.50); Eosinophils % (auto) 0.2 %; Hemoglobin 14.9 g/dl (14.0-18.0); Immature Granulocytes # (auto) 0.05 K/uL (0.01-0.20); Immature Granulocytes % (auto) 0.5 %; Lymphocytes # (auto) 0.54 K/uL (1.2-3.4); Lymphocytes % (auto) 4.9 %; Mean Corpuscular Hemoglobin 31.7 pg (25.0-34.0); Mean Corpuscular Hgb Conc 34.7 g/dL (32.0-36.0); Mean Corpuscular Volume 91.5 fL (80.0-100.0); Mean Platelet Volume 11.3 fL (9.4-12.4); Monocytes # (auto) 0.25 K/uL (0.11-0.59); Monocytes % (auto) 2.3 %; Neutrophils % (auto) 91.8 %; Platelet Count 132 K/uL (130-400); RDW Coefficient of Variation 13.9 % (11.5-14.5); RDW Standard Deviation 46.9 fL (36.4-46.3); Toxic Vacuolation 1+; White Blood Count 10.99 K/ul (4.8-10.8)
[2022-09-14 01:43] LABS: Troponin I High Sensitivity 12.7 pg/ml (0-20)
[2022-09-14] MEDS ORDERED: OPTIRAY 320 100ml IV ONE (02:35)
[2022-09-14 02:39] LABS: Appearance Urine Cloudy (Clear); Bacteria Urine Automated 2+ (Negative); Bilirubin Urine Negative (Negative); Blood Urine Negative (Negative); Color Urine Yellow; Glucose Urine UA Negative (Negative); Ketones Urine Negative (Negative); Leukocyte Esterase Urine 1+ (Negative); Nitrite Urine Positive (Negative); Protein Urine Negative (Negative); RBC Urine Automated 0-4 /hpf (0-4); Specific Gravity Urine 1.019 (1.000-1.030); Urobilinogen Urine Negative (Negative); pH Urine 5.5 (4.5-7.5)
[2022-09-14 02:45] LABS: Adenovirus PCR Not Detected (NotDetected); Bordetella parapertussis PCR Not Detected (NotDetected); Bordetella pertussis PCR Not Detected (NotDetected); Chlamydia pneumoniae PCR Not Detected (NotDetected); Coronavirus 229E PCR Not Detected (NotDetected); Coronavirus CoV-2 (COVID19)PCR Not Detected (NotDetected); Coronavirus HKU1 PCR Not Detected (NotDetected); Coronavirus NL63 PCR Not Detected (NotDetected); Coronavirus OC43PCR Not Detected (NotDetected); Human Metapneumovirus PCR Not Detected (NotDetected); Influenza A PCR Not Detected (NotDetected); Influenza B PCR Not Detected (NotDetected); Mycoplasma pneumoniae PCR Not Detected (NotDetected); Parainfluenza Virus 1 PCR Not Detected (NotDetected); Parainfluenza Virus 2 PCR Not Detected (NotDetected); Parainfluenza Virus 3 PCR Not Detected (NotDetected); Parainfluenza Virus 4 PCR Not Detected (NotDetected); Respiratory Syncytial VirusPCR Not Detected (NotDetected); Rhinovirus/Enterovirus PCR Not Detected (NotDetected)
[2022-09-14] MEDS: SODIUM CHLORIDE 0.9% 1000ML 1,000 ML IV SCH ×3 (03:10→16:52)
--- NOTE | 2022-09-14 05:19 | CT Scan Report ---
Exam(s): CT ABDOMEN + PELVIS With Contrast IV Amt: 93ML OPTIRAY 320 EXAM: CT Abdomen and Pelvis With Intravenous Contrast CLINICAL HISTORY: Femur and bilateral flank pain. TECHNIQUE: Axial computed tomography images of the abdomen and pelvis with intravenous contrast. CTDI is 24.26 mGy and DLP is 1304.76 mGy-cm. Automated exposure control was utilized for the study. A dose lowering technique was utilized adhering to the principles of ALARA. CONTRAST: Patient received 93ML OPTIRAY 320 of IV contrast COMPARISON: CT abdomen and pelvis 05/25/2022 FINDINGS: Lung bases: Unremarkable. No mass. No consolidation. Mediastinum: Small hiatal hernia. ABDOMEN: Liver: Unremarkable. No mass. Gallbladder and bile ducts: Cholelithiasis. No ductal dilation. Pancreas: Unremarkable. No mass. No ductal dilation. Spleen: Unremarkable. No splenomegaly. Adrenals: Unremarkable. No mass. Kidneys and ureters: There are simple appearing left renal cysts, no follow-up is needed. The kidneys are otherwise unremarkable. No hydronephrosis or visualized nephrolithiasis. Stomach and bowel: Diverticulosis. No obstruction. No mucosal thickening. PELVIS: Appendix: Normal appendix. Bladder: Unremarkable. No mass. Reproductive: Unremarkable as visualized. ABDOMEN and PELVIS: Intraperitoneal space: Unremarkable. No free air. No significant fluid collection. Bones/joints: There are degenerative changes of the spine. No acute fracture. No dislocation. Soft tissues: Small bilateral fat-containing hernias. Vasculature: Mild atherosclerosis. No abdominal aortic aneurysm. Lymph nodes: Unremarkable. No enlarged lymph nodes. IMPRESSION: 1. No hydronephrosis or visualized nephrolithiasis. 2. Small hiatal hernia. 3. Cholelithiasis. 4. Diverticulosis. Electronically signed by: Iwona Kaur MD 09/14/22 05:18 AM
--- NOTE | 2022-09-14 05:46 | History & Physical Report ---
Date of Service September 14, 2022 Assessment & Plan (1) Sepsis: Plan: 86 yo male with PMHx of lung CA s/p R right lobectomy, GERD, recurrent and complicated UTI, CAD s/p PCI, COPD, tobacco use, GERD, and HTN presents with illness. #Sepsis -presented with 3 days fevers, fatigue, chills. On admission met 3/4 SIRS (fever, leukocytosis, tachycardia). UA appears infectious. Suspect urinary source. He is also with diffuse wheezing on exam, cannot exclude pneumonia, CXR and procal pending. Lactate wnl. MRSA nares pending. Blood cx pending. -CT A/P without hydronephrosis or nephrolithiasis -received 2L NSS in ED -received rocephin in ED. Pt with h/o Enterobacter resistant to Rocephin in 2018. Will cont. with IV levoquin. Urine cx/sensitivities pending. 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 #COPD exacerbation -initial sob and with wheezing on exam. O2 sat 92 on room air. He does not use inhalers at home but will give them a try while hospitalized. -duoneb jomar, methylprednisone 40mg IV; defer to day team for steroid burst vs taper -CXR pending #CAD s/p PCI -cont. asa, losartan #HTN -cont. amlodipine, losartan #HLD -cont. statin #GERD -cont. pepcid DVT ppx: lovenox FEN/GI: HH Code Status: DNI only Dispo: med tele (2) Hypokalemia: (3) Benign hypertension: (4) Hyperlipidemia: (5) GERD (gastroesophageal reflux disease): History of Present Illness Chief Complaint: illness Primary Care Provider: Morales Concepcion, DO 86 yo male with PMHx of lung CA s/p R right lobectomy, GERD, c.diff colitis, recurrent and complicated UTI, CAD s/p PCI, COPD, tobacco use, GERD, and HTN presents with illness. 3 days ago started developing fever, fatigue, bilateral flank pains, and chills. He did have some initial chest tightness and sob which have resolved. Also had increased urinary frequency. Denies headache, abd pain, N/V/D, dysuria, extremity weakness/numbness. Allergies Allergy/AdvReac Type Severity Reaction Status Date / Time No Known Allergies Allergy Verified 09/14/22 01:17 Home Medications Medication Instructions Recorded Confirmed Type calcium carbonate 600 mg-vitamin 1 cap PO QAM 11/25/18 09/14/22 History D3 5 mcg (200 unit) capsule (Calcium 600 + D(3)) amlodipine 5 mg tablet 5 mg PO QAM #90 tabs 10/05/21 09/14/22 Rx bismuth subsalicylate 262 mg/15 mL 524 mg PO DIRECTED PRN Gi Upset 05/17/22 09/14/22 History oral suspension (Pepto-Bismol) pravastatin 20 mg tablet 20 mg PO DAILY 05/25/22 09/14/22 History aspirin 325 mg tablet 325 mg PO DAILY #30 tabs 05/28/22 09/14/22 Rx famotidine 20 mg tablet (Pepcid) 20 mg PO DAILY #30 tabs 05/28/22 09/14/22 Rx losartan 25 mg tablet 25 mg PO DAILY #90 tabs 09/04/22 09/14/22 Rx Past Med/Surg History Medical History (Updated 09/14/22 @ 07:24 by Hoda Rodas MD) Emphysema (subcutaneous) resulting from a procedure, initial encounter H/O acute myocardial infarction (1997) H/O cardiac arrest (1997) History of dysphagia June 2018 Osteoarthritis bilateral knees Positive colorectal cancer screening using Cologuard test Pulmonary nodule Surgical History History of cardiac cath 1993 History of esophageal dilatation June 2018 History of heart artery stent 1993 x1 stent at [facility] History of tooth extraction History of total knee arthroplasty Oct 2021: S/P left knee replacement with Dr. Hernandes, [facility] [place] 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) with Dr Chu Family History Mother Family history of diabetes mellitus Sister Breast cancer Ovarian cancer Brother Cancer Sister Lung cancer Other Myocardial infarction Denies family history of Prostate cancer Colorectal cancer Social History Smoking Status: Current every day smoker Tobacco Type: Cigarettes Age Started Using Tobacco: 18; packs per day: 0.5; Cigarettes Per Day: 15; Second Hand Exposure: Yes; Do You Dip or Chew Tobacco: No; Hx Alcohol Use: No Hx Substance Use: No Preferred Language: Andorran Communication Ability: Effective Visual Impairment: No Limitations Hearing Ability: Hard of Hearing Stove Cleaner Required: No Beliefs That Will Affect Care: None marital status: Current Living Situation: Spouse current occupational status: retired How many Children do You have: 7 Feels Safe at Home: Yes Childhood Exposure to Second-Hand Smoke: Yes Diet: regular caffeine: Yes Dental Care, Regularly: No Physical Activity Frequency: Daily Seatbelt Use: sometimes Sunscreen Use: No Assistive Devices: Cane, Denture - Upper and Denture - Lower Review of Systems Review of Systems: All systems reviewed & are unremarkable except as noted in HPI & below Physical Exam Physical Exam: Constitutional: in no acute distress, pleasant and normal affect, intact memory. AOx3. Vitals as above. HEENT: No scleral injection or discharge.Dry mucous membranes. Neck: Supple without lymphadenopathy or thyromegaly. Trachea midline. Lungs: +diffuse wheezing. No rales/rhonchi. Cardiac: Regular rate and rhythm.No murmurs. No extremity edema. 2+ distal peripheral pulses. Abdomen: Bowel sounds present. Soft, nontender, and nondistended.No guarding. No hepatosplenomegaly. MSK: No cyanosis or clubbing. Extremities motor strength 5/5. Skin: No abnormal rashes, warm, dry. Neurologic: no focal deficits Results & Data Results & Data Vital Signs (Past 12 Hours) Vital Signs Temp Pulse Pulse Resp BP BP Pulse Ox 09/14/22 05:20 67 18 109/63 92 09/14/22 05:12 67 09/14/22 03:13 71 18 110/53 L 91 09/14/22 02:26 37.3 C 09/14/22 01:13 79 09/14/22 01:08 86 20 92 09/14/22 01:08 86 20 130/65 92 09/14/22 00:44 38.6 C H 94 H 20 160/80 H 95 O2 Del Method 09/14/22 05:20 Room Air 09/14/22 05:12 09/14/22 03:13 Room Air 09/14/22 02:26 09/14/22 01:13 09/14/22 01:08 Room Air 09/14/22 01:08 Room Air 09/14/22 00:44 Room Air Laboratory Results Laboratory Results WBC 10.99 K/ul (4.8-10.8) H 09/14/22 01:01 RBC 4.70 M/uL (4.70-6.10) 09/14/22 01:01 Hgb 14.9 g/dl (14.0-18.0) 09/14/22 01:01 Hct 43.0 % (42.0-52.0) 09/14/22 01:01 MCV 91.5 fL (80.0-100.0) 09/14/22 01:01 MCH 31.7 pg (25.0-34.0) 09/14/22 01:01 MCHC 34.7 g/dL (32.0-36.0) 09/14/22 01:01 RDW Std Deviation 46.9 fL (36.4-46.3) H 09/14/22 01:01 RDW Coeff of Marisel 13.9 % (11.5-14.5) 09/14/22 01:01 Plt Count 132 K/uL (130-400) 09/14/22 01:01 MPV 11.3 fL (9.4-12.4) 09/14/22 01:01 Immature Gran % (Auto) 0.5 % 09/14/22 01:01 Neut % (Auto) 91.8 % 09/14/22 01:01 Lymph % (Auto) 4.9 % 09/14/22 01:01 Mingo % (Auto) 2.3 % 09/14/22 01:01 Eos % (Auto) 0.2 % 09/14/22 01:01 Baso % (Auto) 0.3 % 09/14/22 01:01 Neut # (Auto) 10.10 K/uL (1.40-6.50) H 09/14/22 01:01 Lymph # (Auto) 0.54 K/uL (1.2-3.4) L 09/14/22 01:01 Mingo # (Auto) 0.25 K/uL (0.11-0.59) 09/14/22 01:01 Eos # (Auto) 0.02 K/uL (0-0.50) 09/14/22 01:01 Baso # (Auto) 0.03 K/uL (0-0.2) 09/14/22 01:01 Immature Gran # (Auto) 0.05 K/uL (0.01-0.20) 09/14/22 01:01 Toxic Vacuolation 1+ 09/14/22 01:01 Echinocytes 1+ 09/14/22 01:01 Sodium 138 mmol/L (136-145) 09/14/22 01:01 Potassium 3.4 mmol/L (3.5-5.1) L 09/14/22 01:01 Chloride 106 mmol/L (98-107) 09/14/22 01:01 Carbon Dioxide 22 mmol/L (21-32) 09/14/22 01:01 Anion Gap 10 (3-11) 09/14/22 01:01 BUN 20 mg/dl (6-23) 09/14/22 01:01 Creatinine 1.05 mg/dl (0.6-1.4) 09/14/22 01:01 Est Cr Clr Drug Dosing 54.0 ml/min 09/14/22 01:01 Est GFR ( Amer) 75.2 ml/min 09/14/22 01:01 Est GFR (Non-Af Amer) 64.9 ml/min 09/14/22 01:01 BUN/Creatinine Ratio 19.0 (10-20) 09/14/22 01:01 Glucose 140 mg/dl (70-99(Fasting)) H 09/14/22 01:01 Lactate 0.9 mmol/L (0.4-2.0) 09/14/22 04:05 Calcium 9.7 mg/dl (8.6-10.3) 09/14/22 01:01 Total Bilirubin 0.4 mg/dl (0.2-1.0) 09/14/22 01:01 AST 20 U/L (13-39) 09/14/22 01:01 ALT 15 U/L (7-52) 09/14/22 01:01 Alkaline Phosphatase 98 U/L (34-104) 09/14/22 01:01 Troponin I High Sens 12.7 pg/ml (0-20) 09/14/22 01:01 Total Protein 7.4 gm/dl (6.0-8.3) 09/14/22 01:01 Albumin 4.2 gm/dl (3.4-5.0) 09/14/22 01:01 Globulin 3.2 gm/dl (2.5-4.0) 09/14/22 01:01 Albumin/Globulin Ratio 1.3 (0.9-2) 09/14/22 01:01 Urine Color Yellow 09/14/22 02:23 Urine Appearance Cloudy (Clear) A 09/14/22 02:23 Urine pH 5.5 (4.5-7.5) 09/14/22 02:23 Ur Specific Herman 1.019 (1.000-1.030) 09/14/22 02:23 Urine Protein Negative (Negative) 09/14/22 02: Urine Glucose (UA) Negative (Negative) 09/14/22 02: Urine Ketones Negative (Negative) 09/14/22 02:23 Urine Blood Negative (Negative) 09/14/22 02:23 Urine Nitrite Positive (Negative) A 09/14/22 02:23 Urine Bilirubin Negative (Negative) 09/14/22 02:23 Urine Urobilinogen Negative (Negative) 09/14/22 02:23 Ur Leukocyte Esterase 1+ (Negative) H 09/14/22 02:23 Urine WBC (Auto) 10-30 /hpf (0-5) H 09/14/22 02:23 Urine RBC (Auto) 0-4 /hpf (0-4) 09/14/22 02:23 U Hyaline Cast (Auto) 1-5 /lpf (0-5) 09/14/22 02:23 U Epithel Cells (Auto) 10-20 /lpf (0-5) H 09/14/22 02:23 Urine Bacteria (Auto) 2+ (Negative) H 09/14/22 02:23 Adenovirus (PCR) Not Detected (NotDetected) 09/14/22 01:41 B. pertussis DNA (PCR) Not Detected (NotDetected) 09/14/22 01:41 B.parapertussis DNA PCR Not Detected (NotDetected) 09/14/22 01:41 C. pneumoniae DNA (PCR) Not Detected (NotDetected) 09/14/22 01:41 Coronavirus OC43 (PCR) Not Detected (NotDetected) 09/14/22 01:41 Coronavirus HKU1 (PCR) Not Detected (NotDetected) 09/14/22 01:41 Coronavirus 229E (PCR) Not Detected (NotDetected) 09/14/22 01:41 SARS-CoV-2 (PCR) Not Detected (NotDetected) 09/14/22 01:41 Coronavirus NL63 (PCR) Not Detected (NotDetected) 09/14/22 01:41 Human Metapneumovir PCR Not Detected (NotDetected) 09/14/22 01:41 Influenza Type A (PCR) Not Detected (NotDetected) 09/14/22 01:41 Influenza Type B (PCR) Not Detected (NotDetected) 09/14/22 01:41 M. pneumoniae (PCR) Not Detected (NotDetected) 09/14/22 01:41 Parainfluenza 1 (PCR) Not Detected (NotDetected) 09/14/22 01:41 Parainfluenza 2 (PCR) Not Detected (NotDetected) 09/14/22 01:41 Parainfluenza 3 (PCR) Not Detected (NotDetected) 09/14/22 01:41 Parainfluenza 4 (PCR) Not Detected (NotDetected) 09/14/22 01:41 RSV (PCR) Not Detected (NotDetected) 09/14/22 01:41 Entero/Rhino (PCR) Not Detected (NotDetected) 09/14/22 01:41 Impressions Abdomen/Pelvis CT 09/14/22 00:55 Exam(s): CT ABDOMEN + PELVIS With Contrast IV Amt: 93ML OPTIRAY 320 EXAM: CT Abdomen and Pelvis With Intravenous Contrast CLINICAL HISTORY: Femur and bilateral flank pain. TECHNIQUE: Axial computed tomography images of the abdomen and pelvis with intravenous contrast. CTDI is 24.26 mGy and DLP is 1304.76 mGy-cm. Automated exposure control was utilized for the study. A dose lowering technique was utilized adhering to the principles of ALARA. CONTRAST: Patient received 93ML OPTIRAY 320 of IV contrast COMPARISON: CT abdomen and pelvis 05/25/2022 FINDINGS: Lung bases: Unremarkable. No mass. No consolidation. Mediastinum: Small hiatal hernia. ABDOMEN: Liver: Unremarkable. No mass. Gallbladder and bile ducts: Cholelithiasis. No ductal dilation. Pancreas: Unremarkable. No mass. No ductal dilation. Spleen: Unremarkable. No splenomegaly. Adrenals: Unremarkable. No mass. Kidneys and ureters: There are simple appearing left renal cysts, no follow-up is needed. The kidneys are otherwise unremarkable. No hydronephrosis or visualized nephrolithiasis. Stomach and bowel: Diverticulosis. No obstruction. No mucosal thickening. PELVIS: Appendix: Normal appendix. Bladder: Unremarkable. No mass. Reproductive: Unremarkable as visualized. ABDOMEN and PELVIS: Intraperitoneal space: Unremarkable. No free air. No significant fluid collection. Bones/joints: There are degenerative changes of the spine. No acute fracture. No dislocation. Soft tissues: Small bilateral fat-containing hernias. Vasculature: Mild atherosclerosis. No abdominal aortic aneurysm. Lymph nodes: Unremarkable. No enlarged lymph nodes. IMPRESSION: 1. No hydronephrosis or visualized nephrolithiasis. 2. Small hiatal hernia. 3. Cholelithiasis. 4. Diverticulosis. Electronically signed by: Iwona Kaur MD 09/14/22 05:18 AM Supervising Physician Co-Signing Physician Notes Attending addendum: I have physically seen this patient, have supervised the medical residents activities, and agree with the H&P unless as otherwise noted. Assessment and Plan: Sepsis due to urinary tract infection- Status post 1 L normal saline in the ED Received ceftriaxone 2 g IV in the ED Follow urine culture and sensitivity Levofloxacin 500 mg IV daily as noted due to history of resistances of Enterobacter noted COPD exacerbation- Status post methylprednisolone 40 mg IV and DuoNeb in ED Duonebs every 4 hours while awake and every 2 hours when necessary. CAD/hypertension/history of PCI- The patient will be admitted to telemetry for serial cardiac enzymes, serial EKG's, cardiac rhythm monitoring and a 2-D echocardiogram with Dopplers. Continue aspirin, losartan and amlodipine Remaining orders and notations as noted Resident Activity Tracking Resident Involvement: Resident Care Provided Care Provided: [facility]
[2022-09-14] MEDS ORDERED: POTASSIUM CHLORIDE CRTAB 20 MEQ TABCR PO STA (06:50)
[2022-09-14] MEDS ORDERED: ALBUT/IPRATROP 3MG/0.5MG NEB 3 ML VIAL ONE (07:02)
--- NOTE | 2022-09-14 07:28 | XRay Report ---
XR chest 1V portable HISTORY: 86 years-old Male wheezing acute shortness of breath with wheezing COMPARISON: 06/30/2022 TECHNIQUE: AP view the chest FINDINGS: Cardiac silhouette is enlarged. No pneumothorax, pleural effusion or overt pulmonary edema. Emphysema with chronic interstitial coarsening. Bones appear grossly intact. IMPRESSION: 1. Cardiomegaly without acute process. 2. Emphysema. ACT 112: Negative or not required by law. The above report was generated using voice recognition software. It may contain grammatical, syntax o r spelling errors. Electronically signed by: Lino Servin M.D. 09/14/2022 7:26 AM
[2022-09-14] MEDS ORDERED: levoFLOXacin/D5W 750 MG/150 ML BAG IV ONE (07:45)
[2022-09-14] MEDS: ALBUT/IPRATROP 3MG/0.5MG NEB 3 ML VIAL NEB SCH ×5 (07:46→19:37)
[2022-09-14] MEDS: ADVANCED PROBIOTIC 1250 MG CAPSULE PO SCH (09:57)
[2022-09-14] MEDS ORDERED: ASPIRIN 325 MG ECTAB PO SCH (10:13)
[2022-09-14] MEDS ORDERED: ONDANSETRON 4 MG OD TAB PO PRN (10:13)
[2022-09-14] MEDS: FAMOTIDINE 20 MG TAB PO SCH (10:27)
[2022-09-14] MEDS ORDERED: ALUMINUM/MAGNESIUM SUSP 30 ML UDC PO PRN (10:36)
--- NOTE | 2022-09-14 10:47 | Communication Note ---
Date of Service: September 14, 2022 Patient with epigastric discomfort similar to prior GERD symptoms. Reports the pain is mostly in his epigastrium/stomach, may be a little bit radiating into his chest on the left side. He reports this has gotten better with antiacid medicines of the outpatient in the past. He notes he was sweaty and short of breath last night with his UTI, has not had sweating or shortness of breath with his epigastric pain today. Reports he does have a history of cardiac arrest/NV and he thinks a heart stent, takes aspirin daily full dose. Per cardiology review patient had a history of NV/precardiac arrest with no occlusive coronary disease noted in 1997 and no symptoms of myocardial ischemia despite very active lifestyle throughout 2021. Echo 2018 with normal systolic function and no wall motion changes. No stent is noted or reported, patient reports he is not sure if he actually has this and does not have a stent card, and given no occlusive coronary disease noted by cardiology suspect this is not accurate. His GERD symptoms this morning have been constant for at least 30 minutes, constant. No shortness of breath/diaphoresis. Given cardiac history with possible atypical symptoms and chest radiation EKG obtained. Sinus bradycardia with first-degree AV block, no territorial ST segment or T wave changes. Diffuse nonspecific T wave changes are present, these are unchanged from prior EKG. Pain has been constant for over 20 minutes, will obtain stat hs-troponin x1 and if negative unlikely to be cardiac in origin and can can continue sym ptomatic treatment of GERD/gastritis in the setting of antibiotic treatment, full dose aspirin use, and stress. Given that he has nonocclusive coronary disease noted on prior cath, no noted stent, and has been on aspirin with primary prevention for hypertension reasonable to decrease his dose from 325 to 81 mg in the setting of GERD exacerbation. Added Protonix push x1 and GI cocktail for breakthrough ordered. If troponin elevated we will continue to trend, repeat echo, and consult cardiology for coordination of stress test.
--- NOTE | 2022-09-14 11:12 | Hospitalist Progress Note ---
Date of Service September 14, 2022 Assessment & Plan (1) Sepsis: Plan: On admission febrile with fatigue and chills. Met SIRS criteria via fever, leukocytosis, tachycardia Leukocytosis of 10.99 with neutrophilic predominance but no left shift UA infected appearing Lactate normal Chest x-ray: Emphysema, cardiomegaly without acute process Blood culture pending Procalcitonin elevated at 5.81 Admitted on levofloxacin History of Enterobacter resistant UTI in 2018, was switched from ER dose of Rocephin to Levaquin based on this CTA/P: No hydro or nephrolithiasis, small hiatal hernia, cholelithiasis, diverticulosis UCx remains pending. Follow for speciation/sensitivities and narrow antibiotics as appropriate. Given septic presentation, elevated procal, and history of resistant organisms would follow for speciation/sensitivities prior to discharge and continue to follow on inpatient status at this time. ? COPD exacerbation Patient with shortness of breath, wheezing on initial admission consistent with acute on chronic COPD exacerbation. SpO2 92% on RA No diagnosed COPD or baseline daily inhalers, but is with extensive tobacco use history and intermittent wheezing No PFTs available for review -Patient started on methylprednisolone 40 mg daily and DuoNebs in ER At time of bedside reassessment 09/14 patient is no longer wheezing, and feels he is breathing comfortably on room air CXR does not show any evidence of acute pneumonia Given resolution of wheezing and clinically well appearance morning of 09/14 will defer additional steroids. If wheezing recurrs then placed on 5-day prednisone burst BioFire negative Patient is covered with antibiotics on Levaquin above -Recommend following up with pulmonology as outpatient for formal PFTs CAD, history of cardiac arrest Pt reports he does have a history of cardiac arrest/DE and he thinks a heart stent, takes aspirin daily full dose. Per cardiology notes review patient had a history of cardiac arrest with subsequent cath showing no occlusive coronary disease noted in 1997 and no symptoms of myocardial ischemia despite very active lifestyle throughout 2021. Echo 2018 with normal systolic function and no wall motion changes. No stent is noted or reported, patient reports he is not sure if he actually has this - Clarified from [facility] records patient did have PCI with 1x stent placed in 1993. Continue aspirin daily. Initial high-sensitivity troponin is normal Patient had more than 20 minutes of GERD symptoms with some atypical radiation, repeat high sensitive troponin is pending EKG 09/[address] or T wave changes, diffuse nonspecific T wave changes and low amplitude which is unchanged from prior Continue aspirin 81mg daily If troponin rises --> trend troponin, obtain echo, consult cardiology for repeat stress Hypertension -Amlodipine and losartan Hyperlipidemia -Statin continued Hypokalemia Repleted, trend daily GERD Likely exacerbated in the setting of stress, infection, full dose aspirin use, and antibiotic use Adjunct IV PPI added Patient may use Maalox every 6 hours as needed for breakthrough symptoms Does have epigastric tenderness to palpation. Hemoglobin is 14.9 and stable, BUN is not elevated to suggest any upper GI bleeding. Follow clinically for signs of melena/hematochezia, these are not present morning of 09/14 DVT ppx: lovenox FEN/GI: HH Code Status: Conditional code, DO NOT INTUBATE. Dispo: Medical telemetry (2) Hypokalemia: (3) Benign hypertension: (4) Hyperlipidemia: (5) GERD (gastroesophageal reflux disease): Admission and Anticipated Discharge Date Admission Date: September 14, 2022 Subjective Seen at the bedside after notified by nursing that developed approximately 30 minutes of consistent epigastric symptoms consistent with prior episodes of GERD. He reports he has had these symptoms in the past which have gotten better with antiacid medicines as an outpatient when she no longer takes. He notes he was sweaty and short of breath last night, does not feel that way this morning. Notes that the epigastric discomfort radiates a little bit into his upper chest, but is mostly around the stomach. He does not feel lightheaded or dizzy and is not having palpitations. Denies neck or shoulder pain. Denies leg swelling. Denies shortness of breath lying flat. He reports he does have a history of in- hospital cardiac arrest/heart attack many years ago 1997, thinks he may have gotten a stent but is not sure. He reports that he is very active, can walk at least a block or 2 and has no inducible chest pain/angina with activity and no chest pain/angina at rest in the preceding few months. He is current stomach pain at time bedside assessment is around 4/10, has been going on for approximately 30 minutes while eating breakfast with a constant achy quality. He he denies any recent black or bloody bowel movements. Review of Systems Review of Systems: All systems reviewed & are unremarkable except as noted in Subjective Physical Exam Physical Exam: General: A&Ox3. NAD. Cooperative. HEENT: Atraumatic, normocephalic. Vision/hearing grossly intact Pulm: CTAB A&P. -wheezes, -rales, -rhonchi. Symmetrical chest rise. No increased work of breathing. No respiratory distress. Cardiac: RRR, +sm. Radial pulses intact and symmetrical. No reproducible chest wall tenderness to palpation. No JVD Abdominal: Epigastrium tender to palpation without rebound tenderness or guarding. Soft. Extremities: Warm, dry. No edema. Moves all extremities equally Results & Data Results & Data Vital Signs (Past 12 Hours) Vital Signs Temp Pulse Pulse Resp BP BP Pulse Ox 09/14/22 10:32 09/14/22 10:25 85 18 130/71 95 09/14/22 09:59 60 20 130/71 95 09/14/22 09:15 63 09/14/22 07:11 63 20 107/66 91 09/14/22 06:54 59 L 18 92 09/14/22 05:20 67 18 109/63 92 09/14/22 05:12 67 09/14/22 03:13 71 18 110/53 L 91 09/14/22 02:26 37.3 C 09/14/22 01:13 79 09/14/22 01:08 86 20 92 09/14/22 01:08 86 20 130/65 92 09/14/22 00:44 38.6 C H 94 H 20 160/80 H 95 O2 Del Method 09/14/22 10:32 Room Air 09/14/22 10:25 Room Air 09/14/22 09:59 Room Air 09/14/22 09:15 09/14/22 07:11 Room Air 09/14/22 06:54 Room Air 09/14/22 05:20 Room Air 09/14/22 05:12 09/14/22 03:13 Room Air 09/14/22 02:26 09/14/22 01:13 09/14/22 01:08 Room Air 09/14/22 01:08 Room Air 09/14/22 00:44 Room Air PG Care Time/CCT Total # of Minutes Spent Total Time Spent with Patient: Total time spent is greater than 50% in coordination of care (as documented) at patient's floor/unit and/or counseling patient: Coding Level of Care Code 26266 SUB INP/OBS CARE 50MIN Diagnoses Sepsis A41.9 Hypokalemia E87.6 Benign hypertension I10 Hyperlipidemia E78.5 GERD (gastroesophageal reflux disease) K21.9
[2022-09-14] MEDS: amLODIPine BESYLATE 5 MG TAB PO SCH (12:37)
[2022-09-14] MEDS: ASPIRIN 81 MG ECTAB PO SCH (12:37)
[2022-09-14] MEDS: PANTOprazole 40 MG in SYRINGE 0 ML IV SCH (16:53)
[2022-09-14] MEDS: LOSARTAN POTASSIUM 25 MG TAB PO SCH (17:00)
[2022-09-14] MEDS: ENOXAPARIN INJ 40 MG/0.4 ML SYR SQ SCH (17:00)
[2022-09-14] MEDS: PRAVASTATIN SOD 20 MG TAB PO SCH (17:00)
[2022-09-14 18:47] LABS: A calco-baum cmplx NotReported Not Detected (NotDetected); Bact fragilis Not Reported Not Detected (NotDetected); C auris Not Reported Not Detected (NotDetected); CTX-M Resistant Gene Not Detected (NotDetected); Calbicans Not Reported Not Detected (NotDetected); Candida glabrata Not Reported Not Detected (NotDetected); Candida krusei Not Reported Not Detected (NotDetected); Cneoformans/gatti Not Reported Not Detected (NotDetected); Cparapsilosis Not Reported Not Detected (NotDetected); Ctropicalis Not Reported Not Detected (NotDetected); E cloacae compx Not Reported Not Detected (NotDetected); Efaecalis Not Reported Not Detected (NotDetected); Efaecium Not Reported Not Detected (NotDetected); Enterobacterales Not Reported DETECTED (NotDetected); Escherichia coli Not Reported DETECTED (NotDetected); H influenzae Not Reported Not Detected (NotDetected); IMP Resistant Gene Not Detected (NotDetected); K aerogenes Not Reported Not Detected (NotDetected); KPC Resistant Gene Not Detected (NotDetected); Koxytoca Not Reported Not Detected (NotDetected); Kpneumoniae grp Not Reported Not Detected (NotDetected); Lmonocyt Not Reported Not Detected (NotDetected); N meningitidis Not Reported Not Detected (NotDetected); NDM Resistant Gene Not Detected (NotDetected); OXA 48 Like Resistant Gene Not Detected (NotDetected); P aeruginosa Not Reported Not Detected (NotDetected); Proteus spp Not Reported Not Detected (NotDetected); Salmonella spp Not Reported Not Detected (NotDetected); Smarcescens Not Reported Not Detected (NotDetected); Staph lugdunensis Not Reported Not Detected (NotDetected); Staph spp. Not Reported Not Detected (NotDetected); Staphaureus Not Reported Not Detected (NotDetected); Staphepi Not Reported Not Detected (NotDetected); Stenmaltophilia Not Reported Not Detected (NotDetected); Strep agal(GrpB) Not Reported Not Detected (NotDetected); Strep pneum Not Reported Not Detected (NotDetected); Strep pyog (GrpA) Not Reported Not Detected (NotDetected); Strep spp Not Reported Not Detected (NotDetected); VIM Resistant Gene Not Detected (NotDetected); mcr-1 Colistin Resistant Gene Not Detected (NotDetected)
[2022-09-14 18:48] LABS: Enterobacterales DETECTED (NotDetected)
--- NOTE | 2022-09-15 01:08 | Billing Data ---
Date of Service September 15, 2022 Coding Level of Care Code 08070 INT INP/OBS CARE
[2022-09-15] MEDS: SODIUM CHLORIDE 0.9% 1000ML 1,000 ML IV SCH ×2 (05:59→19:52)
[2022-09-15 06:56] LABS: Basophils # (auto) 0.02 K/uL (0-0.2); Basophils % (auto) 0.2 %; Eosinophils # (auto) 0.01 K/uL (0-0.50); Eosinophils % (auto) 0.1 %; Hematocrit (blood only) 35.4 % (42.0-52.0); Hemoglobin 11.9 g/dl (14.0-18.0); Immature Granulocytes # (auto) 0.04 K/uL (0.01-0.20); Immature Granulocytes % (auto) 0.4 %; Lymphocytes # (auto) 1.89 K/uL (1.2-3.4); Lymphocytes % (auto) 17.1 %; Mean Corpuscular Hemoglobin 31.6 pg (25.0-34.0); Mean Corpuscular Hgb Conc 33.6 g/dL (32.0-36.0); Mean Corpuscular Volume 93.9 fL (80.0-100.0); Mean Platelet Volume 11.8 fL (9.4-12.4); Monocytes # (auto) 0.88 K/uL (0.11-0.59); Monocytes % (auto) 7.9 %; Neutrophils # (auto) 8.23 K/uL (1.40-6.50); Neutrophils % (auto) 74.3 %; Platelet Count 113 K/uL (130-400); RDW Coefficient of Variation 14.6 % (11.5-14.5); RDW Standard Deviation 49.9 fL (36.4-46.3); Red Blood Count 3.77 M/uL (4.70-6.10); White Blood Count 11.07 K/ul (4.8-10.8)
[2022-09-15] MEDS: ALBUT/IPRATROP 3MG/0.5MG NEB 3 ML VIAL NEB SCH ×4 (07:03→19:04)
[2022-09-15 07:18] LABS: Calcium 8.9 mg/dl (8.6-10.3); Creatinine Clr Calc Pharmacy 65.4 ml/min; Est GFR (African American) 91.4 ml/min; Est GFR (Non-African American) 78.9 ml/min; Magnesium 1.9 mg/dl (1.7-2.4); Potassium 3.7 mmol/L (3.5-5.1)
[2022-09-15] MEDS: levoFLOXacin/D5W 750 MG/150 ML BAG IV SCH (07:32)
[2022-09-15] MEDS: FAMOTIDINE 20 MG TAB PO SCH (07:33)
[2022-09-15] MEDS: LOSARTAN POTASSIUM 25 MG TAB PO SCH (07:33)
[2022-09-15] MEDS: amLODIPine BESYLATE 5 MG TAB PO SCH (07:33)
[2022-09-15] MEDS: PRAVASTATIN SOD 20 MG TAB PO SCH (07:34)
[2022-09-15] MEDS: ASPIRIN 81 MG ECTAB PO SCH (12:01)
[2022-09-15] MEDS: ENOXAPARIN INJ 40 MG/0.4 ML SYR SQ SCH (12:02)
[2022-09-15] MEDS: ADVANCED PROBIOTIC 1250 MG CAPSULE PO SCH (12:02)
[2022-09-15] MEDS: PANTOprazole 40 MG in SYRINGE 0 ML IV SCH (12:02)
--- NOTE | 2022-09-15 12:25 | Hospitalist Progress Note ---
Date of Service September 15, 2022 Assessment & Plan (1) Sepsis: Plan: 86 yo male with PMHx of lung CA s/p R right lobectomy, GERD, recurrent and complicated UTI, CAD s/p PCI, COPD, tobacco use, GERD, and HTN presents with illness. #Sepsis, present on admission -presented with 3 days fevers, fatigue, chills. On admission met 3/4 SIRS (fever, leukocytosis, tachycardia). -Elevated procalcitonin, urinalysis shows evidence of UTI -Urine cultures growing gram-negative's, full characterization pending -CT A/P without hydronephrosis or nephrolithiasis -received 2L NSS in ED -received rocephin in ED. Pt with h/o Enterobacter resistant to Rocephin in 2018. Will cont. with IV levoquin. - Urine cx/sensitivities pending. 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 (2) COPD (chronic obstructive pulmonary disease): Plan: #COPD exacerbation -initial sob and with wheezing on exam. O2 sat 92 on room air. He does not use inhalers at home but will give them a try while hospitalized. -duoneb jomar, methylprednisone 40mg IV; -Shortness of breath and wheeze now resolved -Patient and still actively smoke (3) CAD (coronary artery disease): Plan: #CAD s/p PCI -cont. asa, losartan (4) HTN (hypertension): Plan: #HTN -cont. amlodipine, losartan -Blood pressures under fair control (5) Hypokalemia: (6) Benign hypertension: (7) Hyperlipidemia: (8) GERD (gastroesophageal reflux disease): Plan DVT ppx: lovenox FEN/GI: HH Code Status: DNI only Dispo: med tele Admission and Anticipated Discharge Date Admission Date: September 14, 2022 Subjective Patient seen and examined, was ambulating in the hallway, said he feels a lot better, denies shortness of breath Review of Systems Review of Systems: All systems reviewed are negative, apart from the ones contained in the history. Physical Exam Physical Exam: The patient is awake, alert and oriented 3, well developed and well nourished, normocephalic and atraumatic, lying in bed and in no acute distress. HEENT--PERRL, EOMI, mucous membranes and oropharynx mildly dry Neck--supple. No JVD. No bruits. Thyroid normal, trachea midline, no adenopathy. Heart--normal S1 and S2. No murmurs, rubs or gallops. Lungs--clear bilaterally, no respiratory distress, no accessory muscle use. Abdomen--normal bowel sounds and soft. Mild epigastric and left sided abdominal pain Extremities--no cyanosis or clubbing. No edema. Dermatologic--normal skin turgor, normal color, no abnormal lymph nodes, no rash. Neurologic--cranial nerves II through XII grossly intact. Rheumatologic--normal range of motion. Psychiatric--normal affect. Results & Data Results & Data Vital Signs (Past 12 Hours) Vital Signs Temp Pulse Pulse Resp BP Pulse Ox O2 Del Method 09/15/22 11:53 98.6 F 53 L 19 142/71 H 91 Room Air 09/15/22 09:00 Room Air 09/15/22 08:06 98.2 F 56 L 19 124/68 94 Room Air 09/15/22 07:10 55 L 09/15/22 07:03 54 L 18 93 Room Air 09/15/22 04:33 98.1 F 53 L 18 143/62 H 94 Room Air PG Care Time/CCT Total # of Minutes Spent Total Time Spent with Patient: Total time spent is greater than 50% in coordination of care (as documented) at patient's floor/unit and/or counseling patient: Coding Level of Care Code 63520 SUB INP/OBS CARE 2/35MIN Diagnoses Sepsis A41.9 COPD (chronic obstructive pulmonary disease) J44.9 CAD (coronary artery disease) I25.10 HTN (hypertension) I10 Hypokalemia E87.6 Benign hypertension I10 Hyperlipidemia E78.5 GERD (gastroesophageal reflux disease) K21.9 Time Spent (min) 35
[2022-09-15 15:46] LABS: A calco-baum cmplx NotReported Not Detected (NotDetected); Bact fragilis Not Reported Not Detected (NotDetected); C auris Not Reported Not Detected (NotDetected); Calbicans Not Reported Not Detected (NotDetected); Candida glabrata Not Reported Not Detected (NotDetected); Candida krusei Not Reported Not Detected (NotDetected); Cneoformans/gatti Not Reported Not Detected (NotDetected); Cparapsilosis Not Reported Not Detected (NotDetected); Ctropicalis Not Reported Not Detected (NotDetected); E cloacae compx Not Reported Not Detected (NotDetected); Efaecalis Not Reported Not Detected (NotDetected); Efaecium Not Reported Not Detected (NotDetected); Enterobacterales Not Reported Not Detected (NotDetected); Escherichia coli Not Reported Not Detected (NotDetected); H influenzae Not Reported Not Detected (NotDetected); K aerogenes Not Reported Not Detected (NotDetected); Koxytoca Not Reported Not Detected (NotDetected); Kpneumoniae grp Not Reported Not Detected (NotDetected); Lmonocyt Not Reported Not Detected (NotDetected); N meningitidis Not Reported Not Detected (NotDetected); P aeruginosa Not Reported Not Detected (NotDetected); Proteus spp Not Reported Not Detected (NotDetected); Salmonella spp Not Reported Not Detected (NotDetected); Smarcescens Not Reported Not Detected (NotDetected); Staph lugdunensis Not Reported Not Detected (NotDetected); Staph spp. Not Reported Not Detected (NotDetected); Staphaureus Not Reported Not Detected (NotDetected); Staphepi Not Reported Not Detected (NotDetected); Stenmaltophilia Not Reported Not Detected (NotDetected); Strep agal(GrpB) Not Reported Not Detected (NotDetected); Strep pneum Not Reported Not Detected (NotDetected); Strep pyog (GrpA) Not Reported Not Detected (NotDetected); Strep spp Not Reported Not Detected (NotDetected)
[2022-09-15] MEDS ORDERED: VANCOMYCIN HCL 1,750 MG in SODIUM CHLORIDE 0.9% 500 ML IV ONE (16:26)
[2022-09-15] MEDS ORDERED: VANCOMYCIN CONSULT ACTIVE PRN (16:26)
[2022-09-15] MEDS ORDERED: VANCOMYCIN HCL 2,000 MG in SODIUM CHLORIDE 0.9% 500 ML IV ONE (16:45)
--- NOTE | 2022-09-15 17:32 | Pharmacy Report ---
Pharmacy Vanc AUC Short Note - Date of Service September 15, 2022 - Assessment & Plan Assessment 86 year old M receiving vancomycin for treatment of bacteremia. Day #1 of antimicrobial therapy: 09/15/22 Plan Vancomycin * Load: Vancomycin 2,000 mg IV once on 09/15/22 at 1717. * Maintenance: Vancomycin 750 mg IV q12h starting 09/16/22 at 0200. * AUC/YADIRA is the preferred PK/PD target for vancomycin * AUC guided dosing is effective and associated with decreased risk of n ephrotoxicity compared to traditional trough targets * Trough level of 478 mcg/mL is predicted to achieve target AUC/YADIRA of 400-600 mg/L.hr and may be associated with a 12% risk of nephrotoxicity * Trough or random level ordered for: 09/17/22 at 1200. Pharmacy will continue to follow and will adjust dose/frequency as necessary. Thank you.
--- NOTE | 2022-09-15 21:48 | Electrocardiogram Report ---
Test Reason : Blood Pressure : / mmHG Vent. Rate : 074 BPM Atrial Rate : 074 BPM P-R Int : 216 ms QRS Dur : 086 ms QT Int : 370 ms P-R-T Axes : 024 007 110 degrees QTc Int : 410 ms Sinus rhythm with 1st degree A-V block Cannot rule out Anterior infarct (cited on or before 17-MAY-2022) Abnormal ECG When compared with ECG of 25-MAY-2022 11:10, Premature atrial complexes are no longer Present Confirmed by Clement To ([id number]) on 09/15/2022 9:47:38 PM Referred By: REFERRED SELF Confirmed By:Clement To
--- NOTE | 2022-09-15 21:50 | Electrocardiogram Report ---
Test Reason : Blood Pressure : / mmHG Vent. Rate : 068 BPM Atrial Rate : 068 BPM P-R Int : 234 ms QRS Dur : 100 ms QT Int : 434 ms P-R-T Axes : 035 025 155 degrees QTc Int : 461 ms Sinus rhythm with 1st degree A-V block with Premature ventricular complexes Cannot rule out Septal infarct (cited on or before 17-MAY-2022) Abnormal ECG When compared with ECG of 14-SEP-2022 01:27, Premature ventricular complexes are now Present T wave inversion more evident in Anterolateral leads Confirmed by Clement To ([id number]) on 09/15/2022 9:49:42 PM Referred By: REFERRED SELF Confirmed By:Clement To
--- NOTE | 2022-09-15 22:24 | Electrocardiogram Report ---
Test Reason : Blood Pressure : / mmHG Vent. Rate : 053 BPM Atrial Rate : 053 BPM P-R Int : 282 ms QRS Dur : 098 ms QT Int : 484 ms P-R-T Axes : 072 009 063 degrees QTc Int : 454 ms Sinus bradycardia with 1st degree A-V block Low voltage QRS Nonspecific ST and T wave abnormality Abnormal ECG When compared with ECG of 14-SEP-2022 04:16, PVC is no longer Present T wave inversion less evident in Anterolateral leads Confirmed by Clement To ([id number]) on 09/15/2022 10:23:56 PM Referred By: REFERRED SELF Confirmed By:Clement To
[2022-09-16] MEDS: ALBUT/IPRATROP 3MG/0.5MG NEB 3 ML VIAL NEB SCH ×5 (00:31→19:35)
[2022-09-16] MEDS: VANCOMYCIN HCL 750 MG in SODIUM CHLORIDE 0.9% 250 ML IV SCH ×2 (02:47→13:43)
[2022-09-16 07:12] LABS: Basophils # (auto) 0.04 K/uL (0-0.2); Basophils % (auto) 0.4 %; Eosinophils # (auto) 0.03 K/uL (0-0.50); Eosinophils % (auto) 0.3 %; Hematocrit (blood only) 37.4 % (42.0-52.0); Hemoglobin 12.5 g/dl (14.0-18.0); Immature Granulocytes # (auto) 0.02 K/uL (0.01-0.20); Immature Granulocytes % (auto) 0.2 %; Mean Corpuscular Hemoglobin 31.2 pg (25.0-34.0); Mean Corpuscular Hgb Conc 33.4 g/dL (32.0-36.0); Mean Corpuscular Volume 93.3 fL (80.0-100.0); Mean Platelet Volume 11.7 fL (9.4-12.4); Monocytes % (auto) 7.5 %; Neutrophils % (auto) 74.6 %; Platelet Count 132 K/uL (130-400); RDW Coefficient of Variation 14.5 % (11.5-14.5); RDW Standard Deviation 49.5 fL (36.4-46.3); Red Blood Count 4.01 M/uL (4.70-6.10); White Blood Count 9.39 K/ul (4.8-10.8)
[2022-09-16] MEDS: SODIUM CHLORIDE 0.9% 1000ML 1,000 ML IV SCH ×2 (07:41→23:08)
[2022-09-16] MEDS: levoFLOXacin/D5W 750 MG/150 ML BAG IV SCH (07:42)
[2022-09-16 07:43] LABS: BUN Creatinine Ratio 15.6 (10-20); Calcium 9.5 mg/dl (8.6-10.3); Creatinine Clr Calc Pharmacy 59.8 ml/min; Est GFR (African American) 83.8 ml/min; Est GFR (Non-African American) 72.3 ml/min
[2022-09-16] MEDS ORDERED: cefTRIAXone SODIUM 2,000 MG in DEXTROSE 5% 50 ML IV STA (08:23)
[2022-09-16] MEDS: ACETAMINOPHEN 325 MG TAB PO PRN (08:44)
[2022-09-16] MEDS: ASPIRIN 81 MG ECTAB PO SCH (08:45)
[2022-09-16] MEDS: ENOXAPARIN INJ 40 MG/0.4 ML SYR SQ SCH (08:45)
[2022-09-16] MEDS: PRAVASTATIN SOD 20 MG TAB PO SCH (08:45)
[2022-09-16] MEDS: LOSARTAN POTASSIUM 25 MG TAB PO SCH (08:45)
[2022-09-16] MEDS: PANTOprazole 40 MG TAB PO SCH (08:45)
[2022-09-16] MEDS: FAMOTIDINE 20 MG TAB PO SCH (08:46)
[2022-09-16] MEDS: ADVANCED PROBIOTIC 1250 MG CAPSULE PO SCH (08:46)
[2022-09-16] MEDS: amLODIPine BESYLATE 5 MG TAB PO SCH (08:46)
--- NOTE | 2022-09-16 14:35 | Hospitalist Progress Note ---
Date of Service September 16, 2022 Assessment & Plan (1) Sepsis: Plan: 86 yo male with PMHx of lung CA s/p R right lobectomy, GERD, recurrent and complicated UTI, CAD s/p PCI, COPD, tobacco use, GERD, and HTN presents with illness. #Sepsis, present on admission -presented with 3 days fevers, fatigue, chills. On admission met 3/4 SIRS (fever, leukocytosis, tachycardia). -Elevated procalcitonin, urinalysis shows evidence of UTI -Urine culture 8/3 growing E. coli resistant to Levaquin and alpha strep not Enterococcus -Blood culture 8/3 growing GPC's in clusters and E. coli resistant to Levaquin -CT A/P without hydronephrosis or nephrolithiasis -received 2L NSS in ED -received rocephin in ED. Pt with h/o Enterobacter resistant to Rocephin in 2018. Changed to Levaquin, however current urine culture and blood cultures showing E. 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 asa, losartan 25 mg (4) HTN (hypertension): Plan: #HTN -cont. amlodipine 5 mg daily, losartan 25 mg daily -Blood pressures are labile, will continue to monitor for now (5) Hypokalemia: Plan: Monitor and replete as necessary (6) Hyperlipidemia: Plan: Continue pravastatin 20 mg daily (7) GERD (gastroesophageal reflux disease): Plan: Continue pantoprazole 40 mg daily Plan DVT ppx: lovenox FEN/GI: HH Code Status: DNI only Dispo: med tele Admission and Anticipated Discharge Date Admission Date: September 14, 2022 Subjective Overall feeling well. Denies lightheadedness/dizziness, CP, SOB. Voiding well with increased urinary frequency. Reports a little constipation but not interested in treatment for it. Physical Exam Physical Exam: General: Well-appearing, NAD Cardiovascular: RRR Pulmonary: CTAB, no W/R/R Abdomen: Soft, NT/ND, no guarding Extremities: Moving all extremities Integumentary: No suspicious rash or lesion on exposed skin Neurologic: AAOx3, no focal deficits Psychiatric: Appropriate mood/affect Results & Data Results & Data Vital Signs (Past 12 Hours) Vital Signs Temp Pulse Pulse Resp BP Pulse Ox O2 Del Method 09/16/22 12:19 64 18 93 Room Air 09/16/22 11:05 36.4 C L 57 L 20 131/66 93 Room Air 09/16/22 06:00 74 09/16/22 07:40 Room Air 09/16/22 07:34 36.5 C 53 L 20 136/69 94 Room Air 09/16/22 07:15 56 L 18 92 Room Air 09/16/22 03:48 36.8 C 52 L 16 176/87 H 92 Room Air 09/16/22 03:19 60 18 92 Room Air Laboratory Results Notable for hemoglobin 12.5, normalized WBC, normal potassium Blood culture 8/3 growing GPC's in clusters and E. coli resistant to Levaquin Urine culture /3 growing E. coli resistant to Levaquin and alpha strep not Enterococcus PG Care Time/CCT Total # of Minutes Spent Total Time Spent with Patient: Total time spent is greater than 50% in coordination of care (as documented) at patient's floor/unit and/or counseling patient: Coding Level of Care Code 88873 SUB INP/OBS CARE 2/35MIN Diagnoses Sepsis A41.9 COPD (chronic obstructive pulmonary disease) J44.9 CAD (coronary artery disease) I25.10 HTN (hypertension) I10 Hypokalemia E87.6 Hyperlipidemia E78.5 GERD (gastroesophageal reflux disease) K21.9
[2022-09-17] MEDS: ALBUT/IPRATROP 3MG/0.5MG NEB 3 ML VIAL NEB SCH ×4 (00:12→19:43)
[2022-09-17] MEDS: VANCOMYCIN HCL 750 MG in SODIUM CHLORIDE 0.9% 250 ML IV SCH (02:28)
[2022-09-17 06:38] LABS: Basophils # (auto) 0.03 K/uL (0-0.2); Basophils % (auto) 0.4 %; Eosinophils # (auto) 0.19 K/uL (0-0.50); Eosinophils % (auto) 2.5 %; Hematocrit (blood only) 36.7 % (42.0-52.0); Hemoglobin 12.4 g/dl (14.0-18.0); Immature Granulocytes # (auto) 0.02 K/uL (0.01-0.20); Immature Granulocytes % (auto) 0.3 %; Lymphocytes % (auto) 23.3 %; Mean Corpuscular Hemoglobin 31.2 pg (25.0-34.0); Mean Corpuscular Hgb Conc 33.8 g/dL (32.0-36.0); Mean Corpuscular Volume 92.2 fL (80.0-100.0); Monocytes # (auto) 0.54 K/uL (0.11-0.59); Neutrophils # (auto) 5.14 K/uL (1.40-6.50); Neutrophils % (auto) 66.5 %; Platelet Count 136 K/uL (130-400); RDW Coefficient of Variation 14.4 % (11.5-14.5); RDW Standard Deviation 48.7 fL (36.4-46.3); Red Blood Count 3.98 M/uL (4.70-6.10); White Blood Count 7.72 K/ul (4.8-10.8)
[2022-09-17 07:01] LABS: BUN Creatinine Ratio 14.9 (10-20); Calcium 9.1 mg/dl (8.6-10.3); Creatinine Clr Calc Pharmacy 65.9 ml/min; Est GFR (African American) 91.9 ml/min; Est GFR (Non-African American) 79.3 ml/min
[2022-09-17] MEDS: cefTRIAXone SODIUM 2,000 MG in DEXTROSE 5% 50 ML IV SCH (07:31)
[2022-09-17] MEDS: SODIUM CHLORIDE 0.9% 1000ML 1,000 ML IV SCH (08:24)
[2022-09-17] MEDS: LOSARTAN POTASSIUM 25 MG TAB PO SCH (08:24)
[2022-09-17] MEDS: amLODIPine BESYLATE 5 MG TAB PO SCH (08:25)
[2022-09-17] MEDS: PRAVASTATIN SOD 20 MG TAB PO SCH (08:25)
[2022-09-17] MEDS: ENOXAPARIN INJ 40 MG/0.4 ML SYR SQ SCH (08:25)
[2022-09-17] MEDS: ADVANCED PROBIOTIC 1250 MG CAPSULE PO SCH (08:25)
[2022-09-17] MEDS: ASPIRIN 81 MG ECTAB PO SCH (08:25)
[2022-09-17] MEDS: FAMOTIDINE 20 MG TAB PO SCH (08:25)
[2022-09-17] MEDS: PANTOprazole 40 MG TAB PO SCH (08:25)
[2022-09-17] MEDS: ACETAMINOPHEN 325 MG TAB PO PRN (08:31)
[2022-09-17] MEDS ORDERED: POTASSIUM CHLORIDE CRTAB 20 MEQ TABCR PO STA (08:47)
--- NOTE | 2022-09-17 08:49 | Hospitalist Progress Note ---
Date of Service September 17, 2022 Assessment & Plan (1) Sepsis: Plan: 86 yo male with PMHx of lung CA s/p R right lobectomy, GERD, recurrent and complicated UTI, CAD s/p PCI, COPD, tobacco use, GERD, and HTN presents with illness. #Sepsis, present on admission -presented with 3 days fevers, fatigue, chills. On admission met 3/4 SIRS (fever, leukocytosis, tachycardia). -Urine culture / growing E. coli resistant to Levaquin and alpha strep not Enterococcus -Blood culture / growing GPC's in clusters and E. coli resistant to Levaquin --> called Lab and changed to GPC's, it appears to be same alpha strep but will send out for further identification to confirm -Blood culture 09/16 NGTD -CT A/P without hydronephrosis or nephrolithiasis -received 2L NSS in ED, discontinued mIVF -received rocephin in ED. Pt with h/o Enterobacter resistant to Rocephin in 2018 to initially changed to Levaquin, however current urine culture and blood cultures showing E. 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 asa, losartan 25 mg (4) HTN (hypertension): Plan: #HTN -cont. amlodipine 5 mg daily, losartan 25 mg daily -Blood pressures continue to be labile, will continue to monitor for now (5) Hypokalemia: Plan: Monitor and replete as necessary (6) Hyperlipidemia: Plan: Continue pravastatin 20 mg daily (7) GERD (gastroesophageal reflux disease): Plan: Continue pantoprazole 40 mg daily Plan DVT ppx: lovenox FEN/GI: HH Code Status: DNI only Dispo: med tele Admission and Anticipated Discharge Date Admission Date: September 14, 2022 Subjective Patient agitated this morning because he wants to go home and does not want to be in the hospital anymore. Denies any lightheadedness or dizziness, chest pain, shortness of breath, abdominal pain, urinary concerns. Physical Exam Physical Exam: General: Well-appearing, NAD Cardiovascular: RRR Pulmonary: CTAB, no W/R/R Abdomen: Soft, NT/ND, no guarding Extremities: Moving all extremities Integumentary: No suspicious rash or lesion on exposed skin Neurologic: AAOx3, no focal deficits Psychiatric: Appropriate mood/affect Results & Data Results & Data Vital Signs (Past 12 Hours) Vital Signs Temp Pulse Pulse Resp BP Pulse Ox O2 Del Method 09/17/22 07:24 36.4 C L 44 L 20 168/88 H 94 Room Air 09/17/22 07:30 52 L 18 96 Room Air 09/17/22 07:26 Room Air 09/17/22 06:01 53 L 09/17/22 03:38 Room Air 09/17/22 03:08 36.7 C 70 20 160/75 H 93 Room Air 09/17/22 01:06 57 L 09/16/22 23:16 37 C 44 L 16 172/82 H 96 Room Air 09/16/22 22:50 52 L 18 93 Room Air Laboratory Results Reviewed all labs today and notable for hemoglobin 12.4, potassium 3.0 that is lower than yesterday, normal creatinine, normal glucose Reviewed blood culture from [facility] and E. coli (E. coli resistant to ampicillin, Unasyn, cefazolin, Cipro floxacillin, levofloxacin Reviewed urine culture from [facility] strep not Enterococcus and E. coli with same sensitivity patterns as above PG Care Time/CCT Total # of Minutes Spent Total Time Spent with Patient: Total time spent is greater than 50% in coordination of care (as documented) at patient's floor/unit and/or counseling patient: Coding Level of Care Code 78947 SUB INP/OBS CARE 25MIN Diagnoses Sepsis A41.9 COPD (chronic obstructive pulmonary disease) J44.9 CAD (coronary artery disease) I25.10 HTN (hypertension) I10 Hypokalemia E87.6 Hyperlipidemia E78.5 GERD (gastroesophageal reflux disease) K21.9
[2022-09-17] MEDS ORDERED: VANCOMYCIN LEVEL ONE (12:00)
[2022-09-17] MEDS: VANCOMYCIN HCL 1,000 MG in SODIUM CHLORIDE 0.9% 250 ML IV SCH (13:38)
--- NOTE | 2022-09-17 15:10 | Pharmacy Report ---
Pharmacy PK ABX Note - Date of Service September 17, 2022 - Assessment and Plan Assessment 86 year old M receiving vancomcyin/ceftriaxone for treatment of bacteremia/uti. Pertinent microbiologic data includes: BC 09/14- E. coli + GPC, 09/16 BC negative at 24 hours, UC 09/14: E. coli + alpha strep. Random level today 11.1, which predicts a subtherapeutic AUC/YADIRA, will increase dose today to achieve target AUC/YADIRA Plan Vancomycin * Maintenance dose adjust to 1000 mg IV every 12 hours * Regimen is predicted to achieve target AUC/YADIRA of 400-600 mg/L.hr * Random level to be ordered in 1-2 days Pharmacy will continue to follow and will adjust dose/frequency as necessary. Thank you. Pharmacy has transitioned to AUC monitoring for vancomycin. AUC/YADIRA is the preferred PK/PD target and is associated with decreased risk of nephrotoxicity compared to traditional trough targets.
[2022-09-18] MEDS: VANCOMYCIN HCL 1,000 MG in SODIUM CHLORIDE 0.9% 250 ML IV SCH (00:55)
[2022-09-18] MEDS: ALBUT/IPRATROP 3MG/0.5MG NEB 3 ML VIAL NEB SCH ×3 (01:20→13:43)
[2022-09-18 07:49] LABS: Hematocrit (blood only) 38.7 % (42.0-52.0); Hemoglobin 13.3 g/dl (14.0-18.0); Mean Corpuscular Hemoglobin 30.6 pg (25.0-34.0); Mean Corpuscular Hgb Conc 34.4 g/dL (32.0-36.0); Mean Corpuscular Volume 89.2 fL (80.0-100.0); Mean Platelet Volume 11.5 fL (9.4-12.4); Platelet Count 164 K/uL (130-400); RDW Coefficient of Variation 13.9 % (11.5-14.5); RDW Standard Deviation 45.1 fL (36.4-46.3); Red Blood Count 4.34 M/uL (4.70-6.10); White Blood Count 7.05 K/ul (4.8-10.8)
[2022-09-18 08:16] LABS: BUN Creatinine Ratio 12.5 (10-20); Calcium 9.2 mg/dl (8.6-10.3); Creatinine Clr Calc Pharmacy 79.6 ml/min; Est GFR (African American) 99.3 ml/min; Est GFR (Non-African American) 85.7 ml/min
[2022-09-18] MEDS: PRAVASTATIN SOD 20 MG TAB PO SCH (08:55)
[2022-09-18] MEDS: cefTRIAXone SODIUM 2,000 MG in DEXTROSE 5% 50 ML IV SCH (08:55)
[2022-09-18] MEDS: LOSARTAN POTASSIUM 25 MG TAB PO SCH (08:55)
[2022-09-18] MEDS: FAMOTIDINE 20 MG TAB PO SCH (08:55)
[2022-09-18] MEDS: ASPIRIN 81 MG ECTAB PO SCH (08:55)
[2022-09-18] MEDS: amLODIPine BESYLATE 5 MG TAB PO SCH (08:55)
[2022-09-18] MEDS: ADVANCED PROBIOTIC 1250 MG CAPSULE PO SCH (08:56)
[2022-09-18] MEDS: PANTOprazole 40 MG TAB PO SCH (08:56)
[2022-09-18] MEDS: ENOXAPARIN INJ 40 MG/0.4 ML SYR SQ SCH (08:56)
--- NOTE | 2022-09-18 12:57 | Discharge Summary ---
Date of Service September 18, 2022 Admission HPI Per Admitting Provider 86 yo male with PMHx of lung CA s/p R right lobectomy, GERD, c.diff colitis, recurrent and complicated UTI, CAD s/p PCI, COPD, tobacco use, GERD, and HTN presents with illness. 3 days ago started developing fever, fatigue, bilateral flank pains, and chills. He did have some initial chest tightness and sob which have resolved. Also had increased urinary frequency. Denies headache, abd pain, N/V/D, dysuria, extremity weakness/numbness. Principal Diagnosis Sepsis, complicated UTI Discharge Exam General-alert and oriented x3, no fevers, no chills HEENT-head atraumatic and normocephalic, pupils equal and reactive to light, extraocular muscles intact Neck-no lymphadenopathy or thyromegaly, trachea midline Chest-clear to auscultation percussion. No rales wheezing or rhonchi Cardiac-regular rate and rhythm, normal S1 and S2 Abdomen-normal bowel sounds, nontender, no hepatosplenomegaly Extremities-no cyanosis, clubbing, or edema Neuro-cranial nerves II through XII intact, motor and sensory function within normal limits, strength symmetrical , no focal deficits Psych-normal affect, normal mood Discharge Data Allergies Allergy/AdvReac Type Severity Reaction Status Date / Time No Known Allergies Allergy Verified 09/14/22 01:17 Ordered Studies 09/14/22 00:55 CT abd pelvis IV con only Stat Hospital Course (1) Sepsis: Present on admission. Now resolved. Due to UTI and bacteremia (2) Complicated UTI (urinary tract infection): E. coli and alpha strep isolated. Treated while hospitalized with Rocephin and vancomycin. He is not interested in home IV antibiotic therapy. He will be discharged on oral Augmentin. (3) Bacteremia: Blood cultures from September 14 positive for E. coli and alpha strep. Blood cultures on September 16 are negative (4) COPD (chronic obstructive pulmonary disease): Stable. Continue current medical management (5) CAD (coronary artery disease): Stable. Continue current medical manage (6) HTN (hypertension): Stable. Continue current medical management (7) Hypokalemia: Corrected (8) Hyperlipidemia: Stable. Continue statin therapy (9) GERD (gastroesophageal reflux disease): Stable. Continue Protonix Plan Home today, September 18, on Augmentin for 10 days Total Time Total Time Spent Total Time Spent (In Minutes): 45-minute Discharge Plan Discharge Items Patient Disposition: Home - Self-Care Reason For Visit: UROSEPSIS Discharge Diagnosis: Sepsis, bacteremia, complicated UTI Activity: Resume your previous activity Non-emergency contact: Primary Care Provider Call non-emergency contact if: you have any medication questions and your symptoms worsen Follow-up/Referrals: Morales Concepcion, [Primary Care Provider] - Diet: Regular and Heart Healthy Addtl Attending Provider Instructions: Take Augmentin antibiotic for 10 more days. All other medications remain the same Pending Studies at Discharge: No Stand-Alone Forms: [employer] [address] [employer], Smoking Cessation Medications and DC Order Prescriptions: New amoxicillin-pot clavulanate 875-125 mg tablet 1 tab PO BID Qty: 20 0RF aspirin 81 mg Tablet,Delayed Release (Dr/Ec) 81 mg PO QAM Qty: 0 0RF Continued amlodipine 5 mg tablet 5 mg PO QAM Qty: 90 3RF losartan 25 mg tablet 25 mg PO DAILY Qty: 90 3RF Calcium 600 + D(3) 600 mg calcium- 200 unit Capsule 1 cap PO QAM bismuth subsalicylate [Pepto-Bismol] 262 mg/15 mL Suspension 524 mg PO DIRECTED PRN (Reason: Gi Upset) pravastatin 20 mg tablet 20 mg PO DAILY aspirin 325 mg Tablet 325 mg PO DAILY Qty: 30 0RF famotidine [Pepcid] 20 mg tablet 20 mg PO DAILY Qty: 30 0RF Discharge Orders: Discharge Order (Routine); Ordered 09/18/22 Ordered By: Jeevan Gaffney Admission Data Admit Date/Time: 09/14/22 06:48 Attending Provider: Jeevan Gaffney Admit Provider: Nikunj Kim Primary Care Provider: Morales Concepcion Coding Level of Care Code 88808 INP/OBS DISCH >30 MIN Diagnoses Sepsis A41.9 Complicated UTI (urinary tract infection) N39.0 Bacteremia R78.81 COPD (chronic obstructive pulmonary disease) J44.9 CAD (coronary artery disease) I25.10 HTN (hypertension) I10 Hypokalemia E87.6 Hyperlipidemia E78.5 GERD (gastroesophageal reflux disease) K21.9
== END 2022-09-18 15:11 | disposition home or self-care (01) | DRG 872 ==
LOC: ED 00:39 → EDINP 06:48 → SUATTDRO 06:48 → 2W 13:59